=== PATIENT | male | born 1930 | race Caucasian/White ===

== ENCOUNTER 2018-06-11 05:02 | Emergency (ER) | payer OTHER ==
[2018-06-11 05:13] VITALS: BP 120/67; PULSE 68; TEMP 98; BMI 26.4
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
== END 2018-06-11 06:11 | disposition home or self-care (01) ==
LOC: FER 05:02
DX: S40.011A Contusion of right shoulder, initial encounter (principal); V00.141A Fall from scooter (nonmotorized), initial encounter; Y93.I9 Activity, other involving external motion; Y92.89 Other specified places as the place of occurrence of the external cause; Z87.891 Personal history of nicotine dependence; I48.91 Unspecified atrial fibrillation; N40.0 Benign prostatic hyperplasia without lower urinary tract symptoms; I10 Essential (primary) hypertension; E78.00 Pure hypercholesterolemia, unspecified; E78.5 Hyperlipidemia, unspecified; I50.9 Heart failure, unspecified
CPT/HCPCS: 73030-TC-RT-FY; 99281-25

== ENCOUNTER 2018-07-20 00:39 | Emergency (ER) | payer OTHER ==
[2018-07-20 00:50] VITALS: TEMP 97.8; BMI 25.4
--- NOTE | 2018-07-20 03:09 | PDOC ---
History of Present Illness - General Chief Complaint: Injury Stated Complaint: FALL Time Seen by Provider: 07/20/18 01:49 History Source: Patient, Spouse ( present for interview) Exam Limitations: No Limitations - History of Present Illness Initial Comments: 88 y/o male presenting to [facility] ER via ambulance from home complaining of pain and possible injury to neck, lower back, and right hip. Pt is s/p fall from standing height in his bathroom at approx. 12pm yesterday (19 Jul 2018; 12 hours prior to arrival in ED). He states he lost his balance while attempting to correct the position of the toilet seat cover. This reportedly happens occasionally because of his lower extremity neuropathy. He denies hitting his head or losing consciousness. found the pt sitting up on the floor several minutes later. 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 He became concerned after the pain failed to resolve. Denies nausea/vomiting, syncope, headache, vision changes, or trouble swallowing. denies observing change in mentation. Pt is on Pradaxa for A-fib. PCP: Dr. Simon Medical Hx: - HTN - Atrial fibrillation - Hyperlipidemia - CHF - Peripheral neuropathy of unclear etiology - Gout Past History - Past Medical History Allergies/Adverse Reactions: Allergies Allergy/AdvReac Type Severity Reaction Status Date / Time colchicine AdvReac Intermediate vasculitis Verified 07/20/18 00:42 Home Medications: Ambulatory Orders Timolol Maleate [Istalol] 1 drop OD OU DAILY 05/03/12 Cetirizine HCl [Zyrtec] 10 mg PO DAILY tablet 03/07/17 traMADol HCL [Ultram -] 50 mg PO BID PRN #10 tablet MDD 2 tabs 07/20/18 Cardiac Disorders: Yes (A FIB) COPD: No Disorders: Yes (BPH) HTN: Yes Hypercholesterolemia: Yes - Surgical History Cardiac Surgery: Yes (STENTS) - Suicide/Smoking/Psychosocial Hx Smoking Status: No Smoking History: Never smoked Have you smoked in the past 12 months: No Number of Cigarettes Smoked Daily: 0 If you are a former smoker, when did you quit?: 50 Information on smoking cessation initiated: No 'Breaking Loose' booklet given: 06/11/18 Hx Alcohol Use: No Drug/Substance Use Hx: No Substance Use Type: Alcohol Hx Substance Use Treatment: No Review of Systems - Review of Systems Able to Perform ROS?: Yes Comments:: In addition to that documented in the HPI above, the additional ROS was obtained : Constitutional: Denies fevers or chills Eyes: Denies vision changes ENMT: Denies sore throat CV: Denies chest pain Resp: Denies SOB GI: Denies vomiting or diarrhea *Physical Exam - Vital Signs Last Vital Signs Temp Pulse Resp BP Pulse Ox 97.8 F 74 18 182/123 H 95 07/20/18 00:43 07/20/18 00:43 07/20/18 00:43 07/20/18 00:43 07/20/18 00:43 - Physical Exam Comments: Constitutional: Elderly male in no acute distress but obvious moderate discomfort. Found semi-fowlers in hospital bed. Alert and oriented x4. Answered all questions appropriately and completely. Speech was non-labored, non- pressured. Head: Normocephalic. No obvious external signs of trauma. No periorbital ecchymosis or Battles sign. Eyes: PERRL. EOMI. Sclerae white. Conjunctiva moist and not injected. Ears: External auditory canals and tympanic membranes clear. Hearing grossly intact. No hemotympanum. Nose: No nasal discharge. Throat: Oral cavity and pharynx normal. No inflammation, swelling, exudate, or lesions. Teeth in poor general condition with multiple carries. Neck: Supple, trachea is midline. Pt able to laterally rotate neck to left and right >45 degrees. No subjective C-spine tenderness or bony deformities. No step off. Cardiovascular: Irregularly irregular rhythm. No murmur, rubs, clicks, or gallops. Peripheral pulses: Radial pulses full. Respiratory: Breathing unlabored. Equal chest rise and fall. Clear to auscultation bilaterally. No stridor, no wheezing, no rhonchi. Gastrointestinal: abdomen is soft, non-tender, non-distended. No pulsatile masses. Neuro: Alert and oriented. Moving all four extremities spontaneously. R and L lower extremity: proximal and distal strength 5/5, airport clerk strength 5/5 - equal and symmetric. Plantar flexion and dorsiflexion 5/5. Skin/MSK: Warm and dry. Large ecchymotic lesion to right flank and small one to top of right iliac crest. No obvious bony deformity. Subjective tenderness to midline in upper back. Small abrasions to R and L knee, no bleeding. Psych: Affect: appropriate. Mood: normal. ED Treatment Course - RADIOLOGY Radiology Studies Ordered: Category Date Time Status ABDOMEN & PELVIS CT W/O CONTR [CT] Stat CT Scan 07/20/18 02:[address] W/O CONTR [CT] Stat CT Scan 07/20/18 02:[address] WITHOUT CONTRAST [CT] Stat CT Scan 07/20/18 02:[address] WITHOUT CONTRAST [CT] Stat CT Scan 07/20/18 02:30 Ordered Radiograph Interpretation: Head CT: Hussain aBdillo MD wrote on Jul 20, 2018 at 04:03 AM: Referring Physician: BISHOP HANNON Patient Name: PAIGE GUZMAN THIS IS A PRELIMINARY REPORT FROM [facility] DATE OF SERVICE: 2018-07-20 03:29:58 IMAGES: [id number] EXAM: CT HEAD CT WITHOUT CONTRAST HISTORY: Trauma COMPARISON: None. FINDINGS: Brain parenchyma is normal in attenuation with no mass or hematoma. There is no midline shift. There is focal encephalomalacia in the right occipital lobe Ventricles are normal. Sulci and extra-axial CSF spaces are normal. Intracranial vascular structures are normal in attenuation There is no calvarial fracture. Paranasal sinuses are normally aerated. 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 THIS DOCUMENT HAS BEEN ELECTRONICALLY SIGNED Hussain Badillo MD 07/20/2018 04:[address]: Hussain Badillo MD wrote on Jul 20, 2018 at 05:37 AM: Referring Physician: BISHOP HANNON Patient Name: PAIGE GUZMAN THIS IS A PRELIMINARY REPORT FROM [facility] DATE OF SERVICE: 2018-07-20 03:35:09 IMAGES: [id number] EXAM: CT CERVICAL SPINE CT W/O CONTR HISTORY: Trauma COMPARISON: None. FINDINGS: Vertebral bodies appear normal with no fracture Vertebral bodies are normally aligned Airway is intact Soft Tissues are normal Pulmonary apices are normal IMPRESSION: No cervical spine fracture One or more of the following dose reduction techniques were used: automated exposure control, adjustment of the mA and/or kV according to patient size, use of iterative reconstructive technique. THIS DOCUMENT HAS BEEN ELECTRONICALLY SIGNED Hussain Badillo MD 07/20/2018 05:[address] Hussain Badillo MD wrote on Jul 20, 2018 at 04:06 AM: Referring Physician: BISHOP HANNON Patient Name: PAIGE GUZMAN THIS IS A PRELIMINARY REPORT FROM [facility] DATE OF SERVICE: 2018-07-20 03:37:49 IMAGES: [id number] EXAM: CHEST CT WITHOUT CONTRAST HISTORY: Trauma COMPARISON: None. FINDINGS: Heart:: Heart is enlarged. There is coronary artery calcified patient. Left ventricle is enlarged Pericardium: not thickened Thoracic aorta and great vessels: Normal Superior vena cava and inferior vena cava: Normal Pulmonary arteries: Normal Thoracic esophagus: Normal Mediastinal lymph nodes: Normal Central airways: Normal Lungs: clear without focal consolidation Pleural spaces: There is small left pleural fluid collection Chest wall: Normal Superior abdomen: Normal IMPRESSION: Small left pleural fluid collection One or more of the following dose reduction techniques were used: automated exposure control, adjustment of the mA and/or kV according to patient size, use of iterative reconstructive technique. THIS DOCUMENT HAS BEEN ELECTRONICALLY SIGNED Hussain Badillo MD 07/20/2018 04:04 EST Abdomen and Pelvis CT Hussain Badillo MD wrote on Jul 20, 2018 at 04:12 AM: Referring Physician: BISHOP HANNON Patient Name: PAIGE GUZMAN THIS IS A PRELIMINARY REPORT FROM [facility] DATE OF SERVICE: 2018-07-20 03:41:49 IMAGES: [id number] EXAM: ABDOMEN \T\ PELVIS CT W/O CONTR HISTORY: Trauma COMPARISON: None. 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 Spleen: Normal Pancreas: Normal Gallbladder: Normal Stomach: Normal Small bowel: Normal Large bowel: Normal Appendix: Normal Adrenals:Normal Kidneys: Normal Vascular: Normal Lymphatic: Normal Peritoneal: No free peritoneal air or fluid Pelvis: Prostate: normal Rectum: Normal Bladder: Normal The infe the rior thorax: There is a small left pleural fluid collection General: Skeletal: Normal Abdominal wall: Normal Impression n: Small left pleural fluid collection is nonspecific and may be related to trauma although there is no rib fracture identified alternatively, finding may be related to cardiac dysfunction, or inflammatio One or more of the following dose reduction techniques were used: automated exposure control, adjustment of the mA and/or kV according to patient size, use of iterative reconstructive technique. THIS DOCUMENT HAS BEEN ELECTRONICALLY SIGNED Hussain Badillo MD 07/20/2018 04:09 EST Medical Decision Making - Medical Decision Making *Reviewed vital signs, nursing notes, and prior visit documentation (if available). 88 y/o male complaining of pain s/p likely mechanical fall. On Dabigatran ( Pradaxa). Afebrile. Vitals remarkable for hypertension without tachycardia. Ecchymosis on right flank concerning for rib fracture versus retroperitoneal injury. Ecchymosis over right iliac crest likely soft tissue injury versus fracture. Will obtain head and cervical spine CT given age and anticoagulated state to evaluate for intracranial hemorrhage. Will obtain abdomen and pelvic CT to evaluate for retroperitoneal, hip, and pelvic injury. Will obtain chest CT to evaluate for rib fractures as pt is already being scanned above and below injury. Pt states he does not take pain medication and declined analgesia. Discussed the importance of adequate pain control with suspected rib fractures given possibility of complications from shallow inspiration. Again pt declined analgesia. CT scans unrevealing for intracranial, c-spine, rib, pelvic, or retroperitoneal injury. Ecchymosis likely indicative for soft tissue injury only. Attending discussed imaging results with pt. Will prescribe tramadol for pain management. Will provided incentive spirometer. Ordered home antihypertensive medications as hypertension has persisted. On re-exam, hypertension has improved. Discussed imaging results with pt. Gave instruction on incentive spirometer use. Answered all questions. Provided return precautions. Pt expressed verbal understanding and agreement with plan to discharge home with outpatient follow up. *DC/Admit/Observation/Transfer Diagnosis at time of Disposition: Soft tissue injury of chest wall Qualifiers: Encounter type: initial encounter Qualified Code(s): S29.9XXA - Unspecified injury of thorax, initial encounter Soft tissue injury of right hip Qualifiers: Encounter type: initial encounter Qualified Code(s): S79.911A - Unspecified injury of right hip, initial encounter - Discharge Dispostion Disposition: HOME Condition at time of disposition: Stable Decision to Admit order: No - Prescriptions Prescriptions: traMADol HCL [Ultram -] 50 mg PO BID PRN #10 tablet MDD 2 tabs PRN Reason: Pain - Referrals Referrals: Chan Simon MD [Primary Care Provider] - - Patient Instructions Printed Discharge Instructions: How to Use an Incentive Spirometer, How to Prevent Falls, DI for Blunt Trauma Additional Instructions: The CT scans did not show any fractures or breaks. You likely have a bad soft tissue injury on your right side and right hip. You need to use the incentive spirometer provided today once an hour for the next week. This will help make sure you are fully inflating your lungs. Taking shallow breaths can cause pneumonia. I have sent an electronic prescription for Ultram to your pharmacy. Takes as directed on the package insert. Do not take more than the recommended dose. You should follow up with your primary care doctor within the next week. You will need to call to make an appointment. I have attached copies of your CT scan results to this packet. Take this with you so your doctor can review them. Go to the nearest emergency department if your condition worsens or you feel like you need additional emergency evaluation. Print Language: [place] - Post Discharge Activity
[2018-07-20] MEDS ORDERED: CARVEDILOL 3.125 MG TABLET (FP) PO ONE (04:51)
[2018-07-20] MEDS ORDERED: amLODIPine BESYLATE 5 MG TABLET (FP) PO ONE (04:51)
--- NOTE | 2018-07-20 04:57 | PDOC ---
Attending Attestation - Resident Resident Name: Ricky Hoang - ED Attending Attestation I have performed the following: I have examined & evaluated the patient, The case was reviewed & discussed with the resident, I agree w/resident's findings & plan - HPI HPI: 07/20/18 04:53 58-year-old male on pradaxa for atrial fibrillation, neuropathy with unstable gait at baseline requiring cane presents status post fall around 12 noon in the setting of walking without his cane. The patient lost his balance as is typical with his neuropathy, fell to the ground striking his head and thorax. No LOC, no subsequent headache/vision change/speech change/neck pain/nausea/vomiting/ focal deficit, presents with brought in by EMS with expanding right back hematoma. No hematuria, no abdominal pain. Slight bruising to his hand but no motor or sensory deficit, ambulating comfortably otherwise without fifth pain or knee pain. - Physicial Exam PE: 07/20/18 04:54 Blood pressure elevated as noted General: Patient is alert and in no acute distress. Speech is clear and appropriate. Head: Atraumatic and nontender. HEENT: Pupils are equal round and reactive to light, extraocular movements are intact. No facial deformity/tenderness, no septal hematoma. The oropharynx is clear. Neck: The trachea is midline, there is no stridor. There is no midline cervical spine tenderness, full range of motion of neck. Chest: Right lower posterior thoracic skin hematoma with ecchymosis, no crepitus , slight tenderness to the underlying ribs without palpable step-off or deformity. No flail segment, no lacerations or abrasions. Heart: S1-S2, regular rate and rhythm. No murmurs. Lungs: Clear to auscultation bilaterally. Symmetric chest rise. Abdomen: Soft/nontender/nondistended. Bowel sounds are normal. There is no abdominal or flank ecchymosis. Back/Pelvis: There is no midline spine tenderness or step-off. Pelvis is stable and nontender. Extremities: There is no extremity deformity or joint swelling. No focal bony tenderness throughout. 2+ distal pulses throughout. Neuro: Alert and oriented x3. Cranial nerves II through XII are intact. 5 out of 5 motor strength x4 extremities. [id number] is intact. No pronator drift. Gait is stable. Skin: Slight bruising over the right third fourth and fifth MCPs, No abrasions/ lacerations. Psych: Affect is appropriate. - Medical Decision Making 07/20/18 04:56 88-year-old male on blood thinners with accidental fall and right lower posterior rib injury and head injury. Hemodynamically stable with elevated blood pressures, neurologically intact. No red flags, but rule out internal injury. CT of the head, C-spine, chest, abdomen, pelvis showed likely chronic left small pleural effusion, otherwise no acute injury. There is no rib fracture or pneumothorax, there is no retroperitoneal bleed, there is no evidence of pelvis or hip fracture. Feels well, at bedside, slightly limited mobility secondary to pain but agreeable to pain medications at home Understands strict return criteria, importance of incentive spirometer, will follow-up with PCP.
[2018-07-20] MEDS ORDERED: amLODIPine BESYLATE 5 MG TABLET (FP) ONE (05:05)
[2018-07-20] MEDS ORDERED: CARVEDILOL 3.125 MG TABLET (FP) ONE (05:06)
[2018-07-20 05:19] VITALS: PULSE 82
[2018-07-20 06:01] VITALS: BP 145/93
--- NOTE | 2018-07-20 11:28 | PDOC ---
Patient Follow-up (Call Back) - Post ED Follow - Up Condition at time of discharge: Stable Disposition at time of original discharge: HOME Reason for Call Back: Radiology (Pt w/ + rt rib fx. Spoke to who states has incentive spirometer and will encourage usage. also understands if he continues to have worsening pain and is unable to get appt with his PCP Dr. Simon to return to the ED. Otherwise he can keep his appointment on August 15.)
== END 2018-07-20 06:39 | disposition home or self-care (01) ==
LOC: JER 00:39
DX: S79.911A Unspecified injury of right hip, initial encounter (principal); S29.9XXA Unspecified injury of thorax, initial encounter; W18.39XA Other fall on same level, initial encounter; Y93.89 Activity, other specified; Y92.002 Bathroom of unspecified non-institutional (private) residence as the place of occurrence of the external cause
CPT/HCPCS: 70450-TC; 71250-TC; 72125-TC; 74176-TC; 99282-25

== ENCOUNTER 2018-11-11 14:58 | Inpatient (IN) | payer OTHER ==
--- NOTE | 2018-11-11 15:17 | PDOC ---
History of Present Illness - General Stated Complaint: CONSTIPATION Time Seen by Provider: 11/11/18 15:15 - History of Present Illness Initial Comments: 88yo M with PMH of CHF, HTN/HLD, peripheral neuropathy, AFib on pradaxa, BPH, 2 stents, gout presenting with shortness of breath. Patient states he has had this problem for the past three or four days, but it worsened today and so he decided to come to the ED. This has never happened before. Patient recently returned from a vacation in [facility] 10/23-11/06. He reports that during that trip he felt weak. He visited the ED in for abdominal discomfort and was diagnosed with fecal impaction. Patient has taken three days of miralax and had a small stool yesterday. In the past week or so, he has had a poor appetite, and has only eaten half an Ensure and some water for his medicines. His at the bedside reports that he has shortness of breath when he lays flat, though the patient is equivocal. He has never been on a diuretic before. Denies fever, chills, chest pain, or abdominal pain. PCP: Dr. Simon Cardio: Dr. Kyaw Rivera Past History - Past Medical History Allergies/Adverse Reactions: Allergies Allergy/AdvReac Type Severity Reaction Status Date / Time colchicine AdvReac Intermediate vasculitis Verified 11/11/18 15:27 Home Medications: Ambulatory Orders Allopurinol [Zyloprim -] 100 mg PO BID 11/11/18 Amlodipine Besylate 5 mg PO HS 11/11/18 Aspirin [ASA -] 81 mg PO DAILY 11/11/18 Atorvastatin Ca [Lipitor] 40 mg PO HS 11/11/18 Carvedilol 3.125 mg PO BID 11/11/18 Cetirizine HCl [Zyrtec -] 10 mg PO HS 11/11/18 Cholecalciferol (Vitamin D3) [Vitamin D] 2,000 unit PO DAILY 11/11/18 Clobetasol Propionate/Emoll [Clobetasol Emollient 0.05% Crm] 15 gm TP PRN PRN Dabigatran Etexilate Mesylate [Pradaxa -] 150 mg PO BID 11/11/18 Dutasteride [Avodart] 0.5 mg PO DAILY 11/11/18 Famotidine 20 mg PO HS 11/11/18 Fluticasone Prop 0.05% Nasal [Flonase -] 1 - 2 spray NS DAILY 11/11/18 Timolol Maleate [Istalol] 2.5 ml OP DAILY 11/11/18 Cardiac Disorders: Yes (A FIB) COPD: No Disorders: Yes (BPH) HTN: Yes Hypercholesterolemia: Yes - Surgical History Cardiac Surgery: Yes (STENTS) - Suicide/Smoking/Psychosocial Hx Smoking Status: No Smoking History: Never smoked Have you smoked in the past 12 months: No Number of Cigarettes Smoked Daily: 0 If you are a former smoker, when did you quit?: 50 'Breaking Loose' booklet given: 06/11/18 Hx Alcohol Use: No Drug/Substance Use Hx: No Substance Use Type: Alcohol Hx Substance Use Treatment: No Review of Systems - Review of Systems Comments:: Constitutional: no fever, no chills HEENT: no throat pain, no dysphagia Cardiovascular: no chest pain, no palpitations Respiratory: no cough, +shortness of breath Gastrointestinal: no vomiting, +constipation Genitourinary: no dysuria, no frequency Musculoskeletal: no myalgia, no arthralgia Skin: no rash, no itching Neurologic: no headache, no dizziness *Physical Exam - Physical Exam Comments: General: Awake, alert, and fully oriented, in no acute distress Head: No signs of trauma Eyes: EOMI, sclera anicteric ENT: Moist mucus membranes Neck: Normal ROM, supple Lungs: Crackles appreciated on the left Cardio: Irregular rate, S1 and S2 present Abdomen: Soft, nontender. No guarding, no rebound, no masses Extremities: Normal range of motion, Distal pulses present, No BLE edema SKIN: Warm, Dry, normal turgor Neurologic: Cranial nerves II through XII grossly intact. Normal speech Nurse notes that upon taking rectal temp, patient had copious stool in the vault ED Treatment Course - LABORATORY CBC & Chemistry Diagram: 11/11/18 16:38 11/11/18 16:38 Medical Decision Making - Medical Decision Making 88yo M with PMH of CHF, HTN/HLD, peripheral neuropathy, AFib on pradaxa, BPH, 2 stents, gout presenting with shortness of breath. DDX including but not limited to CHF exacerbation, PE, COPD, Asthma, PNA, ACS VSS significant for fever, tachycardia, and hypoxia (while taking history, sats would go into the 80s) Septic workup [address] [place] [address] for fever PE considered given tachycardia, hypoxia, SOB, and recent travel-- however, will check for other reasons for SOB given elevated Cr at baseline EKG: rate 63, QTc 460, Afib, incomplete RBBB CXR: "Dense retrocardiac area. Old right rib fracture. No anemia or leukocytosis BNP noted to be >30K Cr=2.2 which is at patient's baseline Lactate normal Patient not yet able to provide urine sample 40 Catherine ordered Plan to admit for CHF exacerbation 11/11/18 19:[address] Martha Umanzor who accepted patient for admission under Dr. Fountain. 11/11/18 19:21 *DC/Admit/Observation/Transfer Diagnosis at time of Disposition: Acute exacerbation of congestive heart failure - Discharge Dispostion Condition at time of disposition: Guarded Decision to Admit order: Yes - Referrals - Patient Instructions - Post Discharge Activity
[2018-11-11] MEDS ORDERED: ACETAMINOPHEN 1000 MG/100 ML VIAL (NON FORMULARY) IVPB ONE (16:18)
--- NOTE | 2018-11-11 16:31 | PDOC ---
Attending Attestation - HPI HPI: 11/11/18 16:41 The patient is an 88 year old male, with a significant PMH of HTN, Afib (on pradaxa), HLD, CHF, Peripheral neuropathy of unclear etiology, and gout, who presents to the emergency room for SOB for several days. The patient states he was on vacation in [place] when he began to feel unwell and was seen by a provider there and was treated for constipation. The Patient states for the last week since returning home he has had SOB and a poor appetite, SOB was bad enough today to bring him to the ED. The patient denies chest pain, headache and dizziness. Denies fever, chills, nausea, vomit, diarrhea and constipation. Denies dysuria, frequency, urgency and hematuria. Allergies: colchicine Social history: Former smoker PCP: Dr. Simon <Lyndsey Hernandez - Last Filed: 11/11/18 16:41> - Resident Resident Name: Magda Darnell - ED Attending Attestation I have performed the following: I have examined & evaluated the patient, The case was reviewed & discussed with the resident, I agree w/resident's findings & plan, Exceptions are as noted - Physicial Exam PE: GENERAL: Awake, alert, and fully oriented, in no acute distress HEAD: No signs of trauma EYES: PERRLA, EOMI, sclera anicteric, conjunctiva clear ENT: Auricles normal inspection, hearing grossly normal, nares patent, oropharynx clear without exudates. Moist mucosa NECK: Normal ROM, supple, no lymphadenopathy, JVD, or masses LUNGS: Dec air entry B/L. Scattered rhonchi. HEART: Regular rate and rhythm, normal S1 and S2, no murmurs, rubs or gallops ABDOMEN: Soft, nontender, normoactive bowel sounds. No guarding, no rebound. No masses EXTREMITIES: Normal range of motion, no edema. No clubbing or cyanosis. No cords, erythema, or tenderness NEUROLOGICAL: Cranial nerves II through XII grossly intact. Normal speech, normal gait. Motor and sensation intact SKIN: Warm, Dry, normal turgor. +Stasis changes to B/L lower shins. - Medical Decision Making Pt with SOB. Noted to have fever, SOB, rhonchi on exam. DDx includes CHF, pna, flu. <Magda Bianchi Last Filed: 11/11/18 17:57> Attestations - Attestations 11/11/18 16:41 Documentation prepared by Lyndsey Hernandez, acting as esthetician and manager medical spa for Magda Bianchi MD. <Lyndsey Hernandez - Last Filed: 11/11/18 16:41>
[2018-11-11] MEDS ORDERED: ACETAMINOPHEN INJECTION 100 ML IVPB ONE (16:35)
[2018-11-11 16:53] LABS: BASO % 0.9 % (0-2.0); EOS % 0.2 % (0-4.5); HEMATOCRIT 35.5 % (35.4-49); HEMOGLOBIN 12.3 GM/dL (11.7-16.9); LYMPH % 10.1 % (8-40); MCH 32.8 pg (25.7-33.7); MCHC 34.8 g/dl (32.0-35.9); MEAN CELL VOLUME 94.3 fl (80-96); MEAN PLT VOLUME 8.1 fl (7.5-11.1); MONO % 6.7 % (3.8-10.2); NEUT % 82.1 % (42.8-82.8); PLATELET COUNT 170 K/MM3 (134-434); RBC 3.76 M/mm3 (4.00-5.60); RDW 15.4 % (11.9-15.9); WHITE BLOOD COUNT 8.5 K/mm3 (4.0-10.0)
[2018-11-11 17:12] LABS: INR 1.73 (0.83-1.09); PROTHROMBIN TIME (PATIENT) 20.5 SEC (9.7-13.0)
[2018-11-11 17:15] LABS: ACTIVATED PTT 61.8 SECONDS (25.2-36.5)
[2018-11-11 17:49] LABS: ALBUMIN 2.7 g/dl (3.4-5.0); ALK PHOS 141 U/L (45-117); ANION GAP 10 MMOL/L (8-16); BILIRUBIN,TOTAL 1.5 mg/dL (0.2-1); BLOOD UREA NITROGEN 23 mg/dL (7-18); CALCIUM 8.7 mg/dL (8.5-10.1); CHLORIDE 106 mmol/L (98-107); CO2 25 mmol/L (21-32); CREATININE 2.2 mg/dL (0.55-1.3); GLUCOSE,RANDOM 192 mg/dL (74-106); POTASSIUM 4.4 mmol/L (3.5-5.1); SGOT/AST 13 U/L (15-37); SGPT/ALT 9 U/L (13-61); SODIUM 140 mmol/L (136-145); TOT PROT 6.3 g/dl (6.4-8.2)
[2018-11-11] MEDS ORDERED: FUROSEMIDE 40 MG/4 ML INJECTABLE VIAL IVPUSH ONE (18:58)
[2018-11-11] MEDS ORDERED: FUROSEMIDE 40 MG/4 ML INJECTABLE VIAL ONE ×3 (19:23→23:21)
[2018-11-11] MEDS ORDERED: PATIENT'S OWN MEDICATION (NON-FORMULARY) (Clobetasol Propionate/Emoll [Clobetasol Emollien TP PRN (19:54)
--- NOTE | 2018-11-11 20:01 | PN ---
Teaching Attending Note Name of Resident: Alcon Umanzor ATTENDING PHYSICIAN STATEMENT I saw and evaluated the patient. I reviewed the resident's note and discussed the case with the resident. I agree with the resident's findings and plan as documented. SUBJECTIVE: Patient is an 88 year old man with PMH of CHF, HTN/HLD, peripheral neuropathy, AFib on pradaxa, BPH, 2 stents, gout presenting with worsening shortness of breath for 4 days. This has never happened before. Patient recently returned from a vacation in [place] 10/23-11/06. He reports that during that trip he felt weak. He visited the ER in [facility] for abdominal discomfort and was diagnosed with fecal impaction. Patient has taken three days of miralax and had a small stool yesterday. In the past week or so, he has had a poor appetite, and only drank half an Ensure and some water for his medicines. His at the bedside reports that he has shortness of breath when he lays flat, though the patient is equivocal. He has never been on a diuretic before. He has limited mobility due to peripheral neuropathy and uses a motorized scooter. Denies fever , chills, chest pain, dysuria, frequency, headache, vomting or abdominal pain. OBJECTIVE: Alert Vital Signs Period Temp Pulse Resp BP Sys/Nichols Pulse Ox Last 24 Hr 100.0 F 98 16 160/83 100-100 HEENT: No Jaundice, eye redness or discharge, PERRLA, EOMI. Normocephalic, atraumatic. External ears are normal and hearing is grossly intact. No nasal discharge. Neck: Supple, nontender. No palpable adenopathy or thyromegaly. No JVD Chest: Good effort. Diminished breath sounds in both bases with few crackles. Clear to percussion. Heart: Irregularly irregular. No S3, rub or murmur Abdomen: Not distended, soft, nontender and no HSM. No rebound or guarding. Normal bowel sounds. Ext: Peripheral pulses intact. No leg edema. Skin: Warm and dry. No petechiae, rash or ecchymosis. Neuro: Alert. Oriented x3. CN 2-12 grossly intact. Sensation grossly intact in all four extremities and DTR are symmetric. Psych: Appropriate mood and affect. Good insight. Home Medications Medication Instructions Recorded Allopurinol [Zyloprim -] 100 mg PO BID 11/11/18 Amlodipine Besylate 5 mg PO HS 11/11/18 Aspirin [ASA -] 81 mg PO DAILY 11/11/18 Atorvastatin Ca [Lipitor] 40 mg PO HS 11/11/18 Carvedilol 3.125 mg PO BID 11/11/18 Cetirizine HCl [Zyrtec -] 10 mg PO HS 11/11/18 Cholecalciferol (Vitamin D3) 2,000 unit PO DAILY 11/11/18 [Vitamin D] Clobetasol Propionate/Emoll 15 gm TP PRN PRN 11/11/18 [Clobetasol Emollient 0.05% Crm] Dabigatran Etexilate Mesylate 150 mg PO BID 11/11/18 [Pradaxa -] Dutasteride [Avodart] 0.5 mg PO DAILY 11/11/18 Famotidine 20 mg PO HS 11/11/18 Fluticasone Prop 0.05% Nasal 1 - 2 spray NS DAILY 11/11/18 [Flonase -] Timolol Maleate [Istalol] 2.5 ml OP DAILY 11/11/18 Abnormal Lab Results 11/11/18 11/11/18 11/11/18 16:38 16:38 16:38 RBC 3.76 L PT with INR 20.50 H INR 1.73 H PTT (Actin FS) 61.8 H BUN 23 H Creatinine 2.2 H Random Glucose 192 H Total Bilirubin 1.5 H AST 13 L ALT 9 L Alkaline Phosphatase 141 H B-Natriuretic Peptide Total Protein 6.3 L Albumin 2.7 L 11/11/18 16:38 RBC PT with INR INR PTT (Actin FS) BUN Creatinine Random Glucose Total Bilirubin AST ALT Alkaline Phosphatase B-Natriuretic Peptide 25161.5 H Total Protein Albumin ASSESSMENT AND PLAN: 1. CHF exacerbation - Though his ECHO from 03/07/16 showed moderately reduced LV systolic function, mildly dilated LV and grade III diastolic dysfunction, he is not on any medications for treated for CHF. CXR is rotated with mild cardiomegaly and blunted left costophrenic angle with either effusion or infiltrate. Will get chest CT scan to rule out pneumonia since he had a low grade fever on admission. Will get stat urinalysis. Though elevated LFT may be due to congestion related to CHF, will get CT abdomen to investigate the hepatobiliary system. He got 40 mg IV lasix in the ER and didnot produce much urine. Will give 80 mg of lasix (in view of ?CKD) and monitor urine output. EKG shows afib with no significant ST-T wave changes; initial troponin is negative. Admit to telemetry , rule out ACS, get ECHO, fasting lipids and consult cardiology. If CKD is confirmed, then he may need to be switched from PRADAXA to ?Eliquis. Though he had just been on a long flight, pulmonary embolism is unlikely because he is now comfortable with no SOB at rest, is oxygenating well and is on Pradaxa. If he develops respiratory distress, we will get a VQ scan to rule out PE. 2. Hypoalbuminemia - Possibly due to combined effects of malnutrition and inflammation associated with comorbid chronic conditions. Will ensure adequate dietary protein intake and also consult womens health nurse practitioner. 3. CKD? - Has multiple risk factors. Get PTH, uric acid and phosphate levels. Consult nephrology and avoid nephrotoxic agents such as NSAIDS, aminoglycosides , contrast dyes and certain Alternative medicine products. 4. Hypertension - Restart outpatient antihypertensive drugs and revise regimen to ensure smooth [id number] good BP control. Nonpharmacologic measures to control hypertension like weight loss, salt restriction and exercise discussed. 5. DVT prophylaxis - On Pradaxa for Afib. 6. Advance directives - Full code
--- NOTE | 2018-11-11 21:03 | HP ---
CHIEF COMPLAINT:shortness of breath PCP:Dr. Simon Cardio: Dr. Kyaw Rivera HISTORY OF PRESENT ILLNESS: Patient is an 88 year old male with past medical history of HTN, HLD, Atrial fibrillation (on Pradaxa), CHF, Peripheral neuropathy (unable to ambulate), gout , nonessential tremor, presented to the ED due to shortness of breath for 1 day. Patient is a poor historian, most of the history from his , Naomi Champion. Patient and went to [place] 2 weeks ago, where patient was seen at the ED after reporting abdominal pain. He was diagnosed with fecal impaction and was given enema and miralax, and reportedly had a bowel movement afterwards. They came home about a week ago. This morning, patient reported he was having shortness of breath and his brought her to the ED. Patient reports he was starting to have "fecal impaction" again, but denies any fever, chills, headache , dizziness, nausea, vomiting, chest pain, palpitations, abdominal pain, diarrhea, urinary symptoms. ER course was notable for: (1)BUN/Cr 23/2.2, BNP 84810 (2)T-bili 1.5, Alk phos 141 (3)CXR: dense retrocardiac area Recent Travel:[place] PAST MEDICAL HISTORY: HTN HLD Atrial fibrillation (on Pradaxa) CHF Peripheral neuropathy (unable to ambulate) gout nonessential tremor PAST SURGICAL HISTORY: cardiac stent x2, 2016 Social History: Smoking:previous smoker, quit >30 years ago Alcohol:occasional Drugs: denies Family History: noncontributory Allergies colchicine Adverse Reaction (Intermediate, Verified 11/11/18 15:27) vasculitis HOME MEDICATIONS: Home Medications Medication Instructions Recorded Allopurinol [Zyloprim -] 100 mg PO BID 11/11/18 Amlodipine Besylate 5 mg PO HS 11/11/18 Aspirin [ASA -] 81 mg PO DAILY 11/11/18 Atorvastatin Ca [Lipitor] 40 mg PO HS 11/11/18 Carvedilol 3.125 mg PO BID 11/11/18 Cetirizine HCl [Zyrtec -] 10 mg PO HS 11/11/18 Cholecalciferol (Vitamin D3) 2,000 unit PO DAILY 11/11/18 [Vitamin D] Clobetasol Propionate/Emoll 15 gm TP PRN PRN 11/11/18 [Clobetasol Emollient 0.05% Crm] Dabigatran Etexilate Mesylate 150 mg PO BID 11/11/18 [Pradaxa -] Dutasteride [Avodart] 0.5 mg PO DAILY 11/11/18 Famotidine 20 mg PO HS 11/11/18 Fluticasone Prop 0.05% Nasal 1 - 2 spray NS DAILY 11/11/18 [Flonase -] Timolol Maleate [Istalol] 2.5 ml OP DAILY 11/11/18 REVIEW OF SYSTEMS CONSTITUTIONAL: Absent: fever, chills, diaphoresis, generalized weakness, malaise, loss of appetite, weight change HEENT: Absent: rhinorrhea, nasal congestion, throat pain, throat swelling, difficulty swallowing, mouth swelling, ear pain, eye pain, visual changes CARDIOVASCULAR: Absent: chest pain, syncope, palpitations, irregular heart rate, lightheadedness , peripheral edema RESPIRATORY: Absent: cough, shortness of breath, dyspnea with exertion, orthopnea, wheezing, stridor, hemoptysis GASTROINTESTINAL: Absent: abdominal pain, abdominal distension, nausea, vomiting, diarrhea, constipation, melena, hematochezia GENITOURINARY: Absent: dysuria, frequency, urgency, hesitancy, hematuria, flank pain, genital pain MUSCULOSKELETAL: Absent: myalgia, arthralgia, joint swelling, back pain, neck pain SKIN: Absent: rash, itching, pallor HEMATOLOGIC/IMMUNOLOGIC: Absent: easy bleeding, easy bruising, lymphadenopathy, frequent infections ENDOCRINE: Absent: unexplained weight gain, unexplained weight loss, heat intolerance, cold intolerance NEUROLOGIC: Absent: headache, focal weakness or paresthesias, dizziness, unsteady gait, seizure, mental status changes, bladder or bowel incontinence PSYCHIATRIC: Absent: anxiety, depression, suicidal or homicidal ideation, hallucinations. PHYSICAL EXAMINATION Vital Signs - 24 hr 11/11/18 15:26 Temperature 100.0 F H Pulse Rate 98 H Respiratory 16 Rate Blood Pressure 160/83 O2 Sat by Pulse 100 Oximetry (%) GENERAL: Awake, alert, and oriented, on 2L NC HEAD: Normal with no signs of trauma. EYES: PERRLA, EOMI, sclera anicteric, conjunctiva clear. EARS, NOSE, THROAT: Ears normal, oropharynx clear without exudates. Moist mucous membranes. NECK: Normal range of motion, supple without lymphadenopathy, JVD, or masses. LUNGS: +bibasilar crackles HEART: Irregularly irregular, normal S1 and S2 without murmur, rub or gallop. ABDOMEN: Soft, obese, nontender, not distended, normoactive bowel sounds. MUSCULOSKELETAL: Normal range of motion at all joints. No CVA tenderness. UPPER EXTREMITIES: 2+ pulses, warm, well-perfused. No cyanosis. No clubbing. No peripheral edema. LOWER EXTREMITIES: 2+ pulses, warm, well-perfused. No calf tenderness. No peripheral edema. NEUROLOGICAL: Cranial nerves II-XII intact. Motor strength 5/5 on b/l UE, 4/5 b /l LE. sensation intact. Normal speech. PSYCHIATRIC: Cooperative. Good eye contact. Appropriate mood and affect. SKIN: Warm, dry, normal turgor. Laboratory Results - last 24 hr 11/11/18 11/11/18 11/11/18 16:38 16:38 16:38 WBC 8.5 RBC 3.76 L Hgb 12.3 Hct 35.5 MCV 94.3 MCH 32.8 MCHC 34.8 RDW 15.4 Plt Count 170 MPV 8.1 Absolute Neuts (auto) 7.0 Neutrophils % 82.1 D Lymphocytes % 10.1 D Monocytes % 6.7 Eosinophils % 0.2 D Basophils % 0.9 Nucleated RBC % 0 PT with INR 20.50 H INR 1.73 H PTT (Actin FS) 61.8 H Sodium 140 Potassium 4.4 Chloride 106 Carbon Dioxide 25 Anion Gap 10 BUN 23 H Creatinine 2.2 H Creat Clearance w eGFR 28.52 Random Glucose 192 H Lactic Acid Calcium 8.7 Total Bilirubin 1.5 H AST 13 L ALT 9 L Alkaline Phosphatase 141 H B-Natriuretic Peptide Total Protein 6.3 L Albumin 2.7 L Influenza A (Rapid) Influenza B (Rapid) 11/11/18 11/11/18 11/11/18 16:38 16:42 16:42 WBC RBC Hgb Hct MCV MCH MCHC RDW Plt Count MPV Absolute Neuts (auto) Neutrophils % Lymphocytes % Monocytes % Eosinophils % Basophils % Nucleated RBC % PT with INR INR PTT (Actin FS) Sodium Potassium Chloride Carbon Dioxide Anion Gap BUN Creatinine Creat Clearance w eGFR Random Glucose Lactic Acid 1.6 Calcium Total Bilirubin AST ALT Alkaline Phosphatase B-Natriuretic Peptide 43933.5 H Total Protein Albumin Influenza A (Rapid) Negative Influenza B (Rapid) Negative ASSESSMENT/PLAN: Patient is an 88 year old male with past medical history of HTN, HLD, Atrial fibrillation (on Pradaxa), CHF, Peripheral neuropathy (unable to ambulate), gout , nonessential tremor, presented to the ED due to shortness of breath for 1 day. #SOB likely 2/2 CHF exacerbation -Echo (2016): LV dilated, LV systolic function reduced, Regional wall motion poorly seen. Diastolic dysfunction Grade II (restrictive). Moderate pulmonary HTN. -Patient or denies any history of CHF, patient not on any diuretics -Will repeat Echo -CXR: dense retrocardiac area -Chest CT - small bilateral pleural effusions with overlying atelectasis, no airspace consolidation -CT abdomen - calcified nodule at the dome of the liver compatible with granuloma. Extensive atherosclerotic vascular calcifications. No bowel distention. Few diverticula in the left colon with no evidence of acute diverticulitis. -IV Lasix 40mg then 80mg given -will continue to monitor UO -Daily weights #CKD -BUN/Cr 23/2.2 -Urinalysis pending -Consider switching pradaxa to eliquis -Avoid nephrotoxic agents such as aminoglycosides, contrast agents #Elevated T. bilirubin -CT abdomen and pelvis to evaluate hepatobiliary system #Atrial fibrillation: rate controlled -Continue Carvedilol -On Pradaxa 150mg BID -Consider switching pradaxa to Eliquis in light of CKD #Hypertension -Continue home Carvedilol 3.125mg BID -Amlodipine 5mg daily #Hyperlipidemia -Continue home Lipitor 40mg PO HS #FEN -Not on any standing fluids -Electrolytes wnl, routine bmp monitoring -Sodium controlled diet (white meat only) #Prophylaxis -On Pradaxa 150mg BID #Disposition -full code -admit to tele Visit type - Emergency Visit Emergency Visit: Yes ED Registration Date: 11/11/18 Care time: The patient presented to the Emergency Department on the above date and was hospitalized for further evaluation of their emergent condition. - New Patient This patient is new to me today: Yes Date on this admission: 11/13/18 - Critical Care Critical Care patient: No
[2018-11-11] MEDS ORDERED: POLYETHYLENE GLYCOL 3350 119 GM BTL PO ONE (21:51)
[2018-11-11] MEDS ORDERED: DOCUSATE SODIUM 100 MG CAPSULE (FP) PO PRN (21:52)
[2018-11-11] MEDS: FUROSEMIDE 40 MG/4 ML INJECTABLE VIAL IVPUSH ONE ×2 (22:37→22:50)
[2018-11-11] MEDS: DABIGATRAN ETEXILATE MESYLATE 150 MG CAPSULE PO SCH (22:37)
[2018-11-11] MEDS ORDERED: amLODIPine BESYLATE 5 MG TABLET (FP) ONE (22:39)
[2018-11-11] MEDS ORDERED: CARVEDILOL 3.125 MG TABLET (FP) ONE (22:39)
[2018-11-11] MEDS ORDERED: ATORVASTATIN CA 40 MG TABLET (FP) ONE (22:39)
[2018-11-11] MEDS: amLODIPine BESYLATE 5 MG TABLET (FP) PO SCH (22:40)
[2018-11-11] MEDS: ATORVASTATIN CA 40 MG TABLET (FP) PO SCH (22:44)
[2018-11-11] MEDS: ALLOPURINOL 100 MG TABLET (FP) PO SCH (22:44)
[2018-11-11] MEDS: CARVEDILOL 3.125 MG TABLET (FP) PO SCH (22:45)
[2018-11-11] MEDS ORDERED: FUROSEMIDE 100 MG/10 ML INJECTABLE VIAL IVPB ONE (23:28)
[2018-11-12 02:49] VITALS: BMI 22.5
[2018-11-12] MEDS ORDERED: HEPARIN NA (PORCINE) 5,000 UNITS/ML 1ML VIAL SQ SCH (06:00)
[2018-11-12 06:30] LABS: URINE APPEARANCE CLEAR; URINE BILIRUBIN NEGATIVE (<2.0 mg/dL); URINE COLOR LTYELLOW; URINE GLUCOSE (UA) 1+ (NEGATIVE); URINE KETONE NEGATIVE (NEGATIVE); URINE LEUK ESTERASE NEGATIVE (NEGATIVE); URINE NITRITE NEGATIVE (NEGATIVE); URINE PROTEIN 3+ (NEGATIVE); URINE UROBILINOGEN NEGATIVE mg/dL (0.2-1.0)
[2018-11-12 06:59] LABS: BASO % 0.6 % (0-2.0); EOS % 3.5 % (0-4.5); HEMATOCRIT 31.4 % (35.4-49); HEMOGLOBIN 10.9 GM/dL (11.7-16.9); LYMPH % 22.6 % (8-40); MCH 32.2 pg (25.7-33.7); MCHC 34.6 g/dl (32.0-35.9); MEAN CELL VOLUME 93.3 fl (80-96); MEAN PLT VOLUME 7.8 fl (7.5-11.1); MONO % 7.7 % (3.8-10.2); NEUT % 65.6 % (42.8-82.8); PLATELET COUNT 160 K/MM3 (134-434); RBC 3.37 M/mm3 (4.00-5.60); RDW 15.3 % (11.9-15.9); WHITE BLOOD COUNT 4.9 K/mm3 (4.0-10.0)
[2018-11-12 07:10] LABS: EPI CELLS RARE /HPF (FEW); URINE BACTERIA RARE /hpf (NONE SEEN); URINE HYALINE CAST 5 /lpf; URINE MUCUS RARE
[2018-11-12 07:19] LABS: INR 1.79 (0.83-1.09); PROTHROMBIN TIME (PATIENT) 21.2 SEC (9.7-13.0)
[2018-11-12 08:18] LABS: ALBUMIN 2.2 g/dl (3.4-5.0); ALK PHOS 112 U/L (45-117); ANION GAP 9 MMOL/L (8-16); BILIRUBIN,TOTAL 0.9 mg/dL (0.2-1); BLOOD UREA NITROGEN 30 mg/dL (7-18); CALCIUM 7.8 mg/dL (8.5-10.1); CHLORIDE 106 mmol/L (98-107); CO2 26 mmol/L (21-32); CREATININE 2.3 mg/dL (0.55-1.3); GLUCOSE,RANDOM 153 mg/dL (74-106); MAGNESIUM 2.4 mg/dL (1.8-2.4); PHOSPHOROUS 3.9 mg/dL (2.5-4.9); POTASSIUM 3.8 mmol/L (3.5-5.1); SGOT/AST 15 U/L (15-37); SGPT/ALT 10 U/L (13-61); SODIUM 141 mmol/L (136-145); TOT PROT 5.2 g/dl (6.4-8.2); URIC ACID 4.3 mg/dL (2.6-7.2)
[2018-11-12] MEDS: DABIGATRAN ETEXILATE MESYLATE 150 MG CAPSULE PO SCH ×2 (09:58→22:41)
[2018-11-12] MEDS: CHOLECALCIFEROL (VITAMIN D3) 1,000 UNIT TABLET (FP) PO SCH (09:59)
[2018-11-12] MEDS: ALLOPURINOL 100 MG TABLET (FP) PO SCH ×2 (09:59→22:41)
[2018-11-12] MEDS: ASPIRIN 81 MG CHEWABLE TABLETS PO SCH (09:59)
[2018-11-12] MEDS: CARVEDILOL 3.125 MG TABLET (FP) PO SCH ×2 (09:59→22:41)
[2018-11-12] MEDS: FUROSEMIDE 40 MG/4 ML INJECTABLE VIAL IVPUSH SCH ×2 (10:00→14:48)
[2018-11-12] MEDS ORDERED: FUROSEMIDE 40 MG/4 ML INJECTABLE VIAL IVPUSH SCH (10:00)
[2018-11-12] MEDS: TIMOLOL 0.5% OPHTHALMIC SOL 5 ML BOTTLE OU SCH (10:46)
--- NOTE | 2018-11-12 11:48 | ECHO ---
Name: LAST, PAIGE Exam:Adult Echocardiogram Study Date: 11/12/2018 07:30 AM Age: 88 yrs Reason For Study: CHF Height: 72 in Weight: 200 lb BSA: 2.1 m2 MMode/2D Measurements & Calculations IVSd: 1.6 cm Ao root diam: 3.3 cm LVIDd: 4.9 cm LA dimension: 5.0 cm LVIDs: 3.1 cm LVPWd: 1.2 cm EDV(Teich): 114.0 ml LVOT diam: 2.0 cm ESV(Teich): 36.6 ml LAV (MOD-bp): 139.0 ml Doppler Measurements & Calculations MV E max jun: 86.8 cm/sec Ao V2 max: 141.2 cm/sec MV dec time: 0.12 sec Ao max P.0 mmHg AI P1/2t: 475.3 msec ANUPAMA(V,D): 1.6 cm2 AI max jun: 154.7 cm/sec LV V1 max P.0 mmHg AI max P.6 mmHg LV V1 max: 70.3 cm/sec AI dec slope: 95.4 cm/sec2 MR max jun: 372.1 cm/sec TR max jun: 279.6 cm/sec MR max P.1 mmHg TR max P.3 mmHg PA V2 max: 95.0 cm/sec Med Peak E' Jun: 4.7 cm/sec PA max P.6 mmHg Med E/e': 18.6 Lat Peak E' Jun: 7.9 cm/sec Lat E/e': 10.9 PI Vmax: 210.4 cm/sec Procedure A complete two-dimensional transthoracic echocardiogram was performed (2D, M-mode, Doppler and color flow Doppler). Left Ventricle The left ventricle is normal in size. There is moderate concentric left ventricular hypertrophy. Left ventricular systolic function is low normal. Ejection Fraction = 50-55%. Right Ventricle The right ventricle is normal size. The right ventricular systolic function is normal. Atria The left atrium is severely dilated. LA volume index is 65 ml/m2. Right atrial size is normal. Mitral Valve There is mild mitral annular calcification. There is mild mitral regurgitation. Tricuspid Valve The tricuspid valve is normal in structure and function. There is mild tricuspid regurgitation. Pulmo nary artery systolic pressure is at least 35 mmHg assuming RA pressure of 3 mmHg. Aortic Valve There is mild aortic sclerosis.;. Trace to mild aortic regurgitation. Pulmonic Valve The pulmonic valve is not well visualized. Mild pulmonic valvular regurgitation. Great Vessels The aortic root is normal size. Pericardium/Pleura Trivial pericardial effusion not hemodynamically significant. There is a pleural effusion present. Interpretation Summary The left ventricle is normal in size. There is moderate concentric left ventricular hypertrophy. Left ventricular systolic function is low normal. Ejection Fraction = 50-55%. The right ventricular systolic function is normal. The left atrium is severely dilated. LA volume index is 65 ml/m2 Right atrial size is normal. There is mild mitral annular calcification. There is mild mitral regurgitation. There is mild tricuspid regurgitation. Pulmonary artery systolic pressure is at least 35 mmHg assuming RA pressure of 3 mmHg There is mild aortic sclerosis. Trace to mild aortic regurgitation. Mild pulmonic valvular regurgitation. Trivial pericardial effusion not hemodynamically significant There is a pleural effusion present. Previous study is not available for comparison Soto Hazel MD 11/12/2018 11:47 AM
--- NOTE | 2018-11-12 13:39 | PN ---
Physical Exam: SUBJECTIVE: Patient seen and examined at bedside- no acute events overnight- patient states he is feeling well; denies any CP/SOB/NV fevers or chills OBJECTIVE: Vital Signs Period Temp Pulse Resp BP Sys/Nichols Pulse Ox Last 24 Hr 97.8 F-100.0 F 42-98 16-20 130-160/56-83 93-100 GENERAL: The patient is awake, alert, and fully oriented, in no acute distress. EYES: PEERLA; EOMI; no scleral icterus NECK: no JVD; no lymphadenopathy. LUNGS: +crackles at the B/L bases HEART: Regular rate and rhythm, S1, S2 without murmur, rub or gallop. ABDOMEN: Soft, nontender, nondistended, normoactive bowel sounds, no guarding, no rebound, no hepatosplenomegaly, no masses. EXTREMITIES: 2+ pulses, warm, well-perfused, no edema. PSYCH: Normal mood, normal affect. SKIN: Warm, dry, normal turgor, no rashes or lesions noted Laboratory Results - last 24 hr 11/11/18 11/11/18 11/11/18 16:38 16:38 16:38 WBC 8.5 RBC 3.76 L Hgb 12.3 Hct 35.5 MCV 94.3 MCH 32.8 MCHC 34.8 RDW 15.4 Plt Count 170 MPV 8.1 Absolute Neuts (auto) 7.0 Neutrophils % 82.1 D Lymphocytes % 10.1 D Monocytes % 6.7 Eosinophils % 0.2 D Basophils % 0.9 Nucleated RBC % 0 PT with INR 20.50 H INR 1.73 H PTT (Actin FS) 61.8 H Sodium 140 Potassium 4.4 Chloride 106 Carbon Dioxide 25 Anion Gap 10 BUN 23 H Creatinine 2.2 H Creat Clearance w eGFR 28.52 Random Glucose 192 H Lactic Acid Uric Acid Calcium 8.7 Phosphorus Magnesium Total Bilirubin 1.5 H AST 13 L ALT 9 L Alkaline Phosphatase 141 H Creatine Kinase Troponin I B-Natriuretic Peptide Total Protein 6.3 L Albumin 2.7 L Triglycerides Cholesterol Total LDL Cholesterol HDL Cholesterol Urine Color Urine Appearance Urine pH Ur Specific Shannon Urine Protein Urine Glucose (UA) Urine Ketones Urine Blood Urine Nitrite Urine Bilirubin Urine Urobilinogen Ur Leukocyte Esterase Urine WBC (Auto) Urine RBC (Auto) Ur Epithelial Cells Urine Bacteria Hyaline Casts Urine Mucus Influenza A (Rapid) Influenza B (Rapid) 11/11/18 11/11/18 11/11/18 16:38 16:42 16:42 WBC RBC Hgb Hct MCV MCH MCHC RDW Plt Count MPV Absolute Neuts (auto) Neutrophils % Lymphocytes % Monocytes % Eosinophils % Basophils % Nucleated RBC % PT with INR INR PTT (Actin FS) Sodium Potassium Chloride Carbon Dioxide Anion Gap BUN Creatinine Creat Clearance w eGFR Random Glucose Lactic Acid 1.6 Uric Acid Calcium Phosphorus Magnesium Total Bilirubin AST ALT Alkaline Phosphatase Creatine Kinase Troponin I B-Natriuretic Peptide 03414.5 H Total Protein Albumin Triglycerides Cholesterol Total LDL Cholesterol HDL Cholesterol Urine Color Urine Appearance Urine pH Ur Specific Shannon Urine Protein Urine Glucose (UA) Urine Ketones Urine Blood Urine Nitrite Urine Bilirubin Urine Urobilinogen Ur Leukocyte Esterase Urine WBC (Auto) Urine RBC (Auto) Ur Epithelial Cells Urine Bacteria Hyaline Casts Urine Mucus Influenza A (Rapid) Negative Influenza B (Rapid) Negative 11/11/18 11/12/18 11/12/18 22:33 05:30 05:30 WBC 4.9 RBC 3.37 L Hgb 10.9 L Hct 31.4 L MCV 93.3 MCH 32.2 MCHC 34.6 RDW 15.3 Plt Count 160 MPV 7.8 Absolute Neuts (auto) 3.2 Neutrophils % 65.6 D Lymphocytes % 22.6 D Monocytes % 7.7 Eosinophils % 3.5 D Basophils % 0.6 Nucleated RBC % 0 PT with INR 21.20 H INR 1.79 H PTT (Actin FS) Sodium Potassium Chloride Carbon Dioxide Anion Gap BUN Creatinine Creat Clearance w eGFR Random Glucose Lactic Acid Uric Acid Calcium Phosphorus Magnesium Total Bilirubin AST ALT Alkaline Phosphatase Creatine Kinase 52 Troponin I 0.03 B-Natriuretic Peptide Total Protein Albumin Triglycerides 60 Cholesterol 86 Total LDL Cholesterol 27 HDL Cholesterol 57 Urine Color Urine Appearance Urine pH Ur Specific Shannon Urine Protein Urine Glucose (UA) Urine Ketones Urine Blood Urine Nitrite Urine Bilirubin Urine Urobilinogen Ur Leukocyte Esterase Urine WBC (Auto) Urine RBC (Auto) Ur Epithelial Cells Urine Bacteria Hyaline Casts Urine Mucus Influenza A (Rapid) Influenza B (Rapid) 11/12/18 11/12/18 05:30 05:46 WBC RBC Hgb Hct MCV MCH MCHC RDW Plt Count MPV Absolute Neuts (auto) Neutrophils % Lymphocytes % Monocytes % Eosinophils % Basophils % Nucleated RBC % PT with INR INR PTT (Actin FS) Sodium 141 Potassium 3.8 Chloride 106 Carbon Dioxide 26 Anion Gap 9 BUN 30 H Creatinine 2.3 H Creat Clearance w eGFR 27.10 Random Glucose 153 H Lactic Acid Uric Acid 4.3 Calcium 7.8 L Phosphorus 3.9 Magnesium 2.4 Total Bilirubin 0.9 AST 15 ALT 10 L Alkaline Phosphatase 112 Creatine Kinase Troponin I B-Natriuretic Peptide Total Protein 5.2 L Albumin 2.2 L Triglycerides Cholesterol Total LDL Cholesterol HDL Cholesterol Urine Color Ltyellow Urine Appearance Clear Urine pH 6.0 Ur Specific Shannon 1.009 L Urine Protein 3+ H Urine Glucose (UA) 1+ H Urine Ketones Negative Urine Blood Negative Urine Nitrite Negative Urine Bilirubin Negative Urine Urobilinogen Negative Ur Leukocyte Esterase Negative Urine WBC (Auto) 2 Urine RBC (Auto) 2 Ur Epithelial Cells Rare Urine Bacteria Rare Hyaline Casts 5 Urine Mucus Rare Influenza A (Rapid) Influenza B (Rapid) Active Medications Generic Name Dose Route Start Last Admin Trade Name Freq PRN Reason Stop Dose Admin Allopurinol 100 mg 11/11/18 22:00 11/12/18 09:59 Zyloprim - PO 100 mg BID HERMINIO Administration Amlodipine Besylate 5 mg 11/11/18 22:00 11/11/18 22:40 Norvasc - PO 5 mg HS HERMINIO Administration Aspirin 81 mg 11/12/18 10:00 11/12/18 09:59 Asa - PO 81 mg DAILY HERMINIO Administration Atorvastatin Calcium 40 mg 11/11/18 22:00 11/11/18 22:44 Lipitor - PO 40 mg HS HERMINIO Administration Carvedilol 3.125 mg 11/11/18 22:00 11/12/18 09:59 Coreg - PO 3.125 mg BID HERMINIO Administration Cholecalciferol 2,000 unit 11/12/18 10:00 11/12/18 09:59 Vitamin D3 - PO 2,000 unit DAILY HERMINIO Administration Dabigatran 150 mg 11/11/18 22:00 11/12/18 09:58 Pradaxa - PO 150 mg BID HERMINIO Administration Docusate Sodium 100 mg 11/11/18 21:52 Colace - PO Q8H PRN CONSTIPATION Furosemide 40 mg 11/12/18 14:00 11/12/18 10:00 Lasix Injection - IVPUSH 40 mg BID@0600,1400 HERMINIO Administration Timolol Maleate 1 drop 11/12/18 10:00 11/12/18 10:46 Timoptic 0.5% OU 1 drop DAILY HERMINIO Administration ASSESSMENT/PLAN: Patient is an 88 year old male with past medical history of HTN, HLD, Atrial fibrillation (on Pradaxa), CHF, Peripheral neuropathy (unable to ambulate), gout , nonessential tremor, presented to the ED due to shortness of breath for 1 day. #SOB likely 2/2 CHF exacerbation f/u cardio consult -repeat echo this AM -IV lasix 40 BID -will continue to monitor UO -Daily weights -f/u echo results #CKD -BUN/Cr 23/2.2 -Urinalysis pending -nephro consulted -Avoid nephrotoxic agents such as aminoglycosides, contrast agents #Elevated T. bilirubin -CT abdomen and pelvis shows no acute abdominal pathology; colonic diverticulosis without diverticulitis -colace 100 q8h for constipation #Atrial fibrillation: rate controlled -Continue Carvedilol -On Pradaxa 150mg BID -Consider switching pradaxa to Eliquis in light of CKD #Hypertension -Continue home Carvedilol 3.125mg BID -Amlodipine 5mg daily #Hyperlipidemia -Continue home Lipitor 40mg PO HS #FEN -Not on any standing fluids -Electrolytes wnl, routine bmp monitoring -Sodium controlled diet (white meat only) #Prophylaxis -On Pradaxa 150mg BID Problem List - Problems (1) Acute exacerbation of congestive heart failure Code(s): I50.9 - HEART FAILURE, UNSPECIFIED (2) A-fib Code(s): I48.91 - UNSPECIFIED ATRIAL FIBRILLATION Visit type - Emergency Visit Emergency Visit: Yes ED Registration Date: 11/11/18 Care time: The patient presented to the Emergency Department on the above date and was hospitalized for further evaluation of their emergent condition. - New Patient This patient is new to me today: Yes Date on this admission: 11/12/18 - Critical Care Critical Care patient: No
--- NOTE | 2018-11-12 14:56 | CON.CARD ---
Consult Consult Specialty:: Cardiology - History of Present Illness Chief Complaint: SOB History of Present Illness: This is an 88 year old male with a PMH of dCHF, PAFIB on Pradaxa, CAD with coronary stents x2 (2016), and peripheral neuropathy. He sees Dr. Kyaw Rivera for cardiology. He presents now with SOB starting on 11/11/18. He flew from [place] 11/06/18. He did not miss doses of Pradaxa. Echocardiogram 11/12/18:EF 50 - 55 % Lowe normal LV function Mild MR Mild TR Pasp 35 mmHg BNP ^^ - Past Medical History Cardio/Vascular: Yes: AFIB (chronic), CHF, HTN, Mitral Insufficiency (moderate per 03/07/16 echo) - Alcohol/Substance Use Hx Alcohol Use: No - Smoking History Smoking history: Former smoker Have you smoked in the past 12 months: No Aproximately how many cigarettes per day: 0 If you are a former smoker, when did you quit?: 15 - Social History Usual Living Arrangement: With Spouse Home Medications - Allergies Allergies/Adverse Reactions: Allergies Allergy/AdvReac Type Severity Reaction Status Date / Time colchicine AdvReac Intermediate vasculitis Verified 11/11/18 15:27 - Home Medications Home Medications: Ambulatory Orders Allopurinol [Zyloprim -] 100 mg PO BID 11/11/18 Amlodipine Besylate 5 mg PO HS 11/11/18 Aspirin [ASA -] 81 mg PO DAILY 11/11/18 Atorvastatin Ca [Lipitor] 40 mg PO HS 11/11/18 Carvedilol 3.125 mg PO BID 11/11/18 Cetirizine HCl [Zyrtec -] 10 mg PO HS 11/11/18 Cholecalciferol (Vitamin D3) [Vitamin D] 2,000 unit PO DAILY 11/11/18 Clobetasol Propionate/Emoll [Clobetasol Emollient 0.05% Crm] 15 gm TP PRN PRN Dabigatran Etexilate Mesylate [Pradaxa -] 150 mg PO BID 11/11/18 Dutasteride [Avodart] 0.5 mg PO DAILY 11/11/18 Famotidine 20 mg PO HS 11/11/18 Fluticasone Prop 0.05% Nasal [Flonase -] 1 - 2 spray NS DAILY 11/11/18 Timolol Maleate [Istalol] 2.5 ml OP DAILY 11/11/18 Vital Signs: Vital Signs Temperature 97.8 F 11/12/18 09:00 Pulse Rate 68 11/12/18 09:00 Respiratory Rate 20 11/12/18 09:00 Blood Pressure 144/60 11/12/18 09:00 O2 Sat by Pulse Oximetry (%) 95 11/12/18 09:00 Constitutional: Yes: No Distress Neck: Yes: WNL Respiratory: Yes: Rales (Bibasilar) Gastrointestinal: Yes: Soft Cardiovascular: Yes: Pulse Irregular (NL S1S2, MRHG) JVD: No Extremities: Yes: WNL Edema: No Neurological: Yes: Alert, Oriented - Other Data Labs, Other Data: CBC, BMP 11/12/18 05:30 11/12/18 05:30 INR, PTT INR 1.79 (0.83-1.09) H 11/12/18 05:30 Troponin, BNP 11/11/18 11/11/18 16:38 22:33 Troponin I 0.03 B-Natriuretic Peptide 82906.5 H Troponin, BNP 11/11/18 11/11/18 16:38 22:33 Troponin I 0.03 B-Natriuretic Peptide 08948.5 H Assessment/Plan 88 year old male with a PMH of dCHF, PAFIB on Pradaxa, CAD with coronary stents x2 (2016), and peripheral neuropathy. He sees Dr. Kyaw Rivera for cardiology. He presents now with SOB starting on 11/11/18. He flew from [place] 11/06/18. He did not miss doses of Pradaxa. Echocardiogram 11/12/18:EF 50 - 55 % Lowe normal LV function Mild MR Mild TR Pasp 35 mmHg BNP ^^ CHF Acute on chronic diastolic CHF Lasix 40 IVSS BID Following I's/O's/Wt's/lytes AFIB Rate control with COREG In terms of AC, I would personally favor Eliquis because it is the least affected by renal function and it is considered to be the best agent for the elderly. Therefore, I would recommend Eliquis at 2.5 mg PO q12 H, instead of Pradaxa. If he remains on Pradaxa, I would favor the lower dose of 75 mg PO BID given his GFR of 27. HTN BP adequate, continue amlodipine 5 mg PO daily.
--- NOTE | 2018-11-12 15:00 | CONSULT ---
Consult Consult Specialty:: Nephrology Reason for Consultation:: CKD - History of Present Illness Chief Complaint: shortness of breath History of Present Illness: Pt is an 88 year old male with pmhx of a-fib, bph, ckd htn, chf gout and hld who presents to the ER with worsening shortness of breath. He said he was on vacation in [place] last week and felt very ill and fatigued when he was there. He was also recently diagnosed with fecal impaction and was given a bowel regimen. He was found to have elevated creatinine and I was called to evaluate him. He denies history of CKD. However when reviewing old labs in the EMR he does have elevated creatinine and ckd. He denies nsaid use. He denies hematuria or dysuria. - History Source History Provided By: Patient, Medical Record - Past Medical History Cardio/Vascular: Yes: AFIB (chronic), CHF, HTN, Mitral Insufficiency (moderate per 03/07/16 echo) Renal/: Yes: Renal Inusuff - Alcohol/Substance Use Hx Alcohol Use: No - Smoking History Smoking history: Former smoker Have you smoked in the past 12 months: No Aproximately how many cigarettes per day: 0 If you are a former smoker, when did you quit?: 15 - Social History Usual Living Arrangement: With Spouse Home Medications - Allergies Allergies/Adverse Reactions: Allergies Allergy/AdvReac Type Severity Reaction Status Date / Time colchicine AdvReac Intermediate vasculitis Verified 11/11/18 15:27 - Home Medications Home Medications: Ambulatory Orders Allopurinol [Zyloprim -] 100 mg PO BID 11/11/18 Amlodipine Besylate 5 mg PO HS 11/11/18 Aspirin [ASA -] 81 mg PO DAILY 11/11/18 Atorvastatin Ca [Lipitor] 40 mg PO HS 11/11/18 Carvedilol 3.125 mg PO BID 11/11/18 Cetirizine HCl [Zyrtec -] 10 mg PO HS 11/11/18 Cholecalciferol (Vitamin D3) [Vitamin D] 2,000 unit PO DAILY 11/11/18 Clobetasol Propionate/Emoll [Clobetasol Emollient 0.05% Crm] 15 gm TP PRN PRN Dabigatran Etexilate Mesylate [Pradaxa -] 150 mg PO BID 11/11/18 Dutasteride [Avodart] 0.5 mg PO DAILY 11/11/18 Famotidine 20 mg PO HS 11/11/18 Fluticasone Prop 0.05% Nasal [Flonase -] 1 - 2 spray NS DAILY 11/11/18 Timolol Maleate [Istalol] 2.5 ml OP DAILY 11/11/18 Family Disease History - Family Disease History Family History: Denies Review of Systems - Review of Systems Constitutional: reports: Malaise, Weakness. 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 denies: Cough Gastrointestinal: reports: No Symptoms Genitourinary: reports: No Symptoms Musculoskeletal: reports: No Symptoms Integumentary: reports: No Symptoms Neurological: reports: No Symptoms Endocrine: reports: No Symptoms Hematology/Lymphatic: reports: No Symptoms Psychiatric: reports: No Symptoms Physical Exam Vital Signs: Vital Signs Temperature 97.8 F 11/12/18 09:00 Pulse Rate 68 11/12/18 09:00 Respiratory Rate 20 11/12/18 09:00 Blood Pressure 144/60 11/12/18 09:00 O2 Sat by Pulse Oximetry (%) 95 11/12/18 09:00 Constitutional: Yes: Calm Eyes: Yes: Other (legally blind) Neck: Yes: Supple Cardiovascular: Yes: S1, S2 Respiratory: Yes: Rhonchi Gastrointestinal: Yes: Soft Renal/: Yes: WNL Extremities: Yes: WNL Edema: No Neurological: Yes: Oriented Psychiatric: Yes: Oriented Labs: CBC, BMP 11/12/18 05:30 11/12/18 05:30 Laboratory Tests 09/20/17 01/09/18 05/24/18 13:33 18:00 16:00 WBC Hgb Creatinine 2.0 H D 1.8 H 2.2 H Urine Protein Urine Blood Influenza A (Rapid) Influenza B (Rapid) 07/27/18 11/11/18 11/11/18 10:21 16:38 16:42 WBC 8.5 Hgb 12.3 Creatinine 2.1 H Urine Protein Urine Blood Influenza A (Rapid) Negative Influenza B (Rapid) Negative 11/12/18 11/12/18 11/12/18 05:30 05:30 05:46 WBC 4.9 Hgb 10.9 L Creatinine 2.3 H Urine Protein 3+ H Urine Blood Negative Influenza A (Rapid) Influenza B (Rapid) Imaging - Results Chest X-ray: Report Reviewed Assessment/Plan Current Medications Generic Name Dose Route Start Last Admin Trade Name Freq PRN Reason Stop Dose Admin Allopurinol 100 mg 11/11/18 22:00 11/12/18 09:59 Zyloprim - PO 100 mg BID HERMINIO Administration Amlodipine Besylate 5 mg 11/11/18 22:00 11/11/18 22:40 Norvasc - PO 5 mg HS HERMINIO Administration Aspirin 81 mg 11/12/18 10:00 11/12/18 09:59 Asa - PO 81 mg DAILY HERMINIO Administration Atorvastatin Calcium 40 mg 11/11/18 22:00 11/11/18 22:44 Lipitor - PO 40 mg HS HERMINIO Administration Carvedilol 3.125 mg 11/11/18 22:00 11/12/18 09:59 Coreg - PO 3.125 mg BID HERMINIO Administration Cholecalciferol 2,000 unit 11/12/18 10:00 11/12/18 09:59 Vitamin D3 - PO 2,000 unit DAILY HERMINIO Administration Dabigatran 150 mg 11/11/18 22:00 11/12/18 09:58 Pradaxa - PO 150 mg BID HERMINIO Administration Docusate Sodium 100 mg 11/11/18 21:52 Colace - PO Q8H PRN CONSTIPATION Furosemide 40 mg 11/12/18 14:00 11/12/18 14:48 Lasix Injection - IVPUSH 40 mg BID@0600,1400 HERMINIO Administration Timolol Maleate 1 drop 11/12/18 10:00 11/12/18 10:46 Timoptic 0.5% OU 1 drop DAILY HERMINIO Administration Laboratory Tests 05/30/17 09/20/17 01/09/18 11:46 13:33 18:38 Urine Protein 3+ H 3+ H 3+ H 05/24/18 11/12/18 16:00 05:46 Urine Protein 3+ H 3+ H Impression 1. ckd with wastewater manager that is not far from baseline 2. proteinuria 3. a-fib 4. chf 5. gout 6. htn 7. hld 8. bph Plan - cont lasix trial - check prt to wastewater manager ratio - check renal ultrasound - will need proteinuria workup - may benefit from adrienne or arb Dr Baker
--- NOTE | 2018-11-12 17:40 | PN ---
Teaching Attending Note Name of Resident: Christine Turcios ATTENDING PHYSICIAN STATEMENT I saw and evaluated the patient. I reviewed the resident's note and discussed the case with the resident. I agree with the resident's findings and plan as documented. SUBJECTIVE: Patient is feeling better pos IV lasix. OBJECTIVE: Vital Signs Temperature 97.8 F 11/12/18 09:00 Pulse Rate 68 11/12/18 09:00 Respiratory Rate 20 11/12/18 14:00 Blood Pressure 126/65 11/12/18 14:00 O2 Sat by Pulse Oximetry (%) 95 11/12/18 09:00 GENERAL: The patient is awake, alert, and fully oriented, in no acute distress. EYES: PEERLA; EOMI; no scleral icterus NECK: no JVD; no lymphadenopathy. LUNGS: decreased BS B/L HEART: Regular rate and rhythm, S1, S2 without murmur, rub or gallop. ABDOMEN: Soft, nontender, nondistended, normoactive bowel sounds, no guarding, no rebound, no hepatosplenomegaly, no masses. EXTREMITIES: 2+ pulses, warm, well-perfused, no edema. PSYCH: Normal mood, normal affect. SKIN: Warm, dry, normal turgor, no rashes or lesions noted CBCD WBC 4.9 K/mm3 (4.0-10.0) 11/12/18 05:30 RBC 3.37 M/mm3 (4.00-5.60) L 11/12/18 05:30 Hgb 10.9 GM/dL (11.7-16.9) L 11/12/18 05:30 Hct 31.4 % (35.4-49) L 11/12/18 05:30 MCV 93.3 fl (80-96) 11/12/18 05:30 MCHC 34.6 g/dl (32.0-35.9) 11/12/18 05:30 RDW 15.3 % (11.9-15.9) 11/12/18 05:30 Plt Count 160 K/MM3 (134-434) 11/12/18 05:30 MPV 7.8 fl (7.5-11.1) 11/12/18 05:30 CMP Sodium 141 mmol/L (136-145) 11/12/18 05:30 Potassium 3.8 mmol/L (3.5-5.1) 11/12/18 05:30 Chloride 106 mmol/L (98-107) 11/12/18 05:30 Carbon Dioxide 26 mmol/L (21-32) 11/12/18 05:30 Anion Gap 9 MMOL/L (8-16) 11/12/18 05:30 BUN 30 mg/dL (7-18) H 11/12/18 05:30 Creatinine 2.3 mg/dL (0.55-1.3) H 11/12/18 05:30 Creat Clearance w eGFR 27.10 (>60) 11/12/18 05:30 Random Glucose 153 mg/dL (74-106) H 11/12/18 05:30 Calcium 7.8 mg/dL (8.5-10.1) L 11/12/18 05:30 Total Bilirubin 0.9 mg/dL (0.2-1) 11/12/18 05:30 AST 15 U/L (15-37) 11/12/18 05:30 ALT 10 U/L (13-61) L 11/12/18 05:30 Alkaline Phosphatase 112 U/L (45-117) 11/12/18 05:30 Total Protein 5.2 g/dl (6.4-8.2) L 11/12/18 05:30 Albumin 2.2 g/dl (3.4-5.0) L 11/12/18 05:30 CARDIAC ENZYMES Creatine Kinase 52 U/L (26-308) 11/11/18 22:33 Troponin I 0.03 ng/ml (0.00-0.05) 11/11/18 22:33 Current Medications Generic Name Dose Route Start Last Admin Trade Name Erikq PRN Reason Stop Dose Admin Allopurinol 100 mg 11/11/18 22:00 11/12/18 09:59 Zyloprim - PO 100 mg BID HERMINIO Administration Amlodipine Besylate 5 mg 11/11/18 22:00 11/11/18 22:40 Norvasc - PO 5 mg HS HERMINIO Administration Aspirin 81 mg 11/12/18 10:00 11/12/18 09:59 Asa - PO 81 mg DAILY HERMINIO Administration Atorvastatin Calcium 40 mg 11/11/18 22:00 11/11/18 22:44 Lipitor - PO 40 mg HS HERMINIO Administration Carvedilol 3.125 mg 11/11/18 22:00 11/12/18 09:59 Coreg - PO 3.125 mg BID HERMINIO Administration Cholecalciferol 2,000 unit 11/12/18 10:00 11/12/18 09:59 Vitamin D3 - PO 2,000 unit DAILY HERMINIO Administration Dabigatran 150 mg 11/11/18 22:00 11/12/18 09:58 Pradaxa - PO 150 mg BID HERMINIO Administration Docusate Sodium 100 mg 11/11/18 21:52 Colace - PO Q8H PRN CONSTIPATION Furosemide 40 mg 11/12/18 14:00 11/12/18 14:48 Lasix Injection - IVPUSH 40 mg BID@0600,1400 HERMINIO Administration Timolol Maleate 1 drop 11/12/18 10:00 11/12/18 10:46 Timoptic 0.5% OU 1 drop DAILY HERMINIO Administration Home Medications Medication Instructions Recorded Allopurinol [Zyloprim -] 100 mg PO BID 11/11/18 Amlodipine Besylate 5 mg PO HS 11/11/18 Aspirin [ASA -] 81 mg PO DAILY 11/11/18 Atorvastatin Ca [Lipitor] 40 mg PO HS 11/11/18 Carvedilol 3.125 mg PO BID 11/11/18 Cetirizine HCl [Zyrtec -] 10 mg PO HS 11/11/18 Cholecalciferol (Vitamin D3) 2,000 unit PO DAILY 11/11/18 [Vitamin D] Clobetasol Propionate/Emoll 15 gm TP PRN PRN 11/11/18 [Clobetasol Emollient 0.05% Crm] Dabigatran Etexilate Mesylate 150 mg PO BID 11/11/18 [Pradaxa -] Dutasteride [Avodart] 0.5 mg PO DAILY 11/11/18 Famotidine 20 mg PO HS 11/11/18 Fluticasone Prop 0.05% Nasal 1 - 2 spray NS DAILY 11/11/18 [Flonase -] Timolol Maleate [Istalol] 2.5 ml OP DAILY 11/11/18 CT abdomen and pelvis shows no acute abdominal pathology; colonic diverticulosis without diverticulitis ASSESSMENT AND PLAN: Patient is an 88 year old male with past medical history of HTN, HLD, Atrial fibrillation (on Pradaxa), CHF, Peripheral neuropathy (unable to ambulate), gout , nonessential tremor, presented to the ED due to shortness of breath for 1 day. #Acute SOB due to having CHF exacerbation , echo ordered, Mark, Lasix 40mg IV bid , cardio consult appreciated. #Acute ARF over CKD: baseline around 1.4 (2015)-->2.2-->2.3 today , nephro consult appreciated. #Atrial fibrillation: rate controlled continue Carvedilol , Pradaxa 150mg BID Consider switching pradaxa to Eliquis in light of CKD #Hypertension continue home meds Carvedilol 3.125mg, Amlodipine 5mg #Hyperlipidemia continue Lipitor 40mg PO HS #Elevated T. bilirubin monitor # Constipation: On colace will monitor DVT Px: Pradaxa 150mg BID
[2018-11-12] MEDS: ATORVASTATIN CA 40 MG TABLET (FP) PO SCH (22:41)
[2018-11-12] MEDS: amLODIPine BESYLATE 5 MG TABLET (FP) PO SCH (22:41)
[2018-11-13] MEDS: FUROSEMIDE 40 MG/4 ML INJECTABLE VIAL IVPUSH SCH ×2 (06:54→16:00)
[2018-11-13 07:05] LABS: HEMOGLOBIN 11.4 GM/dL (11.7-16.9); MCH 32.1 pg (25.7-33.7); MCHC 34.4 g/dl (32.0-35.9); MEAN CELL VOLUME 93.4 fl (80-96); PLATELET COUNT 200 K/MM3 (134-434); RBC 3.54 M/mm3 (4.00-5.60); RDW 14.7 % (11.9-15.9); WHITE BLOOD COUNT 6.6 K/mm3 (4.0-10.0)
--- NOTE | 2018-11-13 08:25 | PN ---
Physical Exam: SUBJECTIVE: Patient seen and examined at bedside; no acute events overnight; patient states that he is feeling OK- feels that is breathing is slightly better and that he is urinating quite a bit with the lasix- denies any CP/SOB/N/ V fevers or chills OBJECTIVE: Vital Signs Period Temp Pulse Resp BP Sys/Nichols Pulse Ox Last 24 Hr 97.7 F-98.2 F 55-68 18-20 126-152/60-83 95-99 GENERAL: The patient is awake, alert, and fully oriented, in no acute distress. EYES:PEERLA; EOMI; no scleral icterus NECK:no JVD: no lymphadenopathy LUNGS: fine rales at the bases B/L HEART: Regular rate and rhythm, S1, S2 without murmur, rub or gallop. ABDOMEN: Soft, nontender, nondistended, normoactive bowel sounds, no guarding, no rebound, no hepatosplenomegaly, no masses. EXTREMITIES: 2+ pulses, warm, well-perfused, no edema. PSYCH: Normal mood, normal affect. SKIN: Warm, dry, normal turgor, no rashes or lesions noted Laboratory Results - last 24 hr 11/13/18 05:30 WBC 6.6 RBC 3.54 L Hgb 11.4 L Hct 33.0 L MCV 93.4 MCH 32.1 MCHC 34.4 RDW 14.7 Plt Count 200 D MPV 8.0 Active Medications Generic Name Dose Route Start Last Admin Trade Name Freq PRN Reason Stop Dose Admin Allopurinol 100 mg 11/11/18 22:00 11/12/18 22:41 Zyloprim - PO 100 mg BID HERMINIO Administration Amlodipine Besylate 5 mg 11/11/18 22:00 11/12/18 22:41 Norvasc - PO 5 mg HS HERMINIO Administration Aspirin 81 mg 11/12/18 10:00 11/12/18 09:59 Asa - PO 81 mg DAILY HERMINIO Administration Atorvastatin Calcium 40 mg 11/11/18 22:00 11/12/18 22:41 Lipitor - PO 40 mg HS HERMINIO Administration Carvedilol 3.125 mg 11/11/18 22:00 11/12/18 22:41 Coreg - PO 3.125 mg BID HERMINIO Administration Cholecalciferol 2,000 unit 11/12/18 10:00 11/12/18 09:59 Vitamin D3 - PO 2,000 unit DAILY HERMINIO Administration Dabigatran 150 mg 11/11/18 22:00 11/12/18 22:41 Pradaxa - PO 150 mg BID HERMINIO Administration Docusate Sodium 100 mg 11/11/18 21:52 Colace - PO Q8H PRN CONSTIPATION Furosemide 40 mg 11/12/18 14:00 11/13/18 06:54 Lasix Injection - IVPUSH 40 mg BID@0600,1400 HERMINIO Administration Timolol Maleate 1 drop 11/12/18 10:00 11/12/18 10:46 Timoptic 0.5% OU 1 drop DAILY HERMINIO Administration ASSESSMENT/PLAN: Patient is an 88 year old male with past medical history of HTN, HLD, Atrial fibrillation (on Pradaxa), CHF, Peripheral neuropathy (unable to ambulate), gout , nonessential tremor, presented to the ED due to shortness of breath for 1 day. #SOB likely 2/2 CHF exacerbation repeat echo shows EF 50-55%; LA dilated; mild MR; mild AR; PA pressure 35 -IV lasix 40 BID -will continue to monitor UO -Daily weights #CKD -BUN/Cr 23/2.2 -Urinalysis pending -nephro consulted; f/u protein to cr ratio -Avoid nephrotoxic agents such as aminoglycosides, contrast agents #Elevated T. bilirubin -CT abdomen and pelvis shows no acute abdominal pathology; colonic diverticulosis without diverticulitis -colace 100 q8h for constipation #Atrial fibrillation: rate controlled -Continue Carvedilol 3.125 BID -switched pradaxa from 150 to 75mg due to CKD #Hypertension -Continue home Carvedilol 3.125mg BID -Amlodipine 5mg daily #Hyperlipidemia -Continue home Lipitor 40mg PO HS #FEN -Not on any standing fluids -Electrolytes wnl, routine bmp monitoring -Sodium controlled diet (white meat only) #Prophylaxis -On Pradaxa 150mg BID Problem List - Problems (1) Acute exacerbation of congestive heart failure Code(s): I50.9 - HEART FAILURE, UNSPECIFIED (2) A-fib Code(s): I48.91 - UNSPECIFIED ATRIAL FIBRILLATION Visit type - Emergency Visit Emergency Visit: Yes ED Registration Date: 11/11/18 Care time: The patient presented to the Emergency Department on the above date and was hospitalized for further evaluation of their emergent condition. - New Patient This patient is new to me today: No - Critical Care Critical Care patient: No
[2018-11-13 08:34] LABS: ALBUMIN 2.5 g/dl (3.4-5.0); ALK PHOS 114 U/L (45-117); ANION GAP 9 MMOL/L (8-16); BILIRUBIN,TOTAL 0.7 mg/dL (0.2-1); BLOOD UREA NITROGEN 33 mg/dL (7-18); CALCIUM 8.1 mg/dL (8.5-10.1); CHLORIDE 104 mmol/L (98-107); CO2 27 mmol/L (21-32); CREATININE 2.3 mg/dL (0.55-1.3); GLUCOSE,RANDOM 122 mg/dL (74-106); MAGNESIUM 2.4 mg/dL (1.8-2.4); PHOSPHOROUS 4.4 mg/dL (2.5-4.9); POTASSIUM 3.6 mmol/L (3.5-5.1); SGOT/AST 37 U/L (15-37); SGPT/ALT 22 U/L (13-61); SODIUM 140 mmol/L (136-145); TOT PROT 5.1 g/dl (6.4-8.2)
--- NOTE | 2018-11-13 09:13 | PN ---
Teaching Attending Note Name of Resident: Christine Turcios ATTENDING PHYSICIAN STATEMENT I saw and evaluated the patient. I reviewed the resident's note and discussed the case with the resident. I agree with the resident's findings and plan as documented. SUBJECTIVE: Patient is feeling better, with no acute distress. OBJECTIVE: Vital Signs Temperature 97.7 F 11/13/18 06:00 Pulse Rate 60 11/13/18 06:00 Respiratory Rate 20 11/13/18 06:00 Blood Pressure 152/83 11/13/18 06:00 O2 Sat by Pulse Oximetry (%) 99 11/12/18 21:00 GENERAL: The patient is awake, alert, and fully oriented, in no acute distress. EYES: PEERLA; EOMI; no scleral icterus NECK: no JVD; no lymphadenopathy. LUNGS: decreased BS B/L HEART: irregularly-irregular, S1, S2 without murmur, no rub or gallop. ABDOMEN: Soft, nontender, nondistended, normoactive bowel sounds, no guarding, no rebound, no hepatosplenomegaly, no masses. EXTREMITIES: 2+ pulses, warm, well-perfused, no edema. PSYCH: Normal mood, normal affect. SKIN: Warm, dry, normal turgor, no rashes or lesions noted CBCD WBC 6.6 K/mm3 (4.0-10.0) 11/13/18 05:30 RBC 3.54 M/mm3 (4.00-5.60) L 11/13/18 05:30 Hgb 11.4 GM/dL (11.7-16.9) L 11/13/18 05:30 Hct 33.0 % (35.4-49) L 11/13/18 05:30 MCV 93.4 fl (80-96) 11/13/18 05:30 MCHC 34.4 g/dl (32.0-35.9) 11/13/18 05:30 RDW 14.7 % (11.9-15.9) 11/13/18 05:30 Plt Count 200 K/MM3 (134-434) D 11/13/18 05:30 MPV 8.0 fl (7.5-11.1) 11/13/18 05:30 CMP Sodium 140 mmol/L (136-145) 11/13/18 05:30 Potassium 3.6 mmol/L (3.5-5.1) 11/13/18 05:30 Chloride 104 mmol/L (98-107) 11/13/18 05:30 Carbon Dioxide 27 mmol/L (21-32) 11/13/18 05:30 Anion Gap 9 MMOL/L (8-16) 11/13/18 05:30 BUN 33 mg/dL (7-18) H 11/13/18 05:30 Creatinine 2.3 mg/dL (0.55-1.3) H 11/13/18 05:30 Creat Clearance w eGFR 27.10 (>60) 11/13/18 05:30 Random Glucose 122 mg/dL (74-106) H 11/13/18 05:30 Calcium 8.1 mg/dL (8.5-10.1) L 11/13/18 05:30 Total Bilirubin 0.7 mg/dL (0.2-1) 11/13/18 05:30 AST 37 U/L (15-37) 11/13/18 05:30 ALT 22 U/L (13-61) 11/13/18 05:30 Alkaline Phosphatase 114 U/L (45-117) 11/13/18 05:30 Total Protein 5.1 g/dl (6.4-8.2) L 11/13/18 05:30 Albumin 2.5 g/dl (3.4-5.0) L 11/13/18 05:30 CARDIAC ENZYMES Creatine Kinase 52 U/L (26-308) 11/11/18 22:33 Troponin I 0.03 ng/ml (0.00-0.05) 11/11/18 22:33 Current Medications Generic Name Dose Route Start Last Admin Trade Name Erikq PRN Reason Stop Dose Admin Allopurinol 100 mg 11/11/18 22:00 11/12/18 22:41 Zyloprim - PO 100 mg BID HERMINIO Administration Amlodipine Besylate 5 mg 11/11/18 22:00 11/12/18 22:41 Norvasc - PO 5 mg HS HERMINIO Administration Aspirin 81 mg 11/12/18 10:00 11/12/18 09:59 Asa - PO 81 mg DAILY HERMINIO Administration Atorvastatin Calcium 40 mg 11/11/18 22:00 11/12/18 22:41 Lipitor - PO 40 mg HS HERMINIO Administration Carvedilol 3.125 mg 11/11/18 22:00 11/12/18 22:41 Coreg - PO 3.125 mg BID HERMINIO Administration Cholecalciferol 2,000 unit 11/12/18 10:00 11/12/18 09:59 Vitamin D3 - PO 2,000 unit DAILY HERMINIO Administration Dabigatran 75mg 11/11/18 22:00 11/12/18 22:41 Pradaxa - PO 150 mg BID HERMINIO Administration Docusate Sodium 100 mg 11/11/18 21:52 Colace - PO Q8H PRN CONSTIPATION Furosemide 40 mg 11/12/18 14:00 11/13/18 06:54 Lasix Injection - IVPUSH 40 mg BID@0600,1400 HERMINIO Administration Timolol Maleate 1 drop 11/12/18 10:00 11/12/18 10:46 Timoptic 0.5% OU 1 drop DAILY HERMINIO Administration Home Medications Medication Instructions Recorded Allopurinol [Zyloprim -] 100 mg PO BID 11/11/18 Amlodipine Besylate 5 mg PO HS 11/11/18 Aspirin [ASA -] 81 mg PO DAILY 11/11/18 Atorvastatin Ca [Lipitor] 40 mg PO HS 11/11/18 Carvedilol 3.125 mg PO BID 11/11/18 Cetirizine HCl [Zyrtec -] 10 mg PO HS 11/11/18 Cholecalciferol (Vitamin D3) 2,000 unit PO DAILY 11/11/18 [Vitamin D] Clobetasol Propionate/Emoll 15 gm TP PRN PRN 11/11/18 [Clobetasol Emollient 0.05% Crm] Dabigatran Etexilate Mesylate 150 mg PO BID 11/11/18 [Pradaxa -] Dutasteride [Avodart] 0.5 mg PO DAILY 11/11/18 Famotidine 20 mg PO HS 11/11/18 Fluticasone Prop 0.05% Nasal 1 - 2 spray NS DAILY 11/11/18 [Flonase -] Timolol Maleate [Istalol] 2.5 ml OP DAILY 11/11/18 CT abdomen and pelvis shows no acute abdominal pathology; colonic diverticulosis without diverticulitis ASSESSMENT AND PLAN: Patient is an 88 year old male with past medical history of HTN, HLD, Atrial fibrillation (on Pradaxa), CHF, Peripheral neuropathy (unable to ambulate), gout , nonessential tremor, presented to the ED due to shortness of breath for 1 day. #Acute SOB due to having diatolic CHF exacerbation , Echocardiogram 11/12/18:EF 50 - 55 %, Low to normal LV function, Mild MR, Mild TR PaSP 35 mmHg . continue with Lasix 40mg IV bid, cardio consult appreciated. #Acute ARF over CKD: baseline around 1.4 (2015)-->2.2-->2.3-->2.3 today , nephro consult appreciated. #Atrial fibrillation: rate controlled continue Carvedilol , Pradaxa 150mg BID, decreased Pradaxa dose to 75mg po bid, if The insurance cover the Eliquis , will switch to Eliquis 2.5mg po bid due to having CKD #Hypertension continue home meds Carvedilol 3.125mg, Amlodipine 5mg #Hyperlipidemia continue Lipitor 40mg PO HS #Elevated T. bilirubin monitor # Constipation: On colace will monitor DVT Px: Pradaxa 75mg BID possible dc in am follow PT report whether should go home or rehab.
[2018-11-13] MEDS ORDERED: DABIGATRAN ETEXILATE MESYLATE 150 MG CAPSULE PO SCH (09:32)
[2018-11-13] MEDS ORDERED: GLYCERIN 1 RECTAL SUPPOSITORY, ADULT RC ONE (10:15)
[2018-11-13] MEDS: CARVEDILOL 3.125 MG TABLET (FP) PO SCH ×2 (11:35→21:51)
[2018-11-13] MEDS: CHOLECALCIFEROL (VITAMIN D3) 1,000 UNIT TABLET (FP) PO SCH (11:35)
[2018-11-13] MEDS: ALLOPURINOL 100 MG TABLET (FP) PO SCH ×2 (11:36→21:51)
[2018-11-13] MEDS: TIMOLOL 0.5% OPHTHALMIC SOL 5 ML BOTTLE OU SCH (11:36)
[2018-11-13] MEDS: POLYETHYLENE GLYCOL 3350 119 GM BTL PO SCH ×2 (11:36→21:51)
[2018-11-13] MEDS: ASPIRIN 81 MG CHEWABLE TABLETS PO SCH (11:36)
--- NOTE | 2018-11-13 11:59 | PN ---
Progress Note, Physician History of Present Illness: seen and examined today in [facility]. c/o restless sleep overnight due to noise. feeling overall slightly better today. states he urinated a lot. - Current Medication List Current Medications: Active Medications Allopurinol (Zyloprim -) 100 mg PO BID [facility] Last Admin: 11/13/18 11:36 Dose: 100 mg Amlodipine Besylate (Norvasc -) 5 mg PO HS [facility] Last Admin: 11/12/18 22:41 Dose: 5 mg Aspirin (Asa -) 81 mg PO DAILY [facility] Last Admin: 11/13/18 11:36 Dose: 81 mg Atorvastatin Calcium (Lipitor -) 40 mg PO HS [facility] Last Admin: 11/12/18 22:41 Dose: 40 mg Carvedilol (Coreg -) 3.125 mg PO BID [facility] Last Admin: 11/13/18 11:35 Dose: 3.125 mg Cholecalciferol (Vitamin D3 -) 2,000 unit PO DAILY [facility] Last Admin: 11/13/18 11:35 Dose: 2,000 unit Dabigatran (Pradaxa -) 75 mg PO BID [facility] Docusate Sodium (Colace -) 100 mg PO Q8H PRN PRN Reason: CONSTIPATION Furosemide (Lasix Injection -) 40 mg IVPUSH BID@0600,1400 [facility] Last Admin: 11/13/18 06:54 Dose: 40 mg Polyethylene Glycol (Miralax (For Daily Use) -) 17 gm PO BID [facility] Last Admin: 11/13/18 11:36 Dose: 17 gm Timolol Maleate (Timoptic 0.5%) 1 drop OU DAILY [facility] Last Admin: 11/13/18 11:36 Dose: 1 drop - Objective Vital Signs: Vital Signs Temperature 97.7 F 11/13/18 06:00 Pulse Rate 66 11/13/18 10:00 Respiratory Rate 18 11/13/18 10:00 Blood Pressure 161/65 11/13/18 10:00 O2 Sat by Pulse Oximetry (%) 96 11/13/18 09:00 Constitutional: Yes: No Distress, Calm Eyes: Yes: Conjunctiva Clear, EOM Intact HENT: Yes: Atraumatic, Normocephalic Neck: Yes: Supple, Trachea Midline Cardiovascular: Yes: Pulse Irregular, S1, S2. No: Regular Rate and Rhythm, Bradycardia, Tachycardia, Bruit, JVD, Gallop, Murmur, Rub, S3, S4, Varicosities Respiratory: Yes: Regular, Diminished, On Nasal O2, Rales, Rhonchi. No: SOB, Wheezes Gastrointestinal: Yes: Normal Bowel Sounds, Soft Extremities: Yes: WNL Edema: No Peripheral Pulses WNL: Yes Neurological: Yes: Alert, Oriented Psychiatric: Yes: Alert, Oriented Labs: CBC, BMP 11/13/18 05:30 11/13/18 05:30 INR, PTT INR 1.79 (0.83-1.09) H 11/12/18 05:30 - ....Imaging Chest X-ray: Report Reviewed, Image Reviewed EKG: Report Reviewed, Image Reviewed Other: Report Reviewed, Image Reviewed (tele-af, hr controlled) Assessment/Plan 88 year old male with a PMH of dCHF, PAFIB on Pradaxa, CAD with coronary stents x2 (2016), and peripheral neuropathy. He sees Dr. Kyaw Rivera for cardiology. He presents now with SOB starting on 11/11/18. He flew from [place] 11/06/18. He did not miss doses of Pradaxa. Echocardiogram 11/12/18:EF 50 - 55 % Lowe normal LV function Mild MR Mild TR Pasp 35 mmHg BNP ^^ CHF Acute on chronic diastolic CHF Still volume overloaded cont Lasix 40 IVSS BID Following I's/O's/Wt's/lytes AFIB-HR adequately controlled cont Rate control with COREG In terms of AC, would prefer Eliquis because it is the least affected by renal function and it is considered to be the best agent for the elderly. recommend Eliquis at 2.5 mg PO q12 H, instead of Pradaxa. If he remains on Pradaxa, consider to lower dose of 75 mg PO BID given his GFR of 27. HTN BP adequate, continue amlodipine 5 mg PO daily.
--- NOTE | 2018-11-13 13:40 | PN ---
Progress Note, Physician History of Present Illness: Pt seen and examined at bedside. He feels that his breathing is improving. He denies chest pain. - Current Medication List Current Medications: Active Medications Allopurinol (Zyloprim -) 100 mg PO BID [facility] Last Admin: 11/13/18 11:36 Dose: 100 mg Amlodipine Besylate (Norvasc -) 5 mg PO HS [facility] Last Admin: 11/12/18 22:41 Dose: 5 mg Aspirin (Asa -) 81 mg PO DAILY [facility] Last Admin: 11/13/18 11:36 Dose: 81 mg Atorvastatin Calcium (Lipitor -) 40 mg PO HS [facility] Last Admin: 11/12/18 22:41 Dose: 40 mg Carvedilol (Coreg -) 3.125 mg PO BID [facility] Last Admin: 11/13/18 11:35 Dose: 3.125 mg Cholecalciferol (Vitamin D3 -) 2,000 unit PO DAILY [facility] Last Admin: 11/13/18 11:35 Dose: 2,000 unit Dabigatran (Pradaxa -) 75 mg PO BID [facility] Docusate Sodium (Colace -) 100 mg PO Q8H PRN PRN Reason: CONSTIPATION Furosemide (Lasix Injection -) 40 mg IVPUSH BID@0600,1400 [facility] Last Admin: 11/13/18 06:54 Dose: 40 mg Polyethylene Glycol (Miralax (For Daily Use) -) 17 gm PO BID [facility] Last Admin: 11/13/18 11:36 Dose: 17 gm Timolol Maleate (Timoptic 0.5%) 1 drop OU DAILY [facility] Last Admin: 11/13/18 11:36 Dose: 1 drop - Objective Vital Signs: Vital Signs Temperature 97.7 F 11/13/18 06:00 Pulse Rate 66 11/13/18 10:00 Respiratory Rate 18 11/13/18 10:00 Blood Pressure 161/65 11/13/18 10:00 O2 Sat by Pulse Oximetry (%) 96 11/13/18 09:00 Constitutional: Yes: Calm Eyes: Yes: Conjunctiva Clear HENT: Yes: Atraumatic Neck: Yes: Supple Cardiovascular: Yes: S1, S2 Respiratory: Yes: On Nasal O2 Gastrointestinal: Yes: Soft Genitourinary: Yes: WNL Musculoskeletal: Yes: WNL Edema: No Neurological: Yes: Oriented Psychiatric: Yes: Oriented Labs: CBC, BMP 11/13/18 05:30 11/13/18 05:30 INR, PTT INR 1.79 (0.83-1.09) H 11/12/18 05:30 Assessment/Plan Current Medications Generic Name Dose Route Start Last Admin Trade Name Freq PRN Reason Stop Dose Admin Allopurinol 100 mg 11/11/18 22:00 11/13/18 11:36 Zyloprim - PO 100 mg BID HERMINIO Administration Amlodipine Besylate 5 mg 11/11/18 22:00 11/12/18 22:41 Norvasc - PO 5 mg HS HERMINIO Administration Aspirin 81 mg 11/12/18 10:00 11/13/18 11:36 Asa - PO 81 mg DAILY HERMINIO Administration Atorvastatin Calcium 40 mg 11/11/18 22:00 11/12/18 22:41 Lipitor - PO 40 mg HS HERMINIO Administration Carvedilol 3.125 mg 11/11/18 22:00 11/13/18 11:35 Coreg - PO 3.125 mg BID HERMINIO Administration Cholecalciferol 2,000 unit 11/12/18 10:00 11/13/18 11:35 Vitamin D3 - PO 2,000 unit DAILY HERMINIO Administration Dabigatran 75 mg 11/13/18 11:47 Pradaxa - PO BID HERMINIO Docusate Sodium 100 mg 11/11/18 21:52 Colace - PO Q8H PRN CONSTIPATION Furosemide 40 mg 11/12/18 14:00 11/13/18 06:54 Lasix Injection - IVPUSH 40 mg BID@0600,1400 HERMINIO Administration Polyethylene Glycol 17 gm 11/13/18 10:15 11/13/18 11:36 Miralax (For Daily Use) - PO 17 gm BID HERMINIO Administration Timolol Maleate 1 drop 11/12/18 10:00 11/13/18 11:36 Timoptic 0.5% OU 1 drop DAILY HERMINIO Administration Impression 1. 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 proteinuria 3. a-fib 4. chf 5. gout 6. htn 7. hld 8. bph Plan - cont lasix - monitor renal function - check prt to top collar baster ratio - renal ultrasound consistent with ckd - may benefit from adrienne or arb to help with proteinuria Dr Baker
--- NOTE | 2018-11-13 13:50 | EKG ---
Test Reason : Blood Pressure : / mmHG Vent. Rate : 063 BPM Atrial Rate : 500 BPM P-R Int : 000 ms QRS Dur : 110 ms QT Int : 450 ms P-R-T Axes : 000 -64 -54 degrees QTc Int : 460 ms ATRIAL FIBRILLATION WITH PREMATURE VENTRICULAR OR ABERRANTLY CONDUCTED COMPLEXES INCOMPLETE RIGHT BUNDLE BRANCH BLOCK LEFT ANTERIOR FASCICULAR BLOCK SEPTAL INFARCT , AGE UNDETERMINED ABNORMAL ECG NO PREVIOUS ECGS AVAILABLE Confirmed by MD Demarcus, Britton ([id number]) on 11/13/2018 1:50:23 PM Referred By: Confirmed By:Britton Tracy MD
[2018-11-13] MEDS: amLODIPine BESYLATE 5 MG TABLET (FP) PO SCH (21:51)
[2018-11-13] MEDS: ATORVASTATIN CA 40 MG TABLET (FP) PO SCH (21:51)
[2018-11-13] MEDS: DABIGATRAN ETEXILATE MESYLATE 75 MG CAPSULE PO SCH (23:30)
[2018-11-14] MEDS: FUROSEMIDE 40 MG/4 ML INJECTABLE VIAL IVPUSH SCH ×2 (05:28→14:50)
[2018-11-14 06:35] LABS: HEMATOCRIT 33.5 % (35.4-49); HEMOGLOBIN 11.5 GM/dL (11.7-16.9); MCH 31.9 pg (25.7-33.7); MCHC 34.2 g/dl (32.0-35.9); MEAN CELL VOLUME 93.2 fl (80-96); MEAN PLT VOLUME 7.6 fl (7.5-11.1); PLATELET COUNT 213 K/MM3 (134-434); RBC 3.59 M/mm3 (4.00-5.60); WHITE BLOOD COUNT 6.6 K/mm3 (4.0-10.0)
[2018-11-14 07:46] LABS: ANION GAP 8 MMOL/L (8-16); BLOOD UREA NITROGEN 34 mg/dL (7-18); CALCIUM 8.1 mg/dL (8.5-10.1); CHLORIDE 103 mmol/L (98-107); CO2 28 mmol/L (21-32); CREATININE 2.5 mg/dL (0.55-1.3); GLUCOSE,RANDOM 135 mg/dL (74-106); MAGNESIUM 2.2 mg/dL (1.8-2.4); PHOSPHOROUS 3.7 mg/dL (2.5-4.9); POTASSIUM 3.9 mmol/L (3.5-5.1); SODIUM 139 mmol/L (136-145)
[2018-11-14] MEDS: ASPIRIN 81 MG CHEWABLE TABLETS PO SCH (10:10)
[2018-11-14] MEDS: POLYETHYLENE GLYCOL 3350 119 GM BTL PO SCH (10:10)
[2018-11-14] MEDS: TIMOLOL 0.5% OPHTHALMIC SOL 5 ML BOTTLE OU SCH (10:10)
[2018-11-14] MEDS: CARVEDILOL 3.125 MG TABLET (FP) PO SCH (10:10)
[2018-11-14] MEDS: CHOLECALCIFEROL (VITAMIN D3) 1,000 UNIT TABLET (FP) PO SCH (10:10)
[2018-11-14] MEDS: DABIGATRAN ETEXILATE MESYLATE 75 MG CAPSULE PO SCH (10:10)
[2018-11-14] MEDS: ALLOPURINOL 100 MG TABLET (FP) PO SCH (10:11)
--- NOTE | 2018-11-14 12:52 | PN ---
Progress Note, Physician History of Present Illness: Pt seen and examined at bedside. He still gets shortness of breath with ambulation. - Current Medication List Current Medications: Active Medications Allopurinol (Zyloprim -) 100 mg PO BID [facility] Last Admin: 11/14/18 10:11 Dose: 100 mg Amlodipine Besylate (Norvasc -) 5 mg PO HS [facility] Last Admin: 11/13/18 21:51 Dose: 5 mg Aspirin (Asa -) 81 mg PO DAILY [facility] Last Admin: 11/14/18 10:10 Dose: 81 mg Atorvastatin Calcium (Lipitor -) 40 mg PO HS [facility] Last Admin: 11/13/18 21:51 Dose: 40 mg Carvedilol (Coreg -) 3.125 mg PO BID [facility] Last Admin: 11/14/18 10:10 Dose: 3.125 mg Cholecalciferol (Vitamin D3 -) 2,000 unit PO DAILY [facility] Last Admin: 11/14/18 10:10 Dose: 2,000 unit Dabigatran (Pradaxa -) 75 mg PO BID [facility] Last Admin: 11/14/18 10:10 Dose: 75 mg Docusate Sodium (Colace -) 100 mg PO Q8H PRN PRN Reason: CONSTIPATION Furosemide (Lasix Injection -) 40 mg IVPUSH BID@0600,1400 [facility] Last Admin: 11/14/18 05:28 Dose: 40 mg Polyethylene Glycol (Miralax (For Daily Use) -) 17 gm PO BID [facility] Last Admin: 11/14/18 10:10 Dose: 17 gm Timolol Maleate (Timoptic 0.5%) 1 drop OU DAILY [facility] Last Admin: 11/14/18 10:10 Dose: 1 drop - Objective Vital Signs: Vital Signs Temperature 97.3 F L 11/14/18 09:00 Pulse Rate 75 11/14/18 09:00 Respiratory Rate 18 11/14/18 09:00 Blood Pressure 138/66 11/14/18 09:00 O2 Sat by Pulse Oximetry (%) 96 11/14/18 09:00 Constitutional: Yes: Calm Eyes: Yes: Conjunctiva Clear HENT: Yes: Atraumatic Cardiovascular: Yes: S1, S2 Respiratory: Yes: Rhonchi Gastrointestinal: Yes: Soft, Abdomen, Obese Genitourinary: Yes: WNL Musculoskeletal: Yes: WNL Edema: No Neurological: Yes: Oriented Psychiatric: Yes: Oriented Labs: CBC, BMP 11/14/18 05:30 11/14/18 05:30 INR, PTT INR 1.79 (0.83-1.09) H 11/12/18 05:30 Assessment/Plan Current Medications Generic Name Dose Route Start Last Admin Trade Name Freq PRN Reason Stop Dose Admin Allopurinol 100 mg 11/11/18 22:00 11/14/18 10:11 Zyloprim - PO 100 mg BID HERMINIO Administration Amlodipine Besylate 5 mg 11/11/18 22:00 11/13/18 21:51 Norvasc - PO 5 mg HS HERMINIO Administration Aspirin 81 mg 11/12/18 10:00 11/14/18 10:10 Asa - PO 81 mg DAILY HERMINIO Administration Atorvastatin Calcium 40 mg 11/11/18 22:00 11/13/18 21:51 Lipitor - PO 40 mg HS HERMINIO Administration Carvedilol 3.125 mg 11/11/18 22:00 11/14/18 10:10 Coreg - PO 3.125 mg BID HERMINIO Administration Cholecalciferol 2,000 unit 11/12/18 10:00 11/14/18 10:10 Vitamin D3 - PO 2,000 unit DAILY HERMINIO Administration Dabigatran 75 mg 11/13/18 11:47 11/14/18 10:10 Pradaxa - PO 75 mg BID HERMINIO Administration Docusate Sodium 100 mg 11/11/18 21:52 Colace - PO Q8H PRN CONSTIPATION Furosemide 40 mg 11/12/18 14:00 11/14/18 05:28 Lasix Injection - IVPUSH 40 mg BID@0600,1400 HERMINIO Administration Polyethylene Glycol 17 gm 11/13/18 10:15 11/14/18 10:10 Miralax (For Daily Use) - PO 17 gm BID HERMINIO Administration Timolol Maleate 1 drop 11/12/18 10:00 11/14/18 10:10 Timoptic 0.5% OU 1 drop DAILY HERMINIO Administration Impression 1. 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 proteinuria 3. a-fib 4. chf 5. gout 6. htn 7. hld 8. bph Plan - monitor renal function, pt does have ckd - cont lasix and monitor volume status - will need proteinuria workup - consider adrienne or arb once more stable and on PO diuretics - renal ultrasound consistent with ckd Dr Baker
--- NOTE | 2018-11-14 14:21 | DS ---
Physical Exam: SUBJECTIVE: Patient seen and examined OBJECTIVE: Vital Signs Period Temp Pulse Resp BP Sys/Nichols Pulse Ox Last 24 Hr 97.3 F-98.2 F 66-75 18-20 118-140/51-83 95-96 PHYSICAL EXAM GENERAL: The patient is awake, alert, and fully oriented, in no acute distress. HEAD: Normal with no signs of trauma. EYES: PERRL, extraocular movements intact, sclera anicteric, conjunctiva clear. ENT: Ears normal, nares patent, oropharynx clear without exudates, moist mucous membranes. NECK: Trachea midline, full range of motion, supple. LUNGS: Breath sounds equal, clear to auscultation bilaterally, no wheezes, no crackles, no accessory muscle use. HEART: Regular rate and rhythm, S1, S2 without murmur, rub or gallop. ABDOMEN: Soft, nontender, nondistended, normoactive bowel sounds, no guarding, no rebound, no hepatosplenomegaly, no masses. EXTREMITIES: 2+ pulses, warm, well-perfused, no edema. NEUROLOGICAL: Cranial nerves II through XII grossly intact. Normal speech, gait not observed. PSYCH: Normal mood, normal affect. SKIN: Warm, dry, normal turgor, no rashes or lesions noted. LABS Laboratory Results - last 24 hr 11/14/18 11/14/18 05:30 05:30 WBC 6.6 RBC 3.59 L Hgb 11.5 L Hct 33.5 L MCV 93.2 MCH 31.9 MCHC 34.2 RDW 15.0 Plt Count 213 MPV 7.6 Sodium 139 Potassium 3.9 Chloride 103 Carbon Dioxide 28 Anion Gap 8 BUN 34 H Creatinine 2.5 H Creat Clearance w eGFR 24.61 Random Glucose 135 H Calcium 8.1 L Phosphorus 3.7 Magnesium 2.2 HOSPITAL COURSE: Date of Admission:11/11/18 Date of Discharge: 11/14/18 Minutes to complete discharge: 39 Discharge Summary Reason For Visit: ACUTE ON CHRONIC CONGESTIVE HEART FAILURE Condition: Guarded - Instructions Diet, Activity, Other Instructions: You came to the emergency room with worsening shortness of breath for one day. We gave you a water pill and your breathing improved and you were stable to be discharged home. Referrals: Chan Simon MD [Primary Care Provider] - 1 Week Kyaw Rivera MD [Staff Physician] - 1 Week Disposition: VNS/HOME HEALTH CARE - Home Medications Comprehensive Discharge Medication List: Ambulatory Orders Allopurinol [Zyloprim -] 100 mg PO BID 11/11/18 Amlodipine Besylate 5 mg PO HS 11/11/18 Aspirin [ASA -] 81 mg PO DAILY 11/11/18 Atorvastatin Ca [Lipitor] 40 mg PO HS 11/11/18 Carvedilol 3.125 mg PO BID 11/11/18 Cetirizine HCl [Zyrtec -] 10 mg PO HS 11/11/18 Cholecalciferol (Vitamin D3) [Vitamin D] 2,000 unit PO DAILY 11/11/18 Clobetasol Propionate/Emoll [Clobetasol Emollient 0.05% Crm] 15 gm TP PRN PRN Dabigatran Etexilate Mesylate [Pradaxa -] 150 mg PO BID 11/11/18 Dutasteride [Avodart] 0.5 mg PO DAILY 11/11/18 Famotidine 20 mg PO HS 11/11/18 Fluticasone Prop 0.05% Nasal [Flonase -] 1 - 2 spray NS DAILY 11/11/18 Timolol Maleate [Istalol] 2.5 ml OP DAILY 11/11/18 Problem List - Problems (1) Acute exacerbation of congestive heart failure Code(s): I50.9 - HEART FAILURE, UNSPECIFIED (2) A-fib Code(s): I48.91 - UNSPECIFIED ATRIAL FIBRILLATION
[2018-11-14 14:49] VITALS: BP 134/52; PULSE 52; TEMP 98.3
--- NOTE | 2018-11-14 14:54 | PN ---
Teaching Attending Note Name of Resident: Christine Turcios ATTENDING PHYSICIAN STATEMENT I saw and evaluated the patient. I reviewed the resident's note and discussed the case with the resident. I agree with the resident's findings and plan as documented. SUBJECTIVE: No SOB, no CP, no JOHN , no LE edema. feels better . could not sleep at night due to sick neighbor OBJECTIVE: NAD, awake, alert, and coperative CV: RRR, no MRG Lungs: minimal bibasilar crackles. NO JVD Abd: soft, NT, Nd , NL BS . Ext : no edema , hyperpigmented spots on shins ASSESSMENT AND PLAN: 88 y/o man with h/o HTN, HLP, A fib on AC,CHF, peripheral neuropathy, gout, and CKd who presented with SOB, he was found to have acute CHF exacerbation 1- Acute on chronic diastolic CHF exacerbation : improved. echo reviewed. - switch to po lasix , 40 daily - daily weights and report log to dehairer - cont BB - f/u with card for repeat echo ( pericardial effusion ) and assessment 2- A fib: chronic . - cont coreg - will call insurance to determine eliquis coverage. if not covered will cint reduced dose of pradaxa for his renal function 3- INES on CKD: stable cr, close to his base line. - f/u with renal as out pt for w/u for protenuria 4- dispo : dc home with VNS. d/w him and his , explained need for SNF due to deconditioning. SNF declined. D/w card , no contraindication for flying as patient has a vacation coming
--- NOTE | 2018-11-14 15:04 | DS ---
Physical Exam: SUBJECTIVE: Patient seen and examined at bedside- no acute events overnight'; patient states that he is feeling better and that his breathing is improved. he denies any CP/SOB/N/V fevers or chills OBJECTIVE: Vital Signs Period Temp Pulse Resp BP Sys/Nichols Pulse Ox Last 24 Hr 97.3 F-98.3 F 52-75 18-20 118-140/51-83 95-96 PHYSICAL EXAM GENERAL: The patient is awake, alert, and fully oriented, in no acute distress. EYES:PEERLA; EOMI; no scleral icterus NECK: no JVD; no lymphadenopathy LUNGS: Breath sounds equal, clear to auscultation bilaterally, no wheezes, no crackles, no accessory muscle use. HEART: Regular rate and rhythm, S1, S2 without murmur, rub or gallop. ABDOMEN: Soft, nontender, nondistended, normoactive bowel sounds, no guarding, no rebound, no hepatosplenomegaly, no masses. EXTREMITIES: 2+ pulses, warm, well-perfused, no edema. NEUROLOGICAL: Cranial nerves II through XII grossly intact. Normal speech, gait not observed. PSYCH: Normal mood, normal affect. SKIN: Warm, dry, normal turgor, no rashes or lesions noted. LABS Laboratory Results - last 24 hr 11/14/18 11/14/18 05:30 05:30 WBC 6.6 RBC 3.59 L Hgb 11.5 L Hct 33.5 L MCV 93.2 MCH 31.9 MCHC 34.2 RDW 15.0 Plt Count 213 MPV 7.6 Sodium 139 Potassium 3.9 Chloride 103 Carbon Dioxide 28 Anion Gap 8 BUN 34 H Creatinine 2.5 H Creat Clearance w eGFR 24.61 Random Glucose 135 H Calcium 8.1 L Phosphorus 3.7 Magnesium 2.2 HOSPITAL COURSE: Date of Admission:11/11/18 88 y/o male with PMH of HTN, HLD, HLD,. afib (on pradaxa) CHF, neuropathy, tremor presented to the ED with worsening dhortness of breath for 1 day. patients stated that he was having worsening shortness of breath for one day so he came in. An echo was done which showd an ef og 50-55 percent, low to normal LV function, Mild MR, mild TR, with a Pa pressure of 35. patient was started on 40 IV lasix with improvement in his respiratory status. he was seen by cardio who agreed with starting the patient on IV lasix . we monitored his i s and o's and he was stable to be discharged on 40 lasix daily with follow up eto see his own rn family in one week. his pradaxa was decreased to 75mg from 150,g due to his kidney function. Date of Discharge: 11/14/18 Minutes to complete discharge: 39 Discharge Summary Reason For Visit: ACUTE ON CHRONIC CONGESTIVE HEART FAILURE Condition: Improved - Instructions Diet, Activity, Other Instructions: You came to the emergency room with worsening shortness of breath for one day. We gave you a water pill and your breathing improved and you were stable to be discharged home. Please resume all of your home medications in addition: Please take Lasix 40mg daily We made a change to your Pradaxa dose; we decreased it from 150mg to 75mg twice daily Please follow up with Dr. Simon within one week Please follow up with Dr. Rivera, within one week (especially before your flight) follow up with Dr. Baker, for your renal disease *if you begin to experience any chest pains, shortness of breath, nausea/ vomiting please return to the emergency room immediately weigh yourself daily and take log to your heart doctor in few days . if yo feel light headed call your doctor and inform him . low salt diet you need blood work in 1 week ( BMP) , please perform and send results to your PCP you need a follow up CT scan of your chest ordered by your primary doctor to follow up on the opacity in right upper lung you need work up for your protenuria by Dr. Baker ( nephrololgy ) Referrals: Chan Simon MD [Primary Care Provider] - 1 Week Kyaw Rivera MD [Staff Physician] - 1 Week Shlomo Baker MD [Staff Physician] - 2 Weeks Disposition: VNS/HOME HEALTH CARE - Home Medications Comprehensive Discharge Medication List: Ambulatory Orders Allopurinol [Zyloprim -] 100 mg PO BID 11/11/18 Amlodipine Besylate 5 mg PO HS 11/11/18 Aspirin [ASA -] 81 mg PO DAILY 11/11/18 Atorvastatin Ca [Lipitor] 40 mg PO HS 11/11/18 Carvedilol 3.125 mg PO BID 11/11/18 Cetirizine HCl [Zyrtec -] 10 mg PO HS 11/11/18 Cholecalciferol (Vitamin D3) [Vitamin D3] 2,000 unit PO DAILY 11/11/18 Clobetasol Propionate/Emoll [Clobetasol Emollient 0.05% Crm] 15 gm TP PRN PRN Dutasteride [Avodart] 0.5 mg PO DAILY 11/11/18 Famotidine 20 mg PO HS 11/11/18 Fluticasone Prop 0.05% Nasal [Flonase -] 1 - 2 spray NS DAILY 11/11/18 Timolol Maleate [Istalol] 2.5 ml OP DAILY 11/11/18 Dabigatran Etexilate Mesylate [Pradaxa -] 75 mg PO BID 30 Days #30 capsule 11/14 Furosemide [Lasix] 40 mg PO DAILY #30 tablet 11/14/18 Miscellaneous Medical Supply [Outpatient Order] 1 each ASDIR #1 misc Problem List - Problems (1) Acute exacerbation of congestive heart failure Code(s): I50.9 - HEART FAILURE, UNSPECIFIED (2) A-fib Code(s): I48.91 - UNSPECIFIED ATRIAL FIBRILLATION This patient is new to me today: No Emergency Visit: Yes ED Registration Date: 11/11/18 Care time: The patient presented to the Emergency Department on the above date and was hospitalized for further evaluation of their emergent condition. Critical Care patient: No - Discharge Referral Referred to [facility] Med [facility] No
== END 2018-11-14 18:11 | disposition home health service (06) | DRG 291 ==
LOC: JER 14:58 → JERBED 19:22 → J4W 11-12 00:30
PROVIDERS: ADMIT Internal Medicine; ATTEND Internal Medicine
DX: I13.0 Hypertensive heart and chronic kidney disease with heart failure and stage 1 through stage 4 chronic kidney disease, or unspecified chronic kidney disease (principal); I50.33 Acute on chronic diastolic (congestive) heart failure; N17.9 Acute kidney failure, unspecified; N18.9 Chronic kidney disease, unspecified; I48.91 Unspecified atrial fibrillation; G62.9 Polyneuropathy, unspecified; I25.10 Atherosclerotic heart disease of native coronary artery without angina pectoris; E78.5 Hyperlipidemia, unspecified; M10.9 Gout, unspecified; N40.0 Benign prostatic hyperplasia without lower urinary tract symptoms; Z98.61 Coronary angioplasty status; K59.00 Constipation, unspecified
CPT/HCPCS: 36415; 71045-TC-FY; 71250-TC; 74176-TC; 76775-TC; 80048; 80053; 80061; 81003; 81015; 82550; 83605; 83721; 83735; 83880; 83970; 84100; 84484; 84550; 85025; 85027; 85610; 85730; 87040; 87086; 87804; 93005; 93010; 93306-TC; 97116-GP; 97161-GP; 99284-25; J0131

== ENCOUNTER 2019-03-18 18:31 | Inpatient (IN) | payer OTHER ==
--- NOTE | 2019-03-18 19:20 | PDOC ---
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 Pt walks assisted with a walker, cane, or electric scooter. This evening he stood up from laying on the couch and started to move with his walker toward the restroom. He then felt the sensation he was going to pass out , told his he was going to fall, and then "lowered himself to the floor." He denies any LOC or striking his head and demonstrates small abrasions on his left arm and bilateral legs that he calls "rug burn." He reports not eating solid foods for the past 3 days and has been only drinking ensure due to loss of appetite. He reduced his water intake as well. Of note, he was seen on 03/15 and was prescribed doxycycline for a UTI. Also recent history of bowel impaction but last BM today, regular with pericolace nightly. He denies fever, chills, shortness of breath, chest pain, nausea, vomiting, visual changes, numbness, tingling, or acute weakness. denies any changes in his speech or appearance. A recent ECHO with his custodian was reported "normal" and appears to show mild CHF on chart review. <Blake Nixon - Last Filed: 03/18/19 22:07> <Soha Mejía - Last Filed: 03/19/19 01:55> - General Stated Complaint: FALL Time Seen by Provider: 03/18/19 19:17 Past History - Past Medical History Cardiac Disorders: Yes (A FIB) COPD: No CHF: Yes Disorders: Yes (BPH) HTN: Yes Hypercholesterolemia: Yes - Surgical History Cardiac Surgery: Yes (STENTS) - Suicide/Smoking/Psychosocial Hx Smoking Status: No Smoking History: Former smoker Have you smoked in the past 12 months: No Number of Cigarettes Smoked Daily: 0 If you are a former smoker, when did you quit?: 15 'Breaking Loose' booklet given: 06/11/18 Hx Alcohol Use: No Drug/Substance Use Hx: No Substance Use Type: None Hx Substance Use Treatment: No <HussainToniBlake - Last Filed: 03/18/19 22:07> <Soha Mejía - Last Filed: 03/19/19 01:55> - Past Medical History Allergies/Adverse Reactions: Allergies Allergy/AdvReac Type Severity Reaction Status Date / Time colchicine AdvReac Intermediate vasculitis Verified 03/18/19 19:22 Home Medications: Ambulatory Orders Allopurinol [Zyloprim -] 100 mg PO BID 11/11/18 Amlodipine Besylate 5 mg PO HS 11/11/18 Aspirin [ASA -] 81 mg PO DAILY 11/11/18 Atorvastatin Ca [Lipitor] 20 mg PO HS 11/11/18 Carvedilol 3.125 mg PO BID 11/11/18 Cetirizine HCl [Zyrtec -] 10 mg PO HS 11/11/18 Cholecalciferol (Vitamin D3) [Vitamin D3] 2,000 unit PO DAILY 11/11/18 Clobetasol Propionate/Emoll [Clobetasol Emollient 0.05% Crm] 15 gm TP PRN PRN Dutasteride [Avodart] 0.5 mg PO DAILY 11/11/18 Famotidine 20 mg PO HS 11/11/18 Fluticasone Prop 0.05% Nasal [Flonase -] 1 - 2 spray NS DAILY 11/11/18 Timolol Maleate [Istalol] 2.5 ml OP DAILY 11/11/18 Dabigatran Etexilate Mesylate [Pradaxa -] 75 mg PO BID 30 Days #30 capsule 11/14 Furosemide [Lasix] 40 mg PO PRN PRN 03/18/19 Review of Systems - Review of Systems Able to Perform ROS?: Yes Is the patient limited Malaysian proficient: No Constitutional: Yes: Loss of Appetite, Weakness HEENTM: No: Symptoms Reported Respiratory: No: Symptoms reported, Cough, Shortness of Breath Cardiac (ROS): No: Symptoms Reported, Chest Pain, Edema, Irregular Heart Rate, Palpitations, Chest Tightness ABD/GI: Yes: Constipated (recent admission for stool impaction, resolved), Poor Appetite, Poor Fluid Intake. No: Symptoms Reported, Abdominal Distended, Difficulty Swallowing : Yes: Symptoms Reported (UTI reported 7), Burning, Dysuria, Frequency Musculoskeletal: No: Symptoms Reported Integumentary: No: Symptoms Reported Neurological: Yes: Numbness (bilateral feet, neuropathy). No: Headache All Other Systems: Reviewed and Negative <Blake Nixon - Last Filed: 03/18/19 22:07> *Physical Exam - Physical Exam Comments: 03/18/19 20:24 Vitals reviewed, afebrile and HDS Gen: Elderly gentleman in bed with 3 blankets, shivering, amicable, IVF hung at bedside CV: no thrills of heaves, normal chest morphology, RRR Pulm: CTABL, normal work of breathing, no wheezes rales or rhonchi Abd: Soft, nontender, mildly distended, no scars or markings Neuro: Cranial nerves 2-12 intact Pulses: 2+ DP and Radial Ext: no clubbing / cyanosis / edema Skin: venous stasis changes on bilateral shins, left elbow and b/l knees with abrasions <Blake Nixon - Last Filed: 03/18/19 22:07> - Vital Signs Last Vital Signs Temp Pulse Resp BP Pulse Ox 98.0 F 77 16 124/76 100 03/18/19 18:32 03/18/19 18:32 03/18/19 18:32 03/18/19 18:32 03/18/19 18:32 <Soha Mejía - Last Filed: 03/19/19 01:55> ED Treatment Course - LABORATORY CBC & Chemistry Diagram: 03/18/19 20:37 03/18/19 20:37 <Blake Nixon - Last Filed: 03/18/19 22:07> - LABORATORY CBC & Chemistry Diagram: 03/18/19 20:37 03/18/19 20:37 - ADDITIONAL ORDERS Additional order review: Laboratory Results 03/18/19 03/18/19 03/18/19 22:32 20:37 20:37 PT with INR INR Sodium 140 Potassium 4.5 Chloride 108 H Carbon Dioxide 27 Anion Gap 5 L BUN 31.4 H Creatinine 2.2 H Est GFR (CKD-EPI)AfAm 30.10 Est GFR (CKD-EPI)NonAf 25.97 Random Glucose 175 H Lactic Acid 1.7 Calcium 8.3 L Magnesium 2.4 Total Bilirubin 0.6 AST 17 ALT 15 Alkaline Phosphatase 154 H Creatine Kinase 26 Troponin I < 0.02 Total Protein 6.6 Albumin 3.2 L Urine Color Yellow Urine Appearance Cloudy Urine pH 5.0 Ur Specific [place] 1.016 Urine Protein 3+ H Urine Glucose (UA) Negative Urine Ketones Negative Urine Blood 1+ H Urine Nitrite Negative Urine Bilirubin Negative Urine Urobilinogen 0.2 Ur Leukocyte Esterase 3+ H Urine WBC (Auto) 475 Urine RBC (Auto) 5 Urine Casts (Auto) 1 U Epithel Cells (Auto) 1.7 Urine Bacteria (Auto) 50.6 03/18/19 20:37 PT with INR 13.80 H INR 1.17 H Sodium Potassium Chloride Carbon Dioxide Anion Gap BUN Creatinine Est GFR (CKD-EPI)AfAm Est GFR (CKD-EPI)NonAf Random Glucose Lactic Acid Calcium Magnesium Total Bilirubin AST ALT Alkaline Phosphatase Creatine Kinase Troponin I Total Protein Albumin Urine Color Urine Appearance Urine pH Ur Specific [place] Urine Protein Urine Glucose (UA) Urine Ketones Urine Blood Urine Nitrite Urine Bilirubin Urine Urobilinogen Ur Leukocyte Esterase Urine WBC (Auto) Urine RBC (Auto) Urine Casts (Auto) U Epithel Cells (Auto) Urine Bacteria (Auto) 03/18/19 20:37 RBC 4.18 MCV 93.2 MCHC 33.2 RDW 15.6 MPV 8.1 Neutrophils % 77.9 Lymphocytes % 14.4 D Monocytes % 5.7 Eosinophils % 1.7 Basophils % 0.3 - RADIOLOGY Radiology Studies Ordered: Category Date Time Status CHEST X-RAY PORTABLE* [RAD] Stat Radiology 03/18/19 19:24 Taken - Medications Given in the ED: ED Medications Discontinued Medications Generic Name Dose Route Start Last Admin Trade Name Freq PRN Reason Stop Dose Admin Aspirin 162 mg 03/18/19 19:24 03/18/19 21:11 Asa - PO 03/18/19 19:25 Not Given ONCE ONE Dabigatran 75 mg 03/18/19 22:10 03/18/19 23:38 Pradaxa - PO 03/18/19 22:11 75 mg ONCE ONE Administration Sodium Chloride 1,000 mls @ 1,000 mls/hr 03/18/19 21:33 03/18/19 21:35 Normal Saline - IV 03/18/19 22:32 1,000 mls/hr ASDIR STA Administration Ceftriaxone Sodium 1,000 mg/ 50 mls @ 100 mls/hr 03/18/19 23:41 03/18/19 23: 42 Dextrose IVPB 03/19/19 00:10 100 mls/hr ONCE STA Administration <Soha Mejía - Last Filed: 03/19/19 01:55> Medical Decision Making - Medical Decision Making 03/18/19 20:31 89yo legally blind man with PMH Afib, essential tremor, 2 cardiac stents ( placed 4 years ago), HTN, bilateral LE neuropathy BIBEMS an hour after witnessed presyncopal fall at home in the setting of recently diagnosed UTI and decreased PO. History concerning for recent UTI, weakness, presyncope with associated fall, CV risk factors, and decreased PO. Physical notable for abrasions on arms and legs 2/2 fall, reassuring neuro and CV exam. Together concerning for hypovolemia induced presyncope vs worsening UTI vs failure to thrive (poor PO). Neurologic causes unlikely given history and physical. - CBC, CMP, Mg - EKG - Cardiac profile - PT/INR - UA UCx - pt on doxycycline for UTI at time of presentation - IVF bolus, arrived with NS 1L - No NCHCT - witnessed fall without LOC or head trauma, normal neuro exam 03/18/19 21:12 No leukocytosis 03/18/19 21:31 Troponin negative Electrolytes wnl Lactate 1.7 EKG pending Urine pending Aspirin held given Pradaxa home med 03/18/19 22:07 Pt requested PM dose of Pradaxa Still waiting on urine, pt declined straight cath, attempting free catch. 03/18/19 22:14 Signed out patient to Dr. Mejía <Blake Nixon - Last Filed: 03/18/19 22:07> *DC/Admit/Observation/Transfer <Blake Nixon - Last Filed: 03/18/19 22:07> - Discharge Dispostion Decision to Admit order: Yes <Soha Mejía - Last Filed: 03/19/19 01:55> Diagnosis at time of Disposition: Multiple abrasions, Near syncope UTI (urinary tract infection) Qualifiers: Urinary tract infection type: site unspecified Hematuria presence: without hematuria Qualified Code(s): N39.0 - Urinary tract infection, site not specified A-fib Qualifiers: Atrial fibrillation type: chronic Qualified Code(s): I48.2 - Chronic atrial fibrillation
[2019-03-18] MEDS ORDERED: ASPIRIN 81 MG CHEWABLE TABLETS PO ONE (19:24)
--- NOTE | 2019-03-18 19:30 | PDOC ---
Attending Attestation - Resident Resident Name: Blake Nixon - ED Attending Attestation I have performed the following: I have examined & evaluated the patient, The case was reviewed & discussed with the resident, I agree w/resident's findings & plan, Exceptions are as noted - HPI HPI: 03/18/19 19:29 9-year-old male brought in by ambulance after having a near syncopal episode at home. past medical history CHF, urinary tract infections. History of present illness he recently saw Dr. Erwin was placed on antibiotics for urinary tract infection several days ago.
[2019-03-18] MEDS ORDERED: ASPIRIN 81 MG CHEWABLE TABLETS ONE (20:57)
[2019-03-18 21:04] LABS: BASO % 0.3 % (0-2.0); EOS % 1.7 % (0-4.5); HEMATOCRIT 38.9 % (35.4-49); HEMOGLOBIN 12.9 GM/dL (11.7-16.9); LYMPH % 14.4 % (8-40); MCH 30.9 pg (25.7-33.7); MCHC 33.2 g/dl (32.0-35.9); MEAN CELL VOLUME 93.2 fl (80-96); MEAN PLT VOLUME 8.1 fl (7.5-11.1); MONO % 5.7 % (3.8-10.2); NEUT % 77.9 % (42.8-82.8); PLATELET COUNT 169 K/MM3 (134-434); RBC 4.18 M/mm3 (4.00-5.60); RDW 15.6 % (11.9-15.9); WHITE BLOOD COUNT 6.5 K/mm3 (4.0-10.0)
[2019-03-18 21:12] LABS: INR 1.17 (0.83-1.09); PROTHROMBIN TIME (PATIENT) 13.8 SEC (9.7-13.0)
[2019-03-18 21:22] LABS: ALBUMIN 3.2 g/dl (3.4-5.0); ALK PHOS 154 U/L (45-117); ANION GAP 5 MMOL/L (8-16); BILIRUBIN,TOTAL 0.6 mg/dL (0.2-1); BLOOD UREA NITROGEN 31.4 mg/dL (7-18); CALCIUM 8.3 mg/dL (8.5-10.1); CHLORIDE 108 mmol/L (98-107); CO2 27 mmol/L (21-32); CREATININE 2.2 mg/dL (0.55-1.3); GLUCOSE,RANDOM 175 mg/dL (74-106); MAGNESIUM 2.4 mg/dL (1.8-2.4); POTASSIUM 4.5 mmol/L (3.5-5.1); SGOT/AST 17 U/L (15-37); SGPT/ALT 15 U/L (13-61); SODIUM 140 mmol/L (136-145); TOT PROT 6.6 g/dl (6.4-8.2)
[2019-03-18] MEDS ORDERED: SODIUM CHLORIDE 1,000 ML IV STA (21:33)
[2019-03-18] MEDS ORDERED: DABIGATRAN ETEXILATE MESYLATE 75 MG CAPSULE PO ONE (22:10)
[2019-03-18 23:12] LABS: EPI CELLS 1.7 /HPF (0-5/HPF); HYALINE CASTS 1 /lpf (0-8); URINE APPEARANCE CLOUDY; URINE BACTERIA 50.6 /hpf (NEGATIVE); URINE BILIRUBIN NEGATIVE (NEGATIVE); URINE COLOR YELLOW; URINE GLUCOSE (UA) NEGATIVE (NEGATIVE); URINE KETONE NEGATIVE (NEGATIVE); URINE LEUK ESTERASE 3+ (NEGATIVE); URINE NITRITE NEGATIVE (NEGATIVE); URINE PROTEIN 3+ (NEGATIVE); URINE RBC 5 /hpf (0-4); URINE UROBILINOGEN 0.2 mg/dL (0.2-1.0); URINE WBC 475 /hpf (0-5)
[2019-03-18] MEDS ORDERED: CEFTRIAXONE 1,000 MG in DEXTROSE 5%-WATER - 50 ML IVPB STA (23:41)
[2019-03-18] MEDS ORDERED: CEFTRIAXONE 1 GM/50 ML BAG ONE (23:43)
--- NOTE | 2019-03-19 00:05 | PN ---
Teaching Attending Note Name of Resident: Celeste Whaley ATTENDING PHYSICIAN STATEMENT I saw and evaluated the patient. I reviewed the resident's note and discussed the case with the resident. I agree with the resident's findings and plan as documented. SUBJECTIVE: Patient is an 89 year old man who is legally blind with PMH of Afib (on Pradaxa) , NIDDM (?diet-controlled), Essential tremor, CAD (2 cardiac stents placed 4 years ago), HTN, bilateral LE neuropathy and Gout who presents an hour after witnessed presyncopal fall at home. Recently diagnosed UTI and decreased PO. Uses a walker, cane, or electric scooter. This evening he stood up from laying on the couch and started to move with his walker toward the restroom. He then felt the sensation he was going to pass out, told his he was going to fall , and then "lowered himself to the floor." He denies any LOC or striking his head and demonstrates small abrasions on his left arm and bilateral legs that he calls "rug burn." He reports not eating solid foods for the past 3 days and has been only drinking Ensure due to loss of appetite. He reduced his water intake as well. Of note, he was seen on and was prescribed doxycycline for a UTI. Also recent history of bowel impaction but last BM today, regular with Pericolace taken nightly. He denies fever, chills, shortness of breath, chest pain, nausea, vomiting, visual changes , numbness, tingling, or acute weakness. denies any changes in his speech or appearance. A recent ECHO with his design engineer agricultural equipment was reported as "normal" and appears to show mild CHF on chart review. OBJECTIVE: Alert and Orthostatic Vital Signs Period Temp Pulse Resp BP Sys/Nichols Pulse Ox Last 24 Hr 98.0 F 77 16 124/76 100 HEENT: No Jaundice, eye redness or discharge, PERRLA, EOMI. Normocephalic, atraumatic. External ears are normal and hearing is grossly intact. No nasal discharge. Neck: Supple, nontender. No palpable adenopathy or thyromegaly. No JVD Chest: Good effort. Clear to auscultation and percussion. Heart: Regular. No S3 or rub; 2/6 SEE. Abdomen: Not distended, soft, nontender and no HSM. No rebound or guarding. Normal bowel sounds. Ext: Peripheral pulses intact. No leg edema. Left elbow abrasion. Skin: Warm and dry. No petechiae, rash or ecchymosis. Neuro: Alert. Oriented x3. CN 2-12 grossly intact. Sensation grossly intact in all four extremities and DTR are symmetric. Psych: Appropriate mood and affect. Good insight. Current Medications Generic Name Dose Route Start Last Admin Trade Name Freq PRN Reason Stop Dose Admin Ceftriaxone Sodium 1,000 mg/ 50 mls @ 100 mls/hr 03/18/19 23:41 03/18/19 23: 42 Dextrose IVPB 03/19/19 00:10 100 mls/hr ONCE STA Administration Home Medications Medication Instructions Recorded Allopurinol [Zyloprim -] 100 mg PO BID 11/11/18 Amlodipine Besylate 5 mg PO HS 11/11/18 Aspirin [ASA -] 81 mg PO DAILY 11/11/18 Atorvastatin Ca [Lipitor] 20 mg PO HS 11/11/18 Carvedilol 3.125 mg PO BID 11/11/18 Cetirizine HCl [Zyrtec -] 10 mg PO HS 11/11/18 Cholecalciferol (Vitamin D3) 2,000 unit PO DAILY 11/11/18 [Vitamin D3] Clobetasol Propionate/Emoll 15 gm TP PRN PRN 11/11/18 [Clobetasol Emollient 0.05% Crm] Dutasteride [Avodart] 0.5 mg PO DAILY 11/11/18 Famotidine 20 mg PO HS 11/11/18 Fluticasone Prop 0.05% Nasal 1 - 2 spray NS DAILY 11/11/18 [Flonase -] Timolol Maleate [Istalol] 2.5 ml OP DAILY 11/11/18 Dabigatran Etexilate Mesylate 75 mg PO BID 30 Days #30 capsule 11/14/18 [Pradaxa -] Furosemide [Lasix] 40 mg PO PRN PRN 03/18/19 Abnormal Lab Results 03/18/19 03/18/19 03/18/19 20:37 20:37 22:32 PT with INR 13.80 H INR 1.17 H Chloride 108 H Anion Gap 5 L BUN 31.4 H Creatinine 2.2 H Random Glucose 175 H Calcium 8.3 L Alkaline Phosphatase 154 H Albumin 3.2 L Urine Protein 3+ H Urine Blood 1+ H Ur Leukocyte Esterase 3+ H ASSESSMENT AND PLAN: 1. UTI/Presyncope - Presyncope likely due to multiple factors including dehydration, toxic metabolic encephalopathy from UTI, poor caloric intake, and autonomic dysfunction. Head CT scan is pending. Patient started on IV Rocephin for UTI and will hydrate gently. Most recent ECHO showed mildly reduced LV systolic function, but no documented aortic stenosis. EKG shows afib with a rate of [address]-T wave changes. CXR shows cardiomegaly and possible left pleural effusion. Will monitor on telemetry and continue comprehensive care of all his comorbid issues. Consult patient's PCP and switch from Pradaxa to ?Eliquis (2.5 mg bid) in view of CKD. Provide ongoing care of elbow abrasion and implement strict fall precautions. 2. Hypoalbuminemia - Possibly due to combined effects of significant proteinuria , malnutrition and inflammation associated with comorbid chronic conditions. Will ensure adequate dietary protein intake and also consult night shift supervisor. 3. CKD - Etiology unclear. Patient has proteinuria and its unclear if he has had a comprehensive nephrologic work up. Will consult nephrology and avoid nephrotoxic agents such as NSAIDS, aminoglycosides, contrast dyes and certain Alternative medicine products. 4. Uncontrolled DM Unclear why he is not being treated with medication for DM. He does not have any anti-diabetic drugs on his medication list, but has chronic hyperglycemia and since 2017 he has had documented HbA1cs of 6.4, 6.5 and 6.4. Will repeat HbA1c and implement sliding scale insulin regimen. Call his PCP during the day to find out why he not getting medication for DM. Provide comprehensive diabetes care with patient teaching and counseling about the importance of adherence to prescribed diabetes regimen, euglycemia, eye care and foot care. 5. Hypertension - Will restart suitable outpatient antihypertensive drugs when clinically appropriate. Revise regimen to ensure good BP control. Nonpharmacologic measures to control hypertension like weight loss, salt restriction and exercise discussed. 6. DVT prophylaxis - Was on Pradaxa for Afib, but will switch to Eliquis 2.5 mg bid in view of CKD. 7. Advance directives - Full code
--- NOTE | 2019-03-19 01:54 | PDOC ---
Documentation entered by Lyndsey Hernandez SCRIBE, acting as scribe for Soha Mejía MD. Soha Mejía MD: This documentation has been prepared by the Mary lópez Sammi, SCRIBE, under my direction and personally reviewed by me in its entirety. I confirm that the documentation accurately reflects all work, treatment, procedures, and medical decision making performed by me. Attending Attestation - Resident Resident Name: HussainBlake - ED Attending Attestation I have performed the following: I have examined & evaluated the patient, The case was reviewed & discussed with the resident, I agree w/resident's findings & plan, Exceptions are as noted - HPI HPI: 03/18/19 19:30 89-year-old male brought in by ambulance after having a near syncopal episode at home. History of present illness patient recently placed on antibiotics by Dr. Chan Simon for urinary tract infection - Physicial Exam PE: 03/18/19 19:30 converasnt 89 to male with c/o weakness head ncat neck supple lungs cta b/l cvs ireg, irreg s1s2 and nontender skin warm and dry extremities no deformities, abrasions to both knees no cva tenderness neuro alert and conversant psych appropraite 03/18/19 19:33 03/19/19 00:04 - Medical Decision Making 03/18/19 19:32 EKG is A. fib at 63 beats per minutes 03/18/19 19:33 past medical history significant for A. fib, cardiac stents, iabetes, CHF, urinary tract infection, frequent falls, hypertension pt is on pradaxa 03/18/19 19:35 03/18/19 19:35 patient recently seen by Dr. Simon and placed on antibiotics for urinary tract infection 03/18/19 23:58 DESPITE PATIENT BEING HIS DOXYCYCLINE. hE HAS A SIGNIFICANT URINARY TRACT INFECTION. hE HAD A WITNESSED NEAR SYNCOPAL EPISODE BUT DID NOT HIT HIS HEAD, HE LOWERED HIMSELF TO FLOOR,never lost consciouness,never had chest pain Since beinf diagnosed with his UTI he has not been eating or drinking fluids according to his because he felt weak DISCUSSED case with Dr Tre Turcios ,pt to be admitted 03/19/19 00:02
[2019-03-19] MEDS ORDERED: FUROSEMIDE 40 MG TABLET (FP) PO PRN (02:24)
[2019-03-19] MEDS ORDERED: amLODIPine BESYLATE 5 MG TABLET (FP) PO ONE (02:40)
--- NOTE | 2019-03-19 03:01 | HP ---
CHIEF COMPLAINT: fall PCP: HISTORY OF PRESENT ILLNESS: Mr. Guillen is a 89 yo male with a-fib, HTN, HLD, CHF, CKD, and peripheral neuropathy who presents after a fall. He was walking in his house and felt like he was going to fall from weakness, so he sat himself down as he fell on his left side. He denies any dizziness or LOC during the event. He also denies any head injury or headache. He is mobile with a cane and has recently gotten a motorized scooter to move around. He reports having numbness and tingling from his feet to his knees bilaterally. He reports a history of neuropathy. He is unsure of medication changes or BP changes recently. His is his caregiver and was not present during the interview. The patient was seen 4 days ago for dysuria and was diagnosed with UTI. He started doxycycline. He denies any fever or chills. He does report a decrease in appetite since his diagnosis and says he has taken in less food and liquids than normal. He is not having nausea, vomiting, or diarrhea. Urine culture was contaminated. ER course was notable for: (1) EKG PAST MEDICAL HISTORY: 1. a-fib 2. HTN 3. HLD 4. CHF 5. CKD 6. peripheral neuropathy 7. gout 8. non-essential tremor PAST SURGICAL HISTORY: stent x 2 Social History: Smoking: quit at age 23 (65 years ago) Alcohol: social Drugs: none Patient lives with and she is his home care rn. Family History: Allergies colchicine Adverse Reaction (Intermediate, Verified 03/18/19 19:22) vasculitis HOME MEDICATIONS: Home Medications Medication Instructions Recorded Allopurinol [Zyloprim -] 100 mg PO BID 11/11/18 Amlodipine Besylate 5 mg PO HS 11/11/18 Aspirin [ASA -] 81 mg PO DAILY 11/11/18 Atorvastatin Ca [Lipitor] 20 mg PO HS 11/11/18 Carvedilol 3.125 mg PO BID 11/11/18 Cetirizine HCl [Zyrtec -] 10 mg PO HS 11/11/18 Cholecalciferol (Vitamin D3) 2,000 unit PO DAILY 11/11/18 [Vitamin D3] Clobetasol Propionate/Emoll 15 gm TP PRN PRN 11/11/18 [Clobetasol Emollient 0.05% Crm] Dutasteride [Avodart] 0.5 mg PO DAILY 11/11/18 Famotidine 20 mg PO HS 11/11/18 Fluticasone Prop 0.05% Nasal 1 - 2 spray NS DAILY 11/11/18 [Flonase -] Timolol Maleate [Istalol] 2.5 ml OP DAILY 11/11/18 Dabigatran Etexilate Mesylate 75 mg PO BID 30 Days #30 capsule 11/14/18 [Pradaxa -] Furosemide [Lasix] 40 mg PO PRN PRN 03/18/19 REVIEW OF SYSTEMS CONSTITUTIONAL: Present: generalized weakness, loss of appetite Absent: fever, chills, diaphoresis HEENT: Absent: visual changes CARDIOVASCULAR: Present: near-syncope, irregular heart rhythm, peripheral edema Absent: chest pain, palpitations, irregular heart rate, lightheadedness RESPIRATORY: Absent: shortness of breath, orthopnea, wheezing GASTROINTESTINAL: Absent: abdominal pain, abdominal distension, nausea, vomiting, diarrhea, constipation GENITOURINARY: Absent: dysuria, frequency, urgency, hesitancy, hematuria MUSCULOSKELETAL: Present: back pain Absent: myalgia, arthralgia, joint swelling, neck pain SKIN: Present: abrasion Absent: rash, itching, pallor HEMATOLOGIC/IMMUNOLOGIC: Absent: easy bleeding, easy bruising, lymphadenopathy, frequent infections ENDOCRINE: Absent: unexplained weight gain, unexplained weight loss NEUROLOGIC: Absent: headache, focal weakness or paresthesias, dizziness, unsteady gait, seizure, mental status changes, bladder or bowel incontinence PSYCHIATRIC: Absent: anxiety, depression, suicidal or homicidal ideation, hallucinations. PHYSICAL EXAMINATION Vital Signs - 24 hr 03/18/19 18:32 Temperature 98.0 F Pulse Rate 77 Respiratory 16 Rate Blood Pressure 124/76 O2 Sat by Pulse 100 Oximetry (%) GENERAL: Awake, alert, and fully oriented, in no acute distress. Overall weakness. Forgetful. HEAD: Normal with no signs of trauma. No abrasions or ecchymosis. EYES: Pupils equal, round and reactive to light, extraocular movements intact, sclera anicteric, conjunctiva clear. No lid lag. EARS, NOSE, THROAT: Ears normal, nares patent, Moist mucous membranes. NECK: Normal range of motion, supple without lymphadenopathy, JVD, or masses. LUNGS: Breath sounds equal, clear to auscultation bilaterally. No wheezes, and no crackles. No accessory muscle use. HEART: Regular rate, irregular rhythm, +3 systolic murmur, no rub or gallop. ABDOMEN: Soft, nontender, not distended, hp bowel sounds, no guarding, no rebound, no masses. No hepatomegaly or splenomegaly. MUSCULOSKELETAL: Normal range of motion at all joints. No bony deformities or tenderness. No CVA tenderness. Difficulty sitting up with assistance. UPPER EXTREMITIES: 2+ pulses, warm, well-perfused. No peripheral edema. ~4cm skin tear at left lateral posterior elbow. LOWER EXTREMITIES: 1+ pulses, warm, +1 edema, dusky skin on right foot and lower leg. NEUROLOGICAL: Cranial nerves II-XII intact. Normal speech. +5 motor strength of extremities. PSYCHIATRIC: Cooperative. Good eye contact. Appropriate mood and affect. SKIN: Warm, dry, normal turgor, normal capillary refill. Laboratory Results - last 24 hr 03/18/19 03/18/19 03/18/19 20:37 20:37 20:37 WBC 6.5 RBC 4.18 Hgb 12.9 Hct 38.9 D MCV 93.2 MCH 30.9 MCHC 33.2 RDW 15.6 Plt Count 169 D MPV 8.1 Absolute Neuts (auto) 5.1 Neutrophils % 77.9 Lymphocytes % 14.4 D Monocytes % 5.7 Eosinophils % 1.7 Basophils % 0.3 Nucleated RBC % 0 PT with INR 13.80 H INR 1.17 H Sodium 140 Potassium 4.5 Chloride 108 H Carbon Dioxide 27 Anion Gap 5 L BUN 31.4 H Creatinine 2.2 H Est GFR (CKD-EPI)AfAm 30.10 Est GFR (CKD-EPI)NonAf 25.97 Random Glucose 175 H Lactic Acid Calcium 8.3 L Magnesium 2.4 Total Bilirubin 0.6 AST 17 ALT 15 Alkaline Phosphatase 154 H Creatine Kinase 26 Troponin I < 0.02 Total Protein 6.6 Albumin 3.2 L Urine Color Urine Appearance Urine pH Ur Specific [place] Urine Protein Urine Glucose (UA) Urine Ketones Urine Blood Urine Nitrite Urine Bilirubin Urine Urobilinogen Ur Leukocyte Esterase Urine WBC (Auto) Urine RBC (Auto) Urine Casts (Auto) U Epithel Cells (Auto) Urine Bacteria (Auto) 03/18/19 03/18/19 20:37 22:32 WBC RBC Hgb Hct MCV MCH MCHC RDW Plt Count MPV Absolute Neuts (auto) Neutrophils % Lymphocytes % Monocytes % Eosinophils % Basophils % Nucleated RBC % PT with INR INR Sodium Potassium Chloride Carbon Dioxide Anion Gap BUN Creatinine Est GFR (CKD-EPI)AfAm Est GFR (CKD-EPI)NonAf Random Glucose Lactic Acid 1.7 Calcium Magnesium Total Bilirubin AST ALT Alkaline Phosphatase Creatine Kinase Troponin I Total Protein Albumin Urine Color Yellow Urine Appearance Cloudy Urine pH 5.0 Ur Specific [place] 1.016 Urine Protein 3+ H Urine Glucose (UA) Negative Urine Ketones Negative Urine Blood 1+ H Urine Nitrite Negative Urine Bilirubin Negative Urine Urobilinogen 0.2 Ur Leukocyte Esterase 3+ H Urine WBC (Auto) 475 Urine RBC (Auto) 5 Urine Casts (Auto) 1 U Epithel Cells (Auto) 1.7 Urine Bacteria (Auto) 50.6 ASSESSMENT/PLAN: 1. near syncope- The patient reports a witnessed fall without LOC. He does not have a history of significant falls nor LOC. He most likely had a near-syncopal episode. He was diagnosed with a UTI 4 days ago and reports decreased oral intake. He had decrease in systolic pressure during orthostatics, so he is likely dehydrated. He does not have any significant changes in electrolytes. Approximately 30 min after fluids began, vitals: 168/75 64P supine, 166/88 70P sitting. -head CT to r/o injury or normal pressure hydrocephalus -monitor BP -gentle hydration NS -routine labs-CBC, CMP 2. UTI- He was diagnosed with UTI 4 days ago and began doxycycline. Urine culture results were contaminated, so unsure of the appropriate abx for patient. He does report an improvement and no longer has dysuria. Albumin is decreased at 3.2 but is not decreased significantly in the last year. CXR shows cardiomegaly and possible pleural effusion with congestion bilaterally. -empirically treat with ceftriaxone 1g daily x3 -new urine culture pending 3. uncontrolled HTN- Upon initial exam, patient had hypertension (190/90). He was asymptomatic. Was given 5mg amlodipine. Most recent pressure is 168/75. -restart home meds- carvedilol and amlodipine -continue to monitor pressure -cardiac diet 4. CKD- Patient's Cr baseline is 2-2.2. His current is 2.2. +3 protein in urinalysis. He does not have record of CKD workup. -protein/Cr ratio -gentle hydration -nephrology referral 5. a-fib- Patient is rate-controlled. Will continue with home meds. Pt is anti-coagulated at home with Pradaxa. Holding Pradaxa b/c CKD and other options for anti- coagulation. -Cards consult- switch Pradaxa to Eliquis b/c of CKD? 6. peripheral neuropathy- Patient reports history of neuropathy but does not endorse diagnosis of diabetes. CMP glucose was 175 which could be elevated because of illness or DM. A1C has been 6.4-6.5 in the last 2 years but does not appear to be addressed. -HbA1C ordered. Based off this result pt may need to be put on SSI in house and discharged on DM medication that is safe for use with his Cr. -check with PCP why pt is not being treated for DM 7. hypocalcemia- Ca 8.3. Patient is not having overt symptoms, muscle spasms. -PTH ordered -monitor with CMP -cardiac diet with salt restriction FEN- gentle hydration- NS 42 mL/hr currently electrolytes- will continue to monitor with CMP, Cl- 108 nutrition- cardiac diet DVT Pro-phylaxis- holding Pradaxa until speak with cards about changing to Eliquis Visit type - Emergency Visit Emergency Visit: Yes ED Registration Date: 03/19/19 Care time: The patient presented to the Emergency Department on the above date and was hospitalized for further evaluation of their emergent condition. - New Patient This patient is new to me today: Yes Date on this admission: 03/19/19 - Critical Care Critical Care patient: No ATTENDING PHYSICIAN STATEMENT I saw and evaluated the patient. I reviewed the resident's note and discussed the case with the resident. I agree with the resident's findings and plan as documented. SUBJECTIVE: OBJECTIVE: ASSESSMENT AND PLAN:
[2019-03-19] MEDS: SODIUM CHLORIDE 1,000 ML IV SCH (03:24)
[2019-03-19 06:48] LABS: BASO % 0.6 % (0-2.0); HEMATOCRIT 34.7 % (35.4-49); HEMOGLOBIN 11.6 GM/dL (11.7-16.9); LYMPH % 30.2 % (8-40); MCH 31.2 pg (25.7-33.7); MCHC 33.4 g/dl (32.0-35.9); MEAN CELL VOLUME 93.3 fl (80-96); MEAN PLT VOLUME 8.2 fl (7.5-11.1); MONO % 6.1 % (3.8-10.2); NEUT % 61.1 % (42.8-82.8); PLATELET COUNT 152 K/MM3 (134-434); RBC 3.72 M/mm3 (4.00-5.60); RDW 15.6 % (11.9-15.9); WHITE BLOOD COUNT 4.9 K/mm3 (4.0-10.0)
[2019-03-19 07:20] LABS: RATIO URIN PROTEIN/URIN CREAT 2.59 MG/DL
[2019-03-19 07:45] LABS: ALBUMIN 2.8 g/dl (3.4-5.0); BILIRUBIN,TOTAL 0.6 mg/dL (0.2-1); BLOOD UREA NITROGEN 29.6 mg/dL (7-18); CALCIUM 7.8 mg/dL (8.5-10.1); MAGNESIUM 2.1 mg/dL (1.8-2.4); POTASSIUM 4.1 mmol/L (3.5-5.1); TOT PROT 5.5 g/dl (6.4-8.2)
--- NOTE | 2019-03-19 08:24 | PN ---
Physical Exam: SUBJECTIVE: Patient seen and examined at bedside. pt has no acute complaints. pt states that the night prior he tripped over the rug. OBJECTIVE: Vital Signs Period Temp Pulse Resp BP Sys/Nichols Pulse Ox Last 24 Hr 97.6 F-98.4 F 61-77 16-18 124-169/67-89 98-100 GENERAL: The patient is awake, alert,oriented to place, did not know the month or year. in no acute distress. HEAD: Normal with no signs of trauma. EYES: extraocular movements intact ENT: oropharynx clear without exudates, poor oral hygiene,moist mucous membranes. LUNGS: Breath sounds equal, clear to auscultation bilaterally, no wheezes, no crackles, no accessory muscle use. HEART: irregular rate and rhythm, S1, S2 without murmur, rub or gallop. ABDOMEN: Soft, nontender, nondistended, normoactive bowel sounds EXTREMITIES: 2+ pulses, warm, well-perfused, no edema. PSYCH: Normal mood, normal affect. SKIN: Warm, dry, normal turgor, erythematous rash on B/L LE Laboratory Last Values WBC 4.9 K/mm3 (4.0-10.0) 03/19/19 06:22 RBC 3.72 M/mm3 (4.00-5.60) L 03/19/19 06:22 Hgb 11.6 GM/dL (11.7-16.9) L 03/19/19 06:22 Hct 34.7 % (35.4-49) L 03/19/19 06:22 MCV 93.3 fl (80-96) 03/19/19 06:22 MCH 31.2 pg (25.7-33.7) 03/19/19 06:22 MCHC 33.4 g/dl (32.0-35.9) 03/19/19 06:22 RDW 15.6 % (11.9-15.9) 03/19/19 06:22 Plt Count 152 K/MM3 (134-434) 03/19/19 06:22 MPV 8.2 fl (7.5-11.1) 03/19/19 06:22 Absolute Neuts (auto) 3.0 K/mm3 (1.5-8.0) 03/19/19 06:22 Neutrophils % 61.1 % (42.8-82.8) D 03/19/19 06:22 Lymphocytes % 30.2 % (8-40) D 03/19/19 06:22 Monocytes % 6.1 % (3.8-10.2) 03/19/19 06:22 Eosinophils % 2.0 % (0-4.5) 03/19/19 06:22 Basophils % 0.6 % (0-2.0) 03/19/19 06:22 Nucleated RBC % 0 % (0-0) 03/19/19 06:22 PT with INR 13.80 SEC (9.7-13.0) H 03/18/19 20:37 INR 1.17 (0.83-1.09) H 03/18/19 20:37 Sodium 143 mmol/L (136-145) 03/19/19 06:22 Potassium 4.1 mmol/L (3.5-5.1) 03/19/19 06:22 Chloride 111 mmol/L (98-107) H 03/19/19 06:22 Carbon Dioxide 25 mmol/L (21-32) 03/19/19 06:22 Anion Gap 7 MMOL/L (8-16) L 03/19/19 06:22 BUN 29.6 mg/dL (7-18) H 03/19/19 06:22 Creatinine 2.0 mg/dL (0.55-1.3) H 03/19/19 06:22 Est GFR (CKD-EPI)AfAm 33.78 03/19/19 06:22 Est GFR (CKD-EPI)NonAf 29.14 03/19/19 06:22 Random Glucose 103 mg/dL (74-106) 03/19/19 06:22 Hemoglobin A1c % 6.4 % (4.2-6.3) H 03/19/19 06:22 Lactic Acid 1.7 mmol/L (0.4-2.0) 03/18/19 20:37 Calcium 7.8 mg/dL (8.5-10.1) L 03/19/19 06:22 Phosphorus 3.0 mg/dL (2.5-4.9) 03/19/19 06:22 Magnesium 2.1 mg/dL (1.8-2.4) 03/19/19 06:22 Total Bilirubin 0.6 mg/dL (0.2-1) 03/19/19 06:22 AST 12 U/L (15-37) L 03/19/19 06:22 ALT 11 U/L (13-61) L 03/19/19 06:22 Alkaline Phosphatase 125 U/L (45-117) H 03/19/19 06:22 Creatine Kinase 26 U/L (26-308) 03/18/19 20:37 Troponin I < 0.02 ng/ml (0.00-0.05) 03/18/19 20:37 Total Protein 5.5 g/dl (6.4-8.2) L 03/19/19 06:22 Albumin 2.8 g/dl (3.4-5.0) L 03/19/19 06:22 Urine Color Yellow 03/18/19 22:32 Urine Appearance Cloudy 03/18/19 22:32 Urine pH 5.0 (5.0-8.0) 03/18/19 22:32 Ur Specific [place] 1.016 (1.010-1.035) 03/18/19 22:32 Urine Protein 3+ (NEGATIVE) H 03/18/19 22:32 Urine Glucose (UA) Negative (NEGATIVE) 03/18/19 22:32 Urine Ketones Negative (NEGATIVE) 03/18/19 22:32 Urine Blood 1+ (NEGATIVE) H 03/18/19 22:32 Urine Nitrite Negative (NEGATIVE) 03/18/19 22:32 Urine Bilirubin Negative (NEGATIVE) 03/18/19 22:32 Urine Urobilinogen 0.2 mg/dL (0.2-1.0) 03/18/19 22:32 Ur Leukocyte Esterase 3+ (NEGATIVE) H 03/18/19 22:32 Urine WBC (Auto) 475 /hpf (0-5) 03/18/19 22:32 Urine RBC (Auto) 5 /hpf (0-4) 03/18/19 22:32 Urine Casts (Auto) 1 /lpf (0-8) 03/18/19 22:32 U Epithel Cells (Auto) 1.7 /HPF (0-5/HPF) 03/18/19 22:32 Urine Bacteria (Auto) 50.6 /hpf (NEGATIVE) 03/18/19 22:32 U Random Total Protein 168.8 mg/dl (0-11.9) H 03/19/19 06:30 Urine Creatinine 65.0 mg/dL (20-320) 03/19/19 06:30 Protein/Creatinin Ratio 2.590 MG/DL 03/19/19 06:30 Current Medications Allopurinol (Zyloprim -) 100 mg PO BID HERMINIO Amlodipine Besylate (Norvasc -) 5 mg PO HS HERMINIO Aspirin (Asa -) 81 mg PO DAILY HERMINIO Atorvastatin Calcium (Lipitor -) 20 mg PO HS HERMINIO Carvedilol (Coreg -) 3.125 mg PO BID HERMINIO Dabigatran (Pradaxa -) 75 mg PO BID HERMINIO Dutasteride (Avodart -) 0.5 mg PO DAILY HERMINIO Furosemide (Lasix -) 40 mg PO PRN PRN PRN Reason: swelling Sodium Chloride (Normal Saline -) 1,000 mls @ 42 mls/hr IV ASDIR HERMINIO Last Admin: 03/19/19 03:24 Dose: 42 mls/hr Ceftriaxone Sodium 1 gm/ (Dextrose) 50 mls @ 100 mls/hr IVPB DAILY HERMINIO; Protocol Non-Formulary Medication (Timolol Maleate [Istalol]) 2.5 ml OP DAILY HERMINIO Ranitidine HCl (Zantac -) 150 mg PO HS [address]IO CT head: Generalized loss with moderate to marked ventricular dilatation and periventricular chronic microvascular ischemic disease changes. Focal encephalomalacia again seen in the right occipital lobe. No CT evidence of acute intracranial pathology is identified. Correlate clinically to determine further evaluation and follow-up. A preliminary report was [facility] by [facility], IMAGING WHEELABRATOR OPERATOR ASSESSMENT/PLAN: 89 yo M with PMH of HTN, A-fib (on pradexa) , HLD, CHF, CKD, peripheral neuropathy presented to ED with presyncopal fall. Pt states the fall was mechanical as he tripped over the rug. The pt was recently seen by Dr. Simon for UTI. Pre-Syncopal fall r/o cardiac causes -troponin neg x2 -recent Echo showing no significant valvular pathology -pending carotid u/s -cardio eval -CT head : no intracranial pathology -chest XRAY: no acute pulmonary pathology UTI: -UA + Leukocyte Esterase -Empiric Ceftriaxone day 2 -rpt UCx CKD -on previous visit the BUN/Cr was 31.4/2.2 -Today the pt is 29.6/2.0, pt is at baseline. Afib -On pradexa -cardio consult HTN -pt prior home medications include amlodipine, carvedilol -c/w home medications HLD -pt previously on Lipitor Peripheral neuropathy -A1c is 6.4 -c/w lifestyle maintenance DVT ppx -pradexa Visit type - Emergency Visit Emergency Visit: Yes ED Registration Date: 03/19/19 Care time: The patient presented to the Emergency Department on the above date and was hospitalized for further evaluation of their emergent condition. - New Patient This patient is new to me today: Yes Date on this admission: 03/19/19 - Critical Care Critical Care patient: No - Discharge Referral Referred to [facility] Med P.C.: No ATTENDING PHYSICIAN STATEMENT I saw and evaluated the patient. I reviewed the resident's note and discussed the case with the resident. I agree with the resident's findings and plan as documented. SUBJECTIVE: OBJECTIVE: ASSESSMENT AND PLAN:
[2019-03-19] MEDS ORDERED: TIMOLOL MALEATE OP SCH (10:00)
[2019-03-19] MEDS: DUTASTERIDE 0.5 MG CAP (FP) PO SCH (11:38)
[2019-03-19] MEDS: ASPIRIN 81 MG CHEWABLE TABLETS PO SCH (11:38)
[2019-03-19] MEDS: ALLOPURINOL 100 MG TABLET (FP) PO SCH ×2 (11:38→21:38)
[2019-03-19] MEDS: CARVEDILOL 3.125 MG TABLET (FP) PO SCH ×2 (11:38→21:39)
--- NOTE | 2019-03-19 12:06 | EKG ---
Test Reason : Blood Pressure : / mmHG Vent. Rate : 063 BPM Atrial Rate : 394 BPM P-R Int : 000 ms QRS Dur : 116 ms QT Int : 422 ms P-R-T Axes : 000 -70 -02 degrees QTc Int : 431 ms POOR DATA QUALITY, INTERPRETATION MAY BE ADVERSELY AFFECTED ATRIAL FIBRILLATION WITH PREMATURE VENTRICULAR OR ABERRANTLY CONDUCTED COMPLEXES LEFT AXIS DEVIATION PULMONARY DISEASE PATTERN SEPTAL INFARCT (CITED ON OR BEFORE 11-NOV-2018) ABNORMAL ECG WHEN COMPARED WITH ECG OF 11-NOV-2018 17:58, QUESTIONABLE CHANGE IN INITIAL FORCES OF SEPTAL LEADS T WAVE INVERSION LESS EVIDENT IN INFERIOR LEADS Confirmed by Dimitry Chatman ([id number]) on 03/19/2019 12:06:20 PM Referred By: Confirmed By:Dimitry Chatman
--- NOTE | 2019-03-19 13:15 | PN ---
Teaching Attending Note Name of Resident: Jossy Uribe ATTENDING PHYSICIAN STATEMENT I saw and evaluated the patient. I reviewed the resident's note and discussed the case with the resident. I agree with the resident's findings and plan as documented. SUBJECTIVE:asymptomatic. reports that his foot got caught on the rug and that he fell. denies any LOC, SOB, fever, chills, N/V/C/D, dizzyness, blurred vision. states he is still taking doxy for his UTI. continues to have polyuria but states he drinks a lot so hard to tell if its better or not. OBJECTIVE: Last Vital Signs Temp Pulse Resp BP Pulse Ox 97.6 F 66 16 161/67 98 03/19/19 07:20 03/19/19 07:20 03/19/19 07:20 03/19/19 07:20 03/19/19 07:25 general NAD CV S1 S2 RRR no murmur/rub/gallop no carotid bruit Lungs CTA B/L no wheezing/rales/rhonchi Abdomen soft NT/ND no suprapubic tenderness Extremities no pedal edema ASSESSMENT AND PLAN: 89yo M with PMH legally blind, afib on pradaxa, DM, CKD, HTN and currently on abx for UTI presented to the Er with mechanical fall 1. Mechanical fall- reports he tripped and fell and denies any symptoms suggestive of syncope. Echo done November 2018 noted nad no significant valvular abnormalities. will check Carotid doppler. orthostatics negative. PT eval. head CT noted 2. UTI- will reach out to PMD to see if Ucx was obtained and sensitivities seen. on Ceftiraxone here. will f/u Ucx but note likely be negative if been on abx for 3 days now 3. Elevated BP- may be due to missed doses. will re-start home meds and titrate as needed 4. DM- A1c 6.4. not on home meds. would cont wiht diet control. 5. CKD- will jak PMD to obtain baseline 6. Afib on pradaxa- based on what baseline Cr function is might not be suitable for him to continue on pradaxa. will determine if needs to switch to eliquis. cont pradaxa for now 7. CAD s/p 2 stents- on asa/statin 8. DVT ppx- pradaxa 9. will monitor patient overnight if remains stable in AM can d/c tomorrow
--- NOTE | 2019-03-19 15:36 | CON.CARD ---
Consult Consult Specialty:: Cardiology - History of Present Illness Chief Complaint: Consider alternate anticoagulation History of Present Illness: 89 yo male with a-fib, HTN, HLD, chronic HfPEF, CAD, CKD3-4, and peripheral neuropathy who presents after a fall. He felt weakness, so he sat himself down . He denies any dizziness or LOC during the event. He also denies any head injury or headache. No dyspnea or chest pain. Cr has been stable Has been on Pradaxa 75mg bid adjusted for his CrCl. - History Source History Provided By: Patient Limitations to Obtaining History: No Limitations - Past Medical History Cardio/Vascular: Yes: AFIB (chronic), CHF, HTN, Mitral Insufficiency (moderate per 03/07/16 echo) Renal/: Yes: Renal Inusuff - Alcohol/Substance Use Hx Alcohol Use: No - Smoking History Smoking history: Former smoker Have you smoked in the past 12 months: No Aproximately how many cigarettes per day: 0 If you are a former smoker, when did you quit?: 15 - Social History Usual Living Arrangement: With Spouse Home Medications - Allergies Allergies/Adverse Reactions: Allergies Allergy/AdvReac Type Severity Reaction Status Date / Time colchicine AdvReac Intermediate vasculitis Verified 03/18/19 19:22 - Home Medications Home Medications: Ambulatory Orders Furosemide [Lasix] 40 mg PO PRN PRN 03/18/19 Allopurinol [Zyloprim -] 100 mg PO BID 03/19/19 Amlodipine Besylate 5 mg PO DAILY 03/19/19 Aspirin [Aspirin EC] 81 mg PO DAILY 03/19/19 Atorvastatin Ca [Lipitor] 40 mg PO DAILY 03/19/19 Carvedilol 3.125 mg PO BID 03/19/19 Cetirizine HCl [All Day Allergy] 10 mg PO DAILY 03/19/19 Chlorhexidine Acetate [Chlorhexidine Diacetate] 03/19/19 Chlorhexidine [Chlorhexidine Flavor] 0.12 ml TP PRN 03/19/19 Cholecalciferol (Vitamin D3) [Vitamin D3] 2,000 unit PO DAILY 03/19/19 Dabigatran Etexilate Mesylate [Pradaxa -] 75 mg PO BID 03/19/19 Dutasteride 0.5 mg PO DAILY 03/19/19 Famotidine 03/19/19 Gabapentin 100 mg PO DAILY 03/19/19 Timolol Maleate 0.5% Gfs [Timoptic Xe 0.5%] 03/19/19 Review of Systems - Review of Systems Constitutional: reports: No Symptoms Eyes: reports: No Symptoms HENT: reports: No Symptoms Neck: reports: No Symptoms Cardiovascular: reports: No Symptoms Respiratory: reports: No Symptoms Vital Signs: Vital Signs Temperature 97.6 F 03/19/19 07:20 Pulse Rate 66 03/19/19 07:20 Respiratory Rate 16 03/19/19 07:20 Blood Pressure 161/67 03/19/19 07:20 O2 Sat by Pulse Oximetry (%) 98 03/19/19 07:25 Constitutional: Yes: Well Nourished, No Distress Eyes: Yes: Conjunctiva Clear HENT: Yes: Atraumatic, Normocephalic Neck: Yes: Supple, Trachea Midline Respiratory: Yes: Regular, CTA Bilaterally Gastrointestinal: Yes: Normal Bowel Sounds Cardiovascular: Yes: Pulse Irregular JVD: No Carotid Bruit: No Heart Sounds: Yes: S1, S2 Murmur: No: Systolic Murmur, Diastolic Murmur Edema: No - Other Data Labs, Other Data: CBC, BMP 03/19/19 06:22 03/19/19 06:22 INR, PTT INR 1.17 (0.83-1.09) H 03/18/19 20:37 Troponin, BNP 03/18/19 03/19/19 20:37 13:00 Troponin I < 0.02 < 0.02 Troponin, BNP 03/18/19 03/19/19 20:37 13:00 Troponin I < 0.02 < 0.02 Afib, Old IWMI VPC. Problem List - Problems (1) A-fib Code(s): I48.91 - UNSPECIFIED ATRIAL FIBRILLATION Qualifiers: Atrial fibrillation type: chronic Qualified Code(s): I48.2 - Chronic atrial fibrillation Assessment/Plan Stable CAD Chronic HfPEF with stable CHF Chronic Afib rate controlled. Stable CKD 3-4 Patient may continue with Pradaxa 75mg bid adjusted to his CKD.
[2019-03-19 16:46] VITALS: BMI 25.4
[2019-03-19] MEDS: CEFTRIAXONE 1 GM in DEXTROSE 5%-WATER - 50 ML IVPB SCH (18:03)
[2019-03-19] MEDS: amLODIPine BESYLATE 5 MG TABLET (FP) PO SCH (21:38)
[2019-03-19] MEDS: RANITIDINE HCL 150 MG TABLET (FP) PO SCH (21:38)
[2019-03-19] MEDS: ATORVASTATIN CA 20 MG TABLET (FP) PO SCH (21:38)
[2019-03-19] MEDS ORDERED: MELATONIN 5 MG TABLETS PO PRN (23:44)
[2019-03-20] MEDS: SODIUM CHLORIDE 1,000 ML IV SCH (07:25)
[2019-03-20 08:12] LABS: HEMOGLOBIN 12.1 GM/dL (11.7-16.9); MCH 31.4 pg (25.7-33.7); MCHC 33.6 g/dl (32.0-35.9); MEAN CELL VOLUME 93.7 fl (80-96); MEAN PLT VOLUME 8.5 fl (7.5-11.1); PLATELET COUNT 158 K/MM3 (134-434); RBC 3.84 M/mm3 (4.00-5.60); RDW 15.7 % (11.9-15.9); WHITE BLOOD COUNT 4.9 K/mm3 (4.0-10.0)
[2019-03-20 08:27] LABS: BLOOD UREA NITROGEN 20.3 mg/dL (7-18); CREATININE 1.7 mg/dL (0.55-1.3); MAGNESIUM 2.2 mg/dL (1.8-2.4); PHOSPHOROUS 2.8 mg/dL (2.5-4.9); POTASSIUM 3.8 mmol/L (3.5-5.1)
[2019-03-20] MEDS ORDERED: DEXTROSE 5%-WATER - 50 ML IVPB ONE (09:24)
[2019-03-20] MEDS ORDERED: cefTRIAXone SODIUM 1 GM VIAL ONE (09:24)
[2019-03-20] MEDS: CEFTRIAXONE 1 GM in DEXTROSE 5%-WATER - 50 ML IVPB SCH (10:25)
[2019-03-20] MEDS: DABIGATRAN ETEXILATE MESYLATE 75 MG CAPSULE PO SCH ×2 (10:25→22:57)
[2019-03-20] MEDS: ALLOPURINOL 100 MG TABLET (FP) PO SCH ×2 (10:26→22:01)
[2019-03-20] MEDS: ASPIRIN 81 MG CHEWABLE TABLETS PO SCH (10:26)
[2019-03-20] MEDS: DUTASTERIDE 0.5 MG CAP (FP) PO SCH (10:26)
[2019-03-20] MEDS: CARVEDILOL 3.125 MG TABLET (FP) PO SCH ×2 (10:26→22:04)
--- NOTE | 2019-03-20 12:02 | PN ---
Teaching Attending Note Name of Resident: Jossy Uribe ATTENDING PHYSICIAN STATEMENT I saw and evaluated the patient. I reviewed the resident's note and discussed the case with the resident. I agree with the resident's findings and plan as documented. SUBJECTIVE:asymptomatic. denies CP, SOB, fever,chils, N/V/C/D, dysuria or polyuria OBJECTIVE: Last Vital Signs Temp Pulse Resp BP Pulse Ox 98.2 F 61 20 149/58 L 100 03/20/19 10:00 03/20/19 10:03/20/19 10:00 03/20/19 10:03/20/19 09:00 general NAD CV S1 S2 RRR no murmur/rub/gallop no carotid bruit Lungs CTA B/L no wheezing/rales/rhonchi Abdomen soft NT/ND no suprapubic tenderness Extremities no pedal edema ASSESSMENT AND PLAN: 89yo M with PMH legally blind, afib on pradaxa, DM, CKD, HTN and currently on abx for UTI presented to the Er with mechanical fall 1. Mechanical fall- reports he tripped and fell and denies any symptoms suggestive of syncope. Echo done November 2018 noted nad no significant valvular abnormalities. Carotid doppler negative. orthostatics negative. PT eval. head CT noted 2. UTI- Ucx from PMD was contaminated. Ucx here showing low growth. will d/c abx at this time. 3. HTN- controlled. cont home meds 4. DM- A1c 6.4. not on home meds. would cont wiht diet control. 5. CKD- stable 6. Afib on pradaxa-rate controlled. can cont pradaxa based off crcl. 7. CAD s/p 2 stents- on asa/statin 8. DVT ppx- pradaxa 9. PT assessment. may benefit from [facility]. medically optimized for discharge at this time
[2019-03-20] MEDS: BACITRACIN 15 GM TUBE TOPICAL OINTMENT TP SCH (16:03)
--- NOTE | 2019-03-20 16:33 | PN ---
Physical Exam: SUBJECTIVE: Patient seen and examined OBJECTIVE: Vital Signs Period Temp Pulse Resp BP Sys/Nichols Pulse Ox Last 24 Hr 97.6 F-98.2 F 58-72 18-20 116-159/58-84 98-100 GENERAL: The patient is awake, alert, and fully oriented, in no acute distress. HEAD: Normal with no signs of trauma. EYES: PERRL, extraocular movements intact, sclera anicteric, conjunctiva clear. No ptosis. ENT: Ears normal, nares patent, oropharynx clear without exudates, moist mucous membranes. NECK: Trachea midline, full range of motion, supple. LUNGS: Breath sounds equal, clear to auscultation bilaterally, no wheezes, no crackles, no accessory muscle use. HEART: Regular rate and rhythm, S1, S2 without murmur, rub or gallop. ABDOMEN: Soft, nontender, nondistended, normoactive bowel sounds, no guarding, no rebound, no hepatosplenomegaly, no masses. EXTREMITIES: 2+ pulses, warm, well-perfused, no edema. NEUROLOGICAL: Cranial nerves II through XII grossly intact. Normal speech, gait not observed. PSYCH: Normal mood, normal affect. SKIN: Warm, dry, normal turgor, no rashes or lesions noted Laboratory Results - last 24 hr 03/19/19 03/20/19 03/20/19 06:22 06:03 06:03 WBC 4.9 RBC 3.84 L Hgb 12.1 Hct 36.0 MCV 93.7 MCH 31.4 MCHC 33.6 RDW 15.7 Plt Count 158 MPV 8.5 Sodium 143 Potassium 3.8 Chloride 109 H Carbon Dioxide 27 Anion Gap 7 L BUN 20.3 H Creatinine 1.7 H Est GFR (CKD-EPI)AfAm 41.11 Est GFR (CKD-EPI)NonAf 35.47 Random Glucose 100 Calcium 8.0 L Phosphorus 2.8 Magnesium 2.2 PTH Intact 105 H Active Medications Generic Name Dose Route Start Last Admin Trade Name Freq PRN Reason Stop Dose Admin Allopurinol 100 mg 03/19/19 10:00 03/20/19 10:26 Zyloprim - PO 100 mg BID [facility] Administration Amlodipine Besylate 5 mg 03/19/19 22:00 03/19/19 21:38 Norvasc - PO Not Given HS [facility]IO Aspirin 81 mg 03/19/19 10:00 03/20/19 10:26 Asa - PO 81 mg DAILY [facility] Administration Atorvastatin Calcium 20 mg 03/19/19 22:00 03/19/19 21:38 Lipitor - PO Not Given HS [facility]IO Bacitracin 1 applic 03/20/19 16:00 03/20/19 16:03 Bacitracin - TP 1 applic DAILY [facility] Administration Carvedilol 3.125 mg 03/19/19 10:00 03/20/19 10:26 Coreg - PO 3.125 mg BID [facility] Administration Dabigatran 75 mg 03/19/19 10:00 03/20/19 10:25 Pradaxa - PO 75 mg BID [facility] Administration Dutasteride 0.5 mg 03/19/19 10:00 03/20/19 10:26 Avodart - PO 0.5 mg DAILY [facility] Administration Furosemide 40 mg 03/19/19 02:24 Lasix - PO PRN PRN swelling Sodium Chloride 1,000 mls @ 42 mls/hr 03/19/19 02:30 03/20/19 07:25 Normal Saline - IV 42 mls/hr ASDIR HERMINIO Administration Melatonin 5 mg 03/19/19 23:44 Melatonin PO HS PRN INSOMNIA Non-Formulary Medication 2.5 ml 03/19/19 10:00 Timolol Maleate [Istalol] OP DAILY [facility] Ranitidine HCl 150 mg 03/19/19 22:00 03/19/19 21:38 Zantac - PO Not Given HS HERMINIO Timolol Maleate 1 drop 03/21/19 10:00 Timoptic 0.5% OU DAILY HERMINIO CT head: Generalized loss with moderate to marked ventricular dilatation and periventricular chronic microvascular ischemic disease changes. Focal encephalomalacia again seen in the right occipital lobe. No CT evidence of acute intracranial pathology is identified. Correlate clinically to determine further evaluation and follow-up. A preliminary report was forwarded by the [employer] service, IMAGING BUILDING SERVICES ENGINEER ASSESSMENT/PLAN: 89 yo M with PMH of HTN, A-fib (on pradexa) , HLD, CHF, CKD, peripheral neuropathy presented to ED with presyncopal fall. Pt states the fall was mechanical as he tripped over the rug. The pt was recently seen by Dr. Simon for UTI. Pre-Syncopal fall r/o cardiac causes -troponin neg x2 -recent Echo showing no significant valvular pathology -carotid u/s: no evidence of hemodynamically significant stenosis -cardio recs appreciated, c/w pradexa -CT head : no acute intracranial pathology -chest XRAY: no acute pulmonary pathology UTI: -UA + Leukocyte Esterase in small quantities -d/c antibiotics, not clinically indicated. pt afebrile, no leukocytosis CKD -on previous visit the BUN/Cr was 31.4/2.2 -Today the pt is 20.3/1.7, pt is at baseline. Afib -On pradexa HTN -pt prior home medications include amlodipine, carvedilol -c/w home medications HLD -pt previously on Lipitor Peripheral neuropathy -A1c is 6.4 -c/w lifestyle maintenance DVT ppx -pradexa Visit type - Emergency Visit Emergency Visit: No - New Patient This patient is new to me today: No - Critical Care Critical Care patient: No - Discharge Referral Referred to [facility] Med P.C.: No ATTENDING PHYSICIAN STATEMENT I saw and evaluated the patient. I reviewed the resident's note and discussed the case with the resident. I agree with the resident's findings and plan as documented. SUBJECTIVE: OBJECTIVE: ASSESSMENT AND PLAN:
[2019-03-20] MEDS: TIMOLOL 0.5% OPHTHALMIC SOL 5 ML BOTTLE OU SCH (17:47)
[2019-03-20] MEDS: ATORVASTATIN CA 20 MG TABLET (FP) PO SCH (22:01)
[2019-03-20] MEDS: RANITIDINE HCL 150 MG TABLET (FP) PO SCH (22:02)
[2019-03-20] MEDS: amLODIPine BESYLATE 5 MG TABLET (FP) PO SCH (22:03)
[2019-03-20] MEDS ORDERED: PT OWN MED DRAWER 7, Y5N ONE (22:31)
[2019-03-21] MEDS ORDERED: BACITRACIN 15 GM TUBE TOPICAL OINTMENT TP SCH (10:00)
[2019-03-21] MEDS: ALLOPURINOL 100 MG TABLET (FP) PO SCH ×2 (10:04→21:23)
[2019-03-21] MEDS: DABIGATRAN ETEXILATE MESYLATE 75 MG CAPSULE PO SCH ×2 (10:04→21:23)
[2019-03-21] MEDS: CARVEDILOL 3.125 MG TABLET (FP) PO SCH ×2 (10:04→21:23)
[2019-03-21] MEDS: ASPIRIN 81 MG CHEWABLE TABLETS PO SCH (10:04)
[2019-03-21] MEDS: BACITRACIN 15 GM TUBE TOPICAL OINTMENT TP SCH (10:05)
[2019-03-21] MEDS: TIMOLOL 0.5% OPHTHALMIC SOL 5 ML BOTTLE OU SCH (10:05)
[2019-03-21] MEDS: DUTASTERIDE 0.5 MG CAP (FP) PO SCH (10:05)
--- NOTE | 2019-03-21 12:07 | PN ---
Teaching Attending Note Name of Resident: Jossy Uribe ATTENDING PHYSICIAN STATEMENT I saw and evaluated the patient. I reviewed the resident's note and discussed the case with the resident. I agree with the resident's findings and plan as documented. SUBJECTIVE: asymptomatic. denies CP, SOB, fever, chills, N/V/C?D OBJECTIVE: Last Vital Signs Temp Pulse Resp BP Pulse Ox 98.0 F 64 20 156/90 97 03/21/19 09:09 03/21/19 09:09 03/21/19 09:03/21/19 09:03/21/19 09:00 general NAD CV S1 S2 RRR no murmur/rub/gallop no carotid bruit Lungs CTA B/L no wheezing/rales/rhonchi Abdomen soft NT/ND no suprapubic tenderness Extremities no pedal edema ASSESSMENT AND PLAN: 89yo M with PMH legally blind, afib on pradaxa, DM, CKD, HTN and currently on abx for UTI presented to the Er with mechanical fall 1. Mechanical fall- reports he tripped and fell and denies any symptoms suggestive of syncope. Echo done November 2018 noted nad no significant valvular abnormalities. Carotid doppler negative. orthostatics negative. PT eval. head CT noted 2. UTI- Ucx from PMD was contaminated. Ucx here showing low growth. will d/c abx at this time. 3. HTN- controlled. cont home meds 4. DM- A1c 6.4. not on home meds. would cont wiht diet control. 5. CKD- stable 6. Afib on pradaxa-rate controlled. can cont pradaxa based off crcl. 7. CAD s/p 2 stents- on asa/statin 8. DVT ppx- pradaxa 9. PT assessment. may benefit from [facility]. medically optimized for discharge at this time awaiting ins auth. can d/c tele monitoring
--- NOTE | 2019-03-21 14:19 | PN ---
Physical Exam: SUBJECTIVE: Patient seen and examined at bedside. no acute complaints. OBJECTIVE: Vital Signs Period Temp Pulse Resp BP Sys/Nichols Pulse Ox Last 24 Hr 98.0 F-98.2 F 49-64 20-20 152-156/55-90 97-97 GENERAL: The patient is awake, alert, and oriented, in no acute distress. HEAD: Normal with no signs of trauma. LUNGS: Breath sounds equal, clear to auscultation bilaterally, no wheezes, no crackles, no accessory muscle use. HEART: irregular rate and rhythm, S1, S2 without murmur, rub or gallop. ABDOMEN: Soft, nontender, nondistended, normoactive bowel sounds, no guarding EXTREMITIES: 2+ pulses, warm, well-perfused, no edema. PSYCH: Normal mood, normal affect. SKIN: Warm, dry, normal turgor, no rashes or lesions noted Active Medications Allopurinol (Zyloprim -) 100 mg PO BID [facility] Last Admin: 03/21/19 10:04 Dose: 100 mg Amlodipine Besylate (Norvasc -) 5 mg PO HS [facility] Last Admin: 03/20/19 22:03 Dose: 5 mg Aspirin (Asa -) 81 mg PO DAILY [facility] Last Admin: 03/21/19 10:04 Dose: 81 mg Atorvastatin Calcium (Lipitor -) 20 mg PO HS [facility] Last Admin: 03/20/19 22:01 Dose: 20 mg Bacitracin (Bacitracin -) 1 applic TP DAILY [facility] Last Admin: 03/21/19 10:05 Dose: 1 applic Carvedilol (Coreg -) 3.125 mg PO BID [facility] Last Admin: 03/21/19 10:04 Dose: 3.125 mg Dabigatran (Pradaxa -) 75 mg PO BID [facility] Last Admin: 03/21/19 10:04 Dose: 75 mg Dutasteride (Avodart -) 0.5 mg PO DAILY [facility] Last Admin: 03/21/19 10:05 Dose: 0.5 mg Furosemide (Lasix -) 40 mg PO PRN PRN PRN Reason: swelling Melatonin (Melatonin) 5 mg PO HS PRN PRN Reason: INSOMNIA Non-Formulary Medication (Timolol Maleate [Istalol]) 2.5 ml OP DAILY [facility] Ranitidine HCl (Zantac -) 150 mg PO [facility] Last Admin: 03/20/19 22:02 Dose: 150 mg Timolol Maleate (Timoptic 0.5%) 1 drop OU DAILY [facility] Last Admin: 03/21/19 10:05 Dose: [address] head: Generalized loss with moderate to marked ventricular dilatation and periventricular chronic microvascular ischemic disease changes. Focal encephalomalacia again seen in the right occipital lobe. No CT evidence of acute intracranial pathology is identified. Correlate clinically to determine further evaluation and follow-up. A preliminary report was forwarded by the [facility] service, IMAGING GENERAL SCRAP WORKER ASSESSMENT/PLAN: 89 yo M with PMH of HTN, A-fib (on pradexa) , HLD, CHF, CKD, peripheral neuropathy presented to ED with presyncopal fall. Pt states the fall was mechanical as he tripped over the rug. The pt was recently seen by Dr. Simon for UTI. Pre-Syncopal fall r/o cardiac causes -troponin neg x2 -recent Echo showing no significant valvular pathology -carotid u/s: no evidence of hemodynamically significant stenosis -cardio recs appreciated, c/w pradexa -CT head : no acute intracranial pathology -chest XRAY: no acute pulmonary pathology -orthostatic neg -pt monitored on tele monitor, may be d/c no acute events UTI: -UA + Leukocyte Esterase -UCx: low growth -d/c antibiotics, not clinically indicated. pt afebrile, no leukocytosis CKD -on previous visit the BUN/Cr was 31.4/2.2 -Today the pt is 20.3/1.7, pt is at baseline. Afib -On pradexa -rate controlled HTN -pt prior home medications include amlodipine, carvedilol -c/w home medications HLD -pt previously on Lipitor Peripheral neuropathy -A1c is 6.4 -c/w lifestyle maintenance DVT ppx -pradexa DISPO: SNF tomorrow Visit type - Emergency Visit Emergency Visit: No - New Patient This patient is new to me today: No - Critical Care Critical Care patient: No - Discharge Referral Referred to [facility] Med P.C.: No ATTENDING PHYSICIAN STATEMENT I saw and evaluated the patient. I reviewed the resident's note and discussed the case with the resident. I agree with the resident's findings and plan as documented. SUBJECTIVE: OBJECTIVE: ASSESSMENT AND PLAN:
[2019-03-21] MEDS ORDERED: PT OWN MED DRAWER 7, Y5N ONE (20:51)
[2019-03-21] MEDS: RANITIDINE HCL 150 MG TABLET (FP) PO SCH (21:23)
[2019-03-21] MEDS: ATORVASTATIN CA 20 MG TABLET (FP) PO SCH (21:23)
[2019-03-21] MEDS: amLODIPine BESYLATE 5 MG TABLET (FP) PO SCH (21:23)
[2019-03-22 06:43] VITALS: TEMP 97.5
[2019-03-22] MEDS ORDERED: amLODIPine BESYLATE 10 MG TABLET (FP) PO SCH (07:27)
[2019-03-22 08:19] VITALS: BP 157/59; PULSE 60
[2019-03-22] MEDS: DABIGATRAN ETEXILATE MESYLATE 75 MG CAPSULE PO SCH (09:24)
[2019-03-22] MEDS: ASPIRIN 81 MG CHEWABLE TABLETS PO SCH (09:25)
[2019-03-22] MEDS: DUTASTERIDE 0.5 MG CAP (FP) PO SCH (09:25)
[2019-03-22] MEDS: ALLOPURINOL 100 MG TABLET (FP) PO SCH (09:25)
[2019-03-22] MEDS: TIMOLOL 0.5% OPHTHALMIC SOL 5 ML BOTTLE OU SCH (09:25)
[2019-03-22] MEDS: CARVEDILOL 3.125 MG TABLET (FP) PO SCH (09:25)
[2019-03-22] MEDS: BACITRACIN 15 GM TUBE TOPICAL OINTMENT TP SCH (09:26)
--- NOTE | 2019-03-22 10:57 | PN ---
Teaching Attending Note Name of Resident: Jossy Uribe ATTENDING PHYSICIAN STATEMENT I saw and evaluated the patient. I reviewed the resident's note and discussed the case with the resident. I agree with the resident's findings and plan as documented. SUBJECTIVE:asymptomatic. denies CP, SOB, fever, chills, N/V/?CD OBJECTIVE: Last Vital Signs Temp Pulse Resp BP Pulse Ox 97.5 F L 60 20 157/59 L 97 03/22/19 08:14 03/22/19 08:14 03/22/19 08:19 03/22/19 08:14 03/22/19 08:19 general NAD CV S1 S2 RRR no murmur/rub/gallop no carotid bruit Lungs CTA B/L no wheezing/rales/rhonchi Abdomen soft NT/ND no suprapubic tenderness Extremities no pedal edema ASSESSMENT AND PLAN: 89yo M with PMH legally blind, afib on pradaxa, DM, CKD, HTN and currently on abx for UTI presented to the Er with mechanical fall 1. Mechanical fall- reports he tripped and fell and denies any symptoms suggestive of syncope. Echo done November 2018 noted nad no significant valvular abnormalities. Carotid doppler negative. orthostatics negative. PT eval. head CT noted 2. UTI- Ucx from PMD was contaminated. Ucx here showing low growth. no abx. 3. HTN- controlled. cont home meds 4. DM- A1c 6.4. not on home meds. would cont wiht diet control. 5. CKD- stable 6. Afib on pradaxa-rate controlled. can cont pradaxa based off crcl. 7. CAD s/p 2 stents- on asa/statin 8. DVT ppx- pradaxa 9. d/c to [facility] today
--- NOTE | 2019-03-22 14:25 | DS ---
Physical Exam: SUBJECTIVE: Patient seen and examined at bedside. Pt has no acute complaints. OBJECTIVE: Vital Signs Period Temp Pulse Resp BP Sys/Nichols Pulse Ox Last 24 Hr 97.3 F-98.6 F 50-60 18-20 144-163/55-78 97-97 PHYSICAL EXAM GENERAL: The patient is awake, alert, and oriented, in no acute distress. HEAD: Normal with no signs of trauma. LUNGS: Breath sounds equal, clear to auscultation bilaterally, no wheezes, no crackles, no accessory muscle use. HEART: irregular rate and rhythm, S1, S2 without murmur, rub or gallop. ABDOMEN: Soft, nontender, nondistended, normoactive bowel sounds EXTREMITIES: 2+ pulses, warm, well-perfused, no edema. SKIN: Warm, dry, normal turgor, no rashes or lesions noted. LABS CT head: Generalized loss with moderate to marked ventricular dilatation and periventricular chronic microvascular ischemic disease changes. Focal encephalomalacia again seen in the right occipital lobe. No CT evidence of acute intracranial pathology is identified. Correlate clinically to determine further evaluation and follow-up. A preliminary report was forwarded by the [facility] service, IMAGING SUPERVISOR SEC[employer] [facility]: Date of Admission:03/19/19 89 yo M with PMH of HTN, A-fib (on pradexa) , HLD, CHF, CKD, peripheral neuropathy presented to ED with presyncopal fall. Pt states the fall was mechanical as he tripped over the rug. The pt was recently seen by Dr. Simon for UTI and was on antibiotics for approx [address] head in ED showing no acute intracranial pathology. The CXRAY showed no acute pulmonary pathology. The pt was orthostatic neg. Troponins were negative. The pt had a recent Echo showing no significant valvular pathology. The carotid u/s showed no evidence of hemodynamically significant stenosis. The pt was seen by cardiology who recommended the pt continue on pradexa for his chronic A Fib. the pt remained afebrile with no leukocystosis throughout his hospital course. UA was positive for Leukocyte Esterase but the culture showed little growth and the empiric antibiotics were discontinued. For the pt hypertension, the pt was maintained on his home meds, carvedilol and amlodipine. The pt was also on Lipitor for his HLD. The pts A1C is 6.4 and the pt can continue lifestyle modification. Pt should follow up with PCP in 1 week. Date of Discharge: 03/22/19 DISPO: SNF Minutes to complete discharge: 38 Discharge Summary Reason For Visit: UTI, ATRIAL FIBRILLATION, PRE-SYNCOPE Condition: Good - Instructions Diet, Activity, Other Instructions: You were admitted to the hospital after a fall. In the hospital your heart was monitored and you had a test for the arteries in your neck. This test result was normal. Medication changes: Please continue to take your home medications as prescribed. Lab results: -Your A1C ( to test for diabetes) was 6.4. -Please follow up with Dr. Simon, your Primary care physician in 1 week to monitor your improvement. -Please continue to eat a low sugar/ low carbohydrate diet. You are being discharged to [facility] nursing [facility]. Please return to the ER if you have any signs or symptoms of chest pain, shortness of breath, uncontrollable fever, chills, nausea, vomiting, numbness, tingling, or weakness in any part of your body, changes in vision, or slurred speech. Please return to the ER if symptoms persist, worsen, or new symptoms arise. Referrals: Chan Simon MD [Primary Care Provider] - Disposition: NURSING HOME FACILITY - Home Medications Comprehensive Discharge Medication List: Ambulatory Orders Furosemide [Lasix] 40 mg PO PRN PRN 03/18/19 Allopurinol [Zyloprim -] 100 mg PO BID 03/19/19 Amlodipine Besylate 5 mg PO HS 03/19/19 Aspirin [Aspirin EC] 81 mg PO DAILY 03/19/19 Atorvastatin Ca [Lipitor] 20 mg PO HS 03/19/19 Carvedilol 3.125 mg PO BID 03/19/19 Cetirizine HCl [Zyrtec -] 10 mg PO HS 03/19/19 Cholecalciferol (Vitamin D3) [Vitamin D3] 4,000 unit PO DAILY 03/19/19 Dabigatran Etexilate Mesylate [Pradaxa -] 75 mg PO BID 03/19/19 Dutasteride 0.5 mg PO DAILY 03/19/19 Famotidine 20 PO HS 03/19/19 Fluticasone Propionate [Flonase Allergy Relief] 2 spray NS PRN 03/19/19 Olopatadine HCl [Pataday] 0.2 ml OP PRN 03/19/19 Sennosides/Docusate Sodium [Pericolace -] 1 tab PO HS 03/19/19 Timolol Maleate 0.5% Gfs [Timoptic Xe 0.5%] 0.5 drop OU AM 03/19/19 Aspirin [ASA -] 81 mg PO DAILY tab.chew 03/22/19 Bacitracin - [Bacitracin Topical Ointment -] 1 applic TP DAILY tube 03/22/19 This patient is new to me today: No Emergency Visit: No Critical Care patient: No - Discharge Referral Referred to [facility] Med P.C.: No ATTENDING PHYSICIAN STATEMENT I saw and evaluated the patient. I reviewed the resident's note and discussed the case with the resident. I agree with the resident's findings and plan as documented. SUBJECTIVE: OBJECTIVE: ASSESSMENT AND PLAN:
== END 2019-03-22 11:55 | DRG 312 ==
LOC: JER 18:31 → JERBED 03-19 00:49 → J4W 03-19 15:50
PROVIDERS: ADMIT Internal Medicine; ATTEND Internal Medicine
DX: R55 Syncope and collapse (principal); I50.32 Chronic diastolic (congestive) heart failure; E46 Unspecified protein-calorie malnutrition; N39.0 Urinary tract infection, site not specified; I25.10 Atherosclerotic heart disease of native coronary artery without angina pectoris; N18.3 Chronic kidney disease, stage 3 (moderate); E11.22 Type 2 diabetes mellitus with diabetic chronic kidney disease; I10 Essential (primary) hypertension; G57.83 Other specified mononeuropathies of bilateral lower limbs; N40.0 Benign prostatic hyperplasia without lower urinary tract symptoms; E78.00 Pure hypercholesterolemia, unspecified; H54.8 Legal blindness, as defined in USA; M10.9 Gout, unspecified; E88.09 Other disorders of plasma-protein metabolism, not elsewhere classified; I34.0 Nonrheumatic mitral (valve) insufficiency; I48.2 Chronic atrial fibrillation; E11.42 Type 2 diabetes mellitus with diabetic polyneuropathy; E11.65 Type 2 diabetes mellitus with hyperglycemia; W18.30XA Fall on same level, unspecified, initial encounter; Z87.891 Personal history of nicotine dependence; Z91.81 History of falling; Z95.5 Presence of coronary angioplasty implant and graft; Z68.23 Body mass index [BMI] 23.0-23.9, adult
CPT/HCPCS: 36415; 70450-TC; 71045-TC-FY; 80048; 80053; 81003; 82550; 82570; 83036; 83605; 83735; 83970; 84100; 84156; 84484; 85025; 85027; 85610; 87077; 87086; 87186; 93005; 93010; 93880-TC; 97162-GP; 99285-25; J7030

== ENCOUNTER 2019-05-10 12:23 | Emergency (ER) | payer OTHER ==
[2019-05-10 12:40] VITALS: TEMP 98.4; BMI 23.8
--- NOTE | 2019-05-10 13:09 | PDOC ---
History of Present Illness - General Stated Complaint: FECAL INCONTINENCE Time Seen by Provider: 05/10/19 12:34 - History of Present Illness Initial Comments: 05/10/19 14:14 HPI: 89 y/o M with hx of Afib on pradexa, HLD, CHF, essential tremor, 2 cardiac stents (placed 4 years ago), HTN, bilateral LE neuropathy presenting from rehab facility for 4 days of fecal incontinence. He states he was in his normal states of health at the rehab facility when he started being incontinent. He does not feel any urge for the BM and there are no warning signs of impending stool. He denies any abd pain, rectal pain, rectal pain, n/v, back pain, saddle anesthesia. He reports having similar problems about a month ago that self resolved without any intervention. Of note, patient had severe constipation 2 months ago and required miralax, pericolace, and colace; however, was told by the doctor to only continue colace due to diarrhea. PMHx: as noted above ROS: as noted SHx: Denies tobacco use; no alcohol use; no rec drugs Allergies: NKDA Past History - Past Medical History Allergies/Adverse Reactions: Allergies Allergy/AdvReac Type Severity Reaction Status Date / Time colchicine AdvReac Intermediate vasculitis Verified 05/10/19 12:27 Home Medications: Ambulatory Orders Acetaminophen 650 mg PO Q6H PRN 05/10/19 Allopurinol [Zyloprim -] 100 mg PO DAILY 05/10/19 Amlodipine Besylate [Norvasc -] 10 mg PO DAILY 05/10/19 Aspirin [Aspirin EC] 81 mg PO DAILY 05/10/19 Atorvastatin Ca [Lipitor] 20 mg PO HS 05/10/19 Bacitracin - [Bacitracin Topical Ointment -] 1 applic TP DAILY 05/10/19 Bismuth Tribromoph/Petrolatum [Xeroform Petrolatum Dress] 1 each TP DAILY Carvedilol [Coreg -] 3.125 mg PO BID 05/10/19 Cetirizine HCl 10 mg PO DAILY 05/10/19 Cholecalciferol (Vitamin D3) [Vitamin D] 2,000 unit PO DAILY 05/10/19 Dabigatran Etexilate Mesylate [Pradaxa -] 75 mg PO BID 05/10/19 Docusate Sodium [Colace] 100 mg PO HS 05/10/19 Dutasteride [Avodart] 0.5 mg PO DAILY 05/10/19 Fluticasone Prop 0.05% Nasal [Flonase -] 1 - 2 spray NS DAILY PRN 05/10/19 Furosemide 20 mg PO DAILY 05/10/19 Melatonin 5 mg PO DAILY 05/10/19 Menthol [Bengay Ultra Strength] 1 each TP HS 05/10/19 Ranitidine HCl [Zantac 75] 75 mg PO HS 05/10/19 Sennosides [Senno] 8.6 mg PO DAILY 05/10/19 Silver Sulfadiazine 1% Top Cr [Silvadene] 1 applic TP DAILY 05/10/19 Vit C/E/Zn/Coppr/Lutein/Zeaxan [Preservision Areds 2 Softgel] 1 each PO BID Cardiac Disorders: Yes (A FIB) COPD: No CHF: Yes Disorders: Yes (CKD) HTN: Yes Hypercholesterolemia: Yes Other medical history: GOUT - Surgical History Cardiac Surgery: Yes (STENTS) - Suicide/Smoking/Psychosocial Hx Smoking Status: No Smoking History: Former smoker Have you smoked in the past 12 months: No Number of Cigarettes Smoked Daily: 0 If you are a former smoker, when did you quit?: 15 Information on smoking cessation initiated: No 'Breaking Loose' booklet given: 06/11/18 Hx Alcohol Use: No Drug/Substance Use Hx: No Substance Use Type: None Hx Substance Use Treatment: No Review of Systems - Review of Systems Comments:: 05/10/19 15:35 GENERAL/CONSTITUTIONAL: No fever or chills. No weakness. HEAD, EYES, EARS, NOSE AND THROAT: No change in vision. No ear pain or discharge. No sore throat. CARDIOVASCULAR: No chest pain or shortness of breath RESPIRATORY: No cough, wheezing, or hemoptysis. GASTROINTESTINAL: No nausea, vomiting, diarrhea or constipation. GENITOURINARY: No dysuria, frequency, or change in urination. MUSCULOSKELETAL: No joint or muscle swelling or pain. No neck or back pain. SKIN: No rash NEUROLOGIC: No headache, vertigo, loss of consciousness, or change in strength/ sensation. ENDOCRINE: No increased thirst. HEMATOLOGIC/LYMPHATIC: No anemia, easy bleeding, or history of blood clots. ALLERGIC/IMMUNOLOGIC: No hives or skin allergy. *Physical Exam - Vital Signs Last Vital Signs Temp Pulse Resp BP Pulse Ox 98.4 F 51 L 18 155/62 100 05/10/19 12:23 05/10/19 12:23 05/10/19 12:23 05/10/19 12:23 05/10/19 12:23 - Physical Exam Comments: 05/10/19 15:35 GENERAL: Awake, alert, and fully oriented, no acute distress HEAD: No signs of trauma, normocephalic, atraumatic EYES: EOMI, sclera anicteric, conjunctiva clear ENT: Auricles normal inspection, hearing grossly normal, nares patent, oropharynx clear without exudates. Moist mucosa NECK: Normal ROM, no lymphadenopathy LUNGS: No increased work of breathing, symmetrical chest rise, clear to auscultation bilaterally, no wheezes, crackles or rhonchi HEART: bradycardic, irregular rhythm, no murmurs, peripheral pulses 2+ and equal bilaterally. ABDOMEN: Mild abdominal fullness in RLQ, epigastric and LUQ tympany to percussion, hyperactive bowel sounds. No guarding, no rebound. No masses Rectal tone normal, no masses or stool burden palpated. EXTREMITIES: Normal inspection, Normal range of motion, no edema. No clubbing or cyanosis. NEUROLOGICAL: Cranial nerves II through XII grossly intact. Normal speech, normal gait, no focal sensorimotor deficits SKIN: Warm, Dry, normal turgor, no rashes or lesions noted Medical Decision Making - Medical Decision Making 05/10/19 15:38 89 y/o M with hx of Afib on pradexa, HLD, CHF, essential tremor, 2 cardiac stents (placed 4 years ago), HTN, bilateral LE neuropathy presenting from rehab facility for 4 days of fecal incontinence without any other symptoms. Vitals on arrival notable for bradycardia to 47 however per patient is baseline. PE shows tympany to abdominal percussion. -KUB 05/10/19 15:58 KUB read with attending Dr Marinelli; no acute processes appreciated Will DC to rehab facility with recommendation for f/u with PCP and GI *DC/Admit/Observation/Transfer Diagnosis at time of Disposition: Fecal incontinence Qualifiers: Fecal incontinence type: unspecified Qualified Code(s): R15.9 - Full incontinence of feces - Discharge Dispostion Disposition: HOME Condition at time of disposition: Stable Decision to Admit order: No - Referrals Referrals: Chan Simon MD [Primary Care Provider] - - Patient Instructions Printed Discharge Instructions: DI for Fecal Incontinence Additional Instructions: Additional Instructions: Please return to the emergency department with any new or worsening symptoms or concerns including severe abdominal pain, vomiting, blood per rectum. Please follow up with your primary care physician within 72 hours. Followup with [facility] for further evaluation of fecal incontinence - Post Discharge Activity
--- NOTE | 2019-05-10 13:35 | PDOC ---
Attending Attestation - Resident Resident Name: Bk Munguia - ED Attending Attestation I have performed the following: I have examined & evaluated the patient, The case was reviewed & discussed with the resident, I agree w/resident's findings & plan, Exceptions are as noted - HPI HPI: 05/10/19 13:28 89y M Afib on pradexa, HLD, CHF, essential tremor, 2 cardiac stents (placed 4 years ago), HTN, bilateral LE neuropathy presents with complaint of fecal incontinenece for a few days, denies any urge to go, but is aware he is going. no associated n/v, cp, sob, abd pain, numbness/tinmgling/weakness, back pain, had similar episode last month but resolved spontaneously. No history of falls or back trauma. - Physicial Exam PE: 05/10/19 15:27 General: well appearing, NAD card: bradycardic, irregular Pulm: CTA b/l ABd: soft nontender, slightly distended but no rebound/guarding, neg murphiesm neg mcburnies, no cva tenderness RECTAL: as documented per resident - Medical Decision Making 05/10/19 15:28 =89y M present iwth occasional stool incontinence without urgency, rectal pain, constipation. stool is well formed. no back pain, feverchills, diarrhea, numbness/tingling in groin region. per resident, rectal exam normal with good tone, no stool in rectal vault neuro intact throughout will obtain xray to eval stool burden will have pt fu with GI for further evaluation 05/10/19 16:12 abd soft nontender pt tolerating oral intake abd xray neg, +gas but no significant stool burden and no signs of air/fluid levels no free air will dc with supportive care and gi fu Heart Score/ECG Review - ECG Impressions Comment:: 05/10/19 16:16 Twelve-lead EKG was performed and reviewed by me. irregularly irregular rate of 57 LAD pvcs present abnormal r wave pgorssion
[2019-05-10 18:58] VITALS: BP 129/77; PULSE 50
--- NOTE | 2019-05-11 11:34 | EKG ---
Test Reason : Blood Pressure : / mmHG Vent. Rate : 057 BPM Atrial Rate : 052 BPM P-R Int : 000 ms QRS Dur : 126 ms QT Int : 456 ms P-R-T Axes : 000 -69 051 degrees QTc Int : 443 ms ATRIAL FIBRILLATION WITH SLOW VENTRICULAR RESPONSE WITH PREMATURE VENTRICULAR OR ABERRANTLY CONDUCTED COMPLEXES LEFT AXIS DEVIATION NON-SPECIFIC INTRA-VENTRICULAR CONDUCTION BLOCK CANNOT RULE OUT SEPTAL INFARCT (CITED ON OR BEFORE 11-NOV-2018) ABNORMAL ECG WHEN COMPARED WITH ECG OF 18-MAR-2019 18:47, NO SIGNIFICANT CHANGE WAS FOUND Confirmed by VINCENZO ROD MD ([id number]) on 05/11/2019 11:34:28 AM Referred By: YUE AYOUB Confirmed By:VINCENZO ROD MD
== END 2019-05-10 18:40 | disposition home or self-care (01) ==
LOC: FER 12:23
DX: R15.9 Full incontinence of feces (principal); E78.5 Hyperlipidemia, unspecified; I25.10 Atherosclerotic heart disease of native coronary artery without angina pectoris; I48.91 Unspecified atrial fibrillation; Z95.5 Presence of coronary angioplasty implant and graft; I10 Essential (primary) hypertension; Z87.891 Personal history of nicotine dependence
CPT/HCPCS: 74019-TC-FY; 93005; 99284-25

== ENCOUNTER 2019-09-26 05:42 | Emergency (ER) | payer OTHER ==
[2019-09-26 06:02] VITALS: BMI 24.4
[2019-09-26] MEDS ORDERED: SODIUM PHOSPHATE/NA BIPHOS 133 ML ENEMA PR ONE (06:06)
--- NOTE | 2019-09-26 06:25 | PDOC ---
Attending Attestation - Resident Resident Name: JoshuanicoleEvi - ED Attending Attestation I have performed the following: I have examined & evaluated the patient, The case was reviewed & discussed with the resident, I agree w/resident's findings & plan - HPI HPI: 09/30/19 22:02 see resident hpi - Physicial Exam PE: 09/30/19 22:02 agree with resident exam - Medical Decision Making 09/30/19 22:02 89-year-old male with complaints of abdominal cramping and constipation Patient did have a bowel movement in the emergency department though due to age he will stay for CT scan of the abdomen and pelvis Case signed out to dayshift pending results
--- NOTE | 2019-09-26 06:28 | PDOC ---
History of Present Illness - General Chief Complaint: Constipation Stated Complaint: BOWEL PROBLEM Time Seen by Provider: 09/26/19 06:06 - History of Present Illness Initial Comments: Wilmer Champion is an 89yo man with a PMH of a-fib on Pradexa, HTN, HLD, CHF, CAD s/ p stents, essential tremmor, BLE neuropathy, chronic constipation who presents with concern for fecal impaction. He reports that he genreally takes Miralax and Colace daily, but he has not had a bowel movement in 3 days. He has additionally been taking Metamucil this week without improvement. Mr Champion says that he had a fecal impaction last year, and he was concerned that the lack of bowel movements was due to another impaction. Past History - Past Medical History Allergies/Adverse Reactions: Allergies Allergy/AdvReac Type Severity Reaction Status Date / Time colchicine AdvReac Intermediate vasculitis Verified 05/10/19 12:27 Home Medications: Ambulatory Orders Acetaminophen 650 mg PO Q6H PRN 05/10/19 Allopurinol [Zyloprim -] 100 mg PO DAILY 05/10/19 Amlodipine Besylate [Norvasc -] 10 mg PO DAILY 05/10/19 Aspirin [Aspirin EC] 81 mg PO DAILY 05/10/19 Atorvastatin Ca [Lipitor] 20 mg PO HS 05/10/19 Bacitracin - [Bacitracin Topical Ointment -] 1 applic TP DAILY 05/10/19 Bismuth Tribromoph/Petrolatum [Xeroform Petrolatum Dress] 1 each TP DAILY Carvedilol [Coreg -] 3.125 mg PO BID 05/10/19 Cetirizine HCl 10 mg PO DAILY 05/10/19 Cholecalciferol (Vitamin D3) [Vitamin D] 2,000 unit PO DAILY 05/10/19 Dabigatran Etexilate Mesylate [Pradaxa -] 75 mg PO BID 05/10/19 Docusate Sodium [Colace] 100 mg PO HS 05/10/19 Dutasteride [Avodart] 0.5 mg PO DAILY 05/10/19 Fluticasone Prop 0.05% Nasal [Flonase -] 1 - 2 spray NS DAILY PRN 05/10/19 Furosemide 20 mg PO DAILY 05/10/19 Melatonin 5 mg PO DAILY 05/10/19 Menthol [Bengay Ultra Strength] 1 each TP HS 05/10/19 Ranitidine HCl [Zantac 75] 75 mg PO HS 05/10/19 Sennosides [Senno] 8.6 mg PO DAILY 05/10/19 Silver Sulfadiazine 1% Top Cr [Silvadene] 1 applic TP DAILY 05/10/19 Vit C/E/Zn/Coppr/Lutein/Zeaxan [Preservision Areds 2 Softgel] 1 each PO BID Cardiac Disorders: Yes (A FIB) COPD: No CHF: Yes Disorders: Yes (CKD) HTN: Yes Hypercholesterolemia: Yes - Surgical History Cardiac Surgery: Yes (STENTS) - Psycho Social/Smoking Cessation Hx Smoking Status: No Smoking History: Never smoked Have you smoked in the past 12 months: No Number of Cigarettes Smoked Daily: 0 If you are a former smoker, when did you quit?: 15 'Breaking Loose' booklet given: 06/11/18 Hx Alcohol Use: No Drug/Substance Use Hx: No Substance Use Type: None Hx Substance Use Treatment: No Review of Systems - Review of Systems Comments:: General: No fevers, no chills, no weight or appetite change, no malaise HEENT: No changes in vision, no changes in hearing, no congestion, no sore throat CV: No chest pain, no palpitations, no LE edema Pulm: No SOB, no cough, no wheezing GI: No nausea or vomiting, +constipation : No frequency, no urgency, no dysuria Musc: No back pain, no joint swelling, no recent injury Skin: No rash, no lesions, no erythema Endo: No excessive thirst, no heat/cold intolerance Heme: No unusual bruising or bleeding, no swollen glands Neuro: No syncope, no numbness/tingling, no focal weakness Vasc: No claudication Psych: No recent change in mood, no SI or HI *Physical Exam - Vital Signs Last Vital Signs Temp Pulse Resp BP Pulse Ox 98.2 F 59 L 16 186/91 H 98 09/26/19 05:56 09/26/19 05:56 09/26/19 05:56 09/26/19 05:56 09/26/19 05:56 - Physical Exam General: Comfortable, no acute distress HEENT: PERRL, EOMI, MMM, voice normal Cards: RRR, no murmur appreciated Pulm: Comfortable on room air, clear to auscultation bilaterally Abd: Soft, nontender, nondistended Rectal: Normal tone, no blood noted, no perianal lesions. Soft brown stool in diaper Ext: Atraumatic. No LE edema. ROM intact. WWP Skin: Normal color, no rashes or lesions Neuro: A&Ox3, CN grossly intact, normal speech, motor/sensory grossly intact and symmetric Psych: Mood appropriate to situation ED Treatment Course - Medications Given in the ED: ED Medications Discontinued Medications Generic Name Dose Route Start Last Admin Trade Name Freq PRN Reason Stop Dose Admin Sodium Phosphate 133 ml 09/26/19 06:06 09/26/19 06:11 Fleet Adult Rectal Enema - DE 09/26/19 06:07 133 ml ONCE ONE Administration Medical Decision Making - Medical Decision Making 09/26/19 06:22 Wilmer Champion is an 89yo man with a PMH of a-fib on Pradexa, HTN, HLD, CHF, CAD s/ p stents, essential tremmor, BLE neuropathy, chronic constipation who presents with concern for fecal impaction; he has not had a BM in 2-3 days despite a home bowel regimen. - No impaction noted - Had BM prior to being examined - Enema given in ED - Monitor, likely to discharge home 09/26/19 06:39 - Patient reports increased pain following the enema - Will send for CT abd/pelvis to rule out underlying pathology 09/26/19 07:03 - Re-examined. Dis-impacted of large volume of soft-solid stool - To be taken to CT - Sign out given to Dr Guevara for the remainder of his ED care Discussed with Dr Janna Darby PGY2 Discharge - Discharge Information Problems reviewed: Yes Clinical Impression/Diagnosis: Constipation Qualifiers: Constipation type: unspecified constipation type Qualified Code(s): K59.00 - Constipation, unspecified Condition: Stable - Follow up/Referral Referrals: Benjamin Barrera MD [Staff Physician] - - Patient Discharge Instructions Patient Printed Discharge Instructions: DI for Constipation Additional Instructions: Discharge Instructions: You were seen in the emrgency department for constipation. You were given an enema and had a bowel movement in the ED. Continue to take your home stool softeners as prescribed. Follow up with your primary doctor if symptoms continue. You have also been given the name of a GI specialist, Dr Barrera, for follow up if you have persistent problems with constipation. - Post Discharge Activity
--- NOTE | 2019-09-26 10:01 | PDOC ---
*Physical Exam - Vital Signs Last Vital Signs Temp Pulse Resp BP Pulse Ox 98.2 F 59 L 16 186/91 H 98 09/26/19 05:56 09/26/19 05:56 09/26/19 05:56 09/26/19 05:56 09/26/19 05:56 ED Treatment Course - Medications Given in the ED: ED Medications Discontinued Medications Generic Name Dose Route Start Last Admin Trade Name Frehonorio PRN Reason Stop Dose Admin Sodium Phosphate 133 ml 09/26/19 06:06 09/26/19 06:11 Fleet Adult Rectal Enema - HI 09/26/19 06:07 133 ml ONCE ONE Administration Medical Decision Making - Medical Decision Making 09/26/19 09:54 S/O from night team 89 yo male a-fib on Pradexa, HTN, HLD, CHF, CAD s/p stents, essential tremmor, BLE neuropathy, chronic constipation who presents with concern for fecal impaction; he has not had a BM in 2-3 days despite a home bowel regimen. Enema and digital disimpaction done with soft stool noted CT done, no impaction noted. Small left pleural effusion noted, no pulmonary symptoms Possible cystitis documented, pt states UTI 2 months ago, treated and no longer has symptoms. Pt aware, given results and will f/u with PCP for findings DC with PEG as needed and continuation of bowel regime from Primary Doctor and GI Discharge - Discharge Information Problems reviewed: Yes Clinical Impression/Diagnosis: Constipation Qualifiers: Constipation type: unspecified constipation type Qualified Code(s): K59.00 - Constipation, unspecified Condition: Stable Disposition: HOME - Admission No - Additional Discharge Information Prescriptions: [id number]/Sod Sulf,Bicarb,Cl/KCl [Golytely Solution] 4,000 ml PO DAILY #3 soln.recon - Follow up/Referral Referrals: Benjamin aBrrera MD [Staff Physician] - - Patient Discharge Instructions Patient Printed Discharge Instructions: DI for Constipation Additional Instructions: Discharge Instructions: See your Primary Doctor and discuss your CAT scan findings You were seen in the emergency department for constipation. You were given an enema and had a bowel movement in the ED. Continue to take your home stool softeners as prescribed. Use the medication PEG as prescribed until constipation is relieved. Follow up with your primary doctor if symptoms continue. You have also been given the name of a GI specialist, Dr Barrera, for follow up if you have persistent problems with constipation. - Post Discharge Activity
[2019-09-26 10:40] VITALS: BP 144/89; PULSE 73; TEMP 98
== END 2019-09-26 11:45 | disposition home or self-care (01) ==
LOC: JER 05:42
DX: K59.04 Chronic idiopathic constipation (principal); I25.10 Atherosclerotic heart disease of native coronary artery without angina pectoris; I13.0 Hypertensive heart and chronic kidney disease with heart failure and stage 1 through stage 4 chronic kidney disease, or unspecified chronic kidney disease; N18.9 Chronic kidney disease, unspecified; I50.89 Other heart failure; Z95.5 Presence of coronary angioplasty implant and graft; I48.91 Unspecified atrial fibrillation; Z79.02 Long term (current) use of antithrombotics/antiplatelets; E78.5 Hyperlipidemia, unspecified; G25.0 Essential tremor; G62.9 Polyneuropathy, unspecified
CPT/HCPCS: 74176-TC; 99281-25

== ENCOUNTER 2019-09-28 08:44 | Emergency (ER) | payer OTHER ==
[2019-09-28 09:40] VITALS: BMI 23.6
--- NOTE | 2019-09-28 10:00 | PDOC ---
History of Present Illness - General Chief Complaint: Diarrhea Stated Complaint: DIARRHEA Time Seen by Provider: 09/28/19 09:33 - History of Present Illness Initial Comments: Mr. Champion is an 89 y/o male with PMH significant for a-fib on pradexa, HTN, HLD, CHF, CAD s/p stents, essential tremor, BLE neuropathy, chronic constipation on miralax, colace, metamucil, presenting today with increased bowel movements. He was seen 2 days ago for constipation and was digitally disimpacted. Reports that he normally has 1 BM every 1-2 days, but has had two this morning. Reports that the stool is normal is color and consistency, but the increase in frequency concerns him. Denies blood in the stool. Denies dysuria. Denies melena or hematochezia. Denies chest pain/shortness of breath/leg swelling. Denies abdominal pain. Denies fever/chills. Past History - Past Medical History Allergies/Adverse Reactions: Allergies Allergy/AdvReac Type Severity Reaction Status Date / Time colchicine AdvReac Intermediate vasculitis Verified 09/28/19 09:15 Home Medications: Ambulatory Orders Acetaminophen 650 mg PO Q6H PRN 05/10/19 Allopurinol [Zyloprim -] 100 mg PO DAILY 05/10/19 Amlodipine Besylate [Norvasc -] 10 mg PO DAILY 05/10/19 Aspirin [Aspirin EC] 81 mg PO DAILY 05/10/19 Atorvastatin Ca [Lipitor] 20 mg PO HS 05/10/19 Carvedilol [Coreg -] 3.125 mg PO BID 05/10/19 Cetirizine HCl 10 mg PO DAILY 05/10/19 Cholecalciferol (Vitamin D3) [Vitamin D] 2,000 unit PO DAILY 05/10/19 Dabigatran Etexilate Mesylate [Pradaxa -] 75 mg PO BID 05/10/19 Docusate Sodium [Colace] 100 mg PO HS 05/10/19 Dutasteride [Avodart] 0.5 mg PO DAILY 05/10/19 Fluticasone Prop 0.05% Nasal [Flonase -] 1 - 2 spray NS DAILY PRN 05/10/19 Furosemide 40 mg PO DAILY 05/10/19 Sennosides [Senno] 8.6 mg PO DAILY 05/10/19 Vit C/E/Zn/Coppr/Lutein/Zeaxan [Preservision Areds 2 Softgel] 1 each PO BID [id number]/Sod Sulf,Bicarb,Cl/KCl [Golytely Solution] 4,000 ml PO DAILY #3 soln.recon 09/26/19 Dabigatran Etexilate Mesylate [Pradaxa -] 75 mg PO BID 09/28/19 Famotidine 20 mg PO DAILY 09/28/19 Olopatadine HCl [Pataday] 2.5 ml OU DAILY 09/28/19 Psyllium Husk [Metamucil] 0.4 gm PO BID 09/28/19 Cardiac Disorders: Yes (A FIB) COPD: No CHF: Yes Disorders: Yes (CKD) HTN: Yes Hypercholesterolemia: Yes - Surgical History Cardiac Surgery: Yes (STENTS) - Psycho Social/Smoking Cessation Hx Smoking Status: No Smoking History: Former smoker Have you smoked in the past 12 months: No Number of Cigarettes Smoked Daily: 0 If you are a former smoker, when did you quit?: 15 'Breaking Loose' booklet given: 06/11/18 Hx Alcohol Use: No Drug/Substance Use Hx: No Substance Use Type: None Hx Substance Use Treatment: No Review of Systems - Review of Systems Comments:: GENERAL/CONSTITUTIONAL: No fever or chills. No weakness._ HEAD, EYES, EARS, NOSE AND THROAT: No change in vision. No change in hearing. No sore throat._ CARDIOVASCULAR: No chest pain or shortness of breath_ RESPIRATORY: Denies cough, hemoptysis_ GASTROINTESTINAL: No nausea, vomiting, diarrhea or constipation. Reports increased normal bowel movements. GENITOURINARY: No dysuria, frequency, or change in urination._ MUSCULOSKELETAL: No joint or muscle swelling or pain. No neck or back pain._ SKIN: No rash_ NEUROLOGIC: No headache, vertigo, loss of consciousness, or change in strength/ sensation._ ENDOCRINE: No increased thirst. No abnormal weight change_ HEMATOLOGIC/LYMPHATIC: No anemia, easy bleeding, or history of blood clots._ ALLERGIC/IMMUNOLOGIC: No hives or skin allergy._ *Physical Exam - Vital Signs Last Vital Signs Temp Pulse Resp BP Pulse Ox 97.2 F L 72 16 139/80 100 09/28/19 08:44 09/28/19 08:44 09/28/19 08:44 09/28/19 08:44 09/28/19 08:44 - Physical Exam GENERAL: Awake, alert, and oriented to person/place/time, in no acute distress_ HEAD: No signs of trauma, normoc ephalic, atraumatic _ EYES: PERRLA, EOMI, sclera anicteric, conjunctiva clear_ ENT: Hearing grossly normal, nares patent, oropharynx clear without exudates. No uvular deviation. Moist mucosa_ NECK: Normal ROM, supple, no lymphadenopathy, JVD, or masses_ LUNGS: No distress, speaks in full sentences, clear to auscultation bilaterally _ HEART: Regular rate and rhythm, normal S1 and S2, no murmurs appreciated, peripheral pulses normal and equal bilaterally._ ABDOMEN: Soft, nontender, normoactive bowel sounds. No guarding, no rebound. No masses_ EXTREMITIES: Normal inspection, Normal range of motion, no edema. No clubbing or cyanosis_ NEUROLOGICAL: Cranial nerves II through XII grossly intact. Normal speech, normal gait, no focal sensorimotor deficits _ SKIN: Warm, Dry, normal turgor, no rashes or lesions noted_ Medical Decision Making - Medical Decision Making 09/28/19 10:03 89M presenting with increased stool. Stool is normal in color and consistency. No fever/chills. No diarrhea. No blood in stool. Will provide patient education and d/c home to continue on home regimen of medications. Discharge - Discharge Information Problems reviewed: Yes Clinical Impression/Diagnosis: Increased stool volume Condition: Stable Disposition: HOME - Admission No - Follow up/Referral - Patient Discharge Instructions Additional Instructions: Please stop taking miralax. Continue taking colace and metamucil once a day. Please continue all your other medications as prescribed. Normal bowel movements are a sign of healthy GI function. If you experience any new, worsening, or concerning symptoms, including constipation, diarrhea, blood in the stool, abdominal pain, nausea/vomiting, pain on urination, fever, chills , chest pain, or any other concerns, please return to the emergency department. - Post Discharge Activity
--- NOTE | 2019-09-28 10:43 | PDOC ---
Documentation entered by Benita Conteh SCRIBE, acting as scribe for Cameron Ferreira MD. Cameron Ferreira MD: This documentation has been prepared by the Wero lópez Adrianna, SCRIBE, under my direction and personally reviewed by me in its entirety. I confirm that the documentation accurately reflects all work, treatment, procedures, and medical decision making performed by me. Attending Attestation - Resident Resident Name: Clayton Kaplan - ED Attending Attestation I have performed the following: I have examined & evaluated the patient, The case was reviewed & discussed with the resident, I agree w/resident's findings & plan, Exceptions are as noted - HPI HPI: The patient is an 89 year old male, with a significant PMH of Afib on Pradaxa, HTN, HLD, CHF, CAD (s/p stents), CKD, essential tremor, BLE neuropathy, chronic constipation (on Miralax, colace, metamucil), who presents to the ED for evaluation of increase in bowel movements. Patient was seen in the ED 2 days ago for complaint of constipation, and was consequently disimpacted digitally and given an enema, which resulted in a large BM. At baseline, patient typically has 1-2 bowel movements per day but this morning he passed two. Pt notes that he soiled himself while in bed. He is able to control his bowel during the daytime, but didn't have any awareness of having a BM while he was asleep. He denies any black stool, blood or mucous in the stool, and notes they are a normal consistency but the increase in production is what prompted him to come to the ED. Pt is currently taking colace, metamucil, and miralax. Denies fever, chills, chest pain, SOB, abdominal pain, nausea, vomit, dysuria, hematuria, rectal bleeding, or leg swelling. Allergies: Colchicine Surgical History: cardiac stents Social History: Former smoker. Denies EtOH or illicit drug use PCP: Dr. Simon - Physicial Exam PE: 09/28/19 10:46 GENERAL: Awake, alert, and fully oriented, in no acute distress. HEAD: No signs of trauma EYES: PERRLA, EOMI, sclera anicteric, conjunctiva clear ENT: Auricles normal inspection, hearing grossly normal, nares patent, oropharynx clear without exudates. Moist mucosa NECK: Nontender, no stepoffs, Normal ROM, supple, no lymphadenopathy, JVD, or masses LUNGS: Breath sounds equal, clear to auscultation bilaterally. No wheezes, and no crackles HEART: Regular rate and rhythm, normal S1 and S2, no murmurs, rubs or gallops ABDOMEN: Soft, nontender, normoactive bowel sounds. No guarding, no rebound. No masses EXTREMITIES: Normal range of motion, no edema. No clubbing or cyanosis. No cords, erythema, or tenderness NEUROLOGICAL: Cranial nerves II through XII intact. 5/5 strength and sensation in all extremities, Normal speech, normal gait, normal cerebellar function SKIN: Warm, Dry, normal turgor, no rashes or lesions noted. - Medical Decision Making 09/28/19 10:46 89 M with increased bowel movement frequency after enema and digital disimpaction 2 days ago. Pt is on multiple stool softeners. Has benign abdomen. No evidence of acute process on exam. - Reduce frequency of stool softeners - F/u PMD and GI Pt is well appearing, with normal vitals. Clinically stable for DC at this time. I discussed the physical exam findings, ancillary test results and final diagnoses with the patient. I answered all of the patient's questions. The patient was satisfied with the care received and felt comfortable with the discharge plan and treatment plan. The patient agrees to follow up with the primary care physician within 24-72 hours.
[2019-09-28 12:01] VITALS: BP 154/75; PULSE 81; TEMP 97.9
--- NOTE | 2019-09-28 13:14 | EKG ---
Test Reason : Blood Pressure : / mmHG Vent. Rate : 064 BPM Atrial Rate : 388 BPM P-R Int : 000 ms QRS Dur : 118 ms QT Int : 430 ms P-R-T Axes : 086 -71 020 degrees QTc Int : 443 ms ATRIAL FLUTTER WITH VARIABLE A-V BLOCK WITH PREMATURE VENTRICULAR OR ABERRANTLY CONDUCTED COMPLEXES LEFT AXIS DEVIATION RIGHT BUNDLE BRANCH BLOCK ANTERIOR INFARCT (CITED ON OR BEFORE 11-NOV-2018) ABNORMAL ECG WHEN COMPARED WITH ECG OF 10-MAY-2019 12:33, ATRIAL FLUTTER HAS REPLACED ATRIAL FIBRILLATION RIGHT BUNDLE BRANCH BLOCK HAS REPLACED NON-SPECIFIC INTRA-VENTRICULAR CONDUCTION BLOCK QUESTIONABLE CHANGE IN INITIAL FORCES OF SEPTAL LEADS Confirmed by VINCENZO ROD MD ([id number]) on 09/28/2019 1:14:18 PM Referred By: Confirmed By:VINCENZO ROD MD
== END 2019-09-28 12:05 | disposition home or self-care (01) ==
LOC: JER 08:44
DX: R19.4 Change in bowel habit (principal); I25.10 Atherosclerotic heart disease of native coronary artery without angina pectoris; I11.0 Hypertensive heart disease with heart failure; I50.9 Heart failure, unspecified; Z95.5 Presence of coronary angioplasty implant and graft; Z87.891 Personal history of nicotine dependence; I48.91 Unspecified atrial fibrillation; Z79.02 Long term (current) use of antithrombotics/antiplatelets; E78.5 Hyperlipidemia, unspecified; G62.9 Polyneuropathy, unspecified; G25.0 Essential tremor; Z88.8 Allergy status to other drugs, medicaments and biological substances
CPT/HCPCS: 93005; 93010; 99281-25

== ENCOUNTER 2020-06-22 13:10 | Inpatient (IN) | payer OTHER ==
--- OUTSIDE RECORDS SUMMARY | 2020-06-22 13:34 | XMS ---
:1930 Author Organization [facility] Care Team Providers Name Role Phone Chan Simon Unavailable Fader, M Unavailable Fader, M Unavailable Fader, M Unavailable Fader, M Unavailable Fader, M Unavailable Fader, M Unavailable Fader, M Unavailable Fader, M Unavailable Fader, M Unavailable Fader, M Unavailable Fader, M Unavailable Fader, M Unavailable Fader, M Unavailable Re-disclosure Warning The records that you are about to access may contain information from federally- assisted alcohol or drug abuse programs. If such information is present, then the following federally mandated warning applies: This information has been disclosed to you from records protected by federal confidentiality rules (42 CFR part 2). The federal rules prohibit you from making any further disclosure of this information unless further disclosure is expressly permitted by the written consent of the person to whom it pertains or as otherwise permitted by 42 CFR part 2. A general authorization for the release of medical or other information is NOT sufficient for this purpose. The Federal rules restrict any use of the information to criminally investigate or prosecute any alcohol or drug abuse patient.The records that you are about to access may contain highly sensitive health information, the redisclosure of which is protected by Article 27-F of the [facility] Public Health law. If you continue you may haveaccess to information: Regarding HIV / AIDS; Provided by facilities licensed or operated by the [facility] Office of Mental Health; or Provided by the [facility] Office for People With Developmental Disabilities. If such information is present, then the following [facility] mandated warning applies: This information has been disclosed to you from confidential records which are protected by state law. State law prohibits you from making any further disclosure of this information without the specific written consent of the person to whom it pertains, or as otherwise permitted by law. Any unauthorized further disclosure in violation of state law may result in a fine or residential sentence or both. A general authorization for the release of medical or other information is NOT sufficient authorization for further disclosure. Encounters Encounter Providers Location Date Indications Data Source(s ) Attender: Chan 04/21/2020 [facility] ( [facility] 12:00:00 AM [facility] Medical, PC) Telehealth Attender: Chan Simon 04/21/2020 12:00:00 AM E DT [facility] ([facility], ) Telehealth Attender: Chan Simon 04/21/2020 12:00:00 AM E DT [facility] ([facility], ) Telehealth Attender: Chan Simon 04/21/2020 12:00:00 AM E DT [facility] ([facility]) Telehealth Attender: Chan Simon 04/21/2020 12:00:00 AM E DT [facility] ([facility], ) Telehealth Attender: Chan Simon 04/21/2020 12:00:00 AM E DT [facility] ([facility]) Telehealth Attender: Chan Simon 04/21/2020 12:00:00 AM E DT [facility] ([facility], ) Telehealth Attender: Chan Simon 04/21/2020 12:00:00 AM E DT [facility] ([facility], ) Telehealth Attender: Chan Alfred 04/21/2020 12:00:00 AM E DT [facility] ([facility], ) Telehealth Medications Medication Brand Start Product Dose Route Administrative Pharmacy St tong Indications Reaction Description Data Name Date Form Instructions Instructions Source(s) Sertraline SERTRA 04/21/ TABLET 30 complet SERTR DOMINGO [facility] (St 50 MG Oral LINE:3 2019 ed [facility] Tablet 70769 12:00: Medical, SERTRALINE: 00 AM PC) [id number] EDT Dutasteride DUTAST 03/02/ CAPSULE 90 complet DUT ASTERIDE [facility] (St 0.5 MG Oral ERIDE: 2019 ed [facility] Capsule [id number] 12:00: Medical, DUTASTERIDE 00 AM PC) :[id number] EDT dabigatran PRADAX 03/02/ CAPSULE 180 complet PRAD AXA [facility] (St etexilate A:1037 2019 ed [facility] 75 MG Oral 181 12:00: Medical , Capsule 00 AM PC) [Pradaxa] EDT PRADAXA:103 7181 carvedilol CARVED 02/24/ TABLET 180 complet CARVE DILOL [facility] (St 3.125 MG ILOL:6 2019 ed [facility] Oral Tablet 24683 12:00: Medic al, CARVEDILOL: 00 AM PC) [id number] EDT Clobetasol CLOBET 02/24/ CREAM 2 complet CLOBET ASOL [facility] (St Propionate ASOL 2019 ed TOPICAL [facility] 0.5 MG/ML TOPICA 12:00: Medica l, Topical L:8614 00 AM PC) Cream 95 EDT CLOBETASOL TOPICAL:861 495 Furosemide FUROSE 02/24/ TABLET 90 complet FUROS EMIDE [facility] (St 40 MG Oral MIDE:3 2019 ed [facility] Tablet 11016 12:00: Medical, FUROSEMIDE: 00 AM PC) [id number] EDT atorvastati ATORVA 02/23/ TABLET 45 complet ATOR VASTATIN [facility] (St n 40 MG STATIN 2019 ed [facility] Oral Tablet :35694 12:00: Medi jak, ATORVASTATI 1 00 AM PC) N:265612 EDT Famotidine FAMOTI 02/23/ TABLET 30 complet FAMOT IDINE [facility] (St 40 MG Oral DINE:2 2019 ed [facility] Tablet 41059 12:00: Medical, FAMOTIDINE: 00 AM PC) [id number] EDT Allopurinol ALLOPU 08/28/ TABLET 180 complet ALLO PURINOL [facility] (St 100 MG Oral RINOL: 2019 ed [facility] Tablet [id number] 12:00: Medical, ALLOPURINOL 00 AM PC) :[id number] EST Amlodipine AMLODI 08/28/ TABLET 90 complet AMLOD IPINE [facility] (St 5 MG Oral PINE 2018 ed BESYLATE [facility] Tablet BESYLA 12:00: Medical, AMLODIPINE TE:197 00 AM PC) BESYLATE:19 361 EST [id number] Insurance Providers Payer name Policy type Policy ID Covered Covered green party's Policy P lin / Coverage green party ID relationship to [place] Inf ormation type villarreal MEDICAID [id number] SP [id number], [id number] SP [id number] LLC/ MEDICARE [id number] SP [id number] EAST [id number] 1 [id number] [place] MED[place] [id number] 1 [id number] PART B [place] [id number] 1 [id number] PART B DOWNSTATE FOR [id number] 1 [id number] 2 LIFE(HMO) Surgeries/Procedures Procedure Description Date Indications Data Source(s) Documentation of current 04/21/2020 MED [facility] ([facility] (procedure) 12:00:00 AM EDT DAVID Brown) Documentation of current 04/21/2020 MED [facility] ([facility] (procedure) 12:00:00 AM EDT DAVID Brown) Documentation of current 04/21/2020 MED [facility] ([facility] (procedure) 12:00:00 AM EDT DAVID Brown) Documentation of current 04/21/2020 MED GEN ([facility] (procedure) 12:00:00 AM EDT DAVID Brown) OFFICE OUTPATIENT VISIT 04/21/2020 MEDG EN ([facility] 15 MINUTES 12:00:00 AM EDT [facility] PC) Documentation of current 12/04/2019 MED GEN ([facility] medications (procedure) 12:00:00 AM EDT DAVID Brown) Documentation of current 12/04/2019 MED [facility] ([facility] (procedure) 12:00:00 AM EDT dk, PC) Documentation of current 12/04/2019 MED [facility] ([facility] (procedure) 12:00:00 AM EDT edical, PC) Documentation of current 12/04/2019 MED GEN ([facility] (procedure) 12:00:00 AM EDT crissical, PC) Documentation of current 12/04/2019 MED GEN ([facility] (procedure) 12:00:00 AM EDT edical, PC) Documentation of current 12/04/2019 MED GEN ([facility] (procedure) 12:00:00 AM EDT crissical, PC) Documentation of current 12/04/2019 MED GEN ([facility] (procedure) 12:00:00 AM EDT edical, PC) Documentation of current 12/04/2019 MED [facility] ([facility] (procedure) 12:00:00 AM EDT crissical, PC) Documentation of current 12/04/2019 MED GEN ([facility] (procedure) 12:00:00 AM EDT crissical, PC) Documentation of current 12/04/2019 MED GEN ([facility] (procedure) 12:00:00 AM EDT crissical, PC) Documentation of current 12/04/2019 MED GEN ([facility] (procedure) 12:00:00 AM EDT dk, PC) Documentation of current 12/04/2019 MED GEN ([facility] medications (procedure) 12:00:00 AM EDT dk, PC) HOME VISIT EST PT LOW-MOD 12/04/2019 ME DGEN ([facility] SEVERITY 25 MIN 12:00:00 AM [facility] [place] [facility], PC) Documentation of current 06/26/2019 MED GEN ([facility] medications (procedure) 12:00:00 AM EDT edical, PC) Documentation of current 06/26/2019 MED GEN ([facility] (procedure) 12:00:00 AM EDT crissical, PC) Documentation of current 06/26/2019 MED GEN ([facility] (procedure) 12:00:00 AM EDT edical, PC) Documentation of current 06/26/2019 MED GEN ([facility] (procedure) 12:00:00 AM EDT edical, PC) Documentation of current 06/26/2019 MED GEN ([facility] (procedure) 12:00:00 AM EDT edical, PC) Documentation of current 06/26/2019 MED GEN ([facility] (procedure) 12:00:00 AM EDT edical, PC) Documentation of current 06/26/2019 MED GEN ([facility] (procedure) 12:00:00 AM EDT edical, PC) Documentation of current 06/26/2019 [facility] ([facility] (procedure) 12:00:00 AM EDT edical, PC) Documentation of current 06/26/2019 MED GEN ([facility] (procedure) 12:00:00 AM EDT edical, PC) Documentation of current 06/26/2019 MED GEN ([facility] (procedure) 12:00:00 AM EDT edical, PC) Documentation of current 06/26/2019 MED GEN ([facility] (procedure) 12:00:00 AM EDT edical, PC) Documentation of current 06/26/2019 MED GEN ([facility] (procedure) 12:00:00 AM EDT edical, PC) Documentation of current 06/26/2019 MED GEN ([facility] (procedure) 12:00:00 AM EDT edical, PC) Documentation of current 06/26/2019 MED GEN ([facility] (procedure) 12:00:00 AM EDT edical, PC) Documentation of current 06/26/2019 MED GEN ([facility] (procedure) 12:00:00 AM EDT edical, PC) Documentation of current 06/26/2019 MED GEN ([facility] (procedure) 12:00:00 AM EDT edical, PC) Documentation of current 06/26/2019 MED GEN ([facility] (procedure) 12:00:00 AM EDT edical, PC) Documentation of current 06/26/2019 MED GEN ([facility] (procedure) 12:00:00 AM EDT edical, PC) Documentation of current 06/26/2019 MED GEN ([facility] medications (procedure) 12:00:00 AM EDT dk, ) Documentation of current 06/26/2019 MED GEN ([facility] medications (procedure) 12:00:00 AM EDT dk, ) Documentation of current 06/26/2019 MED GEN ([facility] medications (procedure) 12:00:00 AM EDT dk, ) Documentation of current 06/26/2019 MED GEN ([facility] medications (procedure) 12:00:00 AM EDT dk, ) Documentation of current 06/26/2019 MED GEN ([facility] medications (procedure) 12:00:00 AM EDT dk, ) HOME VISIT EST PT LOW-MOD 06/26/2019 [place] DGEN ([facility] SEVERITY 25 MIN 12:00:00 AM EDT [facility], ) Social History Code Duration Value Status Description Data Source(s ) Smoking 04/21/2020 lives w/ , completed lives w/ , has ME DGEN (St 12:00:00 AM EDT has 3 kids 3 kids Tobacco [facility] n[facility], Tobacco Status: Status: Former ) Former smoker smoker Tobacco Tobacco details: details: Cigarettes Cigarettes Smoking Smoking Stop Stop Date: 52 Date: 50 years years ago ago Marital Marital Status Status Household Household Members Members 2 Number 2 Number of of Children 3 Children 3 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 Exercise Frequency Other Alcohol Use Alcohol Use Social Substance Use Substance Use Denies Use Smoking 04/21/2020 Unknown if ever completed Unknown if ever MEDG EN (St 12:00:00 AM EDT smoked smoked [facility], ) Vital Signs ID Date Data Source UNK Name Value Range Interpretation Code Description Data Source(s) Heart rate 55 /min 55 /min [facility], ) Diastolic blood 67 mm[Hg] 67 mm[Hg] [facility] ([facility], ) Systolic blood 162 mm[Hg] 162 mm[Hg] [facility] ([facility], ) Heart rate 60 /min 60 /min [facility], ) Respiratory rate 16 /min 16 /min [facility] ( [facility], ) Diastolic blood 69 mm[Hg] 69 mm[Hg] MEDGEN ([facility], ) Systolic blood 148 mm[Hg] 148 mm[Hg] MEDGEN ([facility], ) Heart rate 49 /min 49 /min MEDGEN ([facility] [place], ) Respiratory rate 16 /min 16 /min MED[facility] ( [facility] [place], ) Diastolic blood 68 mm[Hg] 68 mm[Hg] MEDGEN ([facility], ) Systolic blood 154 mm[Hg] 154 mm[Hg] MED[facility] ([facility], )
[2020-06-22] MEDS ORDERED: LACTATED RINGERS SOLUTION 1000 ML INFUS.BAG IV ONE ×2 (14:15→16:07)
[2020-06-22 14:16] LABS: BASO % 0.5 % (0-2.0); EOS % 3.7 % (0-4.5); HEMATOCRIT 38.7 % (35.4-49); HEMOGLOBIN 13.2 GM/dL (11.7-16.9); LYMPH % 16.9 % (8-40); MCH 31.6 pg (25.7-33.7); MONO % 4.2 % (3.8-10.2); NEUT % 74.7 % (42.8-82.8); PLATELET COUNT 165 K/MM3 (134-434); RBC 4.16 M/mm3 (4.00-5.60); RDW 15.6 % (11.9-15.9); WHITE BLOOD COUNT 7.4 K/mm3 (4.0-10.0)
[2020-06-22 14:24] LABS: INR 1.37 (0.83-1.09)
[2020-06-22 14:27] LABS: ACTIVATED PTT 44.8 SECONDS (25.2-36.5)
--- NOTE | 2020-06-22 14:32 | PDOC ---
History of Present Illness - General Chief Complaint: Lethargy Stated Complaint: LETHARGY Time Seen by Provider: 06/22/20 13:39 - History of Present Illness Initial Comments: 06/22/20 14:32 89yo M w/ PMHx mutiple UTIs, HTN, and an underlying confusion at baseline presents w/ 2 days no PO intake and worsening confusion. One week ago he was dx w/ a UTI w/o any confirmatory testing. He was Rx Doxycycline but took it inconsistently x4days. He then stopped altogether three days ago. His is the historian. Past History - Medical History Allergies/Adverse Reactions: Allergies Allergy/AdvReac Type Severity Reaction Status Date / Time colchicine AdvReac Intermediate vasculitis Verified 06/22/20 13:19 Home Medications: Ambulatory Orders Allopurinol [Zyloprim -] 100 mg PO DAILY 05/10/19 Amlodipine Besylate [Norvasc -] 10 mg PO DAILY 05/10/19 Aspirin [Aspirin EC] 81 mg PO DAILY 05/10/19 Atorvastatin Ca [Lipitor] 20 mg PO HS 05/10/19 Carvedilol [Coreg -] 3.125 mg PO BID 05/10/19 Cetirizine HCl 10 mg PO DAILY 05/10/19 Dabigatran Etexilate Mesylate [Pradaxa -] 75 mg PO BID 05/10/19 Dutasteride [Avodart] 0.5 mg PO DAILY 05/10/19 Psyllium Husk [Metamucil] 0.4 gm PO BID 09/28/19 Polyethylene Glycol 3350 [Miralax (For Daily Use) -] 17 gm PO DAILY 01/30/20 Timolol Maleate [Istalol] 1 drop .ROUTE ASDIR 01/30/20 Cardiac Disorders: Yes (A FIB) COPD: No CHF: Yes Disorders: Yes (CKD) HTN: Yes Hypercholesterolemia: Yes - Surgical History Cardiac Surgery: Yes (STENTS) - Psycho-Social/Smoking History Smoking Status: No Smoking History: Never smoked Have you smoked in the past 12 months: No Number of Cigarettes Smoked Daily: 0 If you are a former smoker, when did you quit?: 15 'Breaking Loose' booklet given: 06/11/18 - Substance Abuse Hx (Audit-C & DAST Scrn) How often the patient has a drink containing alcohol: Never Score: In Men: 4 or > Positive; In Women: 3 or > Positive: 0 Screen Result (Pos requires Nsg. Audit-10AR): Negative In the last yr the pt used illegal drug/Rx for NonMed reason: No Score: Yes response is considered Positive: 0 Screen Result (Positive result requires Nsg. DAST-10): Negative Review of Systems - Review of Systems Able to Perform ROS?: Yes Is the patient limited Lebanese proficient: No Constitutional: Yes: Loss of Appetite, Malaise, Weakness. No: Chills, Diaphoresis, Fever HEENTM: No: Blurred Vision, Recent change in vision, Tinnitus, Throat Swelling Respiratory: No: Cough, Shortness of Breath, Wheezing Cardiac (ROS): No: Chest Pain, Lightheadedness, Chest Tightness ABD/GI: Yes: Abdominal Distended, Abd. Pain w/ defecation, Poor Appetite, Poor Fluid Intake, Abdominal cramping. No: Nausea, Vomiting : Yes: Burning, Dysuria Musculoskeletal: Yes: Back Pain Integumentary: Yes: Pruritus, Rash Neurological: Yes: Pre-Existing Deficit, Weakness. No: Headache, Paresthesia Endocrine: No: Symptoms Reported Hematologic/Lymphatic: No: Symptoms Reported All Other Systems: Reviewed and Negative *Physical Exam - Vital Signs Last Vital Signs Temp Pulse Resp BP Pulse Ox 97.5 F L 65 20 149/81 100 06/22/20 13:19 06/22/20 13:19 06/22/20 13:19 06/22/20 13:19 06/22/20 13:19 - Physical Exam General Appearance: Yes: Nourished, Appropriately Dressed. No: Apparent Distress HEENT: positive: Normal Voice, Pale Conjunctivae. negative: Muffled/Hoarse voice Neck: positive: Trachea midline, Supple Respiratory/Chest: positive: Lungs Clear, Normal Breath Sounds. negative: Respiratory Distress Cardiovascular: positive: Regular Rate, Irregularly Irregular Gastrointestinal/Abdominal: positive: Normal Bowel Sounds, Distended Male Genitalia: positive: other (intertriginous skin breakdown. Perineal erosion + tenderness). negative: normal genitalia, discharge, CVAT Musculoskeletal: positive: Normal Inspection. negative: CVA Tenderness Extremity: positive: Normal Capillary Refill, Normal Inspection. negative: Tender Integumentary: positive: Normal Color, Warm, Clammy Neurologic: positive: Alert, Normal Response, Responsive Heart Score/ECG Review - ECG Intrepretation Rhythm: Irregularly Irregular - [place]: Left [place] Deviation - ECG Impressions Normal ECG: No Tachycardia: Afib w/controlled rate ED Treatment Course - LABORATORY CBC & Chemistry Diagram: 06/22/20 14:00 06/22/20 14:00 Medical Decision Making - Medical Decision Making 06/22/20 14:56 89yo hx multiple UTIs did not complete doxy Rx and now w/ decreased PO intake and worsening confusion per erosions and tenderness in perineum + incontinent for stool and urine -> CT to r/o for fournies UA + CBC + CMP Discharge - Discharge Information Problems reviewed: Yes Clinical Impression/Diagnosis: INES (acute kidney injury), Lactic acid acidosis, Failure of outpatient treatment Condition: Stable - Admission Yes - Follow up/Referral - Patient Discharge Instructions - Post Discharge Activity
[2020-06-22 14:45] LABS: ALBUMIN 3.2 g/dl (3.4-5.0); ALK PHOS 154 U/L (45-117); ANION GAP 5 MMOL/L (8-16); BILIRUBIN,TOTAL 0.8 mg/dL (0.2-1); CALCIUM 8.9 mg/dL (8.5-10.1); CHLORIDE 109 mmol/L (98-107); CO2 28 mmol/L (21-32); CREATININE 2.3 mg/dL (0.55-1.3); GLUCOSE,RANDOM 155 mg/dL (74-106); POTASSIUM 4.3 mmol/L (3.5-5.1); SGOT/AST 13 U/L (15-37); SGPT/ALT 7 U/L (13-61); SODIUM 142 mmol/L (136-145); TOT PROT 6.8 g/dl (6.4-8.2)
[2020-06-22] MEDS ORDERED: CLINDAMYCIN 600MG PREMIX IVPB 600 MG/50 ML BAG IVPB ONE ×2 (16:05→16:40)
[2020-06-22 16:40] LABS: EPI CELLS 5 /uL (0-25.1); HYALINE CASTS 0 /uL (0-3.1); URINE APPEARANCE CLEAR; URINE BACTERIA 23 /uL (0-1359); URINE BILIRUBIN NEGATIVE (NEGATIVE); URINE COLOR YELLOW; URINE GLUCOSE (UA) NEGATIVE (NEGATIVE); URINE KETONE NEGATIVE (NEGATIVE); URINE LEUK ESTERASE NEGATIVE (NEGATIVE); URINE NITRITE NEGATIVE (NEGATIVE); URINE PROTEIN 3+ (NEGATIVE); URINE RBC 6 /uL (0-23.9); URINE UROBILINOGEN 0.2 mg/dL (0.2-1.0); URINE WBC 3 /uL (0-25.8)
[2020-06-22] MEDS ORDERED: CEFTRIAXONE 1 GM in DEXTROSE 5%-WATER - 100 ML IVPB ONE (16:45)
--- NOTE | 2020-06-22 17:27 | HP ---
CHIEF COMPLAINT: diminished appetite PCP: Chan Cervantes HISTORY OF PRESENT ILLNESS: Patient is an 89 year old male with history of hypertension, hyperlipidemia, Afib (on Pradaxa), coronary artery disease (s/p stent 2016), diabetes mellitus, (non insulin dependnent), CKD, neuropathy (bed bound), gout, presents at behest of his due to diminished appetite. Reports that he has been increasingly weak, and lethargic for the past three- four days without clear inciting factor. He has been eating less, and today did not eat anything at all due to lack of appetite. He does report suprapubic pain. He reportedly did drink water in the ED. Patient reportedly spoke with Dr. Simon over the phone regarding these symptoms, and was prescribed Doxycycline, which he was intermittently taking. At baseline, patient endorses he is incontinent, and bed bound. He denies subjective fevers, chills, shortness of breath, chest pain, palpitations. ER course was notable for: (1) CT abdomen, pelvis (2) (3) Recent Travel: denies PAST MEDICAL HISTORY: hypertension, hyperlipidemia, Afib, coronary artery disease, diabetes mellitus, CKD, neuropathy, gout PAST SURGICAL HISTORY: stent x2 2016 Social History: Lives with , who assists in activities of daily living. Bed bound at baseline. Smoking: Former smoker, quit 30 years ago Alcohol: Denies Drugs: Denies Allergies colchicine Adverse Reaction (Intermediate, Verified 06/22/20 13:19) vasculitis HOME MEDICATIONS: Home Medications Medication Instructions Recorded Allopurinol [Zyloprim -] 100 mg PO DAILY 05/10/19 Amlodipine Besylate [Norvasc -] 10 mg PO DAILY 05/10/19 Aspirin [Aspirin EC] 81 mg PO DAILY 05/10/19 Atorvastatin Ca [Lipitor] 20 mg PO HS 05/10/19 Carvedilol [Coreg -] 3.125 mg PO BID 05/10/19 Cetirizine HCl 10 mg PO DAILY 05/10/19 Dabigatran Etexilate Mesylate 75 mg PO BID 05/10/19 [Pradaxa -] Dutasteride [Avodart] 0.5 mg PO DAILY 05/10/19 Psyllium Husk [Metamucil] 0.4 gm PO BID 09/28/19 Polyethylene Glycol 3350 [Miralax 17 gm PO DAILY 01/30/20 (For Daily Use) -] Timolol Maleate [Istalol] 1 drop .ROUTE ASDIR 01/30/20 REVIEW OF SYSTEMS As per HPI. History limited, given patient's clinical condition PHYSICAL EXAMINATION Vital Signs - 24 hr 06/22/20 13:19 Temperature 97.5 F L Pulse Rate 65 Respiratory 20 Rate Blood Pressure 149/81 O2 Sat by Pulse 100 Oximetry (%) GENERAL: The patient is awake, alert, and fully oriented, in no acute distress. HEAD: Normocephalic, atraumatic. EYES: PERRL, extraocular movements intact, sclera anicteric, conjunctiva clear. ENT: Oropharynx clear, without erythema or exudates. Dry mucous membranes. NECK: Trachea midline, full range of motion. Supple without lymphadenopathy. LUNGS: Breath sounds equal, clear to auscultation bilaterally. No wheezes, no crackles. No accessory muscle use. HEART: Regular rate and rhythm. S1, S2 without murmur, rub or gallop. ABDOMEN: Soft, nondistended, nontender to light and deep palpation x4 quadrants. No rebound tenderness, no guarding. Normoactive bowel sounds x4 quadrants. No hepatosplenomegaly, no masses appreciated. GENITOURINARY: Scrotal erythema, and intertrigenous erythema noted. Negative scrotal tenderness to palpation. Negative prehn's sign. Suprapubic tenderness to palpation appreciated. EXTREMITIES: 2+ radial, dorsalis pedis pulses bilaterally. Warm, well-perfused. No lower extremity edema bilaterally. NEUROLOGICAL: Cranial nerves II through XII grossly intact. Normal speech. Able to move all four extremities spontaneously. PSYCH: Normal mood, normal affect upon my encounter. SKIN: Warm, dry. 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 Laboratory Results - last 24 hr 06/22/20 06/22/20 06/22/20 14:00 14:00 14:00 WBC 7.4 RBC 4.16 Hgb 13.2 Hct 38.7 MCV 93.0 MCH 31.6 MCHC 34.0 RDW 15.6 Plt Count 165 MPV 8.0 Absolute Neuts (auto) 5.6 Neutrophils % 74.7 D Lymphocytes % 16.9 D Monocytes % 4.2 Eosinophils % 3.7 D Basophils % 0.5 Nucleated RBC % 0 PT with INR 16.00 H INR 1.37 H PTT (Actin FS) 44.8 H Sodium 142 Potassium 4.3 Chloride 109 H Carbon Dioxide 28 Anion Gap 5 L BUN 29.0 H Creatinine 2.3 H Est GFR (CKD-EPI)AfAm 28.33 Est GFR (CKD-EPI)NonAf 24.44 Random Glucose 155 H Lactic Acid Calcium 8.9 Total Bilirubin 0.8 AST 13 L ALT 7 L Alkaline Phosphatase 154 H Troponin I < 0.02 Total Protein 6.8 Albumin 3.2 L Urine Color Urine Appearance Urine pH Ur Specific [place] Urine Protein Urine Glucose (UA) Urine Ketones Urine Blood Urine Nitrite Urine Bilirubin Urine Urobilinogen Ur Leukocyte Esterase Urine WBC (Auto) Urine RBC (Auto) Urine Casts (Auto) U Epithel Cells (Auto) Urine Bacteria (Auto) 06/22/20 06/22/20 14:00 15:50 WBC RBC Hgb Hct MCV MCH MCHC RDW Plt Count MPV Absolute Neuts (auto) Neutrophils % Lymphocytes % Monocytes % Eosinophils % Basophils % Nucleated RBC % PT with INR INR PTT (Actin FS) Sodium Potassium Chloride Carbon Dioxide Anion Gap BUN Creatinine Est GFR (CKD-EPI)AfAm Est GFR (CKD-EPI)NonAf Random Glucose Lactic Acid 2.5 H* Calcium Total Bilirubin AST ALT Alkaline Phosphatase Troponin I Total Protein Albumin Urine Color Yellow Urine Appearance Clear Urine pH 6.0 Ur Specific [place] 1.014 Urine Protein 3+ H Urine Glucose (UA) Negative Urine Ketones Negative Urine Blood Negative Urine Nitrite Negative Urine Bilirubin Negative Urine Urobilinogen 0.2 Ur Leukocyte Esterase Negative Urine WBC (Auto) 3 Urine RBC (Auto) 6 Urine Casts (Auto) 0 U Epithel Cells (Auto) 5 Urine Bacteria (Auto) 23 ASSESSMENT/PLAN: Patient is an 89 year old male with history of hypertension, hyperlipidemia, Afib (on Pradaxa), coronary artery disease (s/p stent 2016), diabetes mellitus, (non insulin dependnent), CKD, neuropathy (bed bound), gout, presents with complaint of lethargy. Lethargy -Unclear etiology, potentially infectious though UA is not entirely suggestive of UTI -CT abdomen, pelvis reveals long standing effusion, without acute pathology. -Received Ceftriaxone, Clindamycin in ED. Will continue Vancomycin, Zosyn. Nytatin ointment. -Follow blood culture, urine cultures -Obtain scrotal ultrasound -Gentle hydration with IV normal saline at 42mL/ hour x1 liter. -Follow repeat lactic acid -Trial of full liquids, advance as tolerated. -ID consult (Dr. Lu) -Urology consult (Dr. Freedman) CKD -BUN 29/ Cr 2.3. baseline approx 2 -Gentle hydration -Avoid nephrotoxic agents such as aminoglycosides, contrast agents Atrial fibrillation -Continue Carvedilol for rate control -Continue Pradaxa 150mg BID Hypertension -Continue home Carvedilol, Amlodipine Hyperlipidemia -Continue home Lipitor 40mg PO HS #FEN -IV normal saline at 42mL/ hour x1 liter. -Electrolytes wnl, routine bmp monitoring -Sodium controlled diet (Vegeterian) #Prophylaxis -On Pradaxa 150mg BID #Disposition -full code Admit to medical- surgical floor Family Medical History Family History: Unremarkable Visit type - Medication Review Med list reviewed for High Risk Meds patients 65 and older: Yes - Emergency Visit Emergency Visit: Yes ED Registration Date: 06/22/20 Care time: The patient presented to the Emergency Department on the above date and was hospitalized for further evaluation of their emergent condition. - New Patient This patient is new to me today: Yes Date on this admission: 06/22/20 - Critical Care Critical Care patient: No ATTENDING PHYSICIAN STATEMENT I saw and evaluated the patient. I reviewed the resident's note and discussed the case with the resident. I agree with the resident's findings and plan as documented. SUBJECTIVE: OBJECTIVE: ASSESSMENT AND PLAN:
[2020-06-22] MEDS ORDERED: SODIUM CHLORIDE 0.45% 1,000 ML IV SCH (17:30)
--- OUTSIDE RECORDS SUMMARY | 2020-06-22 17:38 | XMS ---
:1930 [facility] Providers Name Role Phone [...] is protected by Article 27-F of the [facility] Public Health law. If you continue you may haveaccess to information: Regarding HIV / AIDS; Provided by facilities licensed or operated by the [facility] Office of Mental Health; or Provided by the [facility] Office for People With Developmental Disabilities. If such information is present, then the following [facility] mandated warning applies: This information has [...] law may result in a fine or snf sentence or both. A general authorization for the release of medical or other information is NOT sufficient authorization for further disclosure. Encounters Encounter Providers Location Date Indications Data Source(s ) Attender: Chan 04/21/2020 [facility] ( [facility] 12:00:00 AM ED Medical, PC) Telehealth Attender: [...] Simon 04/21/2020 12:00:00 AM E DT [facility] ([facility], ) Telehealth Attender: Chan Simon 04/21/2020 12:00:00 AM E DT [facility] ([facility], ) Telehealth Attender: Chan Alfred 04/21/2020 12:00:00 AM E DT MEDGEN ([facility], ) Telehealth Medications Medication Brand Start Product Dose Route Administrative Pharmacy St tong Indications Reaction Description Data Name Date Form Instructions Instructions Source(s) Sertraline SERTRA 04/21/ TABLET 30 complet SERTR [facility] (St 50 MG Oral LINE:3 2019 ed [facility] Tablet 33407 12:00: Medical, SERTRALINE: 00 AM PC) [id number] EDT Dutasteride DUTAST 03/02/ CAPSULE 90 complet DUT ASTERIDE [facility] (St 0.5 MG Oral ERIDE: 2019 ed [facility] Capsule [id number] 12:00: Medical, DUTASTERIDE 00 AM PC) :[id number] EDT dabigatran PRADAX 03/02/ CAPSULE 180 complet PRAD AXA [facility] (St etexilate A:1037 2019 ed [facility] 75 MG Oral 181 12:00: Medical , Capsule 00 AM PC) [Pradaxa] EDT PRADAXA:[id number] carvedilol CARVED 02/24/ TABLET 180 complet CARVE DILOL [facility] (St 3.125 MG ILOL:6 2019 ed [facility] Oral Tablet 97532 12:00: Medic al, CARVEDILOL: 00 AM PC) [id number] EDT Clobetasol CLOBET 02/24/ CREAM 2 complet CLOBET ASOL [facility] (St Propionate ASOL 2019 ed TOPICAL [facility] 0.5 MG/ML TOPICA 12:00: Medica l, Topical L:8614 00 AM PC) Cream 95 EDT CLOBETASOL TOPICAL:861 495 Furosemide FUROSE 02/24/ TABLET 90 complet FUROS EMIDE [facility] (St 40 MG Oral MIDE:3 2019 ed [facility] Tablet 66122 12:00: Medical, FUROSEMIDE: 00 AM PC) [id number] EDT atorvastati ATORVA 02/23/ TABLET 45 complet ATOR VASTATIN [facility] (St n 40 MG STATIN 2019 ed [facility] Oral Tablet :50667 12:00: Medi jak, ATORVASTATI 1 00 AM PC) N:[id number] EDT Famotidine FAMOTI 02/23/ TABLET 30 complet FAMOT IDINE [facility] (St 40 MG Oral DINE:2 2019 ed [facility] Tablet 33441 12:00: Medical, FAMOTIDINE: 00 AM PC) [id number] EDT Allopurinol ALLOPU 08/28/ TABLET 180 complet [...] name Policy type Policy ID Covered Covered democrat's Policy P lin / Coverage democrat ID relationship to [place] Inf ormation type villarreal MEDICAID [id number] SP [id number] PGBA, [id number] SP [id number] LLC/ MEDICARE [id number] SP [id number] EAST [id number] 1 [id number] [place] MED[place] [id number] PART B [place]STATE [place] MED[place] [id number] 1 [id number] PART B DOWNSTATE FOR [id number] 2 LIFE(HMO) Surgeries/Procedures Procedure Description Date Indications [...] DGEN ([facility] SEVERITY 25 MIN 12:00:00 AM [facility]) Documentation of current 06/26/2019 MED GEN [...] ) HOME VISIT EST PT LOW-MOD 06/26/2019 MT DGEN ([facility] SEVERITY 25 MIN 12:00:00 AM EDT [facility], ) Social History Code Duration Value Status Description Data Source(s ) Smoking 04/21/2020 lives w/ , completed lives w/ , has ME DGEN (St 12:00:00 AM EDT has 3 kids 3 kids Tobacco [facility] n's [facility], Tobacco Status: Status: Former ) Former smoker [...] (St 12:00:00 AM EDT smoked smoked [facility], ) Vital Signs ID Date Data Source UNK Name Value Range Interpretation Code Description Data Source(s) Heart rate 55 /min 55 /min [facility], ) Diastolic blood 67 mm[Hg] 67 mm[Hg] MED[facility] ([facility], ) Systolic blood 162 mm[Hg] 162 mm[Hg] MED[facility] ([facility] pressure [facility], ) Heart rate 60 /min 60 /min [facility], ) Respiratory rate 16 /min 16 /min MED[facility] ( [facility], ) Diastolic blood 69 mm[Hg] 69 mm[Hg] MEDGEN ([facility], ) Systolic blood 148 mm[Hg] 148 mm[Hg] MEDGEN ([facility], ) Heart rate 49 /min 49 /min MEDGEN ([facility], ) Respiratory rate 16 /min 16 /min MEDGEN ( [facility], ) Diastolic blood 68 mm[Hg] 68 mm[Hg] MEDGEN ([facility], ) Systolic blood 154 mm[Hg] 154 mm[Hg] MEDGEN ([facility], )
[2020-06-22] MEDS ORDERED: CEFTRIAXONE 1 GM/50 ML BAG ONE (17:50)
[2020-06-22] MEDS ORDERED: HEPARIN NA (PORCINE) 5,000 UNITS/ML 1ML VIAL SQ SCH (18:00)
[2020-06-22] MEDS ORDERED: HEPARIN NA (PORCINE) 5,000 UNITS/ML 1ML VIAL ONE (18:22)
[2020-06-22] MEDS ORDERED: VANCOMYCIN 1 GM in D5W (PRE-DOCKED) 1,000 MG/250 ML IVPB ONE (18:50)
[2020-06-22] MEDS ORDERED: SODIUM PHOSPHATE/NA BIPHOS 133 ML ENEMA RC ONE (18:52)
[2020-06-22] MEDS ORDERED: PIPERACILLIN/TAZOB 3.375 GM 3.375 GM in DEXTROSE 5%-WATER - 50 ML IVPB SCH (19:00)
[2020-06-22] MEDS ORDERED: VANCOMYCIN 1 GRAM (PRE-DOCKED) 1,000 MG/250 ML BAG IVPB ONE (19:23)
[2020-06-22] MEDS ORDERED: PIPERACILLIN/TAZOB 3.375 GM 3.375 GM/50 ML BAG IVPB ONE (19:31)
[2020-06-22] MEDS: PIPERACILLIN/TAZOB 3.375 GM 3.375 GM in DEXTROSE 5%-WATER - 50 ML IVPB SCH (19:41)
--- NOTE | 2020-06-22 20:05 | PDOC ---
Documentation entered by Olvin Rock SCRIBE, acting as scribe for Ro Meléndez MD. Ro Meléndez MD: This documentation has been prepared by the Shweta lópez Xhesika, SCRIBE, under my direction and personally reviewed by me in its entirety. I confirm that the documentation accurately reflects all work, treatment, procedures, and medical decision making performed by me. Attending Attestation - Resident Resident Name: Britton Ren - ED Attending Attestation I have performed the following: I have examined & evaluated the patient, The case was reviewed & discussed with the resident, I agree w/resident's findings & plan, Exceptions are as noted - HPI HPI: 06/22/20 14:27 The patient is a 89y/o M with a PMH of frequent UTI's who presents to the ED with 2 days of decreased PO intake and confusion. Pt states he was diagnosed over the phone with UTI and was given doxycycline. Pt states he took 3 days of his antibiotics consistently and then stopped. Pt states he has not eaten in 2 days. The patient denies chest pain, shortness of breath, headache and dizziness. Denies fever, chills, cough, nausea, vomiting, diarrhea and constipation. Denies dysuria, frequency, urgency and hematuria. Allergies: Colchicine PCP: Chan Cervantes - Physicial Exam PE: GENERAL: elderly, pleasantly confused, nontoxic-appearing, no distress, answers questions appropriately, accompanied by at bedside who assists in history, family states Pt is A/O per baseline and mentating at baseline HEENT: PERRLA, EOMI, moist mucous membranes NECK/BACK: no midline ttp, no spinal stepoff or deformity, no hematoma, full ROM, neck supple CARDIOVASCULAR: regular rate/rhythm, strong peripheral pulses, capillary refill <2 seconds, extremities wwp LUNGS/RESPIRATORY: no respiratory distress, CTAB GI/ABDOMEN: symmetric [id number], normoactive BS, soft, no ttp, no midline pulsatile masses : no CVA tenderness MSK/EXTREMITIES: no acute-appearing muscle atrophy, no acute deformity DERM/SKIN: warm and dry, no pallor, no jaundice, no rash, no pathologic- appearing bruising, no skin breakdown, no cuts, no lesions NEUROLOGICAL: GCS 15, CN II-XII grossly intact, 5/5 strength proximally and distally, no facial droop, gait not tested - Medical Decision Making 89YOM with recently diagnosed UTI on doxycycline for the past week, but has taken only intermittent doses, not with complaining that he has decreased PO intake, increased tiredness, failure to thrive. Initial Vital Signs Temp Pulse Resp BP Pulse Ox 97.5 F L 65 20 149/81 100 06/22/20 13:19 06/22/20 13:19 06/22/20 13:19 06/22/20 13:19 06/22/20 13:19 Most likely UTI with failed outpatient course of antibiotics. Possible failure to thrive with c/f metabolic derangement e.g. hypoglycemia, hypokalemia, etc. Likely dehydration. Low suspicion for sepsis given his reassuring vitals. RAD/CHEST X-RAY PORTABLE* . Chest: Fever. Dysuria. A single view of the chest javed s been submitted. Since 03/18/2019 again noted is a dense left base compatible with atelectasis or infiltrate with fluid. The left upper lobe and right lung are clear. There is a large heart, unfolded aorta and degenerative changes. The soft tissues are intact. There may been old trauma by the right AC joint. For more complete evaluation, a follow-up CT scan may be of help as noted density at the left base persists. Provider Orders Category Date Time Status ABDOMEN & PELVIS CT W/O CONTR [CT] Stat CT Scan 06/22/20 15:10 Completed EKG [ELECTROCARDIOGRAM] [CARD] Stat Cardiology 06/22/20 13:41 Ordered EKG needed NOW Care 06/22/20 13:41 Completed Rectal Temp NOW Care 06/22/20 13:44 Active Straight Catheter, Insert PRN Care 06/22/20 14:59 Active ACTIVATED PTT Stat Lab 06/22/20 14:00 Completed CBC WITH DIFFERENTIAL Stat Lab 06/22/20 14:00 Completed COMP METABOLIC PANEL Stat Lab 06/22/20 14:00 Completed LACTIC ACID Stat Lab 06/22/20 14:00 Completed PT/INR (PROTHROMBIN TIME) Stat Lab 06/22/20 14:00 Completed TROPONIN I ([facility]) Stat Lab 06/22/20 14:00 Completed UA [UA ([facility]) ONLY] Stat Lab 06/22/20 15:50 Completed Clindamycin 600Mg Premix Ivpb [Cleocin 600 mg Premix Medication 06/22/20 16:05 Discontinued Ivpb -] 600 mg in 50 ml IVPB ONCE Lactated Ringers Solution Medication 06/22/20 14:15 Discontinued 1,000 ml IV ONCE ONE Lactated Ringers Solution Medication 06/22/20 16:07 Discontinued 1,000 ml IV ONCE ONE IV Insert NOW Phy Order 06/22/20 13:40 Active Saline Lock, Insert ONCE Phy Order 06/22/20 13:45 Ordered CHEST X-RAY PORTABLE* [RAD] Stat Radiology 06/22/20 13:40 Completed Medications Generic Name Dose Route Start Last Admin Trade Name Freq PRN Reason Stop Dose Admin Sodium Chloride 1,000 mls @ 42 mls/hr 06/22/20 17:30 06/22/20 19:41 1/2 Normal Saline IV 06/23/20 17:19 42 mls/hr ASDIR HERMINIO Administration Piperacillin Sod/Tazobactam 50 mls @ 100 mls/hr 06/22/20 19:00 Sod 3.375 gm/ Dextrose IVPB Q8H-IV HERMINIO Protocol Piperacillin Sod/Tazobactam 50 mls @ 100 mls/hr 06/22/20 19:00 06/22/20 19:41 Sod 3.375 gm/ Dextrose IVPB 06/23/20 11:00 100 mls/hr Q8H-IV HERMINIO Administration Protocol Polyethylene Glycol 17 gm 06/23/20 10:00 Miralax (For Daily Use) - PO DAILY HERMINIO Discontinued Medications Generic Name Dose Route Start Last Admin Trade Name Freq PRN Reason Stop Dose Admin Heparin Sodium (Porcine) 5,000 unit 06/22/20 18:00 06/22/20 18:42 Heparin - SQ 5,000 unit Q8H-IV HERMINIO Administration Heparin Sodium (Porcine) Confirm 06/22/20 18:22 Heparin - Administered 06/22/20 18:23 Dose 5,000 unit .ROUTE .STK-MED ONE Clindamycin Phosphate 600 mg in 50 mls @ 100 mls/hr 06/22/20 16:05 06/22/20 16:49 Cleocin 600 Mg Premix Ivpb - IVPB 06/22/20 16:34 100 mls/hr ONCE ONE Administration Clindamycin Phosphate Confirm 06/22/20 16:40 Cleocin 600 Mg Premix Ivpb - Administered 06/22/20 16:41 Dose 600 mg in 50 mls @ ud IVPB .STK-MED ONE Ceftriaxone Sodium 1 gm/ 100 mls @ 200 mls/hr 06/22/20 16:45 06/22/20 18:06 Dextrose IVPB 06/22/20 17:14 200 mls/hr ONCE ONE Administration Ceftriaxone Sodium Confirm 06/22/20 17:50 Rocephin 1gm Ivpb (Pre-Docked) Administered 06/22/20 17:51 Dose 1 gm in 50 mls @ ud .ROUTE .STK-MED ONE Vancomycin HCl Confirm 06/22/20 19:23 Vancomycin (Pre-Docked) Administered 06/22/20 19:24 Dose 1,000 mg in 250 mls @ ud IVPB .STK-MED ONE Piperacillin Sod/Tazobactam Sod Confirm 06/22/20 19:31 Zosyn 3.375gm Ivpb (Pre-Docked) Administered 06/22/20 19:32 Dose 3.375 gm in 50 mls @ ud IVPB .STK-MED ONE Lactated Ringer's 1,000 ml 06/22/20 14:15 06/22/20 14:26 Lactated Ringers Solution IV 06/22/20 14:16 1,000 ml ONCE ONE Administration Lactated Ringer's 1,000 ml 06/22/20 16:07 06/22/20 16:49 Lactated Ringers Solution IV 06/22/20 16:08 1,000 ml ONCE ONE Administration Sodium Phosphate 133 ml 06/22/20 18:52 Fleet Adult Rectal Enema - RC 06/22/20 18:53 ONCE ONE Vancomycin HCl 1,000 mg 06/22/20 18:50 Vancomycin (Pre-Docked) IVPB 06/22/20 18:51 ONCE ONE Protocol Lab Results WBC 7.4 K/mm3 (4.0-10.0) 06/22/20 14:00 RBC 4.16 M/mm3 (4.00-5.60) 06/22/20 14:00 Hgb 13.2 GM/dL (11.7-16.9) 06/22/20 14:00 Hct 38.7 % (35.4-49) 06/22/20 14:00 MCV 93.0 fl (80-96) 06/22/20 14:00 MCH 31.6 pg (25.7-33.7) 06/22/20 14:00 MCHC 34.0 g/dl (32.0-35.9) 06/22/20 14:00 RDW 15.6 % (11.9-15.9) 06/22/20 14:00 Plt Count 165 K/MM3 (134-434) 06/22/20 14:00 MPV 8.0 fl (7.5-11.1) 06/22/20 14:00 Absolute Neuts (auto) 5.6 K/mm3 (1.5-8.0) 06/22/20 14:00 Neutrophils % 74.7 % (42.8-82.8) D 06/22/20 14:00 Lymphocytes % 16.9 % (8-40) D 06/22/20 14:00 Monocytes % 4.2 % (3.8-10.2) 06/22/20 14:00 Eosinophils % 3.7 % (0-4.5) D 06/22/20 14:00 Basophils % 0.5 % (0-2.0) 06/22/20 14:00 Nucleated RBC % 0 % (0-0) 06/22/20 14:00 PT with INR 16.00 SEC (9.7-13.0) H 06/22/20 14:00 INR 1.37 (0.83-1.09) H 06/22/20 14:00 PTT (Actin FS) 44.8 SECONDS (25.2-36.5) H 06/22/20 14:00 Sodium 142 mmol/L (136-145) 06/22/20 14:00 Potassium 4.3 mmol/L (3.5-5.1) 06/22/20 14:00 Chloride 109 mmol/L (98-107) H 06/22/20 14:00 Carbon Dioxide 28 mmol/L (21-32) 06/22/20 14:00 Anion Gap 5 MMOL/L (8-16) L 06/22/20 14:00 BUN 29.0 mg/dL (7-18) H 06/22/20 14:00 Creatinine 2.3 mg/dL (0.55-1.3) H 06/22/20 14:00 Est GFR (CKD-EPI)AfAm 28.33 06/22/20 14:00 Est GFR (CKD-EPI)NonAf 24.44 06/22/20 14:00 Random Glucose 155 mg/dL (74-106) H 06/22/20 14:00 Lactic Acid 2.5 mmol/L (0.4-2.0) H* 06/22/20 14:00 Calcium 8.9 mg/dL (8.5-10.1) 06/22/20 14:00 Total Bilirubin 0.8 mg/dL (0.2-1) 06/22/20 14:00 AST 13 U/L (15-37) L 06/22/20 14:00 ALT 7 U/L (13-61) L 06/22/20 14:00 Alkaline Phosphatase 154 U/L (45-117) H 06/22/20 14:00 Troponin I < 0.02 ng/ml (0.00-0.05) 06/22/20 14:00 Total Protein 6.8 g/dl (6.4-8.2) 06/22/20 14:00 Albumin 3.2 g/dl (3.4-5.0) L 06/22/20 14:00 Urine Color Yellow 06/22/20 15:50 Urine Appearance Clear 06/22/20 15:50 Urine pH 6.0 (5.0-8.0) 06/22/20 15:50 Ur Specific [place] 1.014 (1.010-1.035) 06/22/20 15:50 Urine Protein 3+ (NEGATIVE) H 06/22/20 15:50 Urine Glucose (UA) Negative (NEGATIVE) 06/22/20 15:50 Urine Ketones Negative (NEGATIVE) 06/22/20 15:50 Urine Blood Negative (NEGATIVE) 06/22/20 15:50 Urine Nitrite Negative (NEGATIVE) 06/22/20 15:50 Urine Bilirubin Negative (NEGATIVE) 06/22/20 15:50 Urine Urobilinogen 0.2 mg/dL (0.2-1.0) 06/22/20 15:50 Ur Leukocyte Esterase Negative (NEGATIVE) 06/22/20 15:50 Urine WBC (Auto) 3 /uL (0-25.8) 06/22/20 15:50 Urine RBC (Auto) 6 /uL (0-23.9) 06/22/20 15:50 Urine Casts (Auto) 0 /uL (0-3.1) 06/22/20 15:50 U Epithel Cells (Auto) 5 /uL (0-25.1) 06/22/20 15:50 Urine Bacteria (Auto) 23 /uL (0-1359) 06/22/20 15:50 CT/ABDOMEN PELVIS CT W/O CONTR [place] 7 CT (without contrast) Clinical information: evaluate for Boy's; acute kidney injury Multiplanar imaging was performed. No intravenous or enteric contrast was administered. Submitted exam coverage does not fully include the inferior most aspect of the perineum. Supplemental CT may be considered. The visualized soft tissue structures demonstrate no evidence of soft tissue air accumulation, or fluid collection. The fascial planes appear intact. The partially imaged lower chest demonstrates a small left pleural effusion which appears similar to a prior abdomen/pelvic CT study of 09/26/2019 (versus be recurrent in nature). Mild left basilar discoid atelectasis is again noted. As on the prior study there is partial imaging of multichamber cardiomegaly. Dense atherosclerotic coronary artery calcifications are seen. No evidence of pneumoperitoneum, free intraperitoneal fluid or bowel obstruction. Small right hepatic lobe calcification probably representing a granuloma. The spleen, pancreas, gallbladder, adrenal glands and kidney demonstrate no discrete noncontrast pathology. There is no aortic aneurysm. Somewhat extensive atherosclerotic calcifications are seen. No definite lymphadenopathy is identified. The right kidney is mildly atrophic measuring 8.3 cm in length. The left kidney measures 10.4 cm. There is no hydronephrosis. The appendix is not definitely visualized. No indirect CT signs of acute appendicitis are seen. There is no CT evidence of acute diverticulitis. No gross noncontrast small bowel pathology is noted. There is mild to moderate gastric distention principally due to fluid accumulation. Moderate rectal fecal retention is noted. Mild prostate enlargement. The seminal vesicles appear symmetric. The urinary bladder demonstrates no obvious intrinsic noncontrast abnormality. The visualized osseous structures demonstrate no gross acute pathology. IMPRESSION: Submitted exam coverage does not fully include the inferior most aspect of the perineum. Additional CT evaluation may be considered. The visualized soft tissue structures demonstrate no CT evidence of infection/inflammation. The partially imaged lower chest again demonstrates a small left pleural effusion comparison to a prior CT study of 09/26/2019 versus being recurrent in nature. Mild left basilar discoid atelectasis is again noted. Multichamber cardiomegaly. Dense atherosclerotic coronary calcifications. Mild right renal atrophy. There is no hydronephrosis. Mild to moderate gastric distention due to fluid accumulation - ? Recent fluid ingestion versus possible gastroparesis or gastric outlet obstruction. Correlate clinically. Rectal fecal retention which is probably moderate. Patient has been given IV abx. Patient to be admitted for failure to thrive - admission procedures per resident note. Last Vital Signs Temp Pulse Resp BP Pulse Ox 98.2 F 58 L 20 123/75 100 06/22/20 19:10 06/22/20 19:10 06/22/20 19:10 06/22/20 19:10 06/22/20 19:10 Heart Score/ECG Review #1 06/22/20 14:35 A-fib, rate 57, with left axis deviation, RBBB, no new ischemic ST-T changes. Discharge - Discharge Information Problems reviewed: Yes Clinical Impression/Diagnosis: INES (acute kidney injury), Lactic acid acidosis, Failure of outpatient treatment Condition: Guarded - Admission Yes - Follow up/Referral - Patient Discharge Instructions - Post Discharge Activity
[2020-06-22] MEDS ORDERED: PT OWN MED DRAWER 7, Y5N ONE (21:25)
[2020-06-22] MEDS: ATORVASTATIN CA 20 MG TABLET (FP) PO SCH (22:00)
[2020-06-22] MEDS: CARVEDILOL 3.125 MG TABLET (FP) PO SCH (22:00)
[2020-06-22] MEDS: DABIGATRAN ETEXILATE MESYLATE 75 MG CAPSULE PO SCH (22:40)
[2020-06-22] MEDS: NYSTATIN 100000 UNIT/GM TOPICAL OINTMENT 15 GM TUBE TP SCH (22:58)
--- NOTE | 2020-06-22 23:04 | PN ---
Teaching Attending Note Name of Resident: Ga Jarrell ATTENDING PHYSICIAN STATEMENT I saw and evaluated the patient. I reviewed the resident's note and discussed the case with the resident. I agree with the resident's findings and plan as documented. SUBJECTIVE: Patient seen and examined at bedside, admitted for FTT, anorexia, trouble urinating, found to have scrotal cellulitis, VSS. OBJECTIVE: GA elderly, frail, NAD HEENT NC/AT, dry MM Chest CTAB, no crackles or wheezing CVS S1, s2+, RRR Abd tense, slightly distended, BS+, NT diffuse scrotal swelling/erythema/TTP, cremaster reflex intact, no visible perineal ulcer/drainage Ext no LE edema, no calf tenderness Vital Signs (72 hours) 06/22/20 06/22/20 06/22/20 13:19 17:27 19:10 Temperature 97.5 F L 98.2 F Pulse Rate 65 Pulse Rate [ 58 L Right Apical] Respiratory 20 20 20 Rate Blood Pressure 149/81 Blood Pressure 123/75 [Left Arm] O2 Sat by Pulse 100 100 100 Oximetry (%) 06/22/20 20:00 Temperature Pulse Rate Pulse Rate [ Right Apical] Respiratory Rate Blood Pressure Blood Pressure [Left Arm] O2 Sat by Pulse 100 Oximetry (%) Laboratory Results - last 24 hr 06/22/20 06/22/20 06/22/20 14:00 14:00 14:00 WBC 7.4 RBC 4.16 Hgb 13.2 Hct 38.7 MCV 93.0 MCH 31.6 MCHC 34.0 RDW 15.6 Plt Count 165 MPV 8.0 Absolute Neuts (auto) 5.6 Neutrophils % 74.7 D Lymphocytes % 16.9 D Monocytes % 4.2 Eosinophils % 3.7 D Basophils % 0.5 Nucleated RBC % 0 PT with INR 16.00 H INR 1.37 H PTT (Actin FS) 44.8 H Sodium 142 Potassium 4.3 Chloride 109 H Carbon Dioxide 28 Anion Gap 5 L BUN 29.0 H Creatinine 2.3 H Est GFR (CKD-EPI)AfAm 28.33 Est GFR (CKD-EPI)NonAf 24.44 POC Glucometer Random Glucose 155 H Lactic Acid Calcium 8.9 Total Bilirubin 0.8 AST 13 L ALT 7 L Alkaline Phosphatase 154 H Troponin I < 0.02 Total Protein 6.8 Albumin 3.2 L Urine Color Urine Appearance Urine pH Ur Specific [place] Urine Protein Urine Glucose (UA) Urine Ketones Urine Blood Urine Nitrite Urine Bilirubin Urine Urobilinogen Ur Leukocyte Esterase Urine WBC (Auto) Urine RBC (Auto) Urine Casts (Auto) U Epithel Cells (Auto) Urine Bacteria (Auto) 06/22/20 06/22/20 06/22/20 14:00 15:50 18:06 WBC RBC Hgb Hct MCV MCH MCHC RDW Plt Count MPV Absolute Neuts (auto) Neutrophils % Lymphocytes % Monocytes % Eosinophils % Basophils % Nucleated RBC % PT with INR INR PTT (Actin FS) Sodium Potassium Chloride Carbon Dioxide Anion Gap BUN Creatinine Est GFR (CKD-EPI)AfAm Est GFR (CKD-EPI)NonAf POC Glucometer Random Glucose Lactic Acid 2.5 H* 1.4 Calcium Total Bilirubin AST ALT Alkaline Phosphatase Troponin I Total Protein Albumin Urine Color Yellow Urine Appearance Clear Urine pH 6.0 Ur Specific [place] 1.014 Urine Protein 3+ H Urine Glucose (UA) Negative Urine Ketones Negative Urine Blood Negative Urine Nitrite Negative Urine Bilirubin Negative Urine Urobilinogen 0.2 Ur Leukocyte Esterase Negative Urine WBC (Auto) 3 Urine RBC (Auto) 6 Urine Casts (Auto) 0 U Epithel Cells (Auto) 5 Urine Bacteria (Auto) 23 06/22/20 22:43 WBC RBC Hgb Hct MCV MCH MCHC RDW Plt Count MPV Absolute Neuts (auto) Neutrophils % Lymphocytes % Monocytes % Eosinophils % Basophils % Nucleated RBC % PT with INR INR PTT (Actin FS) Sodium Potassium Chloride Carbon Dioxide Anion Gap BUN Creatinine Est GFR (CKD-EPI)AfAm Est GFR (CKD-EPI)NonAf POC Glucometer 194 Random Glucose Lactic Acid Calcium Total Bilirubin AST ALT Alkaline Phosphatase Troponin I Total Protein Albumin Urine Color Urine Appearance Urine pH Ur Specific [place] Urine Protein Urine Glucose (UA) Urine Ketones Urine Blood Urine Nitrite Urine Bilirubin Urine Urobilinogen Ur Leukocyte Esterase Urine WBC (Auto) Urine RBC (Auto) Urine Casts (Auto) U Epithel Cells (Auto) Urine Bacteria (Auto) Home Medications Medication Instructions Recorded Allopurinol [Zyloprim -] 100 mg PO DAILY 05/10/19 Amlodipine Besylate [Norvasc -] 10 mg PO DAILY 05/10/19 Aspirin [Aspirin EC] 81 mg PO DAILY 05/10/19 Atorvastatin Ca [Lipitor] 20 mg PO HS 05/10/19 Carvedilol [Coreg -] 3.125 mg PO BID 05/10/19 Cetirizine HCl 10 mg PO DAILY 05/10/19 Dabigatran Etexilate Mesylate 75 mg PO BID 05/10/19 [Pradaxa -] Dutasteride [Avodart] 0.5 mg PO DAILY 05/10/19 Psyllium Husk [Metamucil] 0.4 gm PO BID 09/28/19 Polyethylene Glycol 3350 [Miralax 17 gm PO DAILY 01/30/20 (For Daily Use) -] Timolol Maleate [Istalol] 1 drop .ROUTE ASDIR 01/30/20 Current Medications Generic Name Dose Route Start Last Admin Trade Name Freq PRN Reason Stop Dose Admin Allopurinol 100 mg 06/23/20 10:00 Zyloprim - PO DAILY [facility] Amlodipine Besylate 5 mg 06/23/20 10:00 Norvasc - PO DAILY [facility] Aspirin 81 mg 06/23/20 10:00 Ecotrin - PO DAILY [facility] Atorvastatin Calcium 20 mg 06/22/20 22:00 06/22/20 22:00 Lipitor - PO 20 mg HS HERMINIO Administration Carvedilol 3.125 mg 06/22/20 22:00 06/22/20 22:00 Coreg - PO 3.125 mg BID HERMINIO Administration Dabigatran 75 mg 06/22/20 22:00 06/22/20 22:40 Pradaxa - PO 75 mg BID HERMINIO Administration Dutasteride 0.5 mg 06/23/20 10:00 Avodart - PO DAILY [facility] Famotidine 20 mg 06/23/20 10:00 Pepcid - PO DAILY [facility] Sodium Chloride 1,000 mls @ 42 mls/hr 06/22/20 17:30 06/22/20 19:41 1/2 Normal Saline IV 06/23/20 17:19 42 mls/hr ASDIR HERMINIO Administration Piperacillin Sod/Tazobactam 50 mls @ 100 mls/hr 06/22/20 19:00 Sod 3.375 gm/ Dextrose IVPB Q8H-IV HERMINIO Protocol Piperacillin Sod/Tazobactam 50 mls @ 100 mls/hr 06/22/20 19:00 06/22/20 19:41 Sod 3.375 gm/ Dextrose IVPB 06/23/20 11:00 100 mls/hr Q8H-IV HERMINIO Administration Protocol Nystatin 1 applic 06/22/20 22:00 06/22/20 22:58 Mycostatin Ointment - TP 1 applic BID HERMINIO Administration Polyethylene Glycol 17 gm 06/23/20 10:00 Miralax (For Daily Use) - PO DAILY HERMINIO ASSESSMENT AND PLAN: 89 M b/l scrotal cellulitis/orchitis HTN HLD T2DM Afib on AC BPH Chronic constipation Gout Plan: Zosyn/Vancomycin/topical Nystatin for scrotal cellulitis, WBC 7, afebrile, low suspicion for Fourneir's Restart BP meds Cont. Pradaxa for AC Send A1c/lipids Urology evaluation ID evaluation Obtain bladder scan if retaining then place willis Aggressive bowel regimen, give enema as needed DVT ppx: Pradaxa Med-surg
[2020-06-23] MEDS ORDERED: DEXTROSE 5%-WATER - 50 ML IVPB ONE ×3 (01:20→16:40)
[2020-06-23] MEDS ORDERED: PIPERACILLIN/TAZOBACTAM 3.375 GM VIAL IVPB ONE ×2 (01:20→09:24)
[2020-06-23] MEDS: PIPERACILLIN/TAZOB 3.375 GM 3.375 GM in DEXTROSE 5%-WATER - 50 ML IVPB SCH ×2 (01:52→09:45)
[2020-06-23 09:06] LABS: HEMATOCRIT 34.8 % (35.4-49); HEMOGLOBIN 12.1 GM/dL (11.7-16.9); MCH 31.9 pg (25.7-33.7); MCHC 34.7 g/dl (32.0-35.9); MEAN CELL VOLUME 91.9 fl (80-96); MEAN PLT VOLUME 7.8 fl (7.5-11.1); PLATELET COUNT 153 K/MM3 (134-434); RBC 3.79 M/mm3 (4.00-5.60); RDW 15.4 % (11.9-15.9); WHITE BLOOD COUNT 4.7 K/mm3 (4.0-10.0)
[2020-06-23] MEDS: FAMOTIDINE 20 MG TABLET PO SCH (09:45)
[2020-06-23] MEDS: amLODIPine BESYLATE 5 MG TABLET (FP) PO SCH (09:45)
[2020-06-23] MEDS: CARVEDILOL 3.125 MG TABLET (FP) PO SCH ×2 (09:45→21:14)
[2020-06-23] MEDS: ASPIRIN COATED 81 MG TABLET.EC PO SCH (09:45)
[2020-06-23] MEDS: DUTASTERIDE 0.5 MG CAP (FP) PO SCH (09:45)
[2020-06-23] MEDS: ALLOPURINOL 100 MG TABLET (FP) PO SCH (09:45)
[2020-06-23] MEDS: POLYETHYLENE GLYCOL 3350 119 GM BTL PO SCH (09:47)
[2020-06-23 10:03] LABS: ALBUMIN 2.9 g/dl (3.4-5.0); BILIRUBIN,TOTAL 0.8 mg/dL (0.2-1); BLOOD UREA NITROGEN 22.8 mg/dL (7-18); CALCIUM 8.2 mg/dL (8.5-10.1); CREATININE 1.9 mg/dL (0.55-1.3); MAGNESIUM 2.2 mg/dL (1.8-2.4); PHOSPHOROUS 2.9 mg/dL (2.5-4.9); POTASSIUM 3.8 mmol/L (3.5-5.1); TOT PROT 6.4 g/dl (6.4-8.2)
--- NOTE | 2020-06-23 10:08 | EKG ---
Test Reason : Blood Pressure : / mmHG Vent. Rate : 057 BPM Atrial Rate : 061 BPM P-R Int : 000 ms QRS Dur : 122 ms QT Int : 438 ms P-R-T Axes : 000 -71 -45 degrees QTc Int : 426 ms ATRIAL FIBRILLATION WITH SLOW VENTRICULAR RESPONSE LEFT AXIS DEVIATION POSSIBLE LATERAL INFARCT (CITED ON OR BEFORE 10-MAY-2019) ABNORMAL ECG WHEN COMPARED WITH ECG OF 28-SEP-2019 08:55, ATRIAL FIBRILLATION HAS REPLACED ATRIAL FLUTTER RIGHT BUNDLE BRANCH BLOCK IS NO LONGER PRESENT QUESTIONABLE CHANGE IN INITIAL FORCES OF LATERAL LEADS Confirmed by MD Demarcus, Britton ([id number]) on 06/23/2020 10:08:05 AM Referred By: Confirmed By:Britton Tracy MD
--- NOTE | 2020-06-23 11:16 | PN ---
Physical Exam: SUBJECTIVE: Patient seen and examined OBJECTIVE: patient is examined in the bed. he tells me that he is bed bound at home and his appetite has been poor. he was started on doxy by Dr. Simon but he does not remember if he took it. 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 He has two home health aides. He denies any abdominal pain, denies nausea or vomiting. He denies any chest pain, shortness of breath or malaise. He has no fever and no WBC elevation. Scrotal ultrasound shows acute bilateral orchhitis, urology to see - pt refusing willis pending ID consult. ---- Patient is an 89 year old male with history of hypertension, hyperlipidemia, Afib (on Pradaxa), coronary artery disease (s/p stent 2015), diabetes mellitus, (non insulin dependnent), CKD, neuropathy (bed bound), gout, presents at behest of his due to diminished appetite. Reports that he has been increasingly weak, and lethargic for the past three- four days without clear inciting factor. He has been eating less, and today did not eat anything at all due to lack of appetite. He does report suprapubic pain. He reportedly did drink water in the ED. Patient reportedly spoke with Dr. Simon over the phone regarding these symptoms, and was prescribed Doxycycline, which he was intermittently taking. At baseline, patient endorses he is incontinent, and bed bound. He denies subjective fevers, chills, shortness of breath, chest pain, palpitations. Vital Signs Period Temp Pulse Resp BP Sys/Nichols Pulse Ox Last 24 Hr 97.5 F-98.4 F 55-65 18-20 123-165/62-81 95-100 GENERAL: The patient is awake, alert, episodes of forgetfulness HEAD: Normal with no signs of trauma. EYES: PERRL, extraocular movements intact, sclera anicteric, conjunctiva clear. No ptosis. ENT: Ears normal, nares patent, oropharynx clear without exudates, moist mucous membranes. NECK: Trachea midline, full range of motion, supple. LUNGS: Breath sounds equal, clear to auscultation bilaterally, no wheezes HEART: Regular rate and rhythm ABDOMEN: Soft, nontender, nondistended, normoactive bowel sounds EXTREMITIES: 2+ pulses, warm, well-perfused, no edema. NEUROLOGICAL: Normal speech, bed bound PSYCH: Normal mood, normal affect. SKIN: mild erythema of scrotum Laboratory Results - last 24 hr 06/22/20 06/22/20 06/22/20 14:00 14:00 14:00 WBC 7.4 RBC 4.16 Hgb 13.2 Hct 38.7 MCV 93.0 MCH 31.6 MCHC 34.0 RDW 15.6 Plt Count 165 MPV 8.0 Absolute Neuts (auto) 5.6 Neutrophils % 74.7 D Lymphocytes % 16.9 D Monocytes % 4.2 Eosinophils % 3.7 D Basophils % 0.5 Nucleated RBC % 0 PT with INR 16.00 H INR 1.37 H PTT (Actin FS) 44.8 H Sodium 142 Potassium 4.3 Chloride 109 H Carbon Dioxide 28 Anion Gap 5 L BUN 29.0 H Creatinine 2.3 H Est GFR (CKD-EPI)AfAm 28.33 Est GFR (CKD-EPI)NonAf 24.44 POC Glucometer Random Glucose 155 H Lactic Acid Calcium 8.9 Phosphorus Magnesium Total Bilirubin 0.8 AST 13 L ALT 7 L Alkaline Phosphatase 154 H Troponin I < 0.02 Total Protein 6.8 Albumin 3.2 L TSH Thyroxine (T4) Urine Color Urine Appearance Urine pH Ur Specific [place] Urine Protein Urine Glucose (UA) Urine Ketones Urine Blood Urine Nitrite Urine Bilirubin Urine Urobilinogen Ur Leukocyte Esterase Urine WBC (Auto) Urine RBC (Auto) Urine Casts (Auto) U Epithel Cells (Auto) Urine Bacteria (Auto) 06/22/20 06/22/20 06/22/20 14:00 15:50 18:06 WBC RBC Hgb Hct MCV MCH MCHC RDW Plt Count MPV Absolute Neuts (auto) Neutrophils % Lymphocytes % Monocytes % Eosinophils % Basophils % Nucleated RBC % PT with INR INR PTT (Actin FS) Sodium Potassium Chloride Carbon Dioxide Anion Gap BUN Creatinine Est GFR (CKD-EPI)AfAm Est GFR (CKD-EPI)NonAf POC Glucometer Random Glucose Lactic Acid 2.5 H* 1.4 Calcium Phosphorus Magnesium Total Bilirubin AST ALT Alkaline Phosphatase Troponin I Total Protein Albumin TSH Thyroxine (T4) Urine Color Yellow Urine Appearance Clear Urine pH 6.0 Ur Specific [place] 1.014 Urine Protein 3+ H Urine Glucose (UA) Negative Urine Ketones Negative Urine Blood Negative Urine Nitrite Negative Urine Bilirubin Negative Urine Urobilinogen 0.2 Ur Leukocyte Esterase Negative Urine WBC (Auto) 3 Urine RBC (Auto) 6 Urine Casts (Auto) 0 U Epithel Cells (Auto) 5 Urine Bacteria (Auto) 23 06/22/20 06/23/20 06/23/20 22:43 07:04 08:50 WBC 4.7 RBC 3.79 L Hgb 12.1 Hct 34.8 L MCV 91.9 MCH 31.9 MCHC 34.7 RDW 15.4 Plt Count 153 MPV 7.8 Absolute Neuts (auto) Neutrophils % Lymphocytes % Monocytes % Eosinophils % Basophils % Nucleated RBC % PT with INR INR PTT (Actin FS) Sodium Potassium Chloride Carbon Dioxide Anion Gap BUN Creatinine Est GFR (CKD-EPI)AfAm Est GFR (CKD-EPI)NonAf POC Glucometer 194 103 Random Glucose Lactic Acid Calcium Phosphorus Magnesium Total Bilirubin AST ALT Alkaline Phosphatase Troponin I Total Protein Albumin TSH Thyroxine (T4) Urine Color Urine Appearance Urine pH Ur Specific [place] Urine Protein Urine Glucose (UA) Urine Ketones Urine Blood Urine Nitrite Urine Bilirubin Urine Urobilinogen Ur Leukocyte Esterase Urine WBC (Auto) Urine RBC (Auto) Urine Casts (Auto) U Epithel Cells (Auto) Urine Bacteria (Auto) 06/23/20 06/23/20 08:50 11:10 WBC RBC Hgb Hct MCV MCH MCHC RDW Plt Count MPV Absolute Neuts (auto) Neutrophils % Lymphocytes % Monocytes % Eosinophils % Basophils % Nucleated RBC % PT with INR INR PTT (Actin FS) Sodium 137 Potassium 3.8 Chloride 103 Carbon Dioxide 27 Anion Gap 7 L BUN 22.8 H Creatinine 1.9 H Est GFR (CKD-EPI)AfAm 35.69 Est GFR (CKD-EPI)NonAf 30.79 POC Glucometer 157 Random Glucose 119 H Lactic Acid Calcium 8.2 L Phosphorus 2.9 Magnesium 2.2 Total Bilirubin 0.8 AST 12 L ALT 8 L Alkaline Phosphatase 131 H Troponin I Total Protein 6.4 Albumin 2.9 L TSH 1.22 D Thyroxine (T4) 7.7 Urine Color Urine Appearance Urine pH Ur Specific [place] Urine Protein Urine Glucose (UA) Urine Ketones Urine Blood Urine Nitrite Urine Bilirubin Urine Urobilinogen Ur Leukocyte Esterase Urine WBC (Auto) Urine RBC (Auto) Urine Casts (Auto) U Epithel Cells (Auto) Urine Bacteria (Auto) Active Medications Generic Name Dose Route Start Last Admin Trade Name Edward PRN Reason Stop Dose Admin Allopurinol 100 mg 06/23/20 10:00 06/23/20 09:45 Zyloprim - PO 100 mg DAILY HERMINIO Administration Amlodipine Besylate 5 mg 06/23/20 10:00 06/23/20 09:45 Norvasc - PO 5 mg DAILY HERMINIO Administration Aspirin 81 mg 06/23/20 10:00 06/23/20 09:45 Ecotrin - PO 81 mg DAILY HERMINIO Administration Atorvastatin Calcium 20 mg 06/22/20 22:00 06/22/20 22:00 Lipitor - PO 20 mg HS HERMINIO Administration Carvedilol 3.125 mg 06/22/20 22:00 06/23/20 09:45 Coreg - PO 3.125 mg BID HERMINIO Administration Dabigatran 75 mg 06/22/20 22:00 06/22/20 22:40 Pradaxa - PO 75 mg BID HERMINIO Administration Dutasteride 0.5 mg 06/23/20 10:00 06/23/20 09:45 Avodart - PO 0.5 mg DAILY HERMINIO Administration Famotidine 20 mg 06/23/20 10:00 06/23/20 09:45 Pepcid - PO 20 mg DAILY HERMINIO Administration Sodium Chloride 1,000 mls @ 42 mls/hr 06/22/20 17:30 06/22/20 19:41 1/2 Normal Saline IV 06/23/20 17:19 42 mls/hr ASDIR HERMINIO Administration Piperacillin Sod/Tazobactam 50 mls @ 100 mls/hr 06/22/20 19:00 Sod 3.375 gm/ Dextrose IVPB Q8H-IV [facility] Protocol Nystatin 1 applic 06/22/20 22:00 06/22/20 22:58 Mycostatin Ointment - TP 1 applic BID HERMINIO Administration Polyethylene Glycol 17 gm 06/23/20 10:00 06/23/20 09:47 Miralax (For Daily Use) - PO 17 gm DAILY HERMINIO Administration ASSESSMENT/PLAN: Problem List - Problems (1) Orchitis Assessment/Plan: bilateral orchitis per scrotal ultrasound. urology consult pending monitor intake and output and perform post void residual on zosyn Code(s): N45.2 - ORCHITIS (2) Cellulitis, scrotum Assessment/Plan: Erythma noted on scrotal tissue. No urinary retention. Scrotal edema improving. patient refusing willis, but urinating without issues on Zosyn per ID No WBC or fevers Code(s): N49.2 - INFLAMMATORY DISORDERS OF SCROTUM (3) INES (acute kidney injury) Assessment/Plan: patient with INES creatinine similar to previus admissions renal dose medications monitor renal function with daily labs monitor urine output Code(s): N17.9 - ACUTE KIDNEY FAILURE, UNSPECIFIED (4) Failure of outpatient treatment Assessment/Plan: patient was on Bactrim antibiotics as an outpatient and did tolerate PO antibiotics for possible UTI. Now on Zosyn per ID Code(s): Z78.9 - OTHER SPECIFIED HEALTH STATUS (5) Lactic acid acidosis Assessment/Plan: resolved with ivf Code(s): E87.2 - ACIDOSIS (6) Constipation Code(s): K59.00 - CONSTIPATION, UNSPECIFIED Qualifiers: Constipation type: unspecified constipation type Qualified Code(s): K59.00 - Constipation, unspecified (7) UTI (urinary tract infection) Assessment/Plan: Urine culture pending started on zosyn blood cultures pending Code(s): N39.0 - URINARY TRACT INFECTION, SITE NOT SPECIFIED Qualifiers: Urinary tract infection type: site unspecified Hematuria presence: without hematuria Qualified Code(s): N39.0 - Urinary tract infection, site not specified (8) A-fib Assessment/Plan: on coreq and pradaxa Code(s): I48.91 - UNSPECIFIED ATRIAL FIBRILLATION Qualifiers: Atrial fibrillation type: chronic (9) HTN (hypertension) Assessment/Plan: on coreq, monitor BP Code(s): I10 - ESSENTIAL (PRIMARY) HYPERTENSION (10) DVT prophylaxis Assessment/Plan: already on Pradaxa Code(s): Z29.9 - ENCOUNTER FOR PROPHYLACTIC MEASURES, UNSPECIFIED Visit type - Emergency Visit Emergency Visit: Yes ED Registration Date: 06/22/20 Care time: The patient presented to the Emergency Department on the above date and was hospitalized for further evaluation of their emergent condition. - New Patient This patient is new to me today: Yes Date on this admission: 06/25/20 - Critical Care Critical Care patient: No - Discharge Referral Referred to [facility] No - Medication Review Med list reviewed for High Risk Meds patients 65 and older: Yes
[2020-06-23] MEDS: DABIGATRAN ETEXILATE MESYLATE 75 MG CAPSULE PO SCH ×2 (13:58→21:15)
[2020-06-23] MEDS: NYSTATIN 100000 UNIT/GM TOPICAL OINTMENT 15 GM TUBE TP SCH ×2 (13:58→21:15)
--- NOTE | 2020-06-23 14:13 | CON.ID ---
Consult Consult Specialty:: infectious diseases Referred by:: hospitalist Reason for Consultation:: lethargy weakness,scrotal pain,constipation/dirrhoea - History of Present Illness Chief Complaint: abd pain,weakness History of Present Illness: 89 year old male with history of hypertension, hyperlipidemia, Afib , coronary artery disease (s/p stent 2016), diabetes mellitus,, CKD, neuropathy (bed bound), gout, presents due to diminished appetite. Reports that he has been increasingly weak, and lethargic for the past three- four days without clear inciting factor. He has been eating less, and today did not eat anything at all due to lack of appetite. He does report suprapubic pain. He reportedly did drink water in the ED. Patient reportedly spoke with Dr. Simon over the phone regarding these symptoms, and was prescribed Doxycycline, which he was intermittently taking. At baseline, patient endorses he is incontinent, and bed bound. He denies subjective fevers, chills, shortness of breath, chest pain, palpitations. currently he continues to have abd pain - History Source History Provided By: Patient, Family Member Limitations to Obtaining History: No Limitations - Past Medical History Cardio/Vascular: Yes: AFIB (chronic), CHF, HTN, Mitral Insufficiency (moderate per 03/07/16 echo) Renal/: Yes: Renal Inusuff - Alcohol/Substance Use Hx Alcohol Use: No - Smoking History Smoking history: Never smoked Have you smoked in the past 12 months: No Aproximately how many cigarettes per day: 0 If you are a former smoker, when did you quit?: 15 - Social History Usual Living Arrangement: With Spouse Home Medications - Allergies Allergies/Adverse Reactions: Allergies Allergy/AdvReac Type Severity Reaction Status Date / Time colchicine AdvReac Intermediate vasculitis Verified 06/22/20 13:19 - Home Medications Home Medications: Ambulatory Orders Allopurinol [Zyloprim -] 100 mg PO DAILY 05/10/19 Amlodipine Besylate [Norvasc -] 10 mg PO DAILY 05/10/19 Aspirin [Aspirin EC] 81 mg PO DAILY 05/10/19 Atorvastatin Ca [Lipitor] 20 mg PO HS 05/10/19 Carvedilol [Coreg -] 3.125 mg PO BID 05/10/19 Cetirizine HCl 10 mg PO DAILY 05/10/19 Dabigatran Etexilate Mesylate [Pradaxa -] 75 mg PO BID 05/10/19 Dutasteride [Avodart] 0.5 mg PO DAILY 05/10/19 Psyllium Husk [Metamucil] 0.4 gm PO BID 09/28/19 Polyethylene Glycol 3350 [Miralax (For Daily Use) -] 17 gm PO DAILY 01/30/20 Timolol Maleate [Istalol] 1 drop .ROUTE ASDIR 01/30/20 Review of Systems - Review of Systems Constitutional: reports: No Symptoms Eyes: reports: No Symptoms HENT: reports: No Symptoms Neck: reports: No Symptoms Cardiovascular: reports: No Symptoms Respiratory: reports: No Symptoms Gastrointestinal: reports: Abdominal Pain, Constipation, Diarrhea Genitourinary: reports: No Symptoms Musculoskeletal: reports: No Symptoms Integumentary: reports: No Symptoms Neurological: reports: No Symptoms Endocrine: reports: No Symptoms Hematology/Lymphatic: reports: No Symptoms Psychiatric: reports: No Symptoms Physical Exam Vital Signs: Vital Signs Temperature 97.6 F 06/23/20 09:00 Pulse Rate 52 L 06/23/20 09:00 Respiratory Rate 18 06/23/20 09:00 Blood Pressure 157/74 06/23/20 09:00 O2 Sat by Pulse Oximetry (%) 95 06/23/20 09:00 Constitutional: Yes: Calm, Mild Distress Eyes: Yes: Conjunctiva Clear HENT: Yes: Atraumatic, Normocephalic Neck: Yes: Supple, Trachea Midline Cardiovascular: Yes: Pulse Irregular, S1, S2 Respiratory: Yes: Regular, CTA Bilaterally Gastrointestinal: Yes: Normal Bowel Sounds, Soft Renal/: Yes: Other (scrotal cellulitis,tenderness of the testes) Musculoskeletal: Yes: WNL Extremities: Yes: WNL Neurological: Yes: Alert, Oriented Labs: CBC, BMP 06/23/20 08:50 06/23/20 08:50 Imaging - Results Chest X-ray: Report Reviewed, Image Reviewed Cat Scan: Report Reviewed, Image Reviewed Ultrasound: Report Reviewed, Image Reviewed Assessment/Plan 89 year old male with history of hypertension, hyperlipidemia, Afib (on Pradaxa ), coronary artery disease (s/p stent 2015), diabetes mellitus, (non insulin dependnent), CKD, neuropathy (bed bound), gout, presents with complaint of lethargy. Lethargy CKD Atrial fibrillation Hypertension Hyperlipidemia orchitis plan will start patient on zosyn elevation of the scrotum monitor dirrhoea rest as per the team
[2020-06-23] MEDS ORDERED: PIPERACILLIN/TAZOBACTAM 2.25 GM VIAL IVPB ONE (16:40)
[2020-06-23] MEDS: PIPERACILLIN/TAZOB 2.25 GM 2.25 GM in DEXTROSE 5%-WATER - 50 ML IVPB SCH (18:23)
[2020-06-23] MEDS ORDERED: PT OWN MED DRAWER 7, Y5N ONE (20:50)
[2020-06-23] MEDS: ATORVASTATIN CA 20 MG TABLET (FP) PO SCH (21:15)
[2020-06-24] MEDS ORDERED: PIPERACILLIN/TAZOBACTAM 2.25 GM VIAL IVPB ONE ×3 (01:16→18:22)
[2020-06-24] MEDS ORDERED: DEXTROSE 5%-WATER - 50 ML IVPB ONE ×3 (01:16→18:23)
[2020-06-24] MEDS: PIPERACILLIN/TAZOB 2.25 GM 2.25 GM in DEXTROSE 5%-WATER - 50 ML IVPB SCH ×3 (01:30→18:27)
[2020-06-24] MEDS ORDERED: PT OWN MED DRAWER 7, Y5N ONE ×2 (10:40→21:13)
[2020-06-24] MEDS: DABIGATRAN ETEXILATE MESYLATE 75 MG CAPSULE PO SCH ×2 (10:43→21:37)
[2020-06-24] MEDS: FAMOTIDINE 20 MG TABLET PO SCH (10:43)
[2020-06-24] MEDS: NYSTATIN 100000 UNIT/GM TOPICAL OINTMENT 15 GM TUBE TP SCH ×2 (10:43→21:37)
[2020-06-24] MEDS: ALLOPURINOL 100 MG TABLET (FP) PO SCH (10:43)
[2020-06-24] MEDS: amLODIPine BESYLATE 5 MG TABLET (FP) PO SCH (10:43)
[2020-06-24] MEDS: CARVEDILOL 3.125 MG TABLET (FP) PO SCH ×2 (10:43→21:37)
[2020-06-24] MEDS: DUTASTERIDE 0.5 MG CAP (FP) PO SCH (10:44)
[2020-06-24] MEDS: ASPIRIN COATED 81 MG TABLET.EC PO SCH (10:44)
[2020-06-24] MEDS: POLYETHYLENE GLYCOL 3350 119 GM BTL PO SCH (10:44)
--- NOTE | 2020-06-24 11:04 | PN ---
Progress Note, Physician History of Present Illness: still c/o of pain - Current Medication List Current Medications: Active Medications Allopurinol (Zyloprim -) 100 mg PO DAILY [facility] Last Admin: 06/24/20 10:43 Dose: 100 mg Documented by: Amlodipine Besylate (Norvasc -) 5 mg PO DAILY [facility] Last Admin: 06/24/20 10:43 Dose: 5 mg Documented by: Aspirin (Ecotrin -) 81 mg PO DAILY [facility] Last Admin: 06/24/20 10:44 Dose: 81 mg Documented by: Atorvastatin Calcium (Lipitor -) 20 mg PO HS [facility] Last Admin: 06/23/20 21:15 Dose: 20 mg Documented by: Carvedilol (Coreg -) 3.125 mg PO BID [facility] Last Admin: 06/24/20 10:43 Dose: 3.125 mg Documented by: Dabigatran (Pradaxa -) 75 mg PO BID [facility] Last Admin: 06/24/20 10:43 Dose: 75 mg Documented by: Dutasteride (Avodart -) 0.5 mg PO DAILY [facility] Last Admin: 06/24/20 10:44 Dose: 0.5 mg Documented by: Famotidine (Pepcid -) 20 mg PO DAILY [facility] Last Admin: 06/24/20 10:43 Dose: 20 mg Documented by: Piperacillin Sod/Tazobactam (Sod 2.25 gm/ Dextrose) 50 mls @ 100 mls/hr IVPB Q8H-IV [facility]; Protocol Last Admin: 06/24/20 10:43 Dose: 100 mls/hr Documented by: Nystatin (Mycostatin Ointment -) 1 applic TP BID [facility] Last Admin: 06/24/20 10:43 Dose: 1 applic Documented by: Polyethylene Glycol (Miralax (For Daily Use) -) 17 gm PO DAILY [facility] Last Admin: 06/24/20 10:44 Dose: 17 gm Documented by: - Objective Vital Signs: Vital Signs Temperature 97.7 F 06/24/20 08:53 Pulse Rate 57 L 06/24/20 08:53 Respiratory Rate 20 06/24/20 08:53 Blood Pressure 180/96 H 06/24/20 08:53 O2 Sat by Pulse Oximetry (%) 98 06/24/20 08:53 Constitutional: Yes: Calm, Mild Distress Cardiovascular: Yes: S1, S2 Respiratory: Yes: Regular, CTA Bilaterally Gastrointestinal: Yes: Normal Bowel Sounds, Soft Musculoskeletal: Yes: WNL Extremities: Yes: WNL Neurological: Yes: Alert, Oriented Psychiatric: Yes: Alert, Oriented Labs: CBC, BMP 06/23/20 08:50 06/23/20 08:50 INR, PTT INR 1.37 (0.83-1.09) H 06/22/20 14:00 Assessment/Plan 89 year old male with history of hypertension, hyperlipidemia, Afib (on Pradaxa), coronary artery disease (s/p stent 2015), diabetes mellitus, (non insulin dependnent), CKD, neuropathy (bed bound), gout, presents with complaint of lethargy. Lethargy CKD Atrial fibrillation Hypertension Hyperlipidemia orchitis plan continues abx rest as per the team
[2020-06-24 12:18] LABS: BASO % 0.6 % (0-2.0); EOS % 5.1 % (0-4.5); HEMOGLOBIN 12.3 GM/dL (11.7-16.9); LYMPH % 16.7 % (8-40); MCH 31.5 pg (25.7-33.7); MCHC 34.2 g/dl (32.0-35.9); MEAN CELL VOLUME 91.8 fl (80-96); MEAN PLT VOLUME 8.2 fl (7.5-11.1); MONO % 6.3 % (3.8-10.2); NEUT % 71.3 % (42.8-82.8); PLATELET COUNT 156 K/MM3 (134-434); RBC 3.91 M/mm3 (4.00-5.60); RDW 15.9 % (11.9-15.9); WHITE BLOOD COUNT 5.4 K/mm3 (4.0-10.0)
[2020-06-24 12:39] LABS: ALBUMIN 2.9 g/dl (3.4-5.0); BILIRUBIN,TOTAL 0.6 mg/dL (0.2-1); CALCIUM 8.7 mg/dL (8.5-10.1); CREATININE 1.8 mg/dL (0.55-1.3); MAGNESIUM 2.1 mg/dL (1.8-2.4); POTASSIUM 3.3 mmol/L (3.5-5.1); TOT PROT 6.3 g/dl (6.4-8.2)
[2020-06-24] MEDS ORDERED: POTASSIUM CHLORIDE ORAL LIQUID 20 MEQ/15 ML PO ONE (14:30)
--- NOTE | 2020-06-24 15:12 | PN ---
Physical Exam: SUBJECTIVE: Patient seen and examined. episodes of confusion today, at bedside. will send for a head ct for confusion. OBJECTIVE: Patient is an 89 year old male with history of hypertension, hyperlipidemia, Afib (on Pradaxa), coronary artery disease (s/p stent 2015), diabetes mellitus, (non insulin dependnent), CKD, neuropathy (bed bound), gout, presents at behest of his due to diminished appetite. Reports that he has been increasingly weak, and lethargic for the past three- four days without clear inciting factor. He has been eating less, and today did not eat anything at all due to lack of appetite. He does report suprapubic pain. He reportedly did drink water in the ED. Patient reportedly spoke with Dr. Simon over the phone regarding these symptoms, and was prescribed Doxycycline, which he was intermittently taking. At baseline, patient endorses he is incontinent, and bed bound. He denies s ubjective fevers, chills, shortness of breath, chest pain, palpitations. Vital Signs Period Temp Pulse Resp BP Sys/Nichols Pulse Ox Last 24 Hr 97.5 F-98.6 F 54-101 18-20 144-180/62-96 97-98 GENERAL: The patient is awake, alert, episodes of forgetfulness HEAD: Normal with no signs of trauma. EYES: PERRL, extraocular movements intact, sclera anicteric, conjunctiva clear. No ptosis. ENT: Ears normal, nares patent, oropharynx clear without exudates, moist mucous membranes. NECK: Trachea midline, full range of motion, supple. LUNGS: Breath sounds equal, clear to auscultation bilaterally, no wheezes HEART: Regular rate and rhythm ABDOMEN: Soft, nontender, nondistended, normoactive bowel sounds EXTREMITIES: 2+ pulses, warm, well-perfused, no edema. NEUROLOGICAL: Normal speech, bed bound PSYCH: Normal mood, normal affect. SKIN: mild erythema of scrotum Laboratory Results - last 24 hr 06/23/20 06/24/20 06/24/20 16:31 11:15 11:15 WBC 5.4 RBC 3.91 L Hgb 12.3 Hct 36.0 MCV 91.8 MCH 31.5 MCHC 34.2 RDW 15.9 Plt Count 156 MPV 8.2 Absolute Neuts (auto) 3.9 Neutrophils % 71.3 Lymphocytes % 16.7 Monocytes % 6.3 Eosinophils % 5.1 H Basophils % 0.6 Nucleated RBC % 0 Sodium 138 Potassium 3.3 L Chloride 105 Carbon Dioxide 27 Anion Gap 7 L BUN 16.0 Creatinine 1.8 H Est GFR (CKD-EPI)AfAm 38.10 Est GFR (CKD-EPI)NonAf 32.87 POC Glucometer 138 Random Glucose 99 Calcium 8.7 Magnesium 2.1 Total Bilirubin 0.6 AST 12 L ALT 8 L Alkaline Phosphatase 132 H Total Protein 6.3 L Albumin 2.9 L Active Medications Generic Name Dose Route Start Last Admin Trade Name Freq PRN Reason Stop Dose Admin Allopurinol 100 mg 06/23/20 10:00 06/24/20 10:43 Zyloprim - PO 100 mg DAILY HERMINIO Administration Amlodipine Besylate 5 mg 06/23/20 10:00 06/24/20 10:43 Norvasc - PO 5 mg DAILY HERMINIO Administration Aspirin 81 mg 06/23/20 10:00 06/24/20 10:44 Ecotrin - PO 81 mg DAILY HERMINIO Administration Atorvastatin Calcium 20 mg 06/22/20 22:00 06/23/20 21:15 Lipitor - PO 20 mg HS HERMINIO Administration Carvedilol 3.125 mg 06/22/20 22:00 06/24/20 10:43 Coreg - PO 3.125 mg BID HERMINIO Administration Dabigatran 75 mg 06/22/20 22:00 06/24/20 10:43 Pradaxa - PO 75 mg BID HERMINIO Administration Dutasteride 0.5 mg 06/23/20 10:00 06/24/20 10:44 Avodart - PO 0.5 mg DAILY HERMINIO Administration Famotidine 20 mg 06/23/20 10:00 06/24/20 10:43 Pepcid - PO 20 mg DAILY HERMINIO Administration Piperacillin Sod/Tazobactam 50 mls @ 100 mls/hr 06/23/20 18:00 06/24/20 10:43 Sod 2.25 gm/ Dextrose IVPB 100 mls/hr Q8H-IV HERMINIO Administration Protocol Nystatin 1 applic 06/22/20 22:00 06/24/20 10:43 Mycostatin Ointment - TP 1 applic BID HERMINIO Administration Polyethylene Glycol 17 gm 06/23/20 10:00 06/24/20 10:44 Miralax (For Daily Use) - PO 17 gm DAILY HERMINIO Administration ASSESSMENT/PLAN: Problem List - Problems (1) INES (acute kidney injury) Assessment/Plan: patient with INES creatinine similar to previus admissions renal dose medications monitor renal function with daily labs monitor urine output Code(s): N17.9 - ACUTE KIDNEY FAILURE, UNSPECIFIED (2) Cellulitis, scrotum Assessment/Plan: Erythma noted on scrotal tissue. No urinary retention. Scrotal edema improving. patient refusing willis, but urinating without issues on Zosyn per ID No WBC or fevers for urology follow up Code(s): N49.2 - INFLAMMATORY DISORDERS OF SCROTUM (3) DVT prophylaxis Assessment/Plan: already on Pradaxa Code(s): Z29.9 - ENCOUNTER FOR PROPHYLACTIC MEASURES, UNSPECIFIED (4) Failure of outpatient treatment Assessment/Plan: patient was on Bactrim antibiotics as an outpatient and did tolerate PO antibiotics for possible UTI. Now on Zosyn per ID Code(s): Z78.9 - OTHER SPECIFIED HEALTH STATUS (5) Lactic acid acidosis Assessment/Plan: resolved with ivf Code(s): E87.2 - ACIDOSIS (6) Orchitis Assessment/Plan: bilateral orchitis per scrotal ultrasound. urology consult pending monitor intake and output and perform post void residual on zosyn Code(s): N45.2 - ORCHITIS (7) Constipation Code(s): K59.00 - CONSTIPATION, UNSPECIFIED Qualifiers: Constipation type: unspecified constipation type Qualified Code(s): K59.00 - Constipation, unspecified (8) Fecal incontinence Assessment/Plan: chronic Code(s): R15.9 - FULL INCONTINENCE OF FECES Qualifiers: Fecal incontinence type: unspecified Qualified Code(s): R15.9 - Full incontinence of feces (9) UTI (urinary tract infection) Assessment/Plan: Urine culture pending started on zosyn blood cultures pending Code(s): N39.0 - URINARY TRACT INFECTION, SITE NOT SPECIFIED Qualifiers: Urinary tract infection type: site unspecified Hematuria presence: without hematuria Qualified Code(s): N39.0 - Urinary tract infection, site not specified (10) A-fib Assessment/Plan: on coreq and pradaxa Code(s): I48.91 - UNSPECIFIED ATRIAL FIBRILLATION Qualifiers: Atrial fibrillation type: chronic (11) Diabetes mellitus Code(s): E11.9 - TYPE 2 DIABETES MELLITUS WITHOUT COMPLICATIONS Visit type - Emergency Visit Emergency Visit: Yes ED Registration Date: 06/22/20 Care time: The patient presented to the Emergency Department on the above date and was hospitalized for further evaluation of their emergent condition. - New Patient This patient is new to me today: No - Critical Care Critical Care patient: No - Discharge Referral Referred to [facility] No - Medication Review Med list reviewed for High Risk Meds patients 65 and older: Yes
[2020-06-24] MEDS ORDERED: INSULIN (NOVOLOG) ASPART 100 UNITS/ML 10ML VIAL ONE (21:35)
[2020-06-24] MEDS: INSULIN SLIDING SCALE (NOVOLOG) 1 VIAL SQ SCH (21:36)
[2020-06-24] MEDS: ATORVASTATIN CA 20 MG TABLET (FP) PO SCH (21:37)
[2020-06-25] MEDS ORDERED: PIPERACILLIN/TAZOBACTAM 2.25 GM VIAL IVPB ONE ×2 (00:58→09:57)
[2020-06-25] MEDS ORDERED: DEXTROSE 5%-WATER - 50 ML IVPB ONE ×2 (00:58→09:57)
[2020-06-25] MEDS: PIPERACILLIN/TAZOB 2.25 GM 2.25 GM in DEXTROSE 5%-WATER - 50 ML IVPB SCH ×2 (01:22→10:02)
[2020-06-25] MEDS: INSULIN SLIDING SCALE (NOVOLOG) 1 VIAL SQ SCH ×4 (06:00→22:59)
[2020-06-25 09:24] LABS: BASO % 0.8 % (0-2.0); EOS % 3.9 % (0-4.5); HEMATOCRIT 35.5 % (35.4-49); LYMPH % 19.8 % (8-40); MCH 30.8 pg (25.7-33.7); MCHC 33.8 g/dl (32.0-35.9); MEAN PLT VOLUME 7.9 fl (7.5-11.1); MONO % 5.8 % (3.8-10.2); NEUT % 69.7 % (42.8-82.8); PLATELET COUNT 157 K/MM3 (134-434); RDW 15.6 % (11.9-15.9); WHITE BLOOD COUNT 5.5 K/mm3 (4.0-10.0)
[2020-06-25 10:01] LABS: ALBUMIN 2.7 g/dl (3.4-5.0); BILIRUBIN,TOTAL 0.7 mg/dL (0.2-1); BLOOD UREA NITROGEN 14.6 mg/dL (7-18); CALCIUM 8.8 mg/dL (8.5-10.1); CREATININE 1.9 mg/dL (0.55-1.3); MAGNESIUM 2.1 mg/dL (1.8-2.4); POTASSIUM 3.6 mmol/L (3.5-5.1); TOT PROT 5.9 g/dl (6.4-8.2)
[2020-06-25] MEDS ORDERED: PT OWN MED DRAWER 7, Y5N ONE ×2 (10:09→21:27)
[2020-06-25] MEDS: FAMOTIDINE 20 MG TABLET PO SCH (10:11)
[2020-06-25] MEDS: DUTASTERIDE 0.5 MG CAP (FP) PO SCH (10:11)
[2020-06-25] MEDS: DABIGATRAN ETEXILATE MESYLATE 75 MG CAPSULE PO SCH ×2 (10:11→21:51)
[2020-06-25] MEDS: CARVEDILOL 3.125 MG TABLET (FP) PO SCH ×2 (10:11→21:52)
[2020-06-25] MEDS: ALLOPURINOL 100 MG TABLET (FP) PO SCH (10:11)
[2020-06-25] MEDS: amLODIPine BESYLATE 5 MG TABLET (FP) PO SCH (10:11)
[2020-06-25] MEDS: ASPIRIN COATED 81 MG TABLET.EC PO SCH (10:11)
[2020-06-25] MEDS: NYSTATIN 100000 UNIT/GM TOPICAL OINTMENT 15 GM TUBE TP SCH ×2 (10:11→21:53)
[2020-06-25] MEDS: POLYETHYLENE GLYCOL 3350 119 GM BTL PO SCH (10:11)
--- NOTE | 2020-06-25 10:38 | PN ---
Progress Note, Physician History of Present Illness: stable no issues - Current Medication List Current Medications: Active Medications Allopurinol (Zyloprim -) 100 mg PO DAILY [facility] Last Admin: 06/25/20 10:11 Dose: 100 mg Documented by: Amlodipine Besylate (Norvasc -) 5 mg PO DAILY [facility] Last Admin: 06/25/20 10:11 Dose: 5 mg Documented by: Aspirin (Ecotrin -) 81 mg PO DAILY [facility] Last Admin: 06/25/20 10:11 Dose: 81 mg Documented by: Atorvastatin Calcium (Lipitor -) 20 mg PO HS [facility] Last Admin: 06/24/20 21:37 Dose: 20 mg Documented by: Carvedilol (Coreg -) 3.125 mg PO BID [facility] Last Admin: 06/25/20 10:11 Dose: 3.125 mg Documented by: Dabigatran (Pradaxa -) 75 mg PO BID [facility] Last Admin: 06/25/20 10:11 Dose: 75 mg Documented by: Dutasteride (Avodart -) 0.5 mg PO DAILY [facility] Last Admin: 06/25/20 10:11 Dose: 0.5 mg Documented by: Famotidine (Pepcid -) 20 mg PO DAILY [facility] Last Admin: 06/25/20 10:11 Dose: 20 mg Documented by: Insulin Aspart (Novolog Vial Sliding Scale -) 1 vial SQ [facility]; Protocol Last Admin: 06/25/20 06:00 Dose: Not Given Documented by: Nystatin (Mycostatin Ointment -) 1 applic TP BID [facility] Last Admin: 06/25/20 10:11 Dose: 1 applic Documented by: Polyethylene Glycol (Miralax (For Daily Use) -) 17 gm PO DAILY [facility] Last Admin: 06/25/20 10:11 Dose: 17 gm Documented by: - Objective Vital Signs: Vital Signs Temperature 97.5 F L 06/25/20 05:50 Pulse Rate 58 L 06/25/20 05:50 Respiratory Rate 18 06/25/20 05:50 Blood Pressure 163/80 06/25/20 05:50 O2 Sat by Pulse Oximetry (%) 100 06/25/20 05:50 Constitutional: Yes: No Distress, Calm Cardiovascular: Yes: S1, S2 Respiratory: Yes: Regular, CTA Bilaterally Gastrointestinal: Yes: Normal Bowel Sounds, Soft Genitourinary: Yes: Other (orchitis) Musculoskeletal: Yes: WNL Extremities: Yes: Other Neurological: Yes: Alert, Oriented Labs: CBC, BMP 06/25/20 09:07 06/25/20 09:07 INR, PTT INR 1.37 (0.83-1.09) H 06/22/20 14:00 Assessment/Plan 89 year old male with history of hypertension, hyperlipidemia, Afib (on Pradaxa), coronary artery disease (s/p stent 2015), diabetes mellitus, (non insulin dependnent), CKD, neuropathy (bed bound), gout, presents with complaint of lethargy. Lethargy CKD Atrial fibrillation Hypertension Hyperlipidemia orchitis plan will change to po levaquin awaiting urology rest as per the team
--- NOTE | 2020-06-25 15:23 | CONSULT ---
Consult Consult Specialty:: Nephrology Reason for Consultation:: CKD - History of Present Illness Chief Complaint: decreased appetite History of Present Illness: Pt is an 89 year old man with pmhx of htn, hld, a-fib, cad, dm, ckd, gout, who presents to the ER with decreased appetite. He also complains of weakness. HE was found to have elevated alumni relations coordinator and I was called to evaluate him. He has history of ckd and is known to me. He denies nsaid use. He was also lethargic. He is now more awake and alert. He denies dysuria or hematuria. - History Source History Provided By: Patient, Medical Record - Past Medical History Cardio/Vascular: Yes: AFIB (chronic), CHF, HTN, Mitral Insufficiency (moderate per 03/07/16 echo) Renal/: Yes: Renal Inusuff - Alcohol/Substance Use Hx Alcohol Use: No - Smoking History Smoking history: Never smoked Have you smoked in the past 12 months: No Aproximately how many cigarettes per day: 0 If you are a former smoker, when did you quit?: 15 - Social History Usual Living Arrangement: With Spouse Home Medications - Allergies Allergies/Adverse Reactions: Allergies Allergy/AdvReac Type Severity Reaction Status Date / Time colchicine AdvReac Intermediate vasculitis Verified 06/22/20 13:19 - Home Medications Home Medications: Ambulatory Orders Allopurinol [Zyloprim -] 100 mg PO DAILY 05/10/19 Amlodipine Besylate [Norvasc -] 10 mg PO DAILY 05/10/19 Aspirin [Aspirin EC] 81 mg PO DAILY 05/10/19 Atorvastatin Ca [Lipitor] 20 mg PO HS 05/10/19 Carvedilol [Coreg -] 3.125 mg PO BID 05/10/19 Cetirizine HCl 10 mg PO DAILY 05/10/19 Dabigatran Etexilate Mesylate [Pradaxa -] 75 mg PO BID 05/10/19 Dutasteride [Avodart] 0.5 mg PO DAILY 05/10/19 Psyllium Husk [Metamucil] 0.4 gm PO BID 09/28/19 Polyethylene Glycol 3350 [Miralax (For Daily Use) -] 17 gm PO DAILY 01/30/20 Timolol Maleate [Istalol] 1 drop .ROUTE ASDIR 01/30/20 Family Medical History Family History: Denies Review of Systems Unable to obtain ROS, reason: confused - Review of Systems Constitutional: reports: No Symptoms Eyes: reports: No Symptoms HENT: reports: No Symptoms Neck: reports: No Symptoms Cardiovascular: reports: No Symptoms Respiratory: reports: No Symptoms Genitourinary: reports: No Symptoms Musculoskeletal: reports: No Symptoms Neurological: reports: No Symptoms, Change in LOC Hematology/Lymphatic: reports: No Symptoms Physical Exam Vital Signs: Vital Signs Temperature 97.7 F 06/25/20 14:24 Pulse Rate 60 06/25/20 14:24 Respiratory Rate 18 06/25/20 14:24 Blood Pressure 126/58 L 06/25/20 14:24 O2 Sat by Pulse Oximetry (%) 100 06/25/20 09:00 Constitutional: Yes: Calm Eyes: Yes: Conjunctiva Clear HENT: Yes: Atraumatic Cardiovascular: Yes: S1, S2 Respiratory: Yes: CTA Bilaterally Gastrointestinal: Yes: Soft Renal/: Yes: Incontinence Musculoskeletal: Yes: WNL Edema: No Neurological: Yes: Oriented Psychiatric: Yes: Oriented Labs: CBC, BMP 06/25/20 09:07 06/25/20 09:07 Imaging - Results Cat Scan: Report Reviewed Problem List - Problems (1) CKD (chronic kidney disease) Code(s): N18.9 - CHRONIC KIDNEY DISEASE, UNSPECIFIED (2) Diabetes mellitus Code(s): E11.9 - TYPE 2 DIABETES MELLITUS WITHOUT COMPLICATIONS (3) HTN (hypertension) Code(s): I10 - ESSENTIAL (PRIMARY) HYPERTENSION Assessment/Plan Current Medications Generic Name Dose Route Start Last Admin Trade Name Freq PRN Reason Stop Dose Admin Allopurinol 100 mg 06/23/20 10:00 06/25/20 10:11 Zyloprim - PO 100 mg DAILY [facility] Administration Amlodipine Besylate 5 mg 06/23/20 10:00 06/25/20 10:11 Norvasc - PO 5 mg DAILY [facility] Administration Aspirin 81 mg 06/23/20 10:00 06/25/20 10:11 Ecotrin - PO 81 mg DAILY [facility] Administration Atorvastatin Calcium 20 mg 06/22/20 22:00 06/24/20 21:37 Lipitor - PO 20 mg HS [facility] Administration Carvedilol 3.125 mg 06/22/20 22:00 06/25/20 10:11 Coreg - PO 3.125 mg BID [facility] Administration Dabigatran 75 mg 06/22/20 22:00 06/25/20 10:11 Pradaxa - PO 75 mg BID [facility] Administration Dutasteride 0.5 mg 06/23/20 10:00 06/25/20 10:11 Avodart - PO 0.5 mg DAILY [facility] Administration Famotidine 20 mg 06/23/20 10:00 06/25/20 10:11 Pepcid - PO 20 mg DAILY [facility] Administration Insulin Aspart 1 vial 06/24/20 22:00 06/25/20 11:56 Novolog Vial Sliding Scale - SQ Not Given ACHS [facility] Protocol Levofloxacin 250 mg 06/25/20 10:45 06/25/20 11:57 Levaquin - PO 250 mg DAILY@0600 [facility] Administration Nystatin 1 applic 06/22/20 22:00 06/25/20 10:11 Mycostatin Ointment - TP 1 applic BID [facility] Administration Polyethylene Glycol 17 gm 06/23/20 10:00 06/25/20 10:11 Miralax (For Daily Use) - PO 17 gm DAILY [facility] Administration Impression 1. ckd 2. proteinuria 3. a-fib 4. chf 5. gout 6. htn 7. hld 8. bph 9. cellulitis Plan - renal function stable - can d/c fluids if tolerating diet - lactic acid improved - will add adrienne or arb once more stable - cont abx for cellulitis - encourage po intake - will trend alumni relations coordinator Dr Baker
--- NOTE | 2020-06-25 18:26 | PN ---
Physical Exam: SUBJECTIVE: Patient seen and examined. mentation back to baseline. head ct negative. Per , patient has episodes of confusion at home that occur mostly commonly in the morning hours OBJECTIVE: Patient is an 89 year old male with history of hypertension, hyperlipidemia, Afib (on Pradaxa), coronary artery disease (s/p stent 2016), diabetes mellitus, (non insulin dependnent), CKD, neuropathy (bed bound), gout, presents at behest of his due to diminished appetite. Reports that he has been increasingly we ak, and lethargic for the past three- four days without clear inciting factor. He has been eating less, and today did not eat anything at all due to lack of appetite. He does report suprapubic pain. He reportedly did drink water in the ED. Patient reportedly spoke with Dr. Simon over the phone regarding these symptoms, and was prescribed Doxycycline, which he was intermittently taking. At baseline, patient endorses he is incontinent, and bed bound. He denies subjective fevers, chills, shortness of breath, chest pain, palpitations. Vital Signs Period Temp Pulse Resp BP Sys/Nichols Pulse Ox Last 24 Hr 97.5 F-98.6 F 52-60 14-18 126-178/58-85 97-100 GENERAL: The patient is awake, alert, episodes of forgetfulness HEAD: Normal with no signs of trauma. EYES: PERRL, extraocular movements intact, sclera anicteric, conjunctiva clear. No ptosis. ENT: Ears normal, nares patent, oropharynx clear without exudates, moist mucous membranes. NECK: Trachea midline, full range of motion, supple. LUNGS: Breath sounds equal, clear to auscultation bilaterally, no wheezes HEART: Regular rate and rhythm ABDOMEN: Soft, nontender, nondistended, normoactive bowel sounds EXTREMITIES: 2+ pulses, warm, well-perfused, no edema. NEUROLOGICAL: Normal speech, bed bound PSYCH: Normal mood, normal affect. SKIN: mild erythema of scrotum Laboratory Results - last 24 hr 06/24/20 06/25/20 06/25/20 21:33 05:53 09:07 WBC RBC Hgb Hct MCV MCH MCHC RDW Plt Count MPV Absolute Neuts (auto) Neutrophils % Lymphocytes % Monocytes % Eosinophils % Basophils % Nucleated RBC % Sodium Potassium Chloride Carbon Dioxide Anion Gap BUN Creatinine Est GFR (CKD-EPI)AfAm Est GFR (CKD-EPI)NonAf POC Glucometer 191 95 Random Glucose Hemoglobin A1c % 5.9 Calcium Magnesium Total Bilirubin AST ALT Alkaline Phosphatase Total Protein Albumin 06/25/20 06/25/20 06/25/20 09:07 09:07 11:54 WBC 5.5 RBC 3.90 L Hgb 12.0 Hct 35.5 MCV 91.0 MCH 30.8 MCHC 33.8 RDW 15.6 Plt Count 157 MPV 7.9 Absolute Neuts (auto) 3.8 Neutrophils % 69.7 Lymphocytes % 19.8 Monocytes % 5.8 Eosinophils % 3.9 Basophils % 0.8 Nucleated RBC % 0 Sodium 140 Potassium 3.6 Chloride 106 Carbon Dioxide 26 Anion Gap 8 BUN 14.6 Creatinine 1.9 H Est GFR (CKD-EPI)AfAm 35.69 Est GFR (CKD-EPI)NonAf 30.79 POC Glucometer 108 Random Glucose 90 Hemoglobin A1c % Calcium 8.8 Magnesium 2.1 Total Bilirubin 0.7 AST 13 L ALT 7 L Alkaline Phosphatase 117 Total Protein 5.9 L Albumin 2.7 L 06/25/20 16:25 WBC RBC Hgb Hct MCV MCH MCHC RDW Plt Count MPV Absolute Neuts (auto) Neutrophils % Lymphocytes % Monocytes % Eosinophils % Basophils % Nucleated RBC % Sodium Potassium Chloride Carbon Dioxide Anion Gap BUN Creatinine Est GFR (CKD-EPI)AfAm Est GFR (CKD-EPI)NonAf POC Glucometer 117 Random Glucose Hemoglobin A1c % Calcium Magnesium Total Bilirubin AST ALT Alkaline Phosphatase Total Protein Albumin Active Medications Generic Name Dose Route Start Last Admin Trade Name Freq PRN Reason Stop Dose Admin Allopurinol 100 mg 06/23/20 10:00 06/25/20 10:11 Zyloprim - PO 100 mg DAILY [facility] Administration Amlodipine Besylate 5 mg 06/23/20 10:00 06/25/20 10:11 Norvasc - PO 5 mg DAILY [facility] Administration Aspirin 81 mg 06/23/20 10:00 06/25/20 10:11 Ecotrin - PO 81 mg DAILY [facility] Administration Atorvastatin Calcium 20 mg 06/22/20 22:00 06/24/20 21:37 Lipitor - PO 20 mg HS [facility] Administration Carvedilol 3.125 mg 06/22/20 22:00 06/25/20 10:11 Coreg - PO 3.125 mg BID [facility] Administration Dabigatran 75 mg 06/22/20 22:00 06/25/20 10:11 Pradaxa - PO 75 mg BID [facility] Administration Dutasteride 0.5 mg 06/23/20 10:00 06/25/20 10:11 Avodart - PO 0.5 mg DAILY [facility] Administration Famotidine 20 mg 06/23/20 10:00 06/25/20 10:11 Pepcid - PO 20 mg DAILY [facility] Administration Insulin Aspart 1 vial 06/24/20 22:00 06/25/20 16:32 Novolog Vial Sliding Scale - SQ Not Given ACHS [facility] Protocol Levofloxacin 250 mg 06/25/20 10:45 06/25/20 11:57 Levaquin - PO 250 mg DAILY@0600 [facility] Administration Nystatin 1 applic 06/22/20 22:00 06/25/20 10:11 Mycostatin Ointment - TP 1 applic BID [facility] Administration Polyethylene Glycol 17 gm 06/23/20 10:00 06/25/20 10:11 Miralax (For Daily Use) - PO 17 gm DAILY [facility] Administration ASSESSMENT/PLAN: Problem List - Problems (1) Orchitis Assessment/Plan: bilateral orchitis per scrotal ultrasound. urology consulted, notes reviewed and appreciated. monitor intake and output and perform post void residual per ID, resume Zosyn today Code(s): N45.2 - ORCHITIS (2) Cellulitis, scrotum Assessment/Plan: mild erythma noted on scrotal tissue. No urinary retention. Scrotal edema improving. patient refusing willis, but urinating without issues on Zosyn per ID No WBC or fevers Code(s): N49.2 - INFLAMMATORY DISORDERS OF SCROTUM (3) INES (acute kidney injury) Assessment/Plan: patient with INES creatinine similar to previous admissions renal dose medications monitor renal function with daily labs monitor urine output Code(s): N17.9 - ACUTE KIDNEY FAILURE, UNSPECIFIED (4) Failure of outpatient treatment Assessment/Plan: patient was on Bactrim antibiotics as an outpatient and did tolerate PO antibiotics for possible UTI. Now on Zosyn per ID Code(s): Z78.9 - OTHER SPECIFIED HEALTH STATUS (5) Lactic acid acidosis Assessment/Plan: resolved with ivf Code(s): E87.2 - ACIDOSIS (6) Constipation Assessment/Plan: no acute issues Code(s): K59.00 - CONSTIPATION, UNSPECIFIED Qualifiers: Constipation type: unspecified constipation type Qualified Code(s): K59.00 - Constipation, unspecified (7) UTI (urinary tract infection) Assessment/Plan: Urine culture an blood cultures negative to date. Code(s): N39.0 - URINARY TRACT INFECTION, SITE NOT SPECIFIED Qualifiers: Urinary tract infection type: site unspecified Hematuria presence: without hematuria Qualified Code(s): N39.0 - Urinary tract infection, site not spec ified (8) A-fib Assessment/Plan: on coreq and pradaxa Code(s): I48.91 - UNSPECIFIED ATRIAL FIBRILLATION Qualifiers: Atrial fibrillation type: chronic (9) HTN (hypertension) Assessment/Plan: on coreq, monitor BP Code(s): I10 - ESSENTIAL (PRIMARY) HYPERTENSION (10) DVT prophylaxis Assessment/Plan: already on Pradaxa Code(s): Z29.9 - ENCOUNTER FOR PROPHYLACTIC MEASURES, UNSPECIFIED Visit type - Emergency Visit Emergency Visit: Yes ED Registration Date: 06/22/20 Care time: The patient presented to the Emergency Department on the above date and was hospitalized for further evaluation of their emergent condition. - New Patient This patient is new to me today: No - Critical Care Critical Care patient: No - Discharge Referral Referred to [facility] No - Medication Review Med list reviewed for High Risk Meds patients 65 and older: Yes
--- NOTE | 2020-06-25 19:58 | CON.GU ---
Consult Consult Specialty:: Reason for Consultation:: scrotal swelling - History of Present Illness Chief Complaint: decr appetite History of Present Illness: 89 year old male with history of hypertension, hyperlipidemia, Afib (on Pradaxa), coronary artery disease (s/p stent 2015), diabetes mellitus, (non insulin dependnent), CKD, neuropathy (bed bound), gout, presents at behest of his due to diminished appetite. Reports that he has been increasingly weak, and lethargic for the past three- four days without clear inciting factor. He has been eating less, and today did not eat anything at all due to lack of appetite. He does report suprapubic pain. He reportedly did drink water in the ED. Patient reportedly spoke with Dr. Simon over the phone regarding these symptoms, and was prescribed Doxycycline, which he was intermittently taking. At baseline, patient endorses he is incontinent, and bed bound. He denies subjective fevers, chills, shortness of breath, chest pain, palpitations. cons req to eval scrotal swelling. ER course was notable for: (1) CT abdomen, pelvis - History Source History Provided By: Patient, Medical Record Limitations to Obtaining History: No Limitations - Past Medical History Cardio/Vascular: Yes: AFIB (chronic), CHF, HTN, Mitral Insufficiency (moderate per 03/07/16 echo) Renal/: Yes: Renal Inusuff - Alcohol/Substance Use Hx Alcohol Use: No - Smoking History Smoking history: Never smoked Have you smoked in the past 12 months: No Aproximately how many cigarettes per day: 0 If you are a former smoker, when did you quit?: 15 - Social History Usual Living Arrangement: With Spouse Home Medications - Allergies Allergies/Adverse Reactions: Allergies Allergy/AdvReac Type Severity Reaction Status Date / Time colchicine AdvReac Intermediate vasculitis Verified 06/22/20 13:19 - Home Medications Home Medications: Ambulatory Orders Allopurinol [Zyloprim -] 100 mg PO DAILY 05/10/19 Amlodipine Besylate [Norvasc -] 10 mg PO DAILY 05/10/19 Aspirin [Aspirin EC] 81 mg PO DAILY 05/10/19 Atorvastatin Ca [Lipitor] 20 mg PO HS 05/10/19 Carvedilol [Coreg -] 3.125 mg PO BID 05/10/19 Cetirizine HCl 10 mg PO DAILY 05/10/19 Dabigatran Etexilate Mesylate [Pradaxa -] 75 mg PO BID 05/10/19 Dutasteride [Avodart] 0.5 mg PO DAILY 05/10/19 Psyllium Husk [Metamucil] 0.4 gm PO BID 09/28/19 Polyethylene Glycol 3350 [Miralax (For Daily Use) -] 17 gm PO DAILY 01/30/20 Timolol Maleate [Istalol] 1 drop .ROUTE ASDIR 01/30/20 Family Medical History Family History: Denies Review of Systems - Review of Systems Gastrointestinal: reports: Abdominal Pain (SP) Physical Exam- Vital Signs: Vital Signs Temperature 98.0 F 06/25/20 18:00 Pulse Rate 44 L 06/25/20 18:00 Respiratory Rate 18 06/25/20 18:00 Blood Pressure 141/66 06/25/20 18:00 O2 Sat by Pulse Oximetry (%) 97 06/25/20 18:00 Constitutional: Yes: Well Nourished, No Distress, Calm HENT: Yes: WNL Neck: Yes: WNL Gastrointestinal: Yes: WNL, Normal Bowel Sounds, Soft Renal/: Yes: Scrotal Edema (and erythema) Testicles: Yes: Descended, Tenderness Scrotum: Yes: Edema, Erythema Penis: Yes: WNL Prostate Exam: Yes: Swollen Extremities: Yes: WNL Labs: CBC, BMP 06/25/20 09:07 06/25/20 09:07 Imaging - Results Cat Scan: Report Reviewed Ultrasound: Report Reviewed Problem List - Problems (1) CKD (chronic kidney disease) Code(s): N18.9 - CHRONIC KIDNEY DISEASE, UNSPECIFIED (2) Cellulitis, scrotum Assessment/Plan: iv abxs Code(s): N49.2 - INFLAMMATORY DISORDERS OF SCROTUM (3) Orchitis Code(s): N45.2 - ORCHITIS (4) Scrotal edema Assessment/Plan: scrotal elevation Code(s): N50.89 - OTHER SPECIFIED DISORDERS OF THE MALE GENITAL ORGANS
[2020-06-25] MEDS: ATORVASTATIN CA 20 MG TABLET (FP) PO SCH (21:53)
[2020-06-25] MEDS ORDERED: INSULIN (NOVOLOG) ASPART 100 UNITS/ML 10ML VIAL ONE (23:09)
[2020-06-26] MEDS ORDERED: amLODIPine BESYLATE 5 MG TABLET (FP) PO ONE (05:53)
[2020-06-26] MEDS: INSULIN SLIDING SCALE (NOVOLOG) 1 VIAL SQ SCH ×4 (06:43→21:34)
[2020-06-26 10:41] LABS: BASO % 0.8 % (0-2.0); EOS % 3.8 % (0-4.5); HEMATOCRIT 34.7 % (35.4-49); HEMOGLOBIN 11.6 GM/dL (11.7-16.9); LYMPH % 25.7 % (8-40); MCH 30.6 pg (25.7-33.7); MCHC 33.3 g/dl (32.0-35.9); MEAN CELL VOLUME 91.9 fl (80-96); MONO % 8.3 % (3.8-10.2); NEUT % 61.4 % (42.8-82.8); PLATELET COUNT 162 K/MM3 (134-434); RBC 3.78 M/mm3 (4.00-5.60); RDW 15.7 % (11.9-15.9); WHITE BLOOD COUNT 6.2 K/mm3 (4.0-10.0)
[2020-06-26] MEDS: DABIGATRAN ETEXILATE MESYLATE 75 MG CAPSULE PO SCH ×2 (10:48→21:30)
[2020-06-26] MEDS: FAMOTIDINE 20 MG TABLET PO SCH (10:48)
[2020-06-26] MEDS: CARVEDILOL 3.125 MG TABLET (FP) PO SCH ×2 (10:48→21:30)
[2020-06-26] MEDS: NYSTATIN 100000 UNIT/GM TOPICAL OINTMENT 15 GM TUBE TP SCH ×2 (10:48→21:35)
[2020-06-26] MEDS: POLYETHYLENE GLYCOL 3350 119 GM BTL PO SCH (10:48)
[2020-06-26] MEDS: ALLOPURINOL 100 MG TABLET (FP) PO SCH (10:48)
[2020-06-26] MEDS: ASPIRIN COATED 81 MG TABLET.EC PO SCH (10:49)
[2020-06-26] MEDS: DUTASTERIDE 0.5 MG CAP (FP) PO SCH (10:49)
[2020-06-26 11:22] LABS: ALBUMIN 2.7 g/dl (3.4-5.0); BILIRUBIN,TOTAL 0.5 mg/dL (0.2-1); BLOOD UREA NITROGEN 17.2 mg/dL (7-18); CALCIUM 8.6 mg/dL (8.5-10.1); MAGNESIUM 2.1 mg/dL (1.8-2.4); POTASSIUM 3.6 mmol/L (3.5-5.1); TOT PROT 5.9 g/dl (6.4-8.2)
--- NOTE | 2020-06-26 11:29 | PN ---
Progress Note, Physician History of Present Illness: stable a little confused - Current Medication List Current Medications: Active Medications Allopurinol (Zyloprim -) 100 mg PO DAILY [facility] Last Admin: 06/26/20 10:48 Dose: 100 mg Documented by: Amlodipine Besylate (Norvasc -) 5 mg PO DAILY [facility] Last Admin: 06/25/20 10:11 Dose: 5 mg Documented by: Aspirin (Ecotrin -) 81 mg PO DAILY [facility] Last Admin: 06/26/20 10:49 Dose: 81 mg Documented by: Atorvastatin Calcium (Lipitor -) 20 mg PO HS [facility] Last Admin: 06/25/20 21:53 Dose: 20 mg Documented by: Carvedilol (Coreg -) 3.125 mg PO BID [facility] Last Admin: 06/26/20 10:48 Dose: 3.125 mg Documented by: Dabigatran (Pradaxa -) 75 mg PO BID [facility] Last Admin: 06/26/20 10:48 Dose: 75 mg Documented by: Dutasteride (Avodart -) 0.5 mg PO DAILY [facility] Last Admin: 06/26/20 10:49 Dose: 0.5 mg Documented by: Famotidine (Pepcid -) 20 mg PO DAILY [facility] Last Admin: 06/26/20 10:48 Dose: 20 mg Documented by: Insulin Aspart (Novolog Vial Sliding Scale -) 1 vial SQ [facility]; Protocol Last Admin: 06/26/20 06:43 Dose: Not Given Documented by: Levofloxacin (Levaquin -) 250 mg PO DAILY@0600 [facility] Last Admin: 06/26/20 05:51 Dose: 250 mg Documented by: Nystatin (Mycostatin Ointment -) 1 applic TP BID [facility] Last Admin: 06/26/20 10:48 Dose: 1 applic Documented by: Polyethylene Glycol (Miralax (For Daily Use) -) 17 gm PO DAILY [facility] Last Admin: 06/26/20 10:48 Dose: 17 gm Documented by: - Objective Vital Signs: Vital Signs Temperature 98.4 F 06/26/20 10:00 Pulse Rate 56 L 06/26/20 10:00 Respiratory Rate 16 06/26/20 10:00 Blood Pressure 155/71 06/26/20 10:00 O2 Sat by Pulse Oximetry (%) 99 06/26/20 10:00 Constitutional: Yes: No Distress, Calm Cardiovascular: Yes: S1, S2 Respiratory: Yes: Regular, CTA Bilaterally Gastrointestinal: Yes: Normal Bowel Sounds, Soft Genitourinary: Yes: Scrotal Edema, Other Musculoskeletal: Yes: WNL Extremities: Yes: WNL Neurological: Yes: Alert, Confusion Psychiatric: Yes: Alert Labs: CBC, BMP 06/26/20 10:15 06/26/20 10:15 INR, PTT INR 1.37 (0.83-1.09) H 06/22/20 14:00 Assessment/Plan 89 year old male with history of hypertension, hyperlipidemia, Afib (on Pradaxa), coronary artery disease (s/p stent 2015), diabetes mellitus, (non insulin dependnent), CKD, neuropathy (bed bound), gout, presents with complaint of lethargy. Lethargy CKD Atrial fibrillation Hypertension Hyperlipidemia orchitis plan continue zosyn will switch when patient ready to go home urology note noted
[2020-06-26] MEDS ORDERED: DEXTROSE 5%-WATER - 50 ML IVPB ONE ×2 (13:17→17:33)
[2020-06-26] MEDS ORDERED: PIPERACILLIN/TAZOBACTAM 2.25 GM VIAL IVPB ONE ×2 (13:17→17:33)
[2020-06-26] MEDS: PIPERACILLIN/TAZOB 2.25 GM 2.25 GM in DEXTROSE 5%-WATER - 50 ML IVPB SCH ×2 (13:30→17:37)
--- NOTE | 2020-06-26 14:28 | PN ---
Progress Note, Physician History of Present Illness: Pt seen and examined at bedside. He is awake but says he does not want to eat. - Current Medication List Current Medications: Active Medications Allopurinol (Zyloprim -) 100 mg PO DAILY [facility] Last Admin: 06/26/20 10:48 Dose: 100 mg Documented by: Amlodipine Besylate (Norvasc -) 5 mg PO DAILY [facility] Last Admin: 06/25/20 10:11 Dose: 5 mg Documented by: Aspirin (Ecotrin -) 81 mg PO DAILY [facility] Last Admin: 06/26/20 10:49 Dose: 81 mg Documented by: Atorvastatin Calcium (Lipitor -) 20 mg PO HS [facility] Last Admin: 06/25/20 21:53 Dose: 20 mg Documented by: Carvedilol (Coreg -) 3.125 mg PO BID [facility] Last Admin: 06/26/20 10:48 Dose: 3.125 mg Documented by: Dabigatran (Pradaxa -) 75 mg PO BID [facility] Last Admin: 06/26/20 10:48 Dose: 75 mg Documented by: Dutasteride (Avodart -) 0.5 mg PO DAILY [facility] Last Admin: 06/26/20 10:49 Dose: 0.5 mg Documented by: Famotidine (Pepcid -) 20 mg PO DAILY [facility] Last Admin: 06/26/20 10:48 Dose: 20 mg Documented by: Piperacillin Sod/Tazobactam (Sod 2.25 gm/ Dextrose) 50 mls @ 100 mls/hr IVPB Q8 H-IV [facility]; Protocol Last Admin: 06/26/20 13:30 Dose: 100 mls/hr Documented by: Insulin Aspart (Novolog Vial Sliding Scale -) 1 vial SQ ACHS [facility]; Protocol Last Admin: 06/26/20 12:09 Dose: Not Given Documented by: Nystatin (Mycostatin Ointment -) 1 applic TP BID [facility] Last Admin: 06/26/20 10:48 Dose: 1 applic Documented by: Polyethylene Glycol (Miralax (For Daily Use) -) 17 gm PO DAILY [facility] Last Admin: 06/26/20 10:48 Dose: 17 gm Documented by: - Objective Vital Signs: Vital Signs Temperature 98.4 F 06/26/20 10:00 Pulse Rate 56 L 06/26/20 10:00 Respiratory Rate 16 06/26/20 10:00 Blood Pressure 155/71 06/26/20 10:00 O2 Sat by Pulse Oximetry (%) 99 06/26/20 10:00 Constitutional: Yes: Calm Eyes: Yes: Conjunctiva Clear HENT: Yes: Atraumatic Cardiovascular: Yes: S1, S2 Respiratory: Yes: CTA Bilaterally Gastrointestinal: Yes: Soft Genitourinary: Yes: Other (scrotal cellulitis) Musculoskeletal: Yes: WNL Edema: No Neurological: Yes: Confusion Labs: CBC, BMP 06/26/20 10:15 06/26/20 10:15 INR, PTT INR 1.37 (0.83-1.09) H 06/22/20 14:00 Problem List - Problems (1) CKD (chronic kidney disease) Code(s): N18.9 - CHRONIC KIDNEY DISEASE, UNSPECIFIED (2) Diabetes mellitus Code(s): E11.9 - TYPE 2 DIABETES MELLITUS WITHOUT COMPLICATIONS (3) HTN (hypertension) Code(s): I10 - ESSENTIAL (PRIMARY) HYPERTENSION Assessment/Plan Current Medications Generic Name Dose Route Start Last Admin Trade Name Edward PRN Reason Stop Dose Admin Allopurinol 100 mg 06/23/20 10:00 06/26/20 10:48 Zyloprim - PO 100 mg DAILY [facility] Administration Amlodipine Besylate 5 mg 06/23/20 10:00 06/25/20 10:11 Norvasc - PO 5 mg DAILY [facility] Administration Aspirin 81 mg 06/23/20 10:00 06/26/20 10:49 Ecotrin - PO 81 mg DAILY [facility] Administration Atorvastatin Calcium 20 mg 06/22/20 22:00 06/25/20 21:53 Lipitor - PO 20 mg HS [facility] Administration Carvedilol 3.125 mg 06/22/20 22:00 06/26/20 10:48 Coreg - PO 3.125 mg BID [facility] Administration Dabigatran 75 mg 06/22/20 22:00 06/26/20 10:48 Pradaxa - PO 75 mg BID [facility] Administration Dutasteride 0.5 mg 06/23/20 10:00 06/26/20 10:49 Avodart - PO 0.5 mg DAILY [facility] Administration Famotidine 20 mg 06/23/20 10:00 06/26/20 10:48 Pepcid - PO 20 mg DAILY [facility] Administration Piperacillin Sod/Tazobactam 50 mls @ 100 mls/hr 06/26/20 12:00 06/26/20 13:30 Sod 2.25 gm/ Dextrose IVPB 100 mls/hr Q8H-IV [facility] Administration Protocol Insulin Aspart 1 vial 06/24/20 22:00 06/26/20 12:09 Novolog Vial Sliding Scale - SQ Not Given ACHS [facility] Protocol Nystatin 1 applic 06/22/20 22:00 06/26/20 10:48 Mycostatin Ointment - TP 1 applic BID [facility] Administration Polyethylene Glycol 17 gm 06/23/20 10:00 06/26/20 10:48 Miralax (For Daily Use) - PO 17 gm DAILY [facility] Administration Impression 1. ckd 2. proteinuria 3. a-fib 4. chf 5. gout 6. htn 7. hld 8. bph 9. 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
[2020-06-26] MEDS ORDERED: PT OWN MED DRAWER 7, Y5N ONE (21:21)
[2020-06-26] MEDS ORDERED: INSULIN (NOVOLOG) ASPART 100 UNITS/ML 10ML VIAL ONE (21:22)
[2020-06-26] MEDS: ATORVASTATIN CA 20 MG TABLET (FP) PO SCH (21:30)
[2020-06-27] MEDS ORDERED: PIPERACILLIN/TAZOBACTAM 2.25 GM VIAL IVPB ONE ×3 (01:23→17:19)
[2020-06-27] MEDS ORDERED: DEXTROSE 5%-WATER - 50 ML IVPB ONE ×3 (01:23→17:19)
[2020-06-27] MEDS: PIPERACILLIN/TAZOB 2.25 GM 2.25 GM in DEXTROSE 5%-WATER - 50 ML IVPB SCH ×3 (01:41→17:32)
[2020-06-27] MEDS: INSULIN SLIDING SCALE (NOVOLOG) 1 VIAL SQ SCH ×4 (06:32→21:05)
[2020-06-27 10:06] LABS: BASO % 0.6 % (0-2.0); EOS % 4.7 % (0-4.5); HEMATOCRIT 32.2 % (35.4-49); HEMOGLOBIN 11.2 GM/dL (11.7-16.9); MCH 31.9 pg (25.7-33.7); MCHC 34.8 g/dl (32.0-35.9); MEAN CELL VOLUME 91.7 fl (80-96); MONO % 7.6 % (3.8-10.2); NEUT % 60.1 % (42.8-82.8); PLATELET COUNT 159 K/MM3 (134-434); RBC 3.52 M/mm3 (4.00-5.60); RDW 15.6 % (11.9-15.9); WHITE BLOOD COUNT 5.8 K/mm3 (4.0-10.0)
[2020-06-27 10:58] LABS: ALBUMIN 2.6 g/dl (3.4-5.0); BILIRUBIN,TOTAL 0.5 mg/dL (0.2-1); BLOOD UREA NITROGEN 16.1 mg/dL (7-18); CALCIUM 8.6 mg/dL (8.5-10.1); MAGNESIUM 2.3 mg/dL (1.8-2.4); POTASSIUM 3.7 mmol/L (3.5-5.1); TOT PROT 5.8 g/dl (6.4-8.2)
[2020-06-27] MEDS ORDERED: PT OWN MED DRAWER 7, Y5N ONE ×2 (11:47→20:47)
[2020-06-27] MEDS: FAMOTIDINE 20 MG TABLET PO SCH (12:01)
[2020-06-27] MEDS: ALLOPURINOL 100 MG TABLET (FP) PO SCH (12:01)
[2020-06-27] MEDS: ASPIRIN COATED 81 MG TABLET.EC PO SCH (12:01)
[2020-06-27] MEDS: CARVEDILOL 3.125 MG TABLET (FP) PO SCH ×2 (12:01→21:05)
[2020-06-27] MEDS: DABIGATRAN ETEXILATE MESYLATE 75 MG CAPSULE PO SCH ×2 (12:01→21:05)
[2020-06-27] MEDS: amLODIPine BESYLATE 5 MG TABLET (FP) PO SCH (12:02)
[2020-06-27] MEDS: POLYETHYLENE GLYCOL 3350 119 GM BTL PO SCH (12:03)
[2020-06-27] MEDS: NYSTATIN 100000 UNIT/GM TOPICAL OINTMENT 15 GM TUBE TP SCH ×2 (12:04→21:05)
[2020-06-27] MEDS: DUTASTERIDE 0.5 MG CAP (FP) PO SCH (12:05)
--- NOTE | 2020-06-27 12:09 | PN ---
Progress Note, Physician History of Present Illness: stable scrotal cellulitis improving tenderness on testes improving - Current Medication List Current Medications: Active Medications Allopurinol (Zyloprim -) 100 mg PO DAILY [facility] Last Admin: 06/27/20 12:01 Dose: 100 mg Documented by: Amlodipine Besylate (Norvasc -) 5 mg PO DAILY [facility] Last Admin: 06/27/20 12:02 Dose: 5 mg Documented by: Aspirin (Ecotrin -) 81 mg PO DAILY [facility] Last Admin: 06/27/20 12:01 Dose: 81 mg Documented by: Atorvastatin Calcium (Lipitor -) 20 mg PO HS [facility] Last Admin: 06/26/20 21:30 Dose: 20 mg Documented by: Carvedilol (Coreg -) 3.125 mg PO BID [facility] Last Admin: 06/27/20 12:01 Dose: 3.125 mg Documented by: Dabigatran (Pradaxa -) 75 mg PO BID [facility] Last Admin: 06/27/20 12:01 Dose: 75 mg Documented by: Dutasteride (Avodart -) 0.5 mg PO DAILY [facility] Last Admin: 06/27/20 12:05 Dose: 0.5 mg Documented by: Famotidine (Pepcid -) 20 mg PO DAILY [facility] Last Admin: 06/27/20 12:01 Dose: 20 mg Documented by: Piperacillin Sod/Tazobactam (Sod 2.25 gm/ Dextrose) 50 mls @ 100 mls/hr IVPB Q8H-IV [facility]; Protocol Last Admin: 06/27/20 10:50 Dose: 100 mls/hr Documented by: Insulin Aspart (Novolog Vial Sliding Scale -) 1 vial SQ ACHS [facility]; Protocol Last Admin: 06/27/20 11:59 Dose: Not Given Documented by: Nystatin (Mycostatin Ointment -) 1 applic TP BID [facility] Last Admin: 06/27/20 12:04 Dose: 1 applic Documented by: Polyethylene Glycol (Miralax (For Daily Use) -) 17 gm PO DAILY [facility] Last Admin: 06/27/20 12:03 Dose: Not Given Documented by: - Objective Vital Signs: Vital Signs Temperature 97.6 F 06/27/20 06:00 Pulse Rate 53 L 06/27/20 06:00 Respiratory Rate 18 06/27/20 06:00 Blood Pressure 156/80 06/27/20 06:00 O2 Sat by Pulse Oximetry (%) 98 06/27/20 06:00 Constitutional: Yes: Calm, Mild Distress Cardiovascular: Yes: S1, S2 Respiratory: Yes: Regular, CTA Bilaterally Gastrointestinal: Yes: Normal Bowel Sounds, Soft Genitourinary: Yes: Other (scrotal cellulitis better) Musculoskeletal: Yes: WNL Extremities: Yes: WNL Neurological: Yes: Alert, Oriented Psychiatric: Yes: Alert, Oriented Labs: CBC, BMP 06/27/20 09:36 06/27/20 09:36 INR, PTT INR 1.37 (0.83-1.09) H 06/22/20 14:00 Assessment/Plan 89 year old male with history of hypertension, hyperlipidemia, Afib (on Pradaxa), coronary artery disease (s/p stent 2015), diabetes mellitus, (non insulin dependnent), CKD, neuropathy (bed bound), gout, presents with complaint of lethargy. Lethargy CKD Atrial fibrillation Hypertension Hyperlipidemia orchitis plan continue zosyn will d/w the team
[2020-06-27 15:24] VITALS: BMI 21.4
--- NOTE | 2020-06-27 15:49 | PN ---
Physical Exam: SUBJECTIVE: Patient seen and examined. OBJECTIVE: Patient is an 89 year old male with history of hypertension, hyperlipidemia, Afib (on Pradaxa), coronary artery disease (s/p stent 2015), diabetes mellitus, (non insulin dependnent), CKD, neuropathy (bed bound), gout, presents to the ED on 06/22/2020 for fatigue. He was found to have scrotal cellulitis being treated with zosyn. Vital Signs Period Temp Pulse Resp BP Sys/Nichols Pulse Ox Last 24 Hr 97.0 F-98 F 41-53 16-18 146-158/71-82 97-100 GENERAL: The patient is awake, alert, episodes of forgetfulness HEAD: Normal with no signs of trauma. EYES: PERRL, extraocular movements intact, sclera anicteric, conjunctiva clear. No ptosis. ENT: Ears normal, nares patent, oropharynx clear without exudates, moist mucous membranes. NECK: Trachea midline, full range of motion, supple. LUNGS: Breath sounds equal, clear to auscultation bilaterally, no wheezes HEART: Regular rate and rhythm ABDOMEN: Soft, nontender, nondistended, normoactive bowel sounds EXTREMITIES: 2+ pulses, warm, well-perfused, no edema. NEUROLOGICAL: Normal speech, bed bound PSYCH: Normal mood, normal affect. SKIN: mild erythema of scrotum Laboratory Results - last 24 hr 06/26/20 06/26/20 06/27/20 17:14 21:26 06:31 WBC RBC Hgb Hct MCV MCH MCHC RDW Plt Count MPV Absolute Neuts (auto) Neutrophils % Lymphocytes % Monocytes % Eosinophils % Basophils % Nucleated RBC % Sodium Potassium Chloride Carbon Dioxide Anion Gap BUN Creatinine Est GFR (CKD-EPI)AfAm Est GFR (CKD-EPI)NonAf POC Glucometer 136 188 95 Random Glucose Calcium Magnesium Total Bilirubin AST ALT Alkaline Phosphatase Total Protein Albumin 06/27/20 06/27/20 06/27/20 09:36 09:36 11:58 WBC 5.8 RBC 3.52 L Hgb 11.2 L Hct 32.2 L MCV 91.7 MCH 31.9 MCHC 34.8 RDW 15.6 Plt Count 159 MPV 8.0 Absolute Neuts (auto) 3.5 Neutrophils % 60.1 Lymphocytes % 27.0 Monocytes % 7.6 Eosinophils % 4.7 H Basophils % 0.6 Nucleated RBC % 0 Sodium 142 Potassium 3.7 Chloride 108 H Carbon Dioxide 26 Anion Gap 8 BUN 16.1 Creatinine 2.0 H Est GFR (CKD-EPI)AfAm 33.54 Est GFR (CKD-EPI)NonAf 28.94 POC Glucometer 98 Random Glucose 87 Calcium 8.6 Magnesium 2.3 Total Bilirubin 0.5 AST 15 ALT 10 L Alkaline Phosphatase 97 Total Protein 5.8 L Albumin 2.6 L Active Medications Generic Name Dose Route Start Last Admin Trade Name Freq PRN Reason Stop Dose Admin Allopurinol 100 mg 06/23/20 10:00 06/27/20 12:01 Zyloprim - PO 100 mg DAILY [facility] Administration Amlodipine Besylate 5 mg 06/23/20 10:00 06/27/20 12:02 Norvasc - PO 5 mg DAILY [facility] Administration Aspirin 81 mg 06/23/20 10:00 06/27/20 12:01 Ecotrin - PO 81 mg DAILY [facility] Administration Atorvastatin Calcium 20 mg 06/22/20 22:00 06/26/20 21:30 Lipitor - PO 20 mg HS [facility] Administration Carvedilol 3.125 mg 06/22/20 22:00 06/27/20 12:01 Coreg - PO 3.125 mg BID [facility] Administration Dabigatran 75 mg 06/22/20 22:00 06/27/20 12:01 Pradaxa - PO 75 mg BID [facility] Administration Dutasteride 0.5 mg 06/23/20 10:00 06/27/20 12:05 Avodart - PO 0.5 mg DAILY [facility] Administration Famotidine 20 mg 06/23/20 10:00 06/27/20 12:01 Pepcid - PO 20 mg DAILY [facility] Administration Piperacillin Sod/Tazobactam 50 mls @ 100 mls/hr 06/26/20 12:00 06/27/20 10:50 Sod 2.25 gm/ Dextrose IVPB 100 mls/hr Q8H-IV [facility] Administration Protocol Insulin Aspart 1 vial 06/24/20 22:00 06/27/20 11:59 Novolog Vial Sliding Scale - SQ Not Given ACHS [facility] Protocol Nystatin 1 applic 06/22/20 22:00 06/27/20 12:04 Mycostatin Ointment - TP 1 applic BID [facility] Administration Polyethylene Glycol 17 gm 06/23/20 10:06/27/20 12:03 Miralax (For Daily Use) - PO Not Given DAILY [facility] ASSESSMENT/PLAN: Problem List - Problems (1) Orchitis Assessment/Plan: bilateral orchitis per scrotal ultrasound. urology consulted, notes reviewed and appreciated. monitor intake and output and perform post void residual per ID, resume Zosyn Code(s): N45.2 - ORCHITIS (2) Cellulitis, scrotum Assessment/Plan: mild erythma noted on scrotal tissue. No urinary retention. Scrotal edema improving. patient refusing willis, but urinating without issues on Zosyn per ID No WBC or fevers Code(s): N49.2 - INFLAMMATORY DISORDERS OF SCROTUM (3) INES (acute kidney injury) Assessment/Plan: patient with INES creatinine similar to previous admissions renal dose medications monitor renal function with daily labs monitor urine output Code(s): N17.9 - ACUTE KIDNEY FAILURE, UNSPECIFIED (4) Failure of outpatient treatment Assessment/Plan: patient was on Bactrim antibiotics as an outpatient and did tolerate PO antibiotics for possible UTI. Now on Zosyn per ID Code(s): Z78.9 - OTHER SPECIFIED HEALTH STATUS (5) Lactic acid acidosis Assessment/Plan: resolved with ivf Code(s): E87.2 - ACIDOSIS (6) Constipation Assessment/Plan: no acute issues Code(s): K59.00 - CONSTIPATION, UNSPECIFIED Qualifiers: Constipation type: unspecified constipation type Qualified Code(s): K59.00 - Constipation, unspecified (7) UTI (urinary tract infection) Assessment/Plan: Urine culture an blood cultures negative to date. Code(s): N39.0 - URINARY TRACT INFECTION, SITE NOT SPECIFIED Qualifiers: Urinary tract infection type: site unspecified Hematuria presence: without hematuria Qualified Code(s): N39.0 - Urinary tract infection, site not specified (8) A-fib Assessment/Plan: on coreq and pradaxa Code(s): I48.91 - UNSPECIFIED ATRIAL FIBRILLATION Qualifiers: Atrial fibrillation type: chronic (9) HTN (hypertension) Assessment/Plan: on coreq, monitor BP Code(s): I10 - ESSENTIAL (PRIMARY) HYPERTENSION (10) DVT prophylaxis Assessment/Plan: already on Pradaxa Code(s): Z29.9 - ENCOUNTER FOR PROPHYLACTIC MEASURES, UNSPECIFIED Visit type - Emergency Visit Emergency Visit: Yes ED Registration Date: 06/22/20 Care time: The patient presented to the Emergency Department on the above date and was hospitalized for further evaluation of their emergent condition. - New Patient This patient is new to me today: No - Critical Care Critical Care patient: No - Discharge Referral Referred to [facility] No - Medication Review Med list reviewed for High Risk Meds patients 65 and older: Yes
[2020-06-27] MEDS ORDERED: INSULIN (NOVOLOG) ASPART 100 UNITS/ML 10ML VIAL ONE (20:47)
[2020-06-27] MEDS: ATORVASTATIN CA 20 MG TABLET (FP) PO SCH (21:05)
[2020-06-28] MEDS ORDERED: PIPERACILLIN/TAZOBACTAM 2.25 GM VIAL IVPB ONE ×3 (01:06→16:46)
[2020-06-28] MEDS ORDERED: DEXTROSE 5%-WATER - 50 ML IVPB ONE ×3 (01:06→16:47)
[2020-06-28] MEDS: PIPERACILLIN/TAZOB 2.25 GM 2.25 GM in DEXTROSE 5%-WATER - 50 ML IVPB SCH ×3 (01:24→17:14)
[2020-06-28] MEDS: INSULIN SLIDING SCALE (NOVOLOG) 1 VIAL SQ SCH ×4 (06:06→21:40)
[2020-06-28] MEDS: ALLOPURINOL 100 MG TABLET (FP) PO SCH (10:35)
[2020-06-28] MEDS: DUTASTERIDE 0.5 MG CAP (FP) PO SCH (10:35)
[2020-06-28] MEDS: ASPIRIN COATED 81 MG TABLET.EC PO SCH (10:35)
[2020-06-28] MEDS: FAMOTIDINE 20 MG TABLET PO SCH (10:35)
[2020-06-28] MEDS: amLODIPine BESYLATE 5 MG TABLET (FP) PO SCH (10:36)
[2020-06-28] MEDS: NYSTATIN 100000 UNIT/GM TOPICAL OINTMENT 15 GM TUBE TP SCH ×2 (10:36→21:31)
[2020-06-28] MEDS: CARVEDILOL 3.125 MG TABLET (FP) PO SCH ×2 (10:36→21:31)
[2020-06-28] MEDS ORDERED: PT OWN MED DRAWER 7, Y5N ONE ×2 (10:42→21:33)
[2020-06-28] MEDS: POLYETHYLENE GLYCOL 3350 119 GM BTL PO SCH (10:46)
[2020-06-28] MEDS: DABIGATRAN ETEXILATE MESYLATE 75 MG CAPSULE PO SCH ×2 (10:46→21:34)
--- NOTE | 2020-06-28 11:01 | PN ---
Progress Note, Physician History of Present Illness: stable scrotal cellulitis improving tenderness on testes improving - Current Medication List Current Medications: Active Medications Allopurinol (Zyloprim -) 100 mg PO DAILY [facility] Last Admin: 06/28/20 10:35 Dose: 100 mg Documented by: Amlodipine Besylate (Norvasc -) 5 mg PO DAILY [facility] Last Admin: 06/28/20 10:36 Dose: 5 mg Documented by: Aspirin (Ecotrin -) 81 mg PO DAILY [facility] Last Admin: 06/28/20 10:35 Dose: 81 mg Documented by: Atorvastatin Calcium (Lipitor -) 20 mg PO HS [facility] Last Admin: 06/27/20 21:05 Dose: 20 mg Documented by: Carvedilol (Coreg -) 3.125 mg PO BID [facility] Last Admin: 06/28/20 10:36 Dose: 3.125 mg Documented by: Dabigatran (Pradaxa -) 75 mg PO BID [facility] Last Admin: 06/28/20 10:46 Dose: 75 mg Documented by: Dutasteride (Avodart -) 0.5 mg PO DAILY [facility] Last Admin: 06/28/20 10:35 Dose: 0.5 mg Documented by: Famotidine (Pepcid -) 20 mg PO DAILY [facility] Last Admin: 06/28/20 10:35 Dose: 20 mg Documented by: Piperacillin Sod/Tazobactam (Sod 2.25 gm/ Dextrose) 50 mls @ 100 mls/hr IVPB Q8H-IV [facility]; Protocol Last Admin: 06/28/20 10:25 Dose: 100 mls/hr Documented by: Insulin Aspart (Novolog Vial Sliding Scale -) 1 vial SQ ACHS [facility]; Protocol Last Admin: 06/28/20 06:06 Dose: Not Given Documented by: Nystatin (Mycostatin Ointment -) 1 applic TP BID [facility] Last Admin: 06/28/20 10:36 Dose: 1 applic Documented by: Polyethylene Glycol (Miralax (For Daily Use) -) 17 gm PO DAILY [facility] Last Admin: 06/28/20 10:46 Dose: 17 gm Documented by: - Objective Vital Signs: Vital Signs Temperature 97.5 F L 06/28/20 05:55 Pulse Rate 59 L 06/28/20 05:55 Respiratory Rate 18 06/28/20 05:55 Blood Pressure 154/96 06/28/20 05:55 O2 Sat by Pulse Oximetry (%) 98 06/28/20 05:55 Constitutional: Yes: No Distress, Calm Cardiovascular: Yes: S1, S2 Respiratory: Yes: Regular, CTA Bilaterally Gastrointestinal: Yes: Normal Bowel Sounds, Soft Genitourinary: Yes: Other (scrotal cellulitis improved) Musculoskeletal: Yes: WNL Extremities: Yes: WNL Integumentary: Yes: Other Wound/Incision: Yes: Other Neurological: Yes: Alert Labs: CBC, BMP 06/27/20 09:36 06/27/20 09:36 INR, PTT INR 1.37 (0.83-1.09) H 06/22/20 14:00 Assessment/Plan 89 year old male with history of hypertension, hyperlipidemia, Afib (on Pradaxa), coronary artery disease (s/p stent 2015), diabetes mellitus, (non insulin dependnent), CKD, neuropathy (bed bound), gout, presents with complaint of lethargy. Lethargy CKD Atrial fibrillation Hypertension Hyperlipidemia orchitis plan continue zosyn will d/w the team
--- NOTE | 2020-06-28 15:22 | PN ---
Physical Exam: SUBJECTIVE: Patient seen and examined OBJECTIVE: Patient is an 89 year old male with history of hypertension, hyperlipidemia, Afib (on Pradaxa), coronary artery disease (s/p stent 2015), diabetes mellitus, (non insulin dependnent), CKD, neuropathy (bed bound), gout, presents to the ED on 06/22/2020 for fatigue. He was found to have scrotal cellulitis being treated with zosyn. Vital Signs Period Temp Pulse Resp BP Sys/Nichols Pulse Ox Last 24 Hr 97.5 F-98 F 59-60 18-18 154-177/64-96 98-98 GENERAL: in no acute distress. HEAD: Normal with no signs of trauma. EYES: PERRL, extraocular movements intact, sclera anicteric, conjunctiva clear. No ptosis. ENT: Ears normal, nares patent, oropharynx clear without exudates, moist mucous membranes. NECK: Trachea midline, full range of motion, supple. LUNGS: breathing is easy and unlabored HEART: Regular rate and rhythm ABDOMEN: Soft, nontender, nondistended, normoactive bowel sounds EXTREMITIES: 2+ pulses, warm, well-perfused, no edema. Laboratory Results - last 24 hr 06/27/20 06/28/20 06/28/20 20:53 06:03 12:25 POC Glucometer 182 77 147 Active Medications Generic Name Dose Route Start Last Admin Trade Name Freq PRN Reason Stop Dose Admin Allopurinol 100 mg 06/23/20 10:00 06/28/20 10:35 Zyloprim - PO 100 mg DAILY [facility] Administration Amlodipine Besylate 5 mg 06/23/20 10:06/28/20 10:36 Norvasc - PO 5 mg DAILY [facility] Administration Aspirin 81 mg 06/23/20 10:00 06/28/20 10:35 Ecotrin - PO 81 mg DAILY [facility] Administration Atorvastatin Calcium 20 mg 06/22/20 22:00 06/27/20 21:05 Lipitor - PO 20 mg HS [facility] Administration Carvedilol 3.125 mg 06/22/20 22:00 06/28/20 10:36 Coreg - PO 3.125 mg BID [facility] Administration Dabigatran 75 mg 06/22/20 22:00 06/28/20 10:46 Pradaxa - PO 75 mg BID [facility] Administration Dutasteride 0.5 mg 06/23/20 10:00 06/28/20 10:35 Avodart - PO 0.5 mg DAILY [facility] Administration Famotidine 20 mg 06/23/20 10:00 06/28/20 10:35 Pepcid - PO 20 mg DAILY [facility] Administration Piperacillin Sod/Tazobactam 50 mls @ 100 mls/hr 06/26/20 12:00 06/28/20 10:25 Sod 2.25 gm/ Dextrose IVPB 100 mls/hr Q8H-IV [facility] Administration Protocol Insulin Aspart 1 vial 06/24/20 22:00 06/28/20 12:33 Novolog Vial Sliding Scale - SQ Not Given ACHS [facility] Protocol Nystatin 1 applic 06/22/20 22:00 06/28/20 10:36 Mycostatin Ointment - TP 1 applic BID [facility] Administration Polyethylene Glycol 17 gm 06/23/20 10:00 06/28/20 10:46 Miralax (For Daily Use) - PO 17 gm DAILY [facility] Administration ASSESSMENT/PLAN: Problem List - Problems (1) Orchitis Assessment/Plan: bilateral orchitis per scrotal ultrasound. urology consulted, notes reviewed and appreciated. monitor intake and output and perform post void residual per ID, resume Zosyn Code(s): N45.2 - ORCHITIS (2) Cellulitis, scrotum Assessment/Plan: mild erythma noted on scrotal tissue. No urinary retention. Scrotal edema improving. patient refusing willis, but urinating without issues on Zosyn per ID No WBC or fevers Code(s): N49.2 - INFLAMMATORY DISORDERS OF SCROTUM (3) INES (acute kidney injury) Assessment/Plan: patient with INES creatinine similar to previous admissions renal dose medications monitor renal function with daily labs monitor urine output Code(s): N17.9 - ACUTE KIDNEY FAILURE, UNSPECIFIED (4) Failure of outpatient treatment Assessment/Plan: patient was on Bactrim antibiotics as an outpatient and did tolerate PO antibiotics for possible UTI. Now on Zosyn per ID Code(s): Z78.9 - OTHER SPECIFIED HEALTH STATUS (5) Lactic acid acidosis Assessment/Plan: resolved with ivf Code(s): E87.2 - ACIDOSIS (6) Constipation Assessment/Plan: no acute issues Code(s): K59.00 - CONSTIPATION, UNSPECIFIED Qualifiers: Constipation type: unspecified constipation type Qualified Code(s): K59.00 - Constipation, unspecified (7) UTI (urinary tract infection) Assessment/Plan: Urine culture an blood cultures negative to date. Code(s): N39.0 - URINARY TRACT INFECTION, SITE NOT SPECIFIED Qualifiers: Urinary tract infection type: site unspecified Hematuria presence: without hematuria Qualified Code(s): N39.0 - Urinary tract infection, site not specified (8) A-fib Assessment/Plan: on coreq and pradaxa Code(s): I48.91 - UNSPECIFIED ATRIAL FIBRILLATION Qualifiers: Atrial fibrillation type: chronic (9) HTN (hypertension) Assessment/Plan: on coreq, monitor BP Code(s): I10 - ESSENTIAL (PRIMARY) HYPERTENSION (10) DVT prophylaxis Assessment/Plan: already on Pradaxa Code(s): Z29.9 - ENCOUNTER FOR PROPHYLACTIC MEASURES, UNSPECIFIED Visit type - Emergency Visit Emergency Visit: Yes ED Registration Date: 06/22/20 Care time: The patient presented to the Emergency Department on the above date and was hospitalized for further evaluation of their emergent condition. - New Patient This patient is new to me today: No - Critical Care Critical Care patient: No - Discharge Referral Referred to [facility] No - Medication Review Med list reviewed for High Risk Meds patients 65 and older: Yes
[2020-06-28] MEDS: ATORVASTATIN CA 20 MG TABLET (FP) PO SCH (21:31)
[2020-06-29] MEDS ORDERED: DEXTROSE 5%-WATER - 50 ML IVPB ONE ×2 (01:38→09:01)
[2020-06-29] MEDS ORDERED: PIPERACILLIN/TAZOBACTAM 2.25 GM VIAL IVPB ONE ×2 (01:38→09:00)
[2020-06-29] MEDS: PIPERACILLIN/TAZOB 2.25 GM 2.25 GM in DEXTROSE 5%-WATER - 50 ML IVPB SCH ×2 (02:09→09:07)
[2020-06-29] MEDS: INSULIN SLIDING SCALE (NOVOLOG) 1 VIAL SQ SCH (06:44)
[2020-06-29] MEDS: ALLOPURINOL 100 MG TABLET (FP) PO SCH (09:06)
[2020-06-29] MEDS: CARVEDILOL 3.125 MG TABLET (FP) PO SCH (09:07)
[2020-06-29] MEDS: ASPIRIN COATED 81 MG TABLET.EC PO SCH (09:07)
[2020-06-29] MEDS: FAMOTIDINE 20 MG TABLET PO SCH (09:08)
[2020-06-29] MEDS: POLYETHYLENE GLYCOL 3350 119 GM BTL PO SCH (09:08)
[2020-06-29] MEDS: amLODIPine BESYLATE 5 MG TABLET (FP) PO SCH (09:08)
[2020-06-29] MEDS: NYSTATIN 100000 UNIT/GM TOPICAL OINTMENT 15 GM TUBE TP SCH (09:08)
[2020-06-29] MEDS: DUTASTERIDE 0.5 MG CAP (FP) PO SCH (09:08)
[2020-06-29] MEDS: DABIGATRAN ETEXILATE MESYLATE 75 MG CAPSULE PO SCH (09:08)
--- NOTE | 2020-06-29 10:13 | PN ---
Progress Note, Physician History of Present Illness: stable no new issues - Current Medication List Current Medications: Active Medications Allopurinol (Zyloprim -) 100 mg PO DAILY [facility] Last Admin: 06/29/20 09:06 Dose: 100 mg Documented by: Amlodipine Besylate (Norvasc -) 5 mg PO DAILY [facility] Last Admin: 06/29/20 09:08 Dose: 5 mg Documented by: Aspirin (Ecotrin -) 81 mg PO DAILY [facility] Last Admin: 06/29/20 09:07 Dose: 81 mg Documented by: Atorvastatin Calcium (Lipitor -) 20 mg PO HS [facility] Last Admin: 06/28/20 21:31 Dose: 20 mg Documented by: Carvedilol (Coreg -) 3.125 mg PO BID [facility] Last Admin: 06/29/20 09:07 Dose: 3.125 mg Documented by: Dabigatran (Pradaxa -) 75 mg PO BID [facility] Last Admin: 06/29/20 09:08 Dose: 75 mg Documented by: Dutasteride (Avodart -) 0.5 mg PO DAILY [facility] Last Admin: 06/29/20 09:08 Dose: 0.5 mg Documented by: Famotidine (Pepcid -) 20 mg PO DAILY [facility] Last Admin: 06/29/20 09:08 Dose: 20 mg Documented by: Piperacillin Sod/Tazobactam (Sod 2.25 gm/ Dextrose) 50 mls @ 100 mls/hr IVPB Q8H-IV [facility]; Protocol Last Admin: 06/29/20 09:07 Dose: 100 mls/hr Documented by: Insulin Aspart (Novolog Vial Sliding Scale -) 1 vial SQ ACHS [facility]; Protocol Last Admin: 06/29/20 06:44 Dose: Not Given Documented by: Nystatin (Mycostatin Ointment -) 1 applic TP BID [facility] Last Admin: 06/29/20 09:08 Dose: 1 applic Documented by: Polyethylene Glycol (Miralax (For Daily Use) -) 17 gm PO DAILY [facility] Last Admin: 06/29/20 09:08 Dose: 17 gm Documented by: - Objective Vital Signs: Vital Signs Temperature 98.5 F 06/29/20 01:00 Pulse Rate 55 L 06/29/20 01:00 Respiratory Rate 18 06/29/20 01:00 Blood Pressure 150/80 06/29/20 01:00 O2 Sat by Pulse Oximetry (%) 98 10/19/20 01:00 Constitutional: Yes: No Distress, Calm Cardiovascular: Yes: S1, S2 Respiratory: Yes: Regular, CTA Bilaterally Gastrointestinal: Yes: Normal Bowel Sounds, Soft Genitourinary: Yes: Scrotal Edema (improved), Other Musculoskeletal: Yes: WNL Extremities: Yes: WNL Neurological: Yes: Alert Psychiatric: Yes: Alert Labs: CBC, BMP 06/27/20 09:36 06/27/20 09:36 INR, PTT INR 1.37 (0.83-1.09) H 06/22/20 14:00 Assessment/Plan 89 year old male with history of hypertension, hyperlipidemia, Afib (on Pradaxa), coronary artery disease (s/p stent 2015), diabetes mellitus, (non insulin dependnent), CKD, neuropathy (bed bound), gout, presents with complaint of lethargy. Lethargy CKD Atrial fibrillation Hypertension Hyperlipidemia orchitis plan can change to oral levaquin 250 mg daily for 3-4 days
--- NOTE | 2020-06-29 11:43 | DS ---
Physical Exam: SUBJECTIVE: Patient seen and examined OBJECTIVE: Patient is an 89 year old male with history of hypertension, hyperlipidemia, Afib (on Pradaxa), coronary artery disease (s/p stent 2016), diabetes mellitus, (non insulin dependnent), CKD, neuropathy (bed bound), gout, presents to the ED on 06/22/2020 for fatigue. He was found to have scrotal cellulitis was being treated with Zosyn. Per ID, patient can be discharged on five more days of oral antibiotics (Levaquin 250mg daily x 5 days) Patient to be discharged to rehab, [facility]. Vital Signs Period Temp Pulse Resp BP Sys/Nichols Pulse Ox Last 24 Hr 98.5 F-98.7 F 50-55 18-18 146-152/71-80 98-98 PHYSICAL EXAM GENERAL: in no acute distress. HEAD: Normal with no signs of trauma. EYES: PERRL, extraocular movements intact, sclera anicteric, conjunctiva clear. No ptosis. ENT: Ears normal, nares patent, oropharynx clear without exudates, moist mucous membranes. NECK: Trachea midline, full range of motion, supple. LUNGS: breathing is easy and unlabored HEART: Regular rate and rhythm ABDOMEN: Soft, nontender, nondistended, normoactive bowel sounds EXTREMITIES: 2+ pulses, warm, well-perfused, no edema. LABS Laboratory Results - last 24 hr 06/28/20 06/28/20 06/28/20 12:25 16:58 21:39 POC Glucometer 147 131 156 06/29/20 06/29/20 05:47 11:22 POC Glucometer 90 123 HOSPITAL COURSE: Date of Admission:06/22/20 Date of Discharge: 06/29/20 Minutes to complete discharge: 45 Discharge Summary Problems reviewed: Yes Reason For Visit: ACUTE KIDNEY INJURY; FAILURE O/P TREATMENT Current Active Problems INES (acute kidney injury) (Acute) CKD (chronic kidney disease) (Acute) Cellulitis, scrotum (Acute) DVT prophylaxis (Acute) Failure of outpatient treatment (Acute) Lactic acid acidosis (Acute) Orchitis (Acute) Scrotal edema (Acute) Condition: Improved - Instructions Diet, Activity, Other Instructions: DISCHARGE YOUR VISIT You came to the hospital because you had redness of your scrotum and were found to have scrotal cellulitis. We have treated you with IV antibiotics and will be converting you to oral antibiotics called Levaquin 250mg Once per day for 5 days. We did an ultrasound of your scrotum and there are no concerning findings. MEDICATIONS START LEVAQUIN 250MG once per day for 5 days. Take with food CONTINUE all your other home medications as outlined in this discharge paper work DIET Continue a diabetic diet. FOLLOW UP Follow up with your primary care doctor and the urologist by calling their office and make an appointment. ADDITIONAL INFORMATION Please call 911 or come directly to the emergency department if you experience unusual headache, vision change, shortness of breath, chest pain, numbness, tingling, loss of alertness/awareness, loss of function, unusual bleeding or any alarming symptoms. Thank you for allowing us to care for you. Referrals: Chan Simon MD [Primary Care Provider] - Dharmesh Cowan MD [Staff Physician] - Disposition: LONG TERM FACILITY - Home Medications Comprehensive Discharge Medication List: Ambulatory Orders Allopurinol [Zyloprim -] 100 mg PO DAILY 05/10/19 Amlodipine Besylate [Norvasc -] 10 mg PO DAILY 05/10/19 Aspirin [Aspirin EC] 81 mg PO DAILY 05/10/19 Atorvastatin Ca [Lipitor] 20 mg PO HS 05/10/19 Carvedilol [Coreg -] 3.125 mg PO BID 05/10/19 Cetirizine HCl 10 mg PO DAILY 05/10/19 Dabigatran Etexilate Mesylate [Pradaxa -] 75 mg PO BID 05/10/19 Dutasteride [Avodart] 0.5 mg PO DAILY 05/10/19 Psyllium Husk [Metamucil] 0.4 gm PO BID 09/28/19 Polyethylene Glycol 3350 [Miralax 119 gm Btl -] 17 gm PO DAILY 01/30/20 Timolol Maleate [Istalol] 1 drop .ROUTE ASDIR 01/30/20 Famotidine [Pepcid -] 20 mg PO DAILY tablet 06/29/20 levoFLOXacin [Levaquin -] 250 mg PO DAILY #5 tablet 06/29/20 Problem List - Problems (1) Orchitis Assessment/Plan: bilateral orchitis per scrotal ultrasound. urology consulted, notes reviewed and appreciated. Patient completed Zosyn and converted to Levaquin 250mg daily 5 days Code(s): N45.2 - ORCHITIS (2) Cellulitis, scrotum Assessment/Plan: no erythma noted on scrotal tissue. No urinary retention. patient refusing willis, but urinating without issues Code(s): N49.2 - INFLAMMATORY DISORDERS OF SCROTUM (3) INES (acute kidney injury) Assessment/Plan: patient with INES creatinine similar to previous admissions renal dose medications monitor renal function with daily labs monitor urine output Code(s): N17.9 - ACUTE KIDNEY FAILURE, UNSPECIFIED (4) Failure of outpatient treatment Assessment/Plan: completed zosyn, start Levaquin 250mg x 5 days Code(s): Z78.9 - OTHER SPECIFIED HEALTH STATUS (5) Lactic acid acidosis Assessment/Plan: resolved with ivf Code(s): E87.2 - ACIDOSIS (6) Constipation Assessment/Plan: no acute issues Code(s): K59.00 - CONSTIPATION, UNSPECIFIED Qualifiers: Constipation type: unspecified constipation type Qualified Code(s): K59.00 - Constipation, unspecified (7) UTI (urinary tract infection) Assessment/Plan: Urine culture an blood cultures negative to date. Code(s): N39.0 - URINARY TRACT INFECTION, SITE NOT SPECIFIED Qualifiers: Urinary tract infection type: site unspecified Hematuria presence: without hematuria Qualified Code(s): N39.0 - Urinary tract infection, site not specified (8) A-fib Assessment/Plan: on coreq and pradaxa Code(s): I48.91 - UNSPECIFIED ATRIAL FIBRILLATION Qualifiers: Atrial fibrillation type: chronic (9) HTN (hypertension) Assessment/Plan: on coreq, monitor BP Code(s): I10 - ESSENTIAL (PRIMARY) HYPERTENSION (10) DVT prophylaxis Assessment/Plan: already on Pradaxa Code(s): Z29.9 - ENCOUNTER FOR PROPHYLACTIC MEASURES, UNSPECIFIED This patient is new to me today: Yes Date on this admission: 06/29/20 Emergency Visit: No Critical Care patient: No - Discharge Referral Referred to [facility] Med P.C.: No
[2020-06-29 14:57] VITALS: BP 174/72; PULSE 51; TEMP 97.8
--- NOTE | 2020-06-29 15:04 | PN ---
Progress Note, Physician History of Present Illness: Pt seen and examined at bedside. He is awake and appears comfortable. He denies shortness of breath. He feels that his appetite is improved. - Current Medication List Current Medications: Active Medications Allopurinol (Zyloprim -) 100 mg PO DAILY [facility] Last Admin: 06/29/20 09:06 Dose: 100 mg Documented by: Amlodipine Besylate (Norvasc -) 5 mg PO DAILY [facility] Last Admin: 06/29/20 09:08 Dose: 5 mg Documented by: Aspirin (Ecotrin -) 81 mg PO DAILY [facility] Last Admin: 06/29/20 09:07 Dose: 81 mg Documented by: Atorvastatin Calcium (Lipitor -) 20 mg PO HS [facility] Last Admin: 06/28/20 21:31 Dose: 20 mg Documented by: Carvedilol (Coreg -) 3.125 mg PO BID [facility] Last Admin: 06/29/20 09:07 Dose: 3.125 mg Documented by: Dabigatran (Pradaxa -) 75 mg PO BID [facility] Last Admin: 06/29/20 09:08 Dose: 75 mg Documented by: Dutasteride (Avodart -) 0.5 mg PO DAILY [facility] Last Admin: 06/29/20 09:08 Dose: 0.5 mg Documented by: Famotidine (Pepcid -) 20 mg PO DAILY [facility] Last Admin: 06/29/20 09:08 Dose: 20 mg Documented by: Piperacillin Sod/Tazobactam (Sod 2.25 gm/ Dextrose) 50 mls @ 100 mls/hr IVPB Q8H-IV [facility]; Protocol Last Admin: 06/29/20 09:07 Dose: 100 mls/hr Documented by: Insulin Aspart (Novolog Vial Sliding Scale -) 1 vial SQ ACHS [facility]; Protocol Last Admin: 06/29/20 06:44 Dose: Not Given Documented by: Nystatin (Mycostatin Ointment -) 1 applic TP BID [facility] Last Admin: 06/29/20 09:08 Dose: 1 applic Documented by: Polyethylene Glycol (Miralax (For Daily Use) -) 17 gm PO DAILY [facility] Last Admin: 06/29/20 09:08 Dose: 17 gm Documented by: - Objective Vital Signs: Vital Signs Temperature 97.8 F 06/29/20 14:54 Pulse Rate 51 L 06/29/20 14:54 Respiratory Rate 18 06/29/20 14:54 Blood Pressure 174/72 H 06/29/20 14:54 O2 Sat by Pulse Oximetry (%) 94 L 06/29/20 14:54 Constitutional: Yes: Calm Eyes: Yes: Conjunctiva Clear HENT: Yes: Atraumatic Neck: Yes: Supple Cardiovascular: Yes: S1, S2 Respiratory: Yes: CTA Bilaterally Gastrointestinal: Yes: Normal Bowel Sounds, Soft Genitourinary: Yes: WNL Musculoskeletal: Yes: WNL Edema: No Neurological: Yes: Oriented Psychiatric: Yes: Oriented Labs: CBC, BMP 06/27/20 09:36 06/27/20 09:36 INR, PTT INR 1.37 (0.83-1.09) H 06/22/20 14:00 Problem List - Problems (1) CKD (chronic kidney disease) Code(s): N18.9 - CHRONIC KIDNEY DISEASE, UNSPECIFIED (2) Diabetes mellitus Code(s): E11.9 - TYPE 2 DIABETES MELLITUS WITHOUT COMPLICATIONS (3) HTN (hypertension) Code(s): I10 - ESSENTIAL (PRIMARY) HYPERTENSION Assessment/Plan Current Medications Generic Name Dose Route Start Last Admin Trade Name Freq PRN Reason Stop Dose Admin Allopurinol 100 mg 06/23/20 10:00 06/29/20 09:06 Zyloprim - PO 100 mg DAILY [facility] Administration Amlodipine Besylate 5 mg 06/23/20 10:00 06/29/20 09:08 Norvasc - PO 5 mg DAILY [facility] Administration Aspirin 81 mg 06/23/20 10:00 06/29/20 09:07 Ecotrin - PO 81 mg DAILY [facility] Administration Atorvastatin Calcium 20 mg 06/22/20 22:00 06/28/20 21:31 Lipitor - PO 20 mg HS [facility] Administration Carvedilol 3.125 mg 06/22/20 22:00 06/29/20 09:07 Coreg - PO 3.125 mg BID [facility] Administration Dabigatran 75 mg 06/22/20 22:00 06/29/20 09:08 Pradaxa - PO 75 mg BID [facility] Administration Dutasteride 0.5 mg 06/23/20 10:00 06/29/20 09:08 Avodart - PO 0.5 mg DAILY [facility] Administration Famotidine 20 mg 06/23/20 10:00 06/29/20 09:08 Pepcid - PO 20 mg DAILY [facility] Administration Piperacillin Sod/Tazobactam 50 mls @ 100 mls/hr 06/26/20 12:00 06/29/20 09:07 Sod 2.25 gm/ Dextrose IVPB 100 mls/hr Q8H-IV [facility] Administration Protocol Insulin Aspart 1 vial 06/24/20 22:00 06/29/20 06:44 Novolog Vial Sliding Scale - SQ Not Given ACHS [facility] Protocol Nystatin 1 applic 06/22/20 22:00 06/29/20 09:08 Mycostatin Ointment - TP 1 applic BID [facility] Administration Polyethylene Glycol 17 gm 06/23/20 10:00 06/29/20 09:08 Miralax (For Daily Use) - PO 17 gm DAILY [facility] Administration Impression 1. ckd 2. proteinuria 3. a-fib 4. chf 5. gout 6. htn 7. hld 8. bph 9. cellulitis Plan - renal function not far from baseline - repeat labs in am - will need outpt follow up - avoid nsaids - avoid nephrotoxins - cont abx for cellulitis Dr Baker
== END 2020-06-29 15:50 | DRG 728 ==
LOC: JER 13:10 → JERBED 16:42 → J6S 20:42
PROVIDERS: ATTEND Nurse Practitioner Family
DX: N49.2 Inflammatory disorders of scrotum (principal); N17.9 Acute kidney failure, unspecified; E87.2 Acidosis; I48.20 Chronic atrial fibrillation, unspecified; N39.0 Urinary tract infection, site not specified; I13.0 Hypertensive heart and chronic kidney disease with heart failure and stage 1 through stage 4 chronic kidney disease, or unspecified chronic kidney disease; E78.00 Pure hypercholesterolemia, unspecified; I25.10 Atherosclerotic heart disease of native coronary artery without angina pectoris; E11.40 Type 2 diabetes mellitus with diabetic neuropathy, unspecified; Z74.01 Bed confinement status; M10.9 Gout, unspecified; N18.9 Chronic kidney disease, unspecified; R62.7 Adult failure to thrive; I50.9 Heart failure, unspecified; Z68.21 Body mass index [BMI] 21.0-21.9, adult; R63.0 Anorexia; K59.09 Other constipation; E11.22 Type 2 diabetes mellitus with diabetic chronic kidney disease; Z78.9 Other specified health status; I34.0 Nonrheumatic mitral (valve) insufficiency; N40.0 Benign prostatic hyperplasia without lower urinary tract symptoms; N50.89 Other specified disorders of the male genital organs; Z95.5 Presence of coronary angioplasty implant and graft
CPT/HCPCS: 36415; 70450-TC; 71045-TC-FY; 74176-TC; 76870-TC; 80053; 81003; 82962; 83036; 83605; 83735; 84100; 84436; 84443; 84484; 85025; 85027; 85610; 85730; 87040; 87086; 87804; 93005; 93010; 97162-GP; 99285-25; C9803; J1644; U0003

== ENCOUNTER 2020-09-10 13:30 | Emergency (ER) | payer OTHER ==
[2020-09-10 14:06] VITALS: BMI 22.4
[2020-09-10] MEDS ORDERED: MAGNESIUM CITRATE 300 ML BOTTLE PO ONE (14:50)
[2020-09-10] MEDS ORDERED: MAGNESIUM CITRATE 300 ML BOTTLE ONE (15:13)
[2020-09-10 15:16] LABS: BASO % 0.7 % (0-2.0); EOS % 3.9 % (0-4.5); HEMOGLOBIN 13.5 GM/dL (11.7-16.9); MCH 30.7 pg (25.7-33.7); MCHC 32.9 g/dl (32.0-35.9); MEAN CELL VOLUME 93.6 fl (80-96); MONO % 5.6 % (3.8-10.2); NEUT % 71.8 % (42.8-82.8); PLATELET COUNT 152 K/MM3 (134-434); RBC 4.38 M/mm3 (4.00-5.60); RDW 15.5 % (11.9-15.9); WHITE BLOOD COUNT 6.2 K/mm3 (4.0-10.0)
[2020-09-10] MEDS ORDERED: ACETAMINOPHEN 1000 MG/100 ML VIAL (NON FORMULARY) IVPB ONE (15:18)
[2020-09-10] MEDS ORDERED: ACETAMINOPHEN INJECTION 100 ML IVPB ONE (15:24)
[2020-09-10 15:55] LABS: ALBUMIN 3.1 g/dl (3.4-5.0); BILIRUBIN,TOTAL 0.5 mg/dL (0.2-1); BLOOD UREA NITROGEN 20.9 mg/dL (7-18); CALCIUM 8.9 mg/dL (8.5-10.1); CREATININE 2.5 mg/dL (0.55-1.3); MAGNESIUM 2.3 mg/dL (1.8-2.4); POTASSIUM 4.5 mmol/L (3.5-5.1); TOT PROT 6.4 g/dl (6.4-8.2)
[2020-09-10] MEDS ORDERED: SODIUM CHLORIDE 0.9% 500 ML INFUS.BAG IV ONE (16:12)
[2020-09-10] MEDS ORDERED: CARVEDILOL 3.125 MG TABLET (FP) PO ONE (18:26)
[2020-09-10] MEDS ORDERED: CARVEDILOL 3.125 MG TABLET (FP) ONE (18:29)
[2020-09-10 18:43] LABS: EPI CELLS 8 /uL (0-25.1); HYALINE CASTS 1 /uL (0-3.1); PH,URINE 6.5 (5.0-8.0); URINE APPEARANCE CLEAR; URINE BACTERIA 36 /uL (0-1359); URINE BILIRUBIN NEGATIVE (NEGATIVE); URINE COLOR YELLOW; URINE GLUCOSE (UA) NEGATIVE (NEGATIVE); URINE KETONE NEGATIVE (NEGATIVE); URINE LEUK ESTERASE NEGATIVE (NEGATIVE); URINE NITRITE NEGATIVE (NEGATIVE); URINE PROTEIN 3+ (NEGATIVE); URINE RBC 18 /uL (0-23.9); URINE UROBILINOGEN 0.2 mg/dL (0.2-1.0); URINE WBC 10 /uL (0-25.8)
[2020-09-10 22:20] VITALS: BP 178/89; PULSE 63; TEMP 97.6
== END 2020-09-10 22:22 | disposition home or self-care (01) ==
LOC: JER 13:30
PROC: 3E0333Z Introduction of Anti-inflammatory into Peripheral Vein, Percutaneous Approach (ICD-10-PCS; principal; 2020-09-10)
DX: K59.00 Constipation, unspecified (principal)
CPT/HCPCS: 36415; 80053; 81003; 83735; 85025; 87086; 93005; 93010; 99284-25; J0131

== ENCOUNTER 2020-10-22 13:08 | Inpatient (IN) | payer OTHER ==
[2020-10-22 14:00] VITALS: BMI 23.7
[2020-10-22] MEDS ORDERED: SODIUM CHLORIDE 500 ML IV STA (14:23)
[2020-10-22 15:03] LABS: BASO % 0.8 % (0-2.0); EOS % 6.3 % (0-4.5); HEMATOCRIT 39.9 % (35.4-49); HEMOGLOBIN 13.6 GM/dL (11.7-16.9); LYMPH % 24.2 % (8-40); MCH 30.9 pg (25.7-33.7); MCHC 34.1 g/dl (32.0-35.9); MEAN CELL VOLUME 90.5 fl (80-96); MEAN PLT VOLUME 8.7 fl (7.5-11.1); MONO % 5.3 % (3.8-10.2); NEUT % 63.4 % (42.8-82.8); PLATELET COUNT 174 K/MM3 (134-434); RBC 4.41 M/mm3 (4.00-5.60); RDW 15.4 % (11.9-15.9)
[2020-10-22 15:09] LABS: INR 2.11 (0.83-1.09)
[2020-10-22 15:50] LABS: CHLORIDE 109 mmol/L (98-107); POTASSIUM 4.3 mmol/L (3.5-5.1); SODIUM 142 mmol/L (136-145)
[2020-10-22 16:06] LABS: ALK PHOS 116 U/L (45-117); ANION GAP 10 MMOL/L (8-16); BILIRUBIN,TOTAL 0.7 mg/dL (0.2-1); BLOOD UREA NITROGEN 30.6 mg/dL (7-18); CALCIUM 8.7 mg/dL (8.5-10.1); CO2 23 mmol/L (21-32); CREATININE 2.2 mg/dL (0.55-1.3); GLUCOSE,RANDOM 116 mg/dL (74-106); MAGNESIUM 2.2 mg/dL (1.8-2.4); PHOSPHOROUS 3.4 mg/dL (2.5-4.9); SGOT/AST 27 U/L (15-37); SGPT/ALT 13 U/L (13-61); TOT PROT 6.5 g/dl (6.4-8.2)
[2020-10-22 18:38] LABS: URINE APPEARANCE CLEAR; URINE COLOR YELLOW; URINE GLUCOSE (UA) NEGATIVE (NEGATIVE)
[2020-10-22 18:39] LABS: URINE BILIRUBIN NEGATIVE (NEGATIVE); URINE KETONE TRACE (NEGATIVE); URINE LEUK ESTERASE NEGATIVE (NEGATIVE); URINE NITRITE NEGATIVE (NEGATIVE); URINE UROBILINOGEN 0.2 mg/dL (0.2-1.0)
[2020-10-22 18:41] LABS: EPI CELLS >36 /uL (0-25.1); HYALINE CASTS 2 /uL (0-3.1); URINE BACTERIA 0 /uL (0-1359); URINE PROTEIN 3+ (NEGATIVE); URINE RBC 17 /uL (0-23.9); URINE WBC 4 /uL (0-25.8)
[2020-10-22] MEDS ORDERED: amLODIPine BESYLATE 5 MG TABLET (FP) PO ONE (21:02)
[2020-10-22] MEDS ORDERED: amLODIPine BESYLATE 5 MG TABLET (FP) ONE (22:20)
[2020-10-22] MEDS ORDERED: hydrALAZINE HCL 20 MG/ML VIAL IVPUSH PRN (23:57)
[2020-10-23] MEDS ORDERED: SODIUM CHLORIDE 1,000 ML IV SCH (00:15)
[2020-10-23] MEDS: APIXABAN 2.5 MG TABLET PO SCH ×2 (09:21→22:24)
[2020-10-23 09:54] LABS: HEMATOCRIT 36.3 % (35.4-49); HEMOGLOBIN 12.1 GM/dL (11.7-16.9); MCH 30.7 pg (25.7-33.7); MCHC 33.4 g/dl (32.0-35.9); MEAN CELL VOLUME 91.7 fl (80-96); MEAN PLT VOLUME 9.1 fl (7.5-11.1); PLATELET COUNT 157 K/MM3 (134-434); RBC 3.96 M/mm3 (4.00-5.60); RDW 15.2 % (11.9-15.9); WHITE BLOOD COUNT 4.9 K/mm3 (4.0-10.0)
[2020-10-23 10:58] LABS: POTASSIUM 3.6 mmol/L (3.5-5.1)
[2020-10-23 11:00] LABS: CALCIUM 7.9 mg/dL (8.5-10.1)
[2020-10-23 11:01] LABS: BLOOD UREA NITROGEN 29.5 mg/dL (7-18)
[2020-10-23 11:04] LABS: CREATININE 2.3 mg/dL (0.55-1.3)
[2020-10-23] MEDS: LISINOPRIL 5 MG TABLET PO SCH (16:53)
[2020-10-23] MEDS ORDERED: FAMOTIDINE 20 MG TABLET PO PRN ×2 (20:10→20:19)
[2020-10-23] MEDS ORDERED: POLYETHYLENE GLYCOL 3350 119 GM BTL PO PRN (20:10)
[2020-10-23] MEDS ORDERED: QUEtiapine FUMARATE 25 MG TABLET PO SCH (22:00)
[2020-10-23] MEDS: ALLOPURINOL 100 MG TABLET (FP) PO SCH (22:24)
[2020-10-23] MEDS: ATORVASTATIN CA 20 MG TABLET (FP) PO SCH (22:24)
[2020-10-24] MEDS ORDERED: SENNOSIDES 8.6MG TABLET (FP) PO PRN (08:28)
[2020-10-24 08:55] LABS: ALBUMIN 2.8 g/dl (3.4-5.0); BILIRUBIN,TOTAL 0.6 mg/dL (0.2-1); BLOOD UREA NITROGEN 21.1 mg/dL (7-18); CALCIUM 8.1 mg/dL (8.5-10.1); POTASSIUM 3.6 mmol/L (3.5-5.1); TOT PROT 5.7 g/dl (6.4-8.2)
[2020-10-24] MEDS ORDERED: PT OWN MED DRAWER 7, Y5N ONE ×2 (09:44→21:31)
[2020-10-24] MEDS: APIXABAN 2.5 MG TABLET PO SCH ×2 (10:19→22:00)
[2020-10-24] MEDS: POLYETHYLENE GLYCOL 3350 119 GM BTL PO SCH ×2 (10:20→22:02)
[2020-10-24] MEDS: ALLOPURINOL 100 MG TABLET (FP) PO SCH ×2 (10:20→22:02)
[2020-10-24] MEDS: LISINOPRIL 5 MG TABLET PO SCH (10:20)
[2020-10-24 12:55] LABS: BASO % 0.5 % (0-2.0); EOS % 3.8 % (0-4.5); HEMATOCRIT 35.6 % (35.4-49); LYMPH % 19.8 % (8-40); MCH 30.5 pg (25.7-33.7); MCHC 33.8 g/dl (32.0-35.9); MEAN CELL VOLUME 90.2 fl (80-96); MONO % 6.4 % (3.8-10.2); NEUT % 69.5 % (42.8-82.8); PLATELET COUNT 177 K/MM3 (134-434); RBC 3.95 M/mm3 (4.00-5.60); WHITE BLOOD COUNT 6.7 K/mm3 (4.0-10.0)
[2020-10-24 13:58] LABS: ALBUMIN 2.7 g/dl (3.4-5.0); BILIRUBIN,TOTAL 0.7 mg/dL (0.2-1); BLOOD UREA NITROGEN 18.8 mg/dL (7-18); CALCIUM 8.1 mg/dL (8.5-10.1); POTASSIUM 3.3 mmol/L (3.5-5.1); TOT PROT 5.7 g/dl (6.4-8.2)
[2020-10-24] MEDS ORDERED: POTASSIUM CHLORIDE TABS 20 MEQ TABLET.ER (FP) PO ONE (16:45)
[2020-10-24] MEDS ORDERED: cefTRIAXone SODIUM 1 GM VIAL ONE (18:33)
[2020-10-24] MEDS ORDERED: DEXTROSE 5%-WATER - 50 ML IVPB ONE (18:33)
[2020-10-24] MEDS: CEFTRIAXONE 1 GM in DEXTROSE 5%-WATER - 50 ML IVPB SCH (18:38)
[2020-10-24] MEDS: AZITHROMYCIN IVPB 500 MG/250 ML BAG IVPB SCH (18:39)
[2020-10-24] MEDS: DOCUSATE SODIUM 100 MG CAPSULE (FP) PO SCH (21:54)
[2020-10-24] MEDS: ATORVASTATIN CA 20 MG TABLET (FP) PO SCH (22:00)
[2020-10-24] MEDS: QUEtiapine FUMARATE 25 MG TABLET PO SCH (22:01)
[2020-10-24] MEDS: TIMOLOL 0.5% OPHTHALMIC SOL 5 ML BOTTLE OU SCH (22:02)
[2020-10-25 08:15] LABS: BASO % 0.8 % (0-2.0); EOS % 2.6 % (0-4.5); HEMATOCRIT 36.7 % (35.4-49); HEMOGLOBIN 12.6 GM/dL (11.7-16.9); LYMPH % 24.9 % (8-40); MCH 30.9 pg (25.7-33.7); MCHC 34.3 g/dl (32.0-35.9); MEAN CELL VOLUME 90.1 fl (80-96); MEAN PLT VOLUME 9.1 fl (7.5-11.1); MONO % 5.9 % (3.8-10.2); NEUT % 65.8 % (42.8-82.8); PLATELET COUNT 190 K/MM3 (134-434); RBC 4.08 M/mm3 (4.00-5.60); RDW 14.8 % (11.9-15.9)
[2020-10-25 08:44] LABS: POTASSIUM 4.5 mmol/L (3.5-5.1)
[2020-10-25 08:48] LABS: BLOOD UREA NITROGEN 17.1 mg/dL (7-18); CALCIUM 8.1 mg/dL (8.5-10.1)
[2020-10-25 08:49] LABS: ALBUMIN 2.6 g/dl (3.4-5.0)
[2020-10-25 08:51] LABS: CREATININE 1.9 mg/dL (0.55-1.3)
[2020-10-25 08:53] LABS: BILIRUBIN,TOTAL 0.8 mg/dL (0.2-1); TOT PROT 5.5 g/dl (6.4-8.2)
[2020-10-25] MEDS ORDERED: cefTRIAXone SODIUM 1 GM VIAL ONE (09:43)
[2020-10-25] MEDS ORDERED: PT OWN MED DRAWER 7, Y5N ONE (09:43)
[2020-10-25] MEDS ORDERED: DEXTROSE 5%-WATER - 50 ML IVPB ONE (09:44)
[2020-10-25] MEDS: AZITHROMYCIN IVPB 500 MG/250 ML BAG IVPB SCH (11:30)
[2020-10-25] MEDS: LISINOPRIL 5 MG TABLET PO SCH (13:48)
[2020-10-25] MEDS: ASPIRIN COATED 81 MG TABLET.EC PO SCH (13:48)
[2020-10-25] MEDS: DUTASTERIDE 0.5 MG CAP (FP) PO SCH (13:48)
[2020-10-25] MEDS: POLYETHYLENE GLYCOL 3350 119 GM BTL PO SCH ×2 (13:48→22:09)
[2020-10-25] MEDS: APIXABAN 2.5 MG TABLET PO SCH ×2 (13:48→22:09)
[2020-10-25] MEDS: MEGESTROL ACETATE 40 MG TABLET PO SCH (13:48)
[2020-10-25] MEDS: CEFTRIAXONE 1 GM in DEXTROSE 5%-WATER - 50 ML IVPB SCH (13:49)
[2020-10-25] MEDS: CHOLECALCIFEROL (VIT D3) 1,000 UNIT (25 MCG) TABLET PO SCH (13:49)
[2020-10-25] MEDS: QUEtiapine FUMARATE 25 MG TABLET PO SCH ×2 (13:49→22:09)
[2020-10-25] MEDS: ALLOPURINOL 100 MG TABLET (FP) PO SCH ×2 (13:49→22:09)
[2020-10-25] MEDS: TIMOLOL 0.5% OPHTHALMIC SOL 5 ML BOTTLE OU SCH ×2 (13:49→22:12)
[2020-10-25] MEDS: ATORVASTATIN CA 20 MG TABLET (FP) PO SCH (22:09)
[2020-10-25] MEDS: DOCUSATE SODIUM 100 MG CAPSULE (FP) PO SCH (22:09)
[2020-10-25] MEDS: DONEPEZIL HCL 5 MG TABLET (FP) PO SCH (22:09)
[2020-10-26] MEDS ORDERED: MULTIVIT-MINERALS ORAL LIQUID PO SCH (10:00)
[2020-10-26] MEDS ORDERED: DEXTROSE 5%-WATER - 50 ML IVPB ONE (10:20)
[2020-10-26] MEDS ORDERED: PT OWN MED DRAWER 7, Y5N ONE ×2 (10:20→22:29)
[2020-10-26] MEDS ORDERED: cefTRIAXone SODIUM 1 GM VIAL ONE (10:20)
[2020-10-26] MEDS: AZITHROMYCIN IVPB 500 MG/250 ML BAG IVPB SCH (10:25)
[2020-10-26] MEDS: CEFTRIAXONE 1 GM in DEXTROSE 5%-WATER - 50 ML IVPB SCH (10:25)
[2020-10-26] MEDS: LISINOPRIL 5 MG TABLET PO SCH (10:26)
[2020-10-26] MEDS: ASPIRIN COATED 81 MG TABLET.EC PO SCH (10:26)
[2020-10-26] MEDS: APIXABAN 2.5 MG TABLET PO SCH ×2 (10:26→22:17)
[2020-10-26] MEDS: ALLOPURINOL 100 MG TABLET (FP) PO SCH ×2 (10:26→22:17)
[2020-10-26] MEDS: MEGESTROL ACETATE 40 MG TABLET PO SCH (10:27)
[2020-10-26] MEDS: DUTASTERIDE 0.5 MG CAP (FP) PO SCH (10:27)
[2020-10-26] MEDS: QUEtiapine FUMARATE 25 MG TABLET PO SCH ×2 (10:28→22:17)
[2020-10-26] MEDS: POLYETHYLENE GLYCOL 3350 119 GM BTL PO SCH ×2 (10:28→22:17)
[2020-10-26] MEDS: CHOLECALCIFEROL (VIT D3) 1,000 UNIT (25 MCG) TABLET PO SCH (10:28)
[2020-10-26] MEDS: TIMOLOL 0.5% OPHTHALMIC SOL 5 ML BOTTLE OU SCH ×2 (10:30→22:17)
[2020-10-26] MEDS: hydrALAZINE HCL 10 MG TABLET PO SCH ×2 (13:31→22:33)
[2020-10-26] MEDS: DOCUSATE SODIUM 100 MG CAPSULE (FP) PO SCH ×2 (17:41→22:17)
[2020-10-26] MEDS: DONEPEZIL HCL 5 MG TABLET (FP) PO SCH (22:17)
[2020-10-26] MEDS: ATORVASTATIN CA 20 MG TABLET (FP) PO SCH (22:17)
[2020-10-27] MEDS ORDERED: SENNOSIDES 8.6MG TABLET (FP) PO PRN (03:13)
[2020-10-27] MEDS ORDERED: FAMOTIDINE 20 MG TABLET PO PRN (03:13)
[2020-10-27] MEDS: hydrALAZINE HCL 10 MG TABLET PO SCH ×3 (06:16→21:01)
[2020-10-27] MEDS ORDERED: DEXTROSE 5%-WATER - 50 ML IVPB ONE (09:13)
[2020-10-27] MEDS ORDERED: cefTRIAXone SODIUM 1 GM VIAL ONE (09:13)
[2020-10-27] MEDS ORDERED: PT OWN MED DRAWER 7, Y5N ONE (09:13)
[2020-10-27] MEDS: CEFTRIAXONE 1 GM in DEXTROSE 5%-WATER - 50 ML IVPB SCH (09:22)
[2020-10-27 09:25] LABS: BASO % 0.7 % (0-2.0); EOS % 6.3 % (0-4.5); HEMATOCRIT 39.1 % (35.4-49); HEMOGLOBIN 13.2 GM/dL (11.7-16.9); LYMPH % 26.4 % (8-40); MCH 30.7 pg (25.7-33.7); MCHC 33.8 g/dl (32.0-35.9); MEAN CELL VOLUME 90.7 fl (80-96); MEAN PLT VOLUME 8.9 fl (7.5-11.1); MONO % 7.2 % (3.8-10.2); NEUT % 59.4 % (42.8-82.8); PLATELET COUNT 185 K/MM3 (134-434); RBC 4.31 M/mm3 (4.00-5.60); RDW 15.5 % (11.9-15.9); WHITE BLOOD COUNT 5.8 K/mm3 (4.0-10.0)
[2020-10-27] MEDS: AZITHROMYCIN IVPB 500 MG/250 ML BAG IVPB SCH (09:27)
[2020-10-27] MEDS: APIXABAN 2.5 MG TABLET PO SCH ×2 (09:30→21:00)
[2020-10-27] MEDS: ASPIRIN COATED 81 MG TABLET.EC PO SCH (09:30)
[2020-10-27] MEDS: QUEtiapine FUMARATE 25 MG TABLET PO SCH (09:31)
[2020-10-27] MEDS: LISINOPRIL 5 MG TABLET PO SCH (09:31)
[2020-10-27] MEDS: ALLOPURINOL 100 MG TABLET (FP) PO SCH ×2 (09:31→21:02)
[2020-10-27] MEDS: CHOLECALCIFEROL (VIT D3) 1,000 UNIT (25 MCG) TABLET PO SCH (09:32)
[2020-10-27] MEDS: POLYETHYLENE GLYCOL 3350 119 GM BTL PO SCH ×2 (09:32→21:01)
[2020-10-27] MEDS: DUTASTERIDE 0.5 MG CAP (FP) PO SCH (09:32)
[2020-10-27] MEDS: MULTIVIT-MINERALS ORAL LIQUID PO SCH (09:32)
[2020-10-27] MEDS: TIMOLOL 0.5% OPHTHALMIC SOL 5 ML BOTTLE OU SCH ×2 (09:33→21:02)
[2020-10-27 11:24] LABS: ALBUMIN 2.7 g/dl (3.4-5.0); CALCIUM 8.5 mg/dL (8.5-10.1)
[2020-10-27 11:25] LABS: BLOOD UREA NITROGEN 24.4 mg/dL (7-18); MAGNESIUM 2.1 mg/dL (1.8-2.4)
[2020-10-27 11:28] LABS: CREATININE 2.3 mg/dL (0.55-1.3)
[2020-10-27 11:29] LABS: TOT PROT 5.6 g/dl (6.4-8.2)
[2020-10-27] MEDS: MEGESTROL ACETATE 40 MG TABLET PO SCH (11:29)
[2020-10-27 11:37] LABS: BILIRUBIN,TOTAL 1.1 mg/dL (0.2-1); POTASSIUM 3.8 mmol/L (3.5-5.1)
[2020-10-27] MEDS ORDERED: DONEPEZIL HCL 5 MG TABLET (FP) PO SCH (22:00)
[2020-10-27] MEDS ORDERED: DOCUSATE SODIUM 100 MG CAPSULE (FP) PO SCH (22:00)
[2020-10-27] MEDS ORDERED: QUEtiapine FUMARATE 25 MG TABLET PO SCH (22:00)
[2020-10-27] MEDS ORDERED: ATORVASTATIN CA 20 MG TABLET (FP) PO SCH (22:00)
[2020-10-28] MEDS: hydrALAZINE HCL 10 MG TABLET PO SCH ×2 (06:26→14:17)
[2020-10-28] MEDS ORDERED: PT OWN MED DRAWER 7, Y5N ONE ×3 (08:18→14:03)
[2020-10-28] MEDS: MEGESTROL ACETATE 40 MG TABLET PO SCH (08:21)
[2020-10-28] MEDS ORDERED: WITCH HAZEL 50% (TUCKS) 40 PAD/JAR PAD TP ONE (09:46)
[2020-10-28] MEDS ORDERED: BACITRACIN 15 GM TUBE TOPICAL OINTMENT TP SCH (10:00)
[2020-10-28] MEDS ORDERED: cefTRIAXone SODIUM 1 GM VIAL ONE (10:25)
[2020-10-28] MEDS ORDERED: DEXTROSE 5%-WATER - 50 ML IVPB ONE (10:25)
[2020-10-28] MEDS: CEFTRIAXONE 1 GM in DEXTROSE 5%-WATER - 50 ML IVPB SCH (10:35)
[2020-10-28] MEDS: DUTASTERIDE 0.5 MG CAP (FP) PO SCH (11:12)
[2020-10-28] MEDS: MULTIVIT-MINERALS ORAL LIQUID PO SCH (11:12)
[2020-10-28] MEDS: ASPIRIN COATED 81 MG TABLET.EC PO SCH (11:13)
[2020-10-28] MEDS: APIXABAN 2.5 MG TABLET PO SCH (11:13)
[2020-10-28] MEDS: QUEtiapine FUMARATE 25 MG TABLET PO SCH (11:14)
[2020-10-28] MEDS: LISINOPRIL 5 MG TABLET PO SCH (11:14)
[2020-10-28] MEDS: CHOLECALCIFEROL (VIT D3) 1,000 UNIT (25 MCG) TABLET PO SCH (11:14)
[2020-10-28] MEDS: ALLOPURINOL 100 MG TABLET (FP) PO SCH (11:14)
[2020-10-28] MEDS: POLYETHYLENE GLYCOL 3350 119 GM BTL PO SCH (11:14)
[2020-10-28] MEDS: TIMOLOL 0.5% OPHTHALMIC SOL 5 ML BOTTLE OU SCH (11:23)
[2020-10-28] MEDS: AZITHROMYCIN IVPB 500 MG/250 ML BAG IVPB SCH (11:27)
[2020-10-28 12:25] VITALS: TEMP 98.1
[2020-10-28 14:51] VITALS: BP 173/74; PULSE 65
== END 2020-10-28 07:10 | disposition home or self-care (01) | DRG 884 ==
LOC: JER 13:08 → JERBED 19:42 → J4W 10-23 03:24 → J8W 10-26 21:09
PROVIDERS: ADMIT Internal Medicine; ATTEND Nurse Practitioner Family
DX: F03.90 Unspecified dementia, unspecified severity, without behavioral disturbance, psychotic disturbance, mood disturbance, and anxiety (principal); J18.9 Pneumonia, unspecified organism; G93.41 Metabolic encephalopathy; F03.91 Unspecified dementia, unspecified severity, with behavioral disturbance; I45.2 Bifascicular block; N17.9 Acute kidney failure, unspecified; I13.0 Hypertensive heart and chronic kidney disease with heart failure and stage 1 through stage 4 chronic kidney disease, or unspecified chronic kidney disease; J98.11 Atelectasis; I50.32 Chronic diastolic (congestive) heart failure; N39.0 Urinary tract infection, site not specified; E44.0 Moderate protein-calorie malnutrition; R62.7 Adult failure to thrive; I25.10 Atherosclerotic heart disease of native coronary artery without angina pectoris; Z68.21 Body mass index [BMI] 21.0-21.9, adult; I48.91 Unspecified atrial fibrillation; I45.10 Unspecified right bundle-branch block; K59.09 Other constipation; I16.0 Hypertensive urgency; I34.0 Nonrheumatic mitral (valve) insufficiency; N18.9 Chronic kidney disease, unspecified; Z95.5 Presence of coronary angioplasty implant and graft; N40.0 Benign prostatic hyperplasia without lower urinary tract symptoms; M10.9 Gout, unspecified; H40.9 Unspecified glaucoma; E86.0 Dehydration; R80.9 Proteinuria, unspecified
CPT/HCPCS: 36415; 70450-TC; 71045-TC-FY; 71250-TC; 74176-TC; 76775-TC; 80048; 80053; 81003; 82550; 83036; 83605; 83735; 84100; 84443; 84484; 85025; 85027; 85610; 87086; 87804; 93005; 93010; 93880-TC; 97161-GP; 99285-25; C9803; J8999; U0003

== ENCOUNTER → 2021-01-01 | Emergency (ER) | payer OTHER ==
[~2021-01-01] MED LIST: ACETAMINOPHEN 1000 MG/100 ML VIAL (NON FORMULARY) IVPB ONE; ACETAMINOPHEN INJECTION 100 ML IVPB ONE; LIDOCAINE HCL 2% JELLY (5 ML/TUBE) ONE; LIDOCAINE HCL 2% JELLY 10 ML CARTRIDGE PR ONE; TAMSULOSIN HCL 0.4 MG CAP ONE; TAMSULOSIN HCL 0.4 MG CAP PO ONE
[2021-01-01 19:42] VITALS: TEMP 98.2; BMI 22.4
[2021-01-01 20:19] LABS: EPI CELLS 8 /uL (0-25.1); HYALINE CASTS 1 /uL (0-3.1); PH,URINE 5.5 (5.0-8.0); URINE APPEARANCE CLEAR; URINE BACTERIA 0 /uL (0-1359); URINE BILIRUBIN NEGATIVE (NEGATIVE); URINE COLOR YELLOW; URINE GLUCOSE (UA) TRACE (NEGATIVE); URINE KETONE NEGATIVE (NEGATIVE); URINE LEUK ESTERASE NEGATIVE (NEGATIVE); URINE NITRITE NEGATIVE (NEGATIVE); URINE PROTEIN 3+ (NEGATIVE); URINE RBC 19 /uL (0-23.9); URINE UROBILINOGEN 0.2 mg/dL (0.2-1.0); URINE WBC 2 /uL (0-25.8)
[2021-01-01 20:41] LABS: BLOOD UREA NITROGEN 31.1 mg/dL (7-18); CALCIUM 8.4 mg/dL (8.5-10.1)
[2021-01-01 20:45] LABS: CREATININE 2.4 mg/dL (0.55-1.3)
[2021-01-02 00:33] VITALS: BP 146/82; PULSE 83
== END | disposition home or self-care (01) ==
LOC: JER 18:59
PROC: 3E0333Z Introduction of Anti-inflammatory into Peripheral Vein, Percutaneous Approach (ICD-10-PCS; principal; 2021-01-01)
DX: R33.9 Retention of urine, unspecified (principal)
CPT/HCPCS: 36415; 80048; 81003; 87086; 99284-25; J0131

== ENCOUNTER 2021-01-07 19:54 | Emergency (ER) | payer OTHER ==
[2021-01-07 20:58] VITALS: TEMP 99.5; BMI 22.4
[2021-01-07 21:12] LABS: ARTERIAL BLD GAS O2 SATURATION 99.5 mmHg (95-98); ARTERIAL BLOOD GAS BASE EXCESS -2.7 mmol/L (-2-2); ARTERIAL BLOOD GAS PO2 208.2 mmHg (80-100); BASO % 0.3 % (0-2.0); EOS % 0.2 % (0-4.5); HEMATOCRIT 37.5 % (35.4-49); HEMOGLOBIN 12.4 GM/dL (11.7-16.9); LYMPH % 11.4 % (8-40); MCHC 33.2 g/dl (32.0-35.9); MEAN CELL VOLUME 90.4 fl (80-96); MEAN PLT VOLUME 8.8 fl (7.5-11.1); MONO % 5.3 % (3.8-10.2); NEUT % 82.8 % (42.8-82.8); PLATELET COUNT 241 K/MM3 (134-434); RBC 4.15 M/mm3 (4.00-5.60); RDW 14.2 % (11.9-15.9); WHITE BLOOD COUNT 6.5 K/mm3 (4.0-10.0)
[2021-01-07 21:18] LABS: INR 1.22 (0.83-1.09); PROTHROMBIN TIME (PATIENT) 14.7 SEC (9.7-13.0)
[2021-01-07 21:21] LABS: ACTIVATED PTT 35.2 SECONDS (25.2-36.5)
[2021-01-07 21:23] LABS: VENT MODE A/C; VENT RATE 18
[2021-01-07 21:30] LABS: CHLORIDE 116 mmol/L (98-107); SODIUM 148 mmol/L (136-145)
[2021-01-07 21:32] LABS: ALBUMIN 2.6 g/dl (3.4-5.0); CALCIUM 8.2 mg/dL (8.5-10.1)
[2021-01-07 21:34] LABS: ANION GAP 8 MMOL/L (8-16); BLOOD UREA NITROGEN 24.5 mg/dL (7-18); CO2 23 mmol/L (21-32); GLUCOSE,RANDOM 158 mg/dL (74-106)
[2021-01-07 21:37] LABS: BILIRUBIN,TOTAL 0.6 mg/dL (0.2-1); CREATININE 2.3 mg/dL (0.55-1.3); SGOT/AST 22 U/L (15-37); SGPT/ALT 11 U/L (13-61); TOT PROT 5.7 g/dl (6.4-8.2)
[2021-01-07 21:39] LABS: ALK PHOS 82 U/L (45-117)
[2021-01-07] MEDS ORDERED: HUM PROTHROMBIN CPLX(PCC)4FACT 1,000 UNIT/40 ML VIAL IV ONE (21:59)
[2021-01-07] MEDS ORDERED: NICARDIPINE 25 MG in DEXTROSE 5%-WATER - 240 ML IVPB SCH (22:00)
[2021-01-07 22:04] LABS: LACTIC ACID 3.2 mmol/L (0.4-2.0)
[2021-01-07] MEDS ORDERED: niCARdipine HCL 25 MG/10 ML AMPUL IVPB ONE (22:05)
[2021-01-07] MEDS ORDERED: SODIUM CHLORIDE 3% 500 ML/500 ML INFUS.BAG IV ONE (22:05)
[2021-01-07 23:11] VITALS: BP 108/59; PULSE 76
== END 2021-01-07 23:31 | disposition short-term general hospital (02) ==
LOC: JER 19:54
PROC: 3E033GC Introduction of Other Therapeutic Substance into Peripheral Vein, Percutaneous Approach (ICD-10-PCS; principal; 2021-01-07)
PROC: 3E033GC Introduction of Other Therapeutic Substance into Peripheral Vein, Percutaneous Approach (ICD-10-PCS; 2021-01-07)
PROC: 3E0337Z Introduction of Electrolytic and Water Balance Substance into Peripheral Vein, Percutaneous Approach (ICD-10-PCS; 2021-01-07)
DX: I61.4 Nontraumatic intracerebral hemorrhage in cerebellum (principal); J96.90 Respiratory failure, unspecified, unspecified whether with hypoxia or hypercapnia; N18.9 Chronic kidney disease, unspecified
CPT/HCPCS: 36415; 36600; 70450-TC; 71045-TC-FY; 80053; 82803; 83605; 83880; 84484; 85025; 85610; 85730; 86850; 86900; 86901; 87040; 87804; 93005; 93010; 99291; C9132; C9803; U0003; U0005